=== PATIENT | male | born 1950 | race Caucasian/White ===

== ENCOUNTER 2024-07-12 16:05 | Inpatient (IN) | payer MEDICARE ==
--- NOTE | 2024-07-12 17:03 | ED ---
General Adult HPI - General Chief complaint: Shortness of Breath Stated complaint: body swelling Time Seen by Provider: 07/12/24 16:15 Source: patient, family, RN notes reviewed, old records reviewed Mode of arrival: wheelchair Limitations: no limitations - History of Present Illness Initial comments: This is a 73-year-old male who presents to the emergency room after he visited with his doctor. Dr. Levi called ahead and told me the patient was coming patient has not been seen by Dr. Levi for 7 years. Patient has a history of congestive heart failure. Patient's legs are very swollen and he has multiple ulcerations on his foot and some skin tears as well. Patient states he has difficulty breathing but it is at its baseline. Patient Nuys chest pain or palpitations. Patient has fever chills. Patient Nuys any back pain. - Related Data Home Medications Medication Instructions Recorded Confirmed ALPRAZolam [Xanax] 0.25 mg PO BID PRN 05/23/16 07/11/16 Aspirin [Adult Low Dose Aspirin EC] 81 mg PO HS 05/23/16 07/11/16 Cholecalciferol [Vitamin D3 (25 4,000 unit PO DAILY 05/23/16 07/11/16 Mcg = 1000 Iu)] Glimepiride 4 mg PO AC-BID 05/23/16 07/11/16 Linagliptin [Tradjenta] 5 mg PO DAILY 05/23/16 07/11/16 Nitroglycerin Sl Tabs [Nitrostat] 0.4 mg SUBLINGUAL Q5M PRN 05/23/16 07/11/16 Rivaroxaban [Xarelto] 20 mg PO HS 05/23/16 07/11/16 Rosuvastatin [Crestor] 20 mg PO DAILY 05/23/16 07/11/16 Albuterol Inhaler [Ventolin Hfa 1 - 2 puff INHALATION RT-Q6H PRN 05/28/16 07/11/16 Inhaler] Mometasone/Formoterol [Dulera 100 2 puff INHALATION RT-BID 05/28/16 07/11/16 Mcg-5 Mcg Inhaler] Previous Rx's Medication Instructions Recorded Metoprolol Succinate (ER) [Toprol 12.5 mg PO BID #90 tab.er.24h 06/20/16 XL] Furosemide [Lasix] 40 mg PO TID #0 07/17/16 Spironolactone [Aldactone] 25 mg PO DAILY #30 tab 07/17/16 Allergies Allergy/AdvReac Type Severity Reaction Status Date / Time amiodarone Allergy Unknown Verified 07/12/24 16:13 lorazepam [From Ativan] Allergy Unknown Verified 07/12/24 16:13 mirtazapine [From Remeron] Allergy Unknown Verified 07/12/24 16:13 Review of Systems ROS Statement: Those systems with pertinent positive or pertinent negative responses have been documented in the HPI. ROS Other: All systems not noted in ROS Statement are negative. Past Medical History Past Medical History: Atrial Fibrillation, Coronary Artery Disease (CAD), Heart Failure, COPD, Diabetes Mellitus, GERD/Reflux, Hyperlipidemia, Hypertension, Myocardial Infarction (TX), Osteoarthritis (OA), Prostate Disorder Additional Past Medical History / Comment(s): THYROID NODULES-DR VILLANUEVA, STATED THEY HAVE'NT GOTTEN ANY BIGGER. STATED"IF BP IS UNDER 100 SYSTOLIC THEY DON'T GIVE lopressor or lasix; ABD HERNIA Last Myocardial Infarction Date:: March 16, 2005 History of Any Multi-Drug Resistant Organisms: None Reported Past Surgical History: Coronary Bypass/CABG, Pacemaker Additional Past Surgical History / Comment(s): Triple Bypass. Past Anesthesia/Blood Transfusion Reactions: No Reported Reaction Type of Cardiac Device: AICD Device Placement Date:: 08/07/2012 Past Psychological History: No Psychological Hx Reported Smoking Status: Former smoker Past Alcohol Use History: None Reported Past Drug Use History: None Reported - Past Family History Father Family Medical History: Congestive Heart Failure (CHF) Mother Family Medical History: COPD Son(s) Family Medical History: Seizure Disorder Daughter(s) Family Medical History: No Reported History General Exam - General Exam Comments Initial Comments: GENERAL: Patient is well-developed and well-nourished. Patient is nontoxic and well- hydrated and is in mild distress. ENT: Neck is soft and supple. No significant lymphadenopathy is noted. Oropharynx is clear. Moist mucous membranes. Neck has full range of motion without eliciting any pain. EYES: The sclera were anicteric and conjunctiva were pink and moist. Extraocular movements were intact and pupils were equal round and reactive to light. E yelids were unremarkable. PULMONARY: Patient has diminished breath sounds on the right and some crackles on the left CARDIOVASCULAR: Patient's heart rate is at about 75 bpm and it is irregular. ABDOMEN: Soft and nontender with normal bowel sounds. SKIN: Skin is clear with no lesions or rashes and otherwise unremarkable. NEUROLOGIC: Patient is alert and oriented x3. Cranial nerves II through XII are grossly intact. Motor and sensory are also intact. Normal speech, volume and content. Symmetrical smile. MUSCULOSKELETAL: Normal extremities with adequate strength and full range of motion. Patient has 2+ edema bilaterally patient has a small wound to the lateral aspect of the right leg patient has a area of blistering on top of the foot patient also has some skin tears on the upper leg. And there is a small area of breakdown on the heel. LYMPHATICS: No significant lymphadenopathy is noted PSYCHIATRIC: Normal psychiatric evaluation. Limitations: no limitations Course Vital Signs 07/12/24 07/12/24 07/12/24 16:14 16:28 17:52 Temperature 97.8 F Pulse Rate 82 70 75 Respiratory 20 24 24 Rate Blood Pressure 85/53 93/52 91/56 O2 Sat by Pulse 97 97 96 Oximetry Medical Decision Making - Medical Decision Making EKG is interpreted by myself. EKG shows atrial fibrillation with an occasional PVC at 75 bpm QRS 112 QT interval is 416 QTc is 445. Patient EKG shows no ST segment elevation. Was pt. sent in by a medical professional or institution (, PA, NUTRITION SERVICES WORKER, urgent care, hospital, or penitentiary...) When possible be specific @ -Patient was sent in by Dr. Levi Did you speak to anyone other than the patient for history (EMS, parent, family, police, friend...)? What history was obtained from this source @ -I spoke with Dr. Levi about the patient condition and his past medical history prior to the patient's arrival Did you review nursing and triage notes (agree or disagree)? Why? @ -I reviewed and agree with nursing and triage notes Were old charts reviewed (outside hosp., previous admission, EMS record, old EKG , old radiological studies, urgent care reports/EKG's, penitentiary records)? Report findings @ -No old charts were reviewed Differential Diagnosis? @ -Differential dyspnea EKG interpreted by me (3pts min.). @ -As above X-rays interpreted by me (1pt min.). @ -Chest x-ray is consistent with pulmonary edema CT interpreted by me (1pt min.). @ -None done U/S interpreted by me (1pt. min.). @ -None done What testing was considered but not performed or refused? (CT, X-rays, U/S, labs)? Why? @ -None What meds were considered but not given or refused? Why? @ -None Did you discuss the management of the patient with other professionals (professionals i.e. Dr., PA, NUTRITION SERVICES WORKER, lab, RT, psych nurse, protective services social worker, volcanologist, teacher, food safety officer, outpatient case manager)? Give summary @ -I spoke with Dr. Levi and he agreed to admit the patient. Was smoking cessation discussed for >3mins.? @ -No Was critical care preformed (if so, how long)? @ -5 minutes Were there social determinants of health that impacted care today? How? (Homelessness, low income, unemployed, alcoholism, drug addiction, transportation, low edu. Level, literacy, decrease access to med. care, assisted, rehab)? @ -No Was there de-escalation of care discussed even if they declined (Discuss DNR or withdrawal of care, Hospice)? DNR status @ -No What co-morbidities impacted this encounter? (DM, HTN, Smoking, COPD, CAD, Cancer, CVA, ARF, Chemo, Hep., AIDS, mental health diagnosis, sleep apnea, morbid obesity)? @ -None Was patient admitted / discharged? Hospital course, mention meds given and route, prescriptions, significant lab abnormalities, going to OR and other pertinent info. @ -Patient received Lasix in the emergency department. Patient's potassium was 6.5 patient received insulin D50 bicarb calcium chloride and Lokelma. Patient will be admitted to Dr. Levi with a consult to the wound center Undiagnosed new problem with uncertain prognosis? @ -No Drug Therapy requiring intensive monitoring for toxicity (Heparin, Nitro, Insulin, Cardizem)? @ -No Were any procedures done? @ -No Diagnosis/symptom? @ -Acute pulmonary edema Acute, or Chronic, or Acute on Chronic? @ -Acute Uncomplicated (without systemic symptoms) or Complicated (systemic symptoms)? @ -Complicated Side effects of treatment? @ -No Exacerbation, Progression, or Severe Exacerbation? @ -No Poses a threat to life or bodily function? How? (Chest pain, [place], [place], pneumonia, PE, COPD, DKA, ARF, appy, cholecystitis, CVA, Diverticulitis, Homicidal, Suicidal, threat to staff... and all critical care pts) @ -Yes this can lead to further dyspnea and hypoxia and endorgan dysfunction Diagnosis/symptom? @ -Hyperkalemia Acute, or Chronic, or Acute on Chronic? @ -Acute Uncomplicated (without systemic symptoms) or Complicated (systemic symptoms)? @ -Complicate Side effects of treatment? @ -None Exacerbation, Progression, or Severe Exacerbation] @ -No Poses a threat to life or bodily function? @ -Yes this can lead to an arrhythmia and possible Diagnosis/symptom? @ -Hyponatremia Acute, or Chronic, or Acute on Chronic? @ -Acute Uncomplicated (without systemic symptoms) or Complicated (systemic symptoms)? @ -Complicated Side effects of treatment? @ -None Exacerbation, Progression, or Severe Exacerbation] @ -No Poses a threat to life or bodily function? @ -No Diagnosis/symptom? @ -Cellulitis foot Acute, or Chronic, or Acute on Chronic? @ -Acute Uncomplicated (without systemic symptoms) or Complicated (systemic symptoms)? @ -Complicated Side effects of treatment? @ -None Exacerbation, Progression, or Severe Exacerbation] @ -No Poses a threat to life or bodily function? @ -No - Lab Data Result diagrams: 07/12/24 17:39 07/12/24 18:30 Lab Results 07/12/24 07/12/24 07/12/24 Range/Units 17:39 17:39 17:39 WBC 10.4 (3.8-10.6) k/uL RBC 4.52 (4.30-5.90) m/uL Hgb 10.8 L (13.0-17.5) gm/dL Hct 35.1 L (39.0-53.0) % MCV 77.7 L (80.0-100.0) fL MCH 23.9 L (25.0-35.0) pg MCHC 30.8 L (31.0-37.0) g/dL RDW 16.3 H (11.5-15.5) % Plt Count 302 (150-450) k/uL MPV 8.3 Neutrophils % 81 % Lymphocytes % 8 % Monocytes % 9 % Eosinophils % 1 % Basophils % 0 % Neutrophils # 8.4 H (1.3-7.7) k/uL Lymphocytes # 0.8 L (1.0-4.8) k/uL Monocytes # 0.9 (0-1.0) k/uL Eosinophils # 0.1 (0-0.7) k/uL Basophils # 0.0 (0-0.2) k/uL Hypochromasia Slight Anisocytosis Slight Microcytosis Slight PT 13.3 H (10.0-12.5) sec INR 1.3 H (<1.2) APTT 29.6 (22.0-30.0) sec Sodium 123 L (137-145) mmol/L Potassium 6.5 H* (3.5-5.1) mmol/L Chloride 95 L (98-107) mmol/L Carbon Dioxide 20 L (22-30) mmol/L Anion Gap 8 mmol/L BUN 58 H (9-20) mg/dL Creatinine 1.32 H (0.66-1.25) mg/dL Est GFR (CKD-EPI)AfAm 62 (>60 ml/min/1.73 sqM) Est GFR (CKD-EPI)NonAf 54 (>60 ml/min/1.73 sqM) Glucose 107 H (74-99) mg/dL POC Glucose (mg/dL) (70-110) mg/dL POC Glu Assistant Professor [employer] Plasma Lactic Acid Ford (0.7-2.0) mmol/L Calcium 8.7 (8.4-10.2) mg/dL Magnesium 2.4 H (1.6-2.3) mg/dL Total Bilirubin 1.1 (0.2-1.3) mg/dL AST 41 (17-59) U/L ALT 41 (4-49) U/L Alkaline Phosphatase 260 H (38-126) U/L Troponin I (0.000-0.034) ng/mL NT-Pro-B Natriuret Pep 5940 pg/mL Total Protein 6.1 L (6.3-8.2) g/dL Albumin 3.0 L (3.5-5.0) g/dL 07/12/24 07/12/24 07/12/24 Range/Units 17:39 17:39 18:30 WBC (3.8-10.6) k/uL RBC (4.30-5.90) m/uL Hgb (13.0-17.5) gm/dL Hct (39.0-53.0) % MCV (80.0-100.0) fL MCH (25.0-35.0) pg MCHC (31.0-37.0) g/dL RDW (11.5-15.5) % Plt Count (150-450) k/uL MPV Neutrophils % % Lymphocytes % % Monocytes % % Eosinophils % % Basophils % % Neutrophils # (1.3-7.7) k/uL Lymphocytes # (1.0-4.8) k/uL Monocytes # (0-1.0) k/uL Eosinophils # (0-0.7) k/uL Basophils # (0-0.2) k/uL Hypochromasia Anisocytosis Microcytosis PT (10.0-12.5) sec INR (<1.2) APTT (22.0-30.0) sec Sodium (137-145) mmol/L Potassium 6.2 H* (3.5-5.1) mmol/L Chloride (98-107) mmol/L Carbon Dioxide (22-30) mmol/L Anion Gap mmol/L BUN (9-20) mg/dL Creatinine (0.66-1.25) mg/dL Est GFR (CKD-EPI)AfAm (>60 ml/min/1.73 sqM) Est GFR (CKD-EPI)NonAf (>60 ml/min/1.73 sqM) Glucose (74-99) mg/dL POC Glucose (mg/dL) (70-110) mg/dL POC Glu Assistant Professor [employer] Plasma Lactic Acid Ford 1.2 (0.7-2.0) mmol/L Calcium (8.4-10.2) mg/dL Magnesium (1.6-2.3) mg/dL Total Bilirubin (0.2-1.3) mg/dL AST (17-59) U/L ALT (4-49) U/L Alkaline Phosphatase (38-126) U/L Troponin I <0.012 (0.000-0.034) ng/mL NT-Pro-B Natriuret Pep pg/mL Total Protein (6.3-8.2) g/dL Albumin (3.5-5.0) g/dL 10/31/24 Range/Units 19:30 WBC (3.8-10.6) k/uL RBC (4.30-5.90) m/uL Hgb (13.0-17.5) gm/dL Hct (39.0-53.0) % MCV (80.0-100.0) fL MCH (25.0-35.0) pg MCHC (31.0-37.0) g/dL RDW (11.5-15.5) % Plt Count (150-450) k/uL MPV Neutrophils % % Lymphocytes % % Monocytes % % Eosinophils % % Basophils % % Neutrophils # (1.3-7.7) k/uL Lymphocytes # (1.0-4.8) k/uL Monocytes # (0-1.0) k/uL Eosinophils # (0-0.7) k/uL Basophils # (0-0.2) k/uL Hypochromasia Anisocytosis Microcytosis PT (10.0-12.5) sec INR (<1.2) APTT (22.0-30.0) sec Sodium (137-145) mmol/L Potassium (3.5-5.1) mmol/L Chloride (98-107) mmol/L Carbon Dioxide (22-30) mmol/L Anion Gap mmol/L BUN (9-20) mg/dL Creatinine (0.66-1.25) mg/dL Est GFR (CKD-EPI)AfAm (>60 ml/min/1.73 sqM) Est GFR (CKD-EPI)NonAf (>60 ml/min/1.73 sqM) Glucose (74-99) mg/dL POC Glucose (mg/dL) 112 H (70-110) mg/dL POC Glu Assistant Professor [employer] aShil Carballo Plasma Lactic Acid Ford (0.7-2.0) mmol/L Calcium (8.4-10.2) mg/dL Magnesium (1.6-2.3) mg/dL Total Bilirubin (0.2-1.3) mg/dL AST (17-59) U/L ALT (4-49) U/L Alkaline Phosphatase (38-126) U/L Troponin I (0.000-0.034) ng/mL NT-Pro-B Natriuret Pep pg/mL Total Protein (6.3-8.2) g/dL Albumin (3.5-5.0) g/dL Disposition Clinical Impression: Hyponatremia, Hyperkalemia, Acute pulmonary edema, Cellulitis of foot Disposition: ADMITTED IP TO THIS HOSP Referrals: Loretta Levi MD [Primary Care Provider] - 1-2 days Time of Disposition: 19:53
[2024-07-12] MEDS: cefTRIAXone IN SWFI 1,000 MG/10 ML SYRINGE IVP STA (17:45)
[2024-07-12 17:58] LABS: Anisocytosis Slight; Basophils % (A) 0 %; Eosinophils # (A) 0.1 k/uL (0-0.7); Eosinophils % (A) 1 %; HCT 35.1 % (39.0-53.0); HGB 10.8 gm/dL (13.0-17.5); Hypochromasia Slight; Lymphocytes # (A) 0.8 k/uL (1.0-4.8); Lymphocytes % (A) 8 %; MCH 23.9 pg (25.0-35.0); MCHC 30.8 g/dL (31.0-37.0); MCV 77.7 fL (80.0-100.0); Mean Platelet Volume 8.3; Microcytosis Slight; Monocytes # (A) 0.9 k/uL (0-1.0); Monocytes % (A) 9 %; Neutrophils # (A) 8.4 k/uL (1.3-7.7); Neutrophils % (A) 81 %; Platelet Count 302 k/uL (150-450); RBC 4.52 m/uL (4.30-5.90); RDW 16.3 % (11.5-15.5); WBC 10.4 k/uL (3.8-10.6)
[2024-07-12] MEDS: FUROSEMIDE 10 MG/ML 4 ML VIAL IV STA (18:02)
[2024-07-12 18:07] LABS: INR 1.3 (<1.2); Partial Thromboplastin Time 29.6 sec (22.0-30.0); Prothrombin Time 13.3 sec (10.0-12.5)
[2024-07-12 18:11] LABS: ALT 41 U/L (4-49); AST 41 U/L (17-59); African American GFR (CKD) 62 (>60 ml/min/1.73 sqM); Alkaline Phosphatase 260 U/L (38-126); Anion Gap 8 mmol/L; Blood Urea Nitrogen 58 mg/dL (9-20); Calcium 8.7 mg/dL (8.4-10.2); Carbon Dioxide 20 mmol/L (22-30); Chloride 95 mmol/L (98-107); Glucose 107 mg/dL (74-99); Magnesium 2.4 mg/dL (1.6-2.3); Non-African American GFR(CKD) 54 (>60 ml/min/1.73 sqM); Sodium 123 mmol/L (137-145); Total Bilirubin 1.1 mg/dL (0.2-1.3); Total Protein 6.1 g/dL (6.3-8.2)
[2024-07-12 18:17] LABS: Potassium 6.5 mmol/L (3.5-5.1)
[2024-07-12 18:20] LABS: NT-Pro-B-Type Natriuretic Pept 5940 pg/mL
--- NOTE | 2024-07-12 18:46 | XR ---
EXAMINATION TYPE: XR foot limited RT DATE OF EXAM: 07/12/2024 COMPARISON: None HISTORY: Pain after twisting foot TECHNIQUE: 2 view right foot FINDINGS: Some mild degenerative joint change may be within the first digit. Soft tissue swelling ove r the dorsum of the foot. Small plantar calcaneal heel spur is present. Vascular calcification is pre sent. No acute fractures or dislocations evident. Follow-up study can be performed 7-10 days from acute tra paolo for continued pain. IMPRESSION: 1. Soft tissue swelling over the dorsum of foot. 2. No acute osseous abnormality. [facility], Workstation: [facility], 07/12/2024 6:44 PM
--- NOTE | 2024-07-12 18:49 | XR ---
EXAMINATION TYPE: XR chest 2V DATE OF EXAM: 07/12/2024 COMPARISON: 07/15/2016 INDICATION: Difficulty breathing, fluid overload TECHNIQUE: Frontal and lateral views of the chest are obtained. FINDINGS: The heart size is enlarged. The pulmonary vasculature is prominent. Mild diffuse increased lung markings are present greater at the lung bases. Pacemaker overlies left c hest. Sternotomy wires are in the midline.. IMPRESSION: 1. Diffuse increased lung markings with enlarged heart and prominent pulmonary vascular markings can be compatible with congestive heart failure. Clinical correlation recommended. Follow-up can be perfo rmed. [facility], Workstation: [facility], 07/12/2024 6:47 PM
[2024-07-12 19:31] LABS: Glucose,Whole Blood 112 mg/dL (70-110)
[2024-07-12] MEDS: SODIUM BICARB 8.4% 50 ML SYR (1 MEQ/ML) IV STA (19:31)
[2024-07-12] MEDS: DEXTROSE 50% SYRINGE 50 ML IVP STA (19:33)
[2024-07-12] MEDS: INSULIN REGULAR 100 UNIT/ML VIAL (IV) IV ONE (19:35)
[2024-07-12] MEDS: SODIUM ZIRCONIUM CYCLOSILICATE 10 GM PACKET PO ONE (19:41)
[2024-07-12] MEDS: CALCIUM CHLORIDE 100 MG/ML 10 ML SYRINGE IVP STA (19:43)
[2024-07-12] MEDS: AMPICILLIN-SULBACTAM 3 GM in SODIUM CHLORIDE 0.9% 100 ML IVPB STA (20:27)
[2024-07-13] MEDS: NITROGLYCERIN OINT 1 INCH/GM PACKET TOPICAL SCH (02:52)
[2024-07-13] MEDS: AMPICILLIN-SULBACTAM 3 GM in SODIUM CHLORIDE 0.9% 100 ML IVPB SCH ×2 (02:52→02:53)
[2024-07-13 08:19] LABS: HCT 37.7 % (39.0-53.0); HGB 11.6 gm/dL (13.0-17.5); Hypochromasia Moderate; MCH 24.5 pg (25.0-35.0); MCHC 30.8 g/dL (31.0-37.0); MCV 79.6 fL (80.0-100.0); Mean Platelet Volume 7.8; Platelet Count 262 k/uL (150-450); RBC 4.73 m/uL (4.30-5.90)
[2024-07-13 08:20] LABS: African American GFR (CKD) 65 (>60 ml/min/1.73 sqM); Anion Gap 11 mmol/L; Blood Urea Nitrogen 53 mg/dL (9-20); Carbon Dioxide 21 mmol/L (22-30); Chloride 95 mmol/L (98-107); Glucose 72 mg/dL (74-99); Non-African American GFR(CKD) 57 (>60 ml/min/1.73 sqM); Potassium 5.8 mmol/L (3.5-5.1); Sodium 127 mmol/L (137-145)
--- NOTE | 2024-07-13 10:53 | P.CONS ---
History of Present Illness - Reason for Consult Consult date: 07/13/24 wound care - History of Present Illness This is a 73-year-old patient being seen in the emergency room for nonhealing ulcerations to the right ankle right knee and right anterior lower extremity, left knee and left hand. Family states that the patient had fallen resulting in multiple skin tears. Patient was usually triple antibiotic ointment and adhesive for treatment. The adhesive caused additional ulcerations. Patient does have edema noted to bilateral lower extremities with blistering noted to the right dorsal foot. Ulcerations have fat layer exposed with slough and nonviable tissue minimal granulation seen within the wound beds. Patient's past medical history significant for atrial fibrillation, coronary artery disease, heart failure, COPD, diabetes, GERD, hyperlipidemia mouth, hypertension, NC, osteoarthritis. Review Of Systems: Constitutional: No fever, no chills, no night sweats. No weight change. No weakness, fatigue or lethargy. No daytime sleepiness. Integumentary:reports wounds, no lesions. No rash or pruritus. No unusual bruising. No change in hair or nails. Physical exam: General Appearance: Alert, cooperative, no distress, appears stated age. Skin: See HPI all other Skin color, texture, tugor normal, no rashes or lesions. Neurologic: Alert oriented x3 Assessment: 1. Nonhealing ulceration right foot with fat layer exposure 2. Nonhealing ulceration right lower extremity with fat layer exposure 3. Nonhealing ulceration left lower extremity fat layer exposure 4. Nonhealing ulceration with fat layer exposure other site 5. Diabetes with skin ulceration Plan: 1. Apply zinc barrier cream to left hand ulceration daily and as needed. Right lower extremity right knee right foot apply honey gel dry gauze rolled gauze and secure with paper tape. Wrap with Klever wrap for compression. Left knee apply honey gel and bordered foam. Change lower extremity dressings Tuesday. Thank you for the consultation any questions please contact the wound care center DNP note has been reviewed and discussed with Dr. Lamar and the impression and plan of care has been directed as dictated. Past Medical History Past Medical History: Atrial Fibrillation, Coronary Artery Disease (CAD), Heart Failure, COPD, Diabetes Mellitus, GERD/Reflux, Hyperlipidemia, Hypertension, Myocardial Infarction (NC), Osteoarthritis (OA), Prostate Disorder Additional Past Medical History / Comment(s): THYROID NODULES-DR VILLANUEVA, STATED THEY HAVE'NT GOTTEN ANY BIGGER. STATED"IF BP IS UNDER 100 SYSTOLIC THEY DON'T GIVE lopressor or lasix; ABD HERNIA Last Myocardial Infarction Date:: March 16, 2005 History of Any Multi-Drug Resistant Organisms: None Reported Past Surgical History: Coronary Bypass/CABG, Pacemaker Additional Past Surgical History / Comment(s): Triple Bypass. Past Anesthesia/Blood Transfusion Reactions: No Reported Reaction Type of Cardiac Device: AICD Device Placement Date:: 08/07/2012 Past Psychological History: No Psychological Hx Reported Smoking Status: Former smoker Past Alcohol Use History: None Reported Past Drug Use History: None Reported - Past Family History Father Family Medical History: Congestive Heart Failure (CHF) Mother Family Medical History: COPD Son(s) Family Medical History: Seizure Disorder Daughter(s) Family Medical History: No Reported History Medications and Allergies Home Medications Medication Instructions Recorded Confirmed Type ALPRAZolam [Xanax] 0.25 mg PO BID 05/23/16 07/13/24 History Aspirin [Adult Low Dose Aspirin EC] 81 mg PO DAILY 05/23/16 07/13/24 History Nitroglycerin Sl Tabs [Nitrostat] 0.4 mg SUBLINGUAL Q5M PRN 05/23/16 07/13/24 History Spironolactone [Aldactone] 25 mg PO DAILY #30 tab 07/17/16 07/13/24 Rx Cholecalciferol [Vitamin D3 (125 125 mcg PO DAILY 07/13/24 07/13/24 History Mcg = 5000 Iu)] Furosemide [Lasix] 80 mg PO BID 07/13/24 07/13/24 History Loratadine [Claritin] 10 mg PO DAILY 07/13/24 07/13/24 History Magnesium Oxide [Magnesium] 500 mg PO BID 07/13/24 07/13/24 History Metoprolol Succinate (ER) [Toprol 25 mg PO BID 07/13/24 07/13/24 History Xl] Rosuvastatin Calcium [Crestor] 40 mg PO DAILY 07/13/24 07/13/24 History guaiFENesin [Mucinex] 600 mg PO TID 07/13/24 07/13/24 History lisinopriL [Zestril] 2.5 mg PO DAILY 07/13/24 07/13/24 History Allergies Allergy/AdvReac Type Severity Reaction Status Date / Time amiodarone Allergy Unknown Verified 07/13/24 09:26 lorazepam [From Ativan] Allergy Unknown Verified 07/13/24 09:26 mirtazapine [From Remeron] Allergy Unknown Verified 07/13/24 09:26 Physical Exam Vitals: Vital Signs Temp Pulse Resp BP Pulse Ox 07/13/24 08:47 79 20 79/51 97 07/13/24 07:37 76 18 90/60 100 07/13/24 05:00 72 18 82/67 100 07/13/24 03:00 65 18 84/58 100 07/13/24 00:06 72 18 92/49 94 L 07/12/24 23:00 81 18 82/42 95 07/12/24 21:53 20 07/12/24 20:00 89 21 98/61 100 07/12/24 19:44 83 16 98/61 98 07/12/24 17:52 75 24 91/56 96 07/12/24 16:28 70 24 93/52 97 07/12/24 16:14 97.8 F 82 20 85/53 97 Intake and Output 07/12/24 07/13/24 07/13/24 22:59 06:59 14:59 Output Total 1600 Balance -1600 Output: Urine 1600 Other: Weight 90.718 kg Results CBC & Chem 7: 07/13/24 07:43 07/13/24 07:43 Labs: Abnormal Lab Results - Last 24 Hours (Table) 07/12/24 07/12/24 07/12/24 Range/Units 17:39 17:39 17:39 WBC (3.8-10.6) k/uL Hgb 10.8 L (13.0-17.5) gm/dL Hct 35.1 L (39.0-53.0) % MCV 77.7 L (80.0-100.0) fL MCH 23.9 L (25.0-35.0) pg MCHC 30.8 L (31.0-37.0) g/dL RDW 16.3 H (11.5-15.5) % Neutrophils # 8.4 H (1.3-7.7) k/uL Lymphocytes # 0.8 L (1.0-4.8) k/uL PT 13.3 H (10.0-12.5) sec INR 1.3 H (<1.2) Sodium 123 L (137-145) mmol/L Potassium 6.5 H* (3.5-5.1) mmol/L Chloride 95 L (98-107) mmol/L Carbon Dioxide 20 L (22-30) mmol/L BUN 58 H (9-20) mg/dL Creatinine 1.32 H (0.66-1.25) mg/dL Glucose 107 H (74-99) mg/dL POC Glucose (mg/dL) (70-110) mg/dL Magnesium 2.4 H (1.6-2.3) mg/dL Alkaline Phosphatase 260 H (38-126) U/L Total Protein 6.1 L (6.3-8.2) g/dL Albumin 3.0 L (3.5-5.0) g/dL 07/12/24 07/12/24 07/12/24 Range/Units 18:30 19:30 20:38 WBC (3.8-10.6) k/uL Hgb (13.0-17.5) gm/dL Hct (39.0-53.0) % MCV (80.0-100.0) fL MCH (25.0-35.0) pg MCHC (31.0-37.0) g/dL RDW (11.5-15.5) % Neutrophils # (1.3-7.7) k/uL Lymphocytes # (1.0-4.8) k/uL PT (10.0-12.5) sec INR (<1.2) Sodium (137-145) mmol/L Potassium 6.2 H* 6.0 H (3.5-5.1) mmol/L Chloride (98-107) mmol/L Carbon Dioxide (22-30) mmol/L BUN (9-20) mg/dL Creatinine (0.66-1.25) mg/dL Glucose (74-99) mg/dL POC Glucose (mg/dL) 112 H (70-110) mg/dL Magnesium (1.6-2.3) mg/dL Alkaline Phosphatase (38-126) U/L Total Protein (6.3-8.2) g/dL Albumin (3.5-5.0) g/dL 07/13/24 07/13/24 Range/Units 07:43 07:43 WBC 18.0 H (3.8-10.6) k/uL Hgb 11.6 L (13.0-17.5) gm/dL Hct 37.7 L (39.0-53.0) % MCV 79.6 L (80.0-100.0) fL MCH 24.5 L (25.0-35.0) pg MCHC 30.8 L (31.0-37.0) g/dL RDW 16.0 H (11.5-15.5) % Neutrophils # (1.3-7.7) k/uL Lymphocytes # (1.0-4.8) k/uL PT (10.0-12.5) sec INR (<1.2) Sodium 127 L (137-145) mmol/L Potassium 5.8 H (3.5-5.1) mmol/L Chloride 95 L (98-107) mmol/L Carbon Dioxide 21 L (22-30) mmol/L BUN 53 H (9-20) mg/dL Creatinine 1.26 H (0.66-1.25) mg/dL Glucose 72 L (74-99) mg/dL POC Glucose (mg/dL) (70-110) mg/dL Magnesium (1.6-2.3) mg/dL Alkaline Phosphatase (38-126) U/L Total Protein (6.3-8.2) g/dL Albumin (3.5-5.0) g/dL Assessment and Plan (1) Non-pressure chronic ulcer of right ankle with fat layer exposed Current Visit: Yes Status: Acute Code(s): L97.312 - NON-PRS CHRONIC ULCER OF RIGHT ANKLE W FAT LAYER EXPOSED SNOMED Code(s): 99029557250846458 (2) Non-pressure chronic ulcer of right lower leg with fat layer exposed Current Visit: Yes Status: Acute Code(s): L97.912 - NON-PRS CHR ULC UNSP PRT OF R LOW LEG W FAT LAYER EXPOSED SNOMED Code(s): 08647805437482671 (3) Non-pressure chronic ulcer of other part of right lower leg with fat layer exposed Current Visit: Yes Status: Acute Code(s): L97.812 - NON-PRS CHRONIC ULCER OTH PRT R LOW LEG W FAT LAYER EXPOSED SNOMED Code(s): 09352296240092861 (4) Non-pressure chronic ulcer of other part of left lower leg with fat layer exposed Current Visit: Yes Status: Acute Code(s): L97.822 - NON-PRS CHRONIC ULCER OTH PRT L LOW LEG W FAT LAYER EXPOSED SNOMED Code(s): 50654569703805833 (5) Non-pressure chronic ulcer of skin of other sites with fat layer exposed Current Visit: Yes Status: Acute Code(s): L98.492 - NON-PRS CHRONIC ULCER OF SKIN OF SITES W FAT LAYER EXPOSED SNOMED Code(s): 71868528 (6) Type 2 diabetes mellitus with other skin ulcer Current Visit: Yes Status: Acute Code(s): E11.622 - TYPE 2 DIABETES MELLITUS WITH OTHER SKIN ULCER; L98.499 - NON-PRESSURE CHRONIC ULCER OF SKIN OF SITES W UNSP SEVERITY SNOMED Code(s): 126731560225835
[2024-07-13] MEDS: ASPIRIN 81 MG PO SCH (10:56)
[2024-07-13] MEDS: ALPRAZolam 0.25 MG TAB PO SCH (10:56)
[2024-07-13] MEDS: FUROSEMIDE 80 MG TAB PO SCH (11:11)
[2024-07-13] MEDS: SPIRONOLACTONE 25 MG TAB PO SCH (11:12)
[2024-07-13] MEDS: METOPROLOL SUCCINATE (ER) 25 MG TAB.ER.24H PO SCH ×2 (11:12→20:53)
--- NOTE | 2024-07-13 15:12 | P.CNPUL ---
History of Present Illness Consult date: 07/13/24 Requesting physician: Loretta Levi Reason for consult: dyspnea, hypoxemia, abnormal CXR/CT Chief complaint: Congestive heart failure, atrial fibrillation. History of present illness: Pulmonary consult dated July 13, 2024. 73-year-old male with history of multiple medical problems including congestive heart failure, and atrial fibrillation. The patient was sent into the hospital, by his primary care physician. The patient came in with complaints of lower extremity edema, shortness of breath, ulcerations on his foot, and weakness. The patient was seen in the emergency room, ER #3. We were consulted because the patient has been hypotensive, since being in the emergency department. N orepinephrine has not yet been started. Cardiac medications have been held. In addition to atrial fibrillation, the patient has a history of myocardial infarction, coronary disease, congestive heart failure, diabetes, GERD, hyperlipidemia, hypertension, osteoarthritis, and previous bypass surgery. The patient apparently was at [facility] many years ago, on a ventilator, and was apparently on hospice, but has done well over the last 7 or 8 years. The patient does have a history of AICD placement, and previous tobacco use. Currently, he is on CPAP, at between 8 to 12 cm of water. He is not receiving any IV fluids. We did talk to the patient about CODE STATUS and he stated that he would not want to be on life support. His agreed with that. White count is 18, hemoglobin 11.6, hematocrit 37.7, platelet count of 262,000. Sodium 127, potassium 5.8, chloride 95, CO2 21, anion gap is 11, BUN 53, creatinine is 1.26. His N-terminal proBNP was 5940. His troponin was less than 0.012. Chest x-ray was consistent with CHF. Review of Systems REVIEW OF SYSTEMS: CONSTITUTIONAL: Weakness. NEUROLOGIC: [ Negative.] HEENT: [ Negative.] CARDIAC: Lower extremity edema. PULMONARY: Shortness of breath. GI: [Negative.] : [Negative.] RHEUMATOLOGIC: [ Negative.] IMMUNOLOGIC: [ Negative.] ENDOCRINE: [Negative. ] DERMATOLOGIC: [Negative.] Past Medical History Past Medical History: Atrial Fibrillation, Coronary Artery Disease (CAD), Heart Failure, COPD, Diabetes Mellitus, GERD/Reflux, Hyperlipidemia, Hypertension, Myocardial Infarction (ND), Osteoarthritis (OA), Prostate Disorder Additional Past Medical History / Comment(s): THYROID NODULES-DR VILLANUEVA, STATED THEY HAVE'NT GOTTEN ANY BIGGER. STATED"IF BP IS UNDER 100 SYSTOLIC THEY DON'T GIVE lopressor or lasix; ABD HERNIA Last Myocardial Infarction Date:: March 16, 2005 History of Any Multi-Drug Resistant Organisms: None Reported Past Surgical History: Coronary Bypass/CABG, Pacemaker Additional Past Surgical History / Comment(s): Triple Bypass. Past Anesthesia/Blood Transfusion Reactions: No Reported Reaction Type of Cardiac Device: AICD Device Placement Date:: 08/07/2012 Past Psychological History: No Psychological Hx Reported Smoking Status: Former smoker Past Alcohol Use History: None Reported Past Drug Use History: None Reported - Past Family History Father Family Medical History: Congestive Heart Failure (CHF) Mother Family Medical History: COPD Son(s) Family Medical History: Seizure Disorder Daughter(s) Family Medical History: No Reported History Medications and Allergies Home Medications Medication Instructions Recorded Confirmed Type ALPRAZolam [Xanax] 0.25 mg PO BID 05/23/16 07/13/24 History Aspirin [Adult Low Dose Aspirin EC] 81 mg PO DAILY 05/23/16 07/13/24 History Nitroglycerin Sl Tabs [Nitrostat] 0.4 mg SUBLINGUAL Q5M PRN 05/23/16 07/13/24 History Spironolactone [Aldactone] 25 mg PO DAILY #30 tab 07/17/16 07/13/24 Rx Cholecalciferol [Vitamin D3 (125 125 mcg PO DAILY 07/13/24 07/13/24 History Mcg = 5000 Iu)] Furosemide [Lasix] 80 mg PO BID 07/13/24 07/13/24 History Loratadine [Claritin] 10 mg PO DAILY 07/13/24 07/13/24 History Magnesium Oxide [Magnesium] 500 mg PO BID 07/13/24 07/13/24 History Metoprolol Succinate (ER) [Toprol 25 mg PO BID 07/13/24 07/13/24 History Xl] Rosuvastatin Calcium [Crestor] 40 mg PO DAILY 07/13/24 07/13/24 History guaiFENesin [Mucinex] 600 mg PO TID 07/13/24 07/13/24 History lisinopriL [Zestril] 2.5 mg PO DAILY 07/13/24 07/13/24 History Allergies Allergy/AdvReac Type Severity Reaction Status Date / Time amiodarone Allergy Unknown Verified 07/13/24 09:26 lorazepam [From Ativan] Allergy Unknown Verified 07/13/24 09:26 mirtazapine [From Remeron] Allergy Unknown Verified 07/13/24 09:26 Physical Exam Osteopathic Statement: *. No significant issues noted on an osteopathic structural exam other than those noted in the History and Physical/Consult. Vitals: Vital Signs Temp Pulse Resp BP Pulse Ox 07/13/24 14:17 76 18 91/55 98 07/13/24 13:51 79 18 79/39 96 07/13/24 12:52 69 18 81/36 97 07/13/24 11:17 80 20 86/46 100 07/13/24 08:47 79 20 79/51 97 07/13/24 07:37 76 18 90/60 100 07/13/24 05:00 72 18 82/67 100 07/13/24 03:00 65 18 84/58 100 07/13/24 00:06 72 18 92/49 94 L 07/12/24 23:00 81 18 82/42 95 07/12/24 21:53 20 07/12/24 20:00 89 21 98/61 100 07/12/24 19:44 83 16 98/61 98 07/12/24 17:52 75 24 91/56 96 07/12/24 16:28 70 24 93/52 97 07/12/24 16:14 97.8 F 82 20 85/53 97 Intake and Output 07/13/24 07/13/24 07/13/24 06:59 14:59 22:59 Output Total 1600 Balance -1600 Output: Urine 1600 No acute distress, bit lethargic, but does arouse, currently on home CPAP. HEENT examination is grossly unremarkable. Neck supple. Full range of motion. No adenopathy thyromegaly or neck vein distention. Cardiovascular examination reveals an irregular rhythm and rate. S1-S2 normal. No S3 or S4. A systolic murmur is noted, grade 2/6. Heart rate 83 bpm. Lungs reveal scattered rhonchi and crackles. Breath sounds equal. No wheezes. Abdomen soft bowel sounds are heard. No masses or tenderness. Extremities are intact. No cyanosis or clubbing. 1+ edema is noted. Skin is without rash or lesion. Neurologic examination is brief but nonfocal. Results - Laboratory Findings CBC and BMP: 07/13/24 07:43 07/13/24 07:43 PT/INR, D-dimer PT 13.3 sec (10.0-12.5) H 07/12/24 17:39 INR 1.3 (<1.2) H 07/12/24 17:39 Abnormal lab findings: Abnormal Labs 07/12/24 07/12/24 07/12/24 17:39 17:39 17:39 WBC Hgb 10.8 L Hct 35.1 L MCV 77.7 L MCH 23.9 L MCHC 30.8 L RDW 16.3 H Neutrophils # 8.4 H Lymphocytes # 0.8 L PT 13.3 H INR 1.3 H Sodium 123 L Potassium 6.5 H* Chloride 95 L Carbon Dioxide 20 L BUN 58 H Creatinine 1.32 H Glucose 107 H POC Glucose (mg/dL) Magnesium 2.4 H Alkaline Phosphatase 260 H Total Protein 6.1 L Albumin 3.0 L 07/12/24 07/12/24 07/12/24 18:30 19:30 20:38 WBC Hgb Hct MCV MCH MCHC RDW Neutrophils # Lymphocytes # PT INR Sodium Potassium 6.2 H* 6.0 H Chloride Carbon Dioxide BUN Creatinine Glucose POC Glucose (mg/dL) 112 H Magnesium Alkaline Phosphatase Total Protein Albumin 07/13/24 07/13/24 07:43 07:43 WBC 18.0 H Hgb 11.6 L Hct 37.7 L MCV 79.6 L MCH 24.5 L MCHC 30.8 L RDW 16.0 H Neutrophils # Lymphocytes # PT INR Sodium 127 L Potassium 5.8 H Chloride 95 L Carbon Dioxide 21 L BUN 53 H Creatinine 1.26 H Glucose 72 L POC Glucose (mg/dL) Magnesium Alkaline Phosphatase Total Protein Albumin - Diagnostic Findings Chest x-ray: image reviewed Assessment and Plan Assessment: Acute hypoxemic respiratory failure, secondary to CHF. Hypotension, likely secondary to congestive heart failure and poor cardiac function. History of chronic atrial fibrillation. History of CAD, with previous myocardial infarction, and previous CABG. Status post AICD/pacemaker implantation. History of COPD from previous tobacco use. History of diabetes mellitus. History of gastroesophageal reflux disease. History of hypertension. History of hyperlipidemia. General medical debility. Plan: Plan dated July 13, 2024. The patient is seen in the emergency department. He is currently on his home CPAP. The patient sees Dr. Levi as a primary. I asked him what applications administrator he sees, and he states he does not see one. The patient apparently had respiratory failure and was at [facility] on a ventilator for period of time many years back. The patient was a hospice patient for a long period of time. Labs, x-rays, and medications are reviewed. The patient has an elevated BNP, and his chest x-ray is consistent with congestive heart failure. Because of his hypotension, the nurse in the emergency room has held many of his cardiac medications including Lasix. The patient will be admitted to the intensive care unit, for further monitoring and management. Of note, we did have a discussion with the patient about CODE STATUS. He would like to receive all current treatments, including medications, but, would not want intubation, mechanical ventilation, or CPR. Time with Patient: Greater than 30
[2024-07-13] MEDS ORDERED: IPRATROPIUM-ALBUTEROL 3 ML NEB INHALATION PRN (15:13)
[2024-07-13 16:32] LABS: Glucose,Whole Blood 120 mg/dL (70-110)
[2024-07-13] MEDS: IPRATROPIUM-ALBUTEROL 3 ML NEB INHALATION SCH (16:50)
[2024-07-13] MEDS: FUROSEMIDE 10 MG/ML 4 ML VIAL IV STA (17:08)
[2024-07-13] MEDS: ZINC OXIDE PASTE (Z-GUARD) 1 APPLIC TOPICAL SCH (17:12)
[2024-07-13] MEDS ORDERED: HEPARIN SODIUM 1,000 UN/ML (10ML VL) IV PRN (18:44)
[2024-07-13] MEDS ORDERED: Potassium Replacement Protocol 1 EACH MISC MISCELLANE PRN (18:48)
[2024-07-13] MEDS ORDERED: NALOXONE 0.4 MG/ML 1 ML VIAL IV PRN (18:48)
[2024-07-13] MEDS ORDERED: Magnesium Replacement Protocol 1 EACH MISC MISCELLANE PRN (18:48)
[2024-07-13] MEDS: HEPARIN SOD,PORK IN 0.45% NACL 25,000 UNIT in 0.45% NACL 1 250ML.BAG IV SCH (18:59)
--- NOTE | 2024-07-13 19:31 | US ---
EXAMINATION TYPE: US venous doppler duplex LE RT DATE OF EXAM: 07/13/2024 6:48 PM COMPARISON: NONE CLINICAL INDICATION: Male, 73 years old with history of rule out dvt; Redness and edema right leg, Pa in, Swelling TECHNIQUE: The lower extremity deep venous system is examined utilizing real time linear array sonog jonny with graded compression, color doppler sonography, and spectral doppler. SIDE PERFORMED: Right FINDINGS: VESSELS IMAGED: Common Femoral Vein Deep Femoral Vein Greater Saphenous Vein * Femoral Vein Popliteal Vein Small Saphenous Vein * Proximal Calf Veins (* superficial vessels) Right Leg: Negative for DVT IMPRESSION: No ultrasound evidence for deep venous thrombosis. [facility], , 07/13/2024 7:29 PM
[2024-07-13 19:33] LABS: Anisocytosis Slight; Basophils % (A) 0 %; Eosinophils % (A) 0 %; HCT 35.9 % (39.0-53.0); HGB 11.2 gm/dL (13.0-17.5); Hypochromasia Moderate; Lymphocytes # (A) 0.5 k/uL (1.0-4.8); Lymphocytes % (A) 3 %; MCH 24.6 pg (25.0-35.0); MCHC 31.2 g/dL (31.0-37.0); MCV 78.7 fL (80.0-100.0); Mean Platelet Volume 7.7; Monocytes # (A) 1.2 k/uL (0-1.0); Monocytes % (A) 7 %; Neutrophils # (A) 15.8 k/uL (1.3-7.7); Neutrophils % (A) 89 %; Platelet Count 246 k/uL (150-450); RBC 4.56 m/uL (4.30-5.90); RDW 16.1 % (11.5-15.5); WBC 17.7 k/uL (3.8-10.6)
[2024-07-13 19:52] LABS: INR 1.4 (<1.2); Partial Thromboplastin Time 29.4 sec (22.0-30.0); Prothrombin Time 14.6 sec (10.0-12.5)
[2024-07-13 20:53] LABS: African American GFR (CKD) 78 (>60 ml/min/1.73 sqM); Anion Gap 6 mmol/L; Blood Urea Nitrogen 49 mg/dL (9-20); Calcium 8.5 mg/dL (8.4-10.2); Carbon Dioxide 21 mmol/L (22-30); Chloride 97 mmol/L (98-107); Glucose 106 mg/dL (74-99); Non-African American GFR(CKD) 68 (>60 ml/min/1.73 sqM); Potassium 5.6 mmol/L (3.5-5.1); Sodium 124 mmol/L (137-145)
[2024-07-13] MEDS: ATORVASTATIN 20 MG TAB PO SCH (20:53)
[2024-07-13] MEDS: RIVAROXABAN 20 MG TAB PO SCH (20:54)
[2024-07-13] MEDS: SYMBICORT 160-4.5 MCG INHALER INHALATION SCH (21:02)
[2024-07-13] MEDS: KETOROLAC 0.5% OPHTH DROPS 5 ML BTL RIGHT EYE SCH (22:46)
[2024-07-14] MEDS: NITROGLYCERIN OINT 1 INCH/GM PACKET TOPICAL SCH (00:42)
[2024-07-14] MEDS: FUROSEMIDE 10 MG/ML 4 ML VIAL IV SCH (00:48)
[2024-07-14] MEDS: NOREPINEPHRINE 4 MG in SODIUM CHLORIDE 0.9% 250 ML IV SCH (02:36)
[2024-07-14 05:34] LABS: Anisocytosis Slight; Basophils % (A) 0 %; Eosinophils % (A) 0 %; HCT 34.8 % (39.0-53.0); HGB 10.6 gm/dL (13.0-17.5); Hypochromasia Marked; Lymphocytes # (A) 0.6 k/uL (1.0-4.8); Lymphocytes % (A) 3 %; MCH 24.5 pg (25.0-35.0); MCHC 30.4 g/dL (31.0-37.0); MCV 80.5 fL (80.0-100.0); Mean Platelet Volume 7.9; Monocytes # (A) 1.2 k/uL (0-1.0); Monocytes % (A) 7 %; Neutrophils # (A) 14.6 k/uL (1.3-7.7); Neutrophils % (A) 88 %; Platelet Count 263 k/uL (150-450); RBC 4.32 m/uL (4.30-5.90); RDW 16.3 % (11.5-15.5); WBC 16.7 k/uL (3.8-10.6)
[2024-07-14 06:05] LABS: ALT 33 U/L (4-49); AST 42 U/L (17-59); African American GFR (CKD) 81 (>60 ml/min/1.73 sqM); Albumin 2.5 g/dL (3.5-5.0); Alkaline Phosphatase 204 U/L (38-126); Anion Gap 9 mmol/L; Blood Urea Nitrogen 48 mg/dL (9-20); Calcium 8.2 mg/dL (8.4-10.2); Carbon Dioxide 20 mmol/L (22-30); Chloride 95 mmol/L (98-107); Glucose 125 mg/dL (74-99); Magnesium 1.9 mg/dL (1.6-2.3); Non-African American GFR(CKD) 70 (>60 ml/min/1.73 sqM); Potassium 5.5 mmol/L (3.5-5.1); Sodium 124 mmol/L (137-145); Total Bilirubin 1.1 mg/dL (0.2-1.3); Total Protein 5.4 g/dL (6.3-8.2)
[2024-07-14] MEDS ORDERED: Magnesium Replacement Protocol 1 EACH MISC MISCELLANE PRN (06:26)
[2024-07-14] MEDS: MAGNESIUM SULFATE-D5W PMX 1 GM in DEXTROSE/WATER 1 100ML.BAG IVPB ONE (06:40)
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
[2024-07-14 06:57] LABS: Glucose,Whole Blood 129 mg/dL (70-110)
--- NOTE | 2024-07-14 07:14 | XR ---
EXAMINATION TYPE: XR chest 1V DATE OF EXAM: 07/14/2024 5:31 AM COMPARISON: Chest radiographs from 07/12/2024 CLINICAL INDICATION: Male, 73 years old with history of CHF; TECHNIQUE: XR chest 1V Frontal view of the chest. FINDINGS: Lungs/Pleura: Multifocal airspace opacities. No evidence of pneumothorax or pleural effusion. Pulmonary vascularity: Unremarkable. Heart/mediastinum: Cardiomediastinal silhouette is enlarged. Atherosclerotic calcifications are seen in the aorta. Three lead cardiac conduction device overlying the left hemithorax with lead tips proj ecting over the right ventricle, right atrium and coronary sinus. Musculoskeletal: No acute osseous pathology. Midline sternotomy wires and surgical clips project over the mediastinum. Severe degeneration changes of the shoulders. Other findings: None IMPRESSION: Cardiomegaly and mild pulmonary vascular congestion. Correlate with BNP for congestive heart failure. [facility], , 07/14/2024 7:12 AM
[2024-07-14] MEDS: PANTOPRAZOLE 40 MG/10 ML VIAL IV SCH (09:40)
[2024-07-14] MEDS: SPIRONOLACTONE 25 MG TAB PO SCH (09:46)
--- NOTE | 2024-07-14 09:57 | P.GSCN ---
History of Present Illness Consult date: 07/14/24 History of present illness: Patient is a 73-year-old male with a past medical history of coronary artery disease status post CABG, AICD, hypertension, diabetes, sleep apnea, COPD, reported peripheral arterial disease who was having issues with shortness of breath and weeping of his upper extremities and lower extremities. He has known venous ulcerations and issues with falling. He was directed at that point to go to the ER for evaluation. On further evaluation in the ER he was found to have elevated BNP along with hypotension and hypoxemia therefore he was admitted to the ICU with cardiac consultation. On evaluation by nursing staff in the ICU, there was difficulty in obtaining pulses of the right lower extremity therefore vascular consult was performed. According to the patient he denies any significant pain in his lower extremities. He denies any wounds other than those on his anterior cabrales. He states he has hit them with his falling. He denies any vascular interventions previously other than his cardiac nature. He denies any fevers, chills, nausea or vomiting. He utilizes oxygen while at home. He no longer smokes. Past Medical History Past Medical History: Atrial Fibrillation, Coronary Artery Disease (CAD), Heart Failure, COPD, Diabetes Mellitus, GERD/Reflux, Hyperlipidemia, Hypertension, Myocardial Infarction (LA), Osteoarthritis (OA), Prostate Disorder Additional Past Medical History / Comment(s): THYROID NODULES-DR [place], STATED THEY HAVE'NT GOTTEN ANY BIGGER. STATED"IF BP IS UNDER 100 SYSTOLIC THEY DON'T GIVE lopressor or lasix; ABD HERNIA Last Myocardial Infarction Date:: March 16, 2005 History of Any Multi-Drug Resistant Organisms: None Reported Past Surgical History: Coronary Bypass/CABG, Pacemaker Additional Past Surgical History / Comment(s): Triple Bypass. Past Anesthesia/Blood Transfusion Reactions: No Reported Reaction Type of Cardiac Device: AICD Device Placement Date:: 08/07/2012 Smoking Status: Former smoker - Past Family History Father History Unknown: Yes Family Medical History: Congestive Heart Failure (CHF) Mother Family Medical History: COPD Son(s) Family Medical History: Seizure Disorder Daughter(s) Family Medical History: No Reported History Medications and Allergies Home Medications Medication Instructions Recorded Confirmed Type ALPRAZolam [Xanax] 0.25 mg PO BID 05/23/16 07/13/24 History Aspirin [Adult Low Dose Aspirin EC] 81 mg PO DAILY 05/23/16 07/13/24 History Nitroglycerin Sl Tabs [Nitrostat] 0.4 mg SUBLINGUAL Q5M PRN 05/23/16 07/13/24 History Spironolactone [Aldactone] 25 mg PO DAILY #30 tab 07/17/16 07/13/24 Rx Cholecalciferol [Vitamin D3 (125 125 mcg PO DAILY 07/13/24 07/13/24 History Mcg = 5000 Iu)] Furosemide [Lasix] 80 mg PO BID 07/13/24 07/13/24 History Loratadine [Claritin] 10 mg PO DAILY 07/13/24 07/13/24 History Magnesium Oxide [Magnesium] 500 mg PO BID 07/13/24 07/13/24 History Metoprolol Succinate (ER) [Toprol 25 mg PO BID 07/13/24 07/13/24 History Xl] Rosuvastatin Calcium [Crestor] 40 mg PO DAILY 07/13/24 07/13/24 History guaiFENesin [Mucinex] 600 mg PO TID 07/13/24 07/13/24 History lisinopriL [Zestril] 2.5 mg PO DAILY 07/13/24 07/13/24 History Allergies Allergy/AdvReac Type Severity Reaction Status Date / Time amiodarone Allergy Unknown Verified 07/13/24 09:26 lorazepam [From Ativan] Allergy Unknown Verified 07/13/24 09:26 mirtazapine [From Remeron] Allergy Unknown Verified 07/13/24 09:26 Surgical - Exam Vital Signs Temp Pulse Resp BP Pulse Ox 97.8 F 82 20 85/53 97 07/12/24 16:14 07/12/24 16:14 07/12/24 16:14 07/12/24 16:14 07/12/24 16:14 General Is a pleasant cooperative male in mild respiratory distress. HEENT is normocephalic, atraumatic he is wearing a protective patch over the right eye. Extraocular motion is otherwise intact. Mild expiratory wheezing, mild respiratory distress. Abdomen is soft. In the bilateral upper extremities there is edema worse on the left than on the right. On the right lower extremity the wounds are dressed and recently had been changed. There is a bullae at the top of the right foot. The right foot itself does appear to have more vascular and venous congestion. Bilateral feet are equal in warmth. Adequate capillary refill. Nonpalpable pedal pulses in either foot. Strong biphasic DP on the left. Strong monophasic DP on the right, mono to biphasic posterior tibial on the right. Results Venous duplex is reviewed. No evidence of DVT of the right lower extremity - Labs 07/14/24 04:45 07/14/24 04:40 Abnormal Lab Results - Last 24 Hours (Table) 07/13/24 07/13/24 07/13/24 Range/Units 16:31 19:02 19:02 WBC 17.7 H (3.8-10.6) k/uL Hgb 11.2 L (13.0-17.5) gm/dL Hct 35.9 L (39.0-53.0) % MCV 78.7 L (80.0-100.0) fL MCH 24.6 L (25.0-35.0) pg MCHC (31.0-37.0) g/dL RDW 16.1 H (11.5-15.5) % Neutrophils # 15.8 H (1.3-7.7) k/uL Lymphocytes # 0.5 L (1.0-4.8) k/uL Monocytes # 1.2 H (0-1.0) k/uL PT 14.6 H (10.0-12.5) sec INR 1.4 H (<1.2) Sodium (137-145) mmol/L Potassium (3.5-5.1) mmol/L Chloride (98-107) mmol/L Carbon Dioxide (22-30) mmol/L BUN (9-20) mg/dL Glucose (74-99) mg/dL POC Glucose (mg/dL) 120 H (70-110) mg/dL Calcium (8.4-10.2) mg/dL Alkaline Phosphatase (38-126) U/L Total Protein (6.3-8.2) g/dL Albumin (3.5-5.0) g/dL 07/13/24 07/14/24 07/14/24 Range/Units 20:20 04:40 04:45 WBC 16.7 H (3.8-10.6) k/uL Hgb 10.6 L (13.0-17.5) gm/dL Hct 34.8 L (39.0-53.0) % MCV (80.0-100.0) fL MCH 24.5 L (25.0-35.0) pg MCHC 30.4 L (31.0-37.0) g/dL RDW 16.3 H (11.5-15.5) % Neutrophils # 14.6 H (1.3-7.7) k/uL Lymphocytes # 0.6 L (1.0-4.8) k/uL Monocytes # 1.2 H (0-1.0) k/uL PT (10.0-12.5) sec INR (<1.2) Sodium 124 L 124 L (137-145) mmol/L Potassium 5.6 H 5.5 H (3.5-5.1) mmol/L Chloride 97 L 95 L (98-107) mmol/L Carbon Dioxide 21 L 20 L (22-30) mmol/L BUN 49 H 48 H (9-20) mg/dL Glucose 106 H 125 H (74-99) mg/dL POC Glucose (mg/dL) (70-110) mg/dL Calcium 8.2 L (8.4-10.2) mg/dL Alkaline Phosphatase 204 H (38-126) U/L Total Protein 5.4 L (6.3-8.2) g/dL Albumin 2.5 L (3.5-5.0) g/dL 07/14/24 Range/Units 06:56 WBC (3.8-10.6) k/uL Hgb (13.0-17.5) gm/dL Hct (39.0-53.0) % MCV (80.0-100.0) fL MCH (25.0-35.0) pg MCHC (31.0-37.0) g/dL RDW (11.5-15.5) % Neutrophils # (1.3-7.7) k/uL Lymphocytes # (1.0-4.8) k/uL Monocytes # (0-1.0) k/uL PT (10.0-12.5) sec INR (<1.2) Sodium (137-145) mmol/L Potassium (3.5-5.1) mmol/L Chloride (98-107) mmol/L Carbon Dioxide (22-30) mmol/L BUN (9-20) mg/dL Glucose (74-99) mg/dL POC Glucose (mg/dL) 129 H (70-110) mg/dL Calcium (8.4-10.2) mg/dL Alkaline Phosphatase (38-126) U/L Total Protein (6.3-8.2) g/dL Albumin (3.5-5.0) g/dL Microbiology - Last 24 Hours (Table) 07/12/24 17:42 Blood Culture - Preliminary Blood Diabetes panel 07/13/24 07/14/24 Range/Units 20:20 04:40 Sodium 124 L 124 L (137-145) mmol/L Potassium 5.6 H 5.5 H (3.5-5.1) mmol/L Chloride 97 L 95 L (98-107) mmol/L Carbon Dioxide 21 L 20 L (22-30) mmol/L BUN 49 H 48 H (9-20) mg/dL Creatinine 1.09 1.06 (0.66-1.25) mg/dL Glucose 106 H 125 H (74-99) mg/dL Calcium 8.5 8.2 L (8.4-10.2) mg/dL AST 42 (17-59) U/L ALT 33 (4-49) U/L Alkaline Phosphatase 204 H (38-126) U/L Total Protein 5.4 L (6.3-8.2) g/dL Albumin 2.5 L (3.5-5.0) g/dL Calcium panel 07/13/24 07/14/24 Range/Units 20:20 04:40 Calcium 8.5 8.2 L (8.4-10.2) mg/dL Albumin 2.5 L (3.5-5.0) g/dL Pituitary panel 07/13/24 07/14/24 Range/Units 20:20 04:40 Sodium 124 L 124 L (137-145) mmol/L Potassium 5.6 H 5.5 H (3.5-5.1) mmol/L Chloride 97 L 95 L (98-107) mmol/L Carbon Dioxide 21 L 20 L (22-30) mmol/L BUN 49 H 48 H (9-20) mg/dL Creatinine 1.09 1.06 (0.66-1.25) mg/dL Glucose 106 H 125 H (74-99) mg/dL Calcium 8.5 8.2 L (8.4-10.2) mg/dL Adrenal panel 07/13/24 07/14/24 Range/Units 20:20 04:40 Sodium 124 L 124 L (137-145) mmol/L Potassium 5.6 H 5.5 H (3.5-5.1) mmol/L Chloride 97 L 95 L (98-107) mmol/L Carbon Dioxide 21 L 20 L (22-30) mmol/L BUN 49 H 48 H (9-20) mg/dL Creatinine 1.09 1.06 (0.66-1.25) mg/dL Glucose 106 H 125 H (74-99) mg/dL Calcium 8.5 8.2 L (8.4-10.2) mg/dL Total Bilirubin 1.1 (0.2-1.3) mg/dL AST 42 (17-59) U/L ALT 33 (4-49) U/L Alkaline Phosphatase 204 H (38-126) U/L Total Protein 5.4 L (6.3-8.2) g/dL Albumin 2.5 L (3.5-5.0) g/dL Assessment and Plan Assessment: Right lower extremity wounds Diminished pulses Hypotension requiring pressor support Acute hypoxemic respiratory failure Diabetes History of tobacco abuse Plan: After evaluation of the patient, he likely has some degree of chronic peripheral arterial disease worsened by his need for vasopressors. Would limit use when able. No evidence of DVT, patient is started back on his home Xarelto as he is refusing a heparin drip for his cardiac persistent atrial fibrillation.The wou nds are likely more related to venous in nature however may have difficulty in healing due to arterial component. Will plan to obtain an arterial Doppler for further evaluation. Patient not currently in any clinical state for aggressive vascular surgeon mention. Will continue to monitor. Motor sensor intact. No pain in the extremity therefore doubt any severe acute arterial occlusion at this time
--- NOTE | 2024-07-14 11:19 | P.PN ---
Subjective Progress Note Date: 07/14/24 Principal diagnosis: Hyponatremia. Pulmonary consult dated July 13, 2024. 73-year-old male with history of multiple medical problems including congestive heart failure, and atrial fibrillation. The patient was sent into the hospital, by his primary care physician. The patient came in with complaints of lower extremity edema, shortness of breath, ulcerations on his foot, and weakness. The patient was seen in the emergency room, ER #3. We were consulted because the patient has been hypotensive, since being in the emergency department. Norepinephrine has not yet been started. Cardiac medications have been held. In addition to atrial fibrillation, the patient has a history of myocardial infarction, coronary disease, congestive heart failure, diabetes, GERD, hype rlipidemia, hypertension, osteoarthritis, and previous bypass surgery. The patient apparently was at [facility] many years ago, on a ventilator, and was apparently on hospice, but has done well over the last 7 or 8 years. The patient does have a history of AICD placement, and previous tobacco use. Currently, he is on CPAP, at between 8 to 12 cm of water. He is not receiving any IV fluids. We did talk to the patient about CODE STATUS and he stated that he would not want to be on life support. His agreed with that. White count is 18, hemoglobin 11.6, hematocrit 37.7, platelet count of 262,000. Sodium 127, potassium 5.8, chloride 95, CO2 21, anion gap is 11, BUN 53, creati nine is 1.26. His N-terminal proBNP was 5940. His troponin was less than 0.012. Chest x-ray was consistent with CHF. Progress note dated July 14, 2024. 73-year-old male seen in the emergency department yesterday. He was admitted with a diagnosis of congestive heart failure. The patient was transferred to the intensive care unit, for norepinephrine. Currently he is on 5 L nasal cannula. He is getting saline at 10 cc an hour. He is on norepinephrine at 3.8 mcg/min. His procalcitonin level was normal at 0.25. Unasyn will be discontinued. White count 16.7, hemoglobin 10.6, hematocrit 34.8, platelet count normal. Sodium 124, potassium 5.5, chlorides 95, CO2 20, BUN 48, creatinine 1.06. Glucose 129. Calcium 8.2. Albumin 2.5. Chest x-ray again shows evidence of cardiomegaly, and pulmonary vascular congestion. Doppler of the right lower extremity was negative for DVT. Objective - Vital Signs Vital signs: Vital Signs Temp 98.1 F 07/14/24 08:00 Pulse 85 07/14/24 10:00 Resp 19 07/14/24 10:00 BP 84/50 07/14/24 10:00 Pulse Ox 93 L 07/14/24 10:00 FiO2 Intake & Output 07/13/24 07/14/24 07/14/24 18:59 06:59 18:59 Intake Total 390 154.264 Output Total 651 1350 0 Balance -651 -960 154.264 Weight 90.718 kg 95.7 kg Intake: IV 390 40 0.9% NS KVO 90 40 Ampicillin-Sulbactam 3 gm 200 In Sodium Chloride 0.9% 100 ml @ 200 mls/hr IVPB Q6H [facility] Rx#:[id number] Magnesium Sulfate-D5w Pmx 100 1 gm In Dextrose/Water 1 100ml.bag @ 100 mls/hr IVPB ONCE ONE Rx#: [id number] Intake, IV Titration 54.264 Amount Norepinephrine 4 mg In 54.264 Sodium Chloride 0.9% 250 ml @ 0.03 MCG/KG/MIN 10. 369 mls/hr IV .Q24H [facility] Rx#:[id number] Oral 60 Output: Urine 651 1350 0 Other: Voiding Method External Catheter External Catheter - Exam No acute distress, bit lethargic, currently on 5 L nasal cannula. HEENT examination is grossly unremarkable. Neck supple. Full range of motion. No adenopathy thyromegaly or neck vein distention. Cardiovascular examination reveals an irregular rhythm and rate. S1-S2 normal. No S3 or S4. A systolic murmur is noted, grade 2/6. Lungs reveal scattered rhonchi and crackles. Breath sounds equal. No wheezes. Abdomen soft bowel sounds are heard. No masses or tenderness. Extremities are intact. No cyanosis or clubbing. 1+ edema is noted. Skin is without rash or lesion. Neurologic examination is brief but nonfocal. - Labs CBC & Chem 7: 07/14/24 04:45 07/14/24 04:40 Labs: Abnormal Lab Results - Last 24 Hours (Table) 07/13/24 07/13/24 07/13/24 Range/Units 16:31 19:02 19:02 WBC 17.7 H (3.8-10.6) k/uL Hgb 11.2 L (13.0-17.5) gm/dL Hct 35.9 L (39.0-53.0) % MCV 78.7 L (80.0-100.0) fL MCH 24.6 L (25.0-35.0) pg MCHC (31.0-37.0) g/dL RDW 16.1 H (11.5-15.5) % Neutrophils # 15.8 H (1.3-7.7) k/uL Lymphocytes # 0.5 L (1.0-4.8) k/uL Monocytes # 1.2 H (0-1.0) k/uL PT 14.6 H (10.0-12.5) sec INR 1.4 H (<1.2) Sodium (137-145) mmol/L Potassium (3.5-5.1) mmol/L Chloride (98-107) mmol/L Carbon Dioxide (22-30) mmol/L BUN (9-20) mg/dL Glucose (74-99) mg/dL POC Glucose (mg/dL) 120 H (70-110) mg/dL Calcium (8.4-10.2) mg/dL Alkaline Phosphatase (38-126) U/L Total Protein (6.3-8.2) g/dL Albumin (3.5-5.0) g/dL 07/13/24 07/14/24 07/14/24 Range/Units 20:20 04:40 04:45 WBC 16.7 H (3.8-10.6) k/uL Hgb 10.6 L (13.0-17.5) gm/dL Hct 34.8 L (39.0-53.0) % MCV (80.0-100.0) fL MCH 24.5 L (25.0-35.0) pg MCHC 30.4 L (31.0-37.0) g/dL RDW 16.3 H (11.5-15.5) % Neutrophils # 14.6 H (1.3-7.7) k/uL Lymphocytes # 0.6 L (1.0-4.8) k/uL Monocytes # 1.2 H (0-1.0) k/uL PT (10.0-12.5) sec INR (<1.2) Sodium 124 L 124 L (137-145) mmol/L Potassium 5.6 H 5.5 H (3.5-5.1) mmol/L Chloride 97 L 95 L (98-107) mmol/L Carbon Dioxide 21 L 20 L (22-30) mmol/L BUN 49 H 48 H (9-20) mg/dL Glucose 106 H 125 H (74-99) mg/dL POC Glucose (mg/dL) (70-110) mg/dL Calcium 8.2 L (8.4-10.2) mg/dL Alkaline Phosphatase 204 H (38-126) U/L Total Protein 5.4 L (6.3-8.2) g/dL Albumin 2.5 L (3.5-5.0) g/dL 07/14/24 Range/Units 06:56 WBC (3.8-10.6) k/uL Hgb (13.0-17.5) gm/dL Hct (39.0-53.0) % MCV (80.0-100.0) fL MCH (25.0-35.0) pg MCHC (31.0-37.0) g/dL RDW (11.5-15.5) % Neutrophils # (1.3-7.7) k/uL Lymphocytes # (1.0-4.8) k/uL Monocytes # (0-1.0) k/uL PT (10.0-12.5) sec INR (<1.2) Sodium (137-145) mmol/L Potassium (3.5-5.1) mmol/L Chloride (98-107) mmol/L Carbon Dioxide (22-30) mmol/L BUN (9-20) mg/dL Glucose (74-99) mg/dL POC Glucose (mg/dL) 129 H (70-110) mg/dL Calcium (8.4-10.2) mg/dL Alkaline Phosphatase (38-126) U/L Total Protein (6.3-8.2) g/dL Albumin (3.5-5.0) g/dL Microbiology - Last 24 Hours (Table) 07/12/24 17:42 Blood Culture - Preliminary Blood Assessment and Plan Assessment: Acute hypoxemic respiratory failure, secondary to CHF. Hypotension, likely secondary to congestive heart failure and poor cardiac fun ction. Hypervolemic hyponatremia. History of chronic atrial fibrillation. History of CAD, with previous myocardial infarction, and previous CABG. Status post AICD/pacemaker implantation. History of COPD from previous tobacco use. History of diabetes mellitus. History of gastroesophageal reflux disease. History of hypertension. History of hyperlipidemia. General medical debility. Plan: Plan dated July 13, 2024. The patient is seen in the emergency department. He is currently on his home CPAP. The patient sees Dr. Levi as a primary. I asked him what routing equipment tender wero cota sees, and he states he does not see one. The patient apparently had respiratory failure and was at [facility] on a ventilator for period of time many years back. The patient was a hospice patient for a long period of time. Labs, x-rays, and medications are reviewed. The patient has an elevated BNP, and his chest x-ray is consistent with congestive heart failure. Because of his hypotension, the nurse in the emergency room has held many of his cardiac medications including Lasix. The patient will be admitted to the intensive care unit, for further monitoring and management. Of note, we did have a discussion with the patient about CODE STATUS. He would like to receive all current treatments, including medications, but, would not want intubation, mechanical ventilation, or CPR. Plan dated July 14, 2024. 73-year-old male seen today in room 258. The patient's Unasyn will be discontinued. Procalcitonin level was normal at 0.25. The patient remains on norepinephrine at 3.8 mcg/min. He is on nasal O2 at 5 L. According to the nurse he had an uneventful night. They did call me last night, so that they could start the norepinephrine. That was the reason he was brought to the intensive care unit. Labs, x-rays, and medications are reviewed. We will continue to follow make recommendations. Prognosis is guarded. The patient is a DO NOT INTUBATE patient. Time with Patient: Greater than 30
[2024-07-14 11:50] LABS: Glucose,Whole Blood 138 mg/dL (70-110)
[2024-07-14] MEDS ORDERED: DEXTROSE 50% SYRINGE 50 ML IVP PRN ×2 (15:15)
--- NOTE | 2024-07-14 15:37 | P.PN ---
Subjective Progress Note Date: 07/14/24 HISTORY OF PRESENT ILLNESS: This is a 73-year-old male used to be my patient for many years, [place] had [place] he just got back about 3 months ago, and he was in my office yesterday for the first time as a new patient he is well-known to have a significant history of coronary artery disease status post coronary artery bypass graft x 3 in 2004 with ischemic cardiomyopathy status post AICD/biventricular pacemaker that was turned off by his mold carpenter prior to him going to [place], hypertension hypertensive cardiovascular disease, diabetes mellitus type 2 diabetic polyneuropathy, history of obstructive sleep apnea, history of COPD, history of PAD, patient came to my office as a new patient yesterday and he was tremendous amount of shortness of breath, he was on oxygen at that time, he was having fluid weeping out his upper extremity and the left upper extremity as well as both lower extremity has wounds on his right lower extremity due to venous ulceration due to abrasion due to fall, patient was directed to go to the emergency department for evaluation of acute systolic heart failure his family to come to the ER, patient was found to have an elevated BNP, he was started on IV Lasix 80 mg IV push every 12 hours, patient became hypotensive in the emergency department, hypoxemic as well, intensive care consultation was obtained from Dr. Randall who accepted the patient to the ICU, patient will be seen in consultation by cardiology as well for further evaluation recommendation, most of his medication were held because of his hypotension, we will adjust his IV diuretics at this time untilhe is moved into the ICU and he is seen by cardiology. 07/14: Patient is sitting up in bed currently on 4 L nasal cannula, he appears to be in mild respiratory distress, he is dozing on and off, his was at the bedside, his blood pressure currently 82/42 on Levophed drip, patient was seen earlier by vascular surgery patient does have a Doppler signal on the right stronger in the left in the dorsalis pedis, and patient had a venous Doppler that was negative for DVT, patient is not a good candidate for any vascular intervention at this point in time, we will continue the patient on Xarelto as the patient refused to go on heparin drip at this time, continue current treatment plan, discussed with the the prognosis is poor but will take it 1 day at a time at this point. REVIEW OF SYSTEMS: Constitutional: No documented fever, no chills, no night sweats. No weight change. positive for weakness, fatigue or lethargy. No daytime sleepiness. EENT: No headache. positive for blurred vision or double vision, no loss of vision. No loss of Hearing, no ringing in the ears, no dizziness. No nasal drainage or congestion. No epistaxis. No sore throat. Lungs: positive fir shortness of breath, no cough, no sputum production. occasional wheezing. Reports dyspnea with activity. Cardiovascular: No chest pain, positive for lower extremity edema. No palpitations. positive for paroxysmal nocturnal dyspnea. positive for orth opnea. No lightheadedness or dizziness. No syncopal episodes. Abdominal: Reports no abdominal pain. No nausea, vomiting. No diarrhea. No constipation. No bloody or tarry stools reports loss of appetite. Genitourinary: No dysuria, increased frequency, urgency. No urinary retention. Musculoskeletal: No myalgias. positive for muscle weakness, positive for gait dysfunction, no frequent falls. No back pain. No neck pain. Integumentary: No wounds, no lesions. No rash or pruritus. No unusual bruising. No change in hair or nails. Neurologic: No aphasia. No facial droop. No change in mentation. No head injury. No headache. No paralysis. No paresthesia. Psychiatric: No depression. positive for anxiety. No mood swings. Endocrine: No abnormal blood sugars. positive for weight change. PHYSICAL EXAMINATION: General: 73-year-old male sitting up in bed appears to be in r espiratory distress HEENT: Head is atraumatic, normocephalic, pupils were equal round reactive to li ght and recommendation, extraocular muscle movement were intact, sclera nonicteric, conjunctivae were pale, mucous membranes of the mouth are somewhat dry. Neck: Supple, increased JVP, normal carotid upstroke bilaterally, no lymphadenopathy. Chest: Decreased breath sounds at the bases, few rhonchi, minimal expiratory wheezes, no chest wall tenderness, no intercostal retractions. Heart: First heart sound is depressed, second heart sound is normal, there are systolic pressure murmur 2 over systolic in the left sternal border there is an AICD/PPM in the left upper precordium Abdomen: Soft, nontender, nondistended, positive bowel sounds, no hepatosplenomegaly Extremities: There is +2 edema in the left upper extremity, bilateral lower extremity edema, with dorsalis pedis not palpable in the right lower extremity and better in the left lower extremity, there is multiple abrasion to the right knee multiple wounds to the right lower extremity and a blister to the right foot Neurologic examination: Patient is awake alert and oriented x3, cranial nerves II-12 appear grossly intact, muscle power were 4 out of 5 in upper extremities and 3 out of 5 in bilateral lower extremities, deep tendon reflexes normal bilaterally. ASSESSMENT AND PLAN: 1. 1. Acute hypoxemic respiratory failure due to acute systolic heart failure in a patient with a prior history of ischemic cardiomyopathy post AICD/PPM, patient will be admitted to the intensive care unit due to severe hypotension at this time, patient has been on Lasix 80 mg IV push every 12 hours we will decrease that to 40 mg IV push every 8 hours, decrease metoprolol to 12.5 mg orally twice every day, hold for systolic blood pressure less than 100, continue lisinopril 2.5 mg orally once every day hold for systolic blood pressure less th an 100, cardiology consultation, patient was started on Levophed drip to keep his mean arterial pressure at around 60 if possible 2. Severe hypotension likely due to severe cardiomyopathy. Patient was started on Levophed drip, monitor the patient symptoms very closely.. 3. Multiple venous ulcerations and blistering of the right foot due to hypoperfusion state seen by vascular surgery, venous Doppler was obtained to rule out any DVT, patient was started back on his Xarelto 20 mg orally once every day. The patient refused to go on heparin drip. Patient is not a candidate for surgical intervention at this time, vascular surgery is on board. 4. Persistent atrial fibrillation. Continue patient on Xarelto 20 mg once every day, continue metoprolol 12.5 mg orally twice every day, cardiology consultation. Echocardiogram to evaluate LV function as well as to rule out any LV thrombus. 5. Right lower extremity multiple wound rule out cellulitis likely related to venous ulceration with delayed healing. Continue patient on Unasyn. 6. Severe hyponatremia due to hypervolemia. Continue with IV Lasix 40 mg IV push every 8 hours, monitor the patient input and output and daily weight, monitor the patient CMP very closely this is an ominous sign. We will check cortisol level. 7. Mild hyperkalemia. Will continue to monitor the patient CMP 8. Diabetes mellitus type 2. His blood glucose level appears to be good at this time, patient is not take any medication as an outpatient. Continue sliding scale insulin. 9. Obesity with obstructive sleep apnea. Patient currently has a CPAP. 10. Allergic rhinitis. Currently patient on loratadine 10 mg orally once every day. 11. Recent cataract surgery continue with current eyedrops. 12. DVT prophylaxis. Currently on Xarelto 20 mg orally once every day. 13. GI prophylaxis. Continue patient on Protonix 40 mg IV push every 24 hours. 14. No code 15. Prognosis is dismal. Objective - Vital Signs Vital signs: Vital Signs Temp 96.8 F L 07/14/24 00:00 Pulse 85 07/14/24 03:00 Resp 16 07/14/24 03:00 BP 85/61 07/14/24 03:00 Pulse Ox 93 L 07/14/24 03:00 FiO2 Intake & Output 07/13/24 07/13/24 07/14/24 06:59 18:59 06:59 Intake Total 260 Output Total 1600 651 850 Balance -1600 -651 -590 Weight 90.718 kg 95.7 kg Intake: IV 260 0.9% NS KVO 60 Ampicillin-Sulbactam 3 gm 200 In Sodium Chloride 0.9% 100 ml @ 200 mls/hr IVPB Q6H [facility] Rx#:[id number] Output: Urine 1600 651 850 Other: Voiding Method External Catheter External Catheter - Labs CBC & Chem 7: 07/14/24 04:45 07/14/24 04:40 Labs: Abnormal Lab Results - Last 24 Hours (Table) 07/13/24 07/13/24 07/13/24 Range/Units 07:43 07:43 16:31 WBC 18.0 H (3.8-10.6) k/uL Hgb 11.6 L (13.0-17.5) gm/dL Hct 37.7 L (39.0-53.0) % MCV 79.6 L (80.0-100.0) fL MCH 24.5 L (25.0-35.0) pg MCHC 30.8 L (31.0-37.0) g/dL RDW 16.0 H (11.5-15.5) % Neutrophils # (1.3-7.7) k/uL Lymphocytes # (1.0-4.8) k/uL Monocytes # (0-1.0) k/uL PT (10.0-12.5) sec INR (<1.2) Sodium 127 L (137-145) mmol/L Potassium 5.8 H (3.5-5.1) mmol/L Chloride 95 L (98-107) mmol/L Carbon Dioxide 21 L (22-30) mmol/L BUN 53 H (9-20) mg/dL Creatinine 1.26 H (0.66-1.25) mg/dL Glucose 72 L (74-99) mg/dL POC Glucose (mg/dL) 120 H (70-110) mg/dL Calcium (8.4-10.2) mg/dL Alkaline Phosphatase (38-126) U/L Total Protein (6.3-8.2) g/dL Albumin (3.5-5.0) g/dL 07/13/24 07/13/24 07/13/24 Range/Units 19:02 19:02 20:20 WBC 17.7 H (3.8-10.6) k/uL Hgb 11.2 L (13.0-17.5) gm/dL Hct 35.9 L (39.0-53.0) % MCV 78.7 L (80.0-100.0) fL MCH 24.6 L (25.0-35.0) pg MCHC (31.0-37.0) g/dL RDW 16.1 H (11.5-15.5) % Neutrophils # 15.8 H (1.3-7.7) k/uL Lymphocytes # 0.5 L (1.0-4.8) k/uL Monocytes # 1.2 H (0-1.0) k/uL PT 14.6 H (10.0-12.5) sec INR 1.4 H (<1.2) Sodium 124 L (137-145) mmol/L Potassium 5.6 H (3.5-5.1) mmol/L Chloride 97 L (98-107) mmol/L Carbon Dioxide 21 L (22-30) mmol/L BUN 49 H (9-20) mg/dL Creatinine (0.66-1.25) mg/dL Glucose 106 H (74-99) mg/dL POC Glucose (mg/dL) (70-110) mg/dL Calcium (8.4-10.2) mg/dL Alkaline Phosphatase (38-126) U/L Total Protein (6.3-8.2) g/dL Albumin (3.5-5.0) g/dL 07/14/24 07/14/24 Range/Units 04:40 04:45 WBC 16.7 H (3.8-10.6) k/uL Hgb 10.6 L (13.0-17.5) gm/dL Hct 34.8 L (39.0-53.0) % MCV (80.0-100.0) fL MCH 24.5 L (25.0-35.0) pg MCHC 30.4 L (31.0-37.0) g/dL RDW 16.3 H (11.5-15.5) % Neutrophils # 14.6 H (1.3-7.7) k/uL Lymphocytes # 0.6 L (1.0-4.8) k/uL Monocytes # 1.2 H (0-1.0) k/uL PT (10.0-12.5) sec INR (<1.2) Sodium 124 L (137-145) mmol/L Potassium 5.5 H (3.5-5.1) mmol/L Chloride 95 L (98-107) mmol/L Carbon Dioxide 20 L (22-30) mmol/L BUN 48 H (9-20) mg/dL Creatinine (0.66-1.25) mg/dL Glucose 125 H (74-99) mg/dL POC Glucose (mg/dL) (70-110) mg/dL Calcium 8.2 L (8.4-10.2) mg/dL Alkaline Phosphatase 204 H (38-126) U/L Total Protein 5.4 L (6.3-8.2) g/dL Albumin 2.5 L (3.5-5.0) g/dL Microbiology - Last 24 Hours (Table) 07/12/24 17:42 Blood Culture - Preliminary Blood
[2024-07-14 18:28] LABS: Glucose,Whole Blood 156 mg/dL (70-110)
[2024-07-14] MEDS: INSULIN ASPART (NovoLOG) 100 UNIT/ML VIAL SQ SCH (18:28)
[2024-07-14 21:22] LABS: Glucose,Whole Blood 172 mg/dL (70-110)
[2024-07-15 04:34] LABS: African American GFR (CKD) 88 (>60 ml/min/1.73 sqM); Anion Gap 1 mmol/L; Blood Urea Nitrogen 60 mg/dL (9-20); Carbon Dioxide 23 mmol/L (22-30); Chloride 102 mmol/L (98-107); Glucose 138 mg/dL (74-99); Non-African American GFR(CKD) 76 (>60 ml/min/1.73 sqM); Sodium 126 mmol/L (137-145)
[2024-07-15 04:42] LABS: Magnesium 1.9 mg/dL (1.6-2.3); Potassium 5.8 mmol/L (3.5-5.1)
[2024-07-15] MEDS ORDERED: Magnesium Replacement Protocol 1 EACH MISC MISCELLANE PRN (05:06)
[2024-07-15 05:11] LABS: Anisocytosis Slight; Basophils % (A) 0 %; Eosinophils # (A) 0.1 k/uL (0-0.7); Eosinophils % (A) 1 %; HCT 29.4 % (39.0-53.0); HGB 9.2 gm/dL (13.0-17.5); Hypochromasia Moderate; Lymphocytes # (A) 1.2 k/uL (1.0-4.8); Lymphocytes % (A) 9 %; MCH 24.7 pg (25.0-35.0); MCHC 31.3 g/dL (31.0-37.0); MCV 78.9 fL (80.0-100.0); Mean Platelet Volume 7.8; Monocytes # (A) 1.5 k/uL (0-1.0); Monocytes % (A) 11 %; Neutrophils % (A) 77 %; Platelet Count 283 k/uL (150-450); RBC 3.72 m/uL (4.30-5.90); RDW 16.6 % (11.5-15.5); WBC 14.2 k/uL (3.8-10.6)
[2024-07-15] MEDS: MAGNESIUM SULFATE-D5W PMX 1 GM in DEXTROSE/WATER 1 100ML.BAG IVPB ONE (05:52)
[2024-07-15 06:33] LABS: Glucose,Whole Blood 133 mg/dL (70-110)
--- NOTE | 2024-07-15 10:25 | P.PN ---
Subjective Progress Note Date: 07/15/24 HISTORY OF PRESENT ILLNESS: This is a 73-year-old male used to be my patient for many years, he had left [place] and went to [place] for about 7 years he just got back about 3 months ago, and he was in my office yesterday for the first time as a new patient he is well-known to have a significant history of coronary artery disease status post coronary artery bypass graft x 3 in 2004 with ischemic cardiomyopathy status post AICD/biventricular pacemaker that was turned off by his photo tech prior to him going to [place], hypertension hypertensive cardiovascular disease, diabetes mellitus type 2 diabetic polyneuropathy, history of obstructive sleep apnea, history of COPD, history of PAD, patient came to my office as a new patient yesterday and he was tremendous amount of shortness of breath, he was on oxygen at that time, he was having fluid weeping out his upper extremity and the left upper extremity as well as both lower extremity has wounds on his right lower extremity due to venous ulceration due to abrasion due to fall, patient was directed to go to the emergency department for evaluation of acute systolic heart failure his family to come to the ER, patient was found to have an elevated BNP, he was started on IV Lasix 80 mg IV push every 12 hours, patient became hypotensive in the emergency department, hypoxemic as well, intensive care consultation was obtained from Dr. Randall who accepted the patient to the ICU, patient will be seen in consultation by cardiology as well for further evaluation recommendation, most of his medication were held because of his hypotension, we will adjust his IV diuretics at this time untilhe is moved into the ICU and he is seen by cardiology. 07/14: Patient is sitting up in bed currently on 4 L nasal cannula, he appears to be in mild respiratory distress, he is dozing on and off, his was at the bedside, his blood pressure currently 82/42 on Levophed drip, patient was seen earlier by vascular surgery patient does have a Doppler signal on the right stronger in the left in the dorsalis pedis, and patient had a venous Doppler that was negative for DVT, patient is not a good candidate for any vascular intervention at this point in time, we will continue the patient on Xarelto as the patient refused to go on heparin drip at this time, continue current treatment plan, discussed with the the prognosis is poor but will take it 1 day at a time at this point. 07/15: Patient is laying down in bed he appears to be generally weak, his Levophed drip is higher, he did have an episode of a large episode of maroon- colored blood coming out of the rectum, he is still making decent amount of urine, he continues to be holding his own, discontinue aspirin, discontinue Xarelto completely, we will obtain general surgery consultation for standby, regarding GI bleed, we will follow-up with the patient very closely, patient re domingo in the ICU, continues to have very poor prognosis at this point in time due to his cardiomyopathy as well as other morbid conditions. REVIEW OF SYSTEMS: Constitutional: No documented fever, no chills, no night sweats. No weight change. positive for weakness, fatigue or lethargy. No daytime sleepiness. EENT: No headache. positive for blurred vision or double vision, no loss of vision. No loss of Hearing, no ringing in the ears, no dizziness. No nasal drainage or congestion. No epistaxis. No sore throat. Lungs: positive fir shortness of breath, no cough, no sputum production. o ccasional wheezing. Reports dyspnea with activity. Cardiovascular: No chest pain, positive for lower extremity edema. No palpitations. positive for paroxysmal nocturnal dyspnea. positive for ortho pnea. No lightheadedness or dizziness. No syncopal episodes. Abdominal: Reports no abdominal pain. No nausea, vomiting. No diarrhea. No constipation. positive for maroon colored stool , reports loss of appetite. Genitourinary: No dysuria, increased frequency, urgency. No urinary retention. Musculoskeletal: No myalgias. positive for muscle weakness, positive for gait dysfunction, no frequent falls. No back pain. No neck pain. Integumentary: No wounds, no lesions. No rash or pruritus. No unusual bruising. No change in hair or nails. Neurologic: No aphasia. No facial droop. No change in mentation. No head injury. No headache. No paralysis. No paresthesia. Psychiatric: No depression. positive for anxiety. No mood swings. Endocrine: No abnormal blood sugars. positive for weight change. PHYSICAL EXAMINATION: General: 73-year-old male sitting up in bed appears to be in respiratory distress HEENT: Head is atraumatic, normocephalic, pupils were equal round reactive to light and recommendation, extraocular muscle movement were intact, sclera nonicteric, conjunctivae were pale, mucous membranes of the mouth are somewhat dry. Neck: Supple, increased JVP, normal carotid upstroke bilaterally, no lymphadenopathy. Chest: Decreased breath sounds at the bases, few rhonchi, minimal expiratory wheezes, no chest wall tenderness, no intercostal retractions. Heart: First heart sound is depressed, second heart sound is normal, there are systolic pressure murmur 2 over systolic in the left sternal border there is an AICD/PPM in the left upper precordium Abdomen: Soft, nontender, nondistended, positive bowel sounds, no hepatosplenomegaly Extremities: There is +2 edema in the left upper extremity, bilateral lower extremity edema, with dorsalis pedis not palpable in the right lower extremity and better in the left lower extremity, there is multiple abrasion to the right knee multiple wounds to the right lower extremity and a blister to the right foot Neurologic examination: Patient is awake alert and oriented x3, cranial nerves II-12 appear grossly intact, muscle power were 4 out of 5 in upper extremities and 3 out of 5 in bilateral lower extremities, deep tendon reflexes normal bilaterally. ASSESSMENT AND PLAN: 1. 1. Acute hypoxemic respiratory failure due to acute systolic heart failure in a patient with a prior history of ischemic cardiomyopathy post AICD/PPM, patient will be admitted to the intensive care unit due to severe hypotension at this time, patient has been on Lasix 80 mg IV push every 12 hours we will decrease that to 40 mg IV push every 8 hours, decrease metoprolol to 12.5 mg orally twice every day, hold for systolic blood pressure less than 100, continue lisinopril 2.5 mg orally once every day hold for systolic blood pressure less than 100, cardiology consultation, patient was started on Levophed drip to keep his mean arterial pressure at around 60 if possible 2. Severe hypotension likely due to severe cardiomyopathy. Patient was started on Levophed drip, monitor the patient symptoms very closely.. 3. Multiple venous ulcerations and blistering of the right foot due to hypoperfusion state seen by vascular surgery, venous Doppler was obtained to rule out any DVT, patient was started back on his Xarelto 20 mg orally once every day. The patient refused to go on heparin drip. Patient is not a candidate for surgical intervention at this time, vascular surgery is on board. 4. Upper gastrointestinal bleed. Consult general surgery, monitor the patient hemoglobin, transfuse for hemoglobin less than 7, discontinue Xarelto and aspirin continue Levophed drip continue to monitor the patient very closely. 5. Persistent atrial fibrillation. Continue patient on Xarelto 20 mg once every day, continue metoprolol 12.5 mg orally twice every day, cardiology consultation. Echocardiogram to evaluate LV function as well as to rule out any LV thrombus. 6. Right lower extremity multiple wound rule out cellulitis likely related to venous ulceration with delayed healing. Continue patient on Unasyn. 7. Severe hyponatremia due to hypervolemia. Continue with IV Lasix 40 mg IV push every 8 hours, monitor the patient input and output and daily weight, monitor the patient CMP very closely this is an ominous sign. We will check cortisol level. 8. Mild hyperkalemia. Will continue to monitor the patient CMP 9. Diabetes mellitus type 2. His blood glucose level appears to be good at this time, patient is not take any medication as an outpatient. Continue sliding scale insulin. 10. Obesity with obstructive sleep apnea. Patient currently has a CPAP. 11. Allergic rhinitis. Currently patient on loratadine 10 mg orally once every day. 12. Recent cataract surgery continue with current eyedrops. 13. DVT prophylaxis. discontinue Xareltod due to GI bleed 14. GI prophylaxis. Continue patient on Protonix 40 mg IV push every 24 hours. 15. No code 15. Prognosis is dismal. Objective - Vital Signs Vital signs: Vital Signs Temp 97.7 F 07/15/24 08:00 Pulse 96 07/15/24 09:00 Resp 18 07/15/24 09:00 BP 100/65 07/15/24 09:00 Pulse Ox 98 07/15/24 09:00 FiO2 Intake & Output 07/14/24 07/15/24 07/15/24 19:59 06:59 18:59 Intake Total 284.000 Output Total 300 Balance -16.000 Weight Intake: IV 30 0.9% NS KVO 30 Magnesium Sulfate-D5w Pmx 1 gm In Dextrose/Water 1 100ml.bag @ 100 mls/hr IVPB ONCE ONE Rx#: [id number] Intake, IV Titration 254.000 Amount Norepinephrine 4 mg In 254.000 Sodium Chloride 0.9% 250 ml @ 0.03 MCG/KG/MIN 10. 369 mls/hr IV .Q24H [facility] Rx#:[id number] Oral Output: Urine 300 Other: Voiding Method External Catheter # Bowel Movements - Labs CBC & Chem 7: 07/15/24 04:28 07/15/24 04:09 Labs: Abnormal Lab Results - Last 24 Hours (Table) 07/14/24 07/14/24 07/14/24 Range/Units 11:48 18:26 21:20 WBC (3.8-10.6) k/uL RBC (4.30-5.90) m/uL Hgb (13.0-17.5) gm/dL Hct (39.0-53.0) % MCV (80.0-100.0) fL MCH (25.0-35.0) pg RDW (11.5-15.5) % Neutrophils # (1.3-7.7) k/uL Monocytes # (0-1.0) k/uL Sodium (137-145) mmol/L Potassium (3.5-5.1) mmol/L BUN (9-20) mg/dL Glucose (74-99) mg/dL POC Glucose (mg/dL) 138 H 156 H 172 H (70-110) mg/dL Hemoglobin A1c (<=6.0) % Calcium (8.4-10.2) mg/dL 07/15/24 07/15/24 07/15/24 Range/Units 04:09 04:28 04:28 WBC 14.2 H (3.8-10.6) k/uL RBC 3.72 L (4.30-5.90) m/uL Hgb 9.2 L (13.0-17.5) gm/dL Hct 29.4 L (39.0-53.0) % MCV 78.9 L (80.0-100.0) fL MCH 24.7 L (25.0-35.0) pg RDW 16.6 H (11.5-15.5) % Neutrophils # 11.0 H (1.3-7.7) k/uL Monocytes # 1.5 H (0-1.0) k/uL Sodium 126 L (137-145) mmol/L Potassium 5.8 H (3.5-5.1) mmol/L BUN 60 H (9-20) mg/dL Glucose 138 H (74-99) mg/dL POC Glucose (mg/dL) (70-110) mg/dL Hemoglobin A1c 6.8 H (<=6.0) % Calcium 8.0 L (8.4-10.2) mg/dL 07/15/24 Range/Units 06:31 WBC (3.8-10.6) k/uL RBC (4.30-5.90) m/uL Hgb (13.0-17.5) gm/dL Hct (39.0-53.0) % MCV (80.0-100.0) fL MCH (25.0-35.0) pg RDW (11.5-15.5) % Neutrophils # (1.3-7.7) k/uL Monocytes # (0-1.0) k/uL Sodium (137-145) mmol/L Potassium (3.5-5.1) mmol/L BUN (9-20) mg/dL Glucose (74-99) mg/dL POC Glucose (mg/dL) 133 H (70-110) mg/dL Hemoglobin A1c (<=6.0) % Calcium (8.4-10.2) mg/dL Microbiology - Last 24 Hours (Table) 07/12/24 17:42 Blood Culture - Preliminary Blood
--- NOTE | 2024-07-15 11:16 | P.PN ---
Subjective Progress Note Date: 07/15/24 Principal diagnosis: Hyponatremia. Pulmonary consult dated July 13, 2024. 73-year-old male with history of multiple medical problems including congestive heart failure, and atrial fibrillation. The patient was sent into the hospital, by his primary care physician. The patient came in with complaints of lower extremity edema, shortness of breath, ulcerations on his foot, and weakness. The patient was seen in the emergency room, ER #3. We were consulted because the patient has been hypotensive, since being in the emergency department. Norepinephrine has not yet been started. Cardiac medications have been held. In addition to atrial fibrillation, the patient has a history of myocardial infarction, coronary disease, congestive heart failure, diabetes, GERD, hype rlipidemia, hypertension, osteoarthritis, and previous bypass surgery. The patient apparently was at [facility] many years ago, on a ventilator, and was apparently on hospice, but has done well over the last 7 or 8 years. The patient does have a history of AICD placement, and previous tobacco use. Currently, he is on CPAP, at between 8 to 12 cm of water. He is not receiving any IV fluids. We did talk to the patient about CODE STATUS and he stated that he would not want to be on life support. His agreed with that. White count is 18, hemoglobin 11.6, hematocrit 37.7, platelet count of 262,000. Sodium 127, potassium 5.8, chloride 95, CO2 21, anion gap is 11, BUN 53, creati nine is 1.26. His N-terminal proBNP was 5940. His troponin was less than 0.012. Chest x-ray was consistent with CHF. Progress note dated July 14, 2024. 73-year-old male seen in the emergency department yesterday. He was admitted with a diagnosis of congestive heart failure. The patient was transferred to the intensive care unit, for norepinephrine. Currently he is on 5 L nasal cannula. He is getting saline at 10 cc an hour. He is on norepinephrine at 3.8 mcg/min. His procalcitonin level was normal at 0.25. Unasyn will be discontinued. White count 16.7, hemoglobin 10.6, hematocrit 34.8, platelet count normal. Sodium 124, potassium 5.5, chlorides 95, CO2 20, BUN 48, creatinine 1.06. Glucose 129. Calcium 8.2. Albumin 2.5. Chest x-ray again shows evidence of cardiomegaly, and pulmonary vascular congestion. Doppler of the right lower extremity was negative for DVT. Progress note dated August 11, 2024. The patient is seen today in room 258. I was called by the nurses last night, because of the new onset GI bleed. The patient is currently on norepinephrine at 14.8 mcg/min, nasal O2 at 4 L, saline at 10 cc an hour. The patient did use his CPAP last night. A repeat hemoglobin will be done at noon today. This morning's hemoglobin was 9.2. The patient is a DO NOT INTUBATE patient. White count 14.2, hemoglobin 9.2, hematocrit 29.4, platelet count finger 83,000. Sodium 126, potassium 5.8, chlorides 102, CO2 23, BUN 60, creatinine 0.99. Glucose 133. Hemoglobin A1c was 6.8. Calcium is 8. Objective - Vital Signs Vital signs: Vital Signs Temp 97.7 F 07/15/24 08:00 Pulse 96 07/15/24 09:00 Resp 18 07/15/24 09:00 BP 100/65 07/15/24 09:00 Pulse Ox 98 07/15/24 09:00 FiO2 Intake & Output 07/14/24 07/15/24 07/15/24 19:59 06:59 18:59 Intake Total 304.000 Output Total 1150 Balance -846.000 Weight Intake: IV 50 0.9% NS KVO 50 Magnesium Sulfate-D5w Pmx 1 gm In Dextrose/Water 1 100ml.bag @ 100 mls/hr IVPB ONCE ONE Rx#: [id number] Intake, IV Titration 254.000 Amount Norepinephrine 4 mg In 254.000 Sodium Chloride 0.9% 250 ml @ 0.03 MCG/KG/MIN 10. 369 mls/hr IV .Q24H [facility] Rx#:[id number] Oral Output: Urine 1150 Other: Voiding Method External Catheter # Bowel Movements - Exam No acute distress, bit lethargic, currently on 4 L nasal cannula. HEENT examination is grossly unremarkable. Neck supple. Full range of motion. No adenopathy thyromegaly or neck vein distention. Cardiovascular examination reveals an irregular rhythm and rate. S1-S2 normal. No S3 or S4. A systolic murmur is noted, grade 2/6. Lungs reveal scattered rhonchi and crackles. Breath sounds equal. No wheezes. Abdomen soft bowel sounds are heard. No masses or tenderness. Extremities are intact. No cyanosis or clubbing. 1+ edema is noted. Skin is without rash or lesion. Neurologic examination is brief but nonfocal. - Labs CBC & Chem 7: 07/15/24 04:28 07/15/24 04:09 Labs: Abnormal Lab Results - Last 24 Hours (Table) 07/14/24 07/14/24 07/15/24 Range/Units 18:26 21:20 04:09 WBC (3.8-10.6) k/uL RBC (4.30-5.90) m/uL Hgb (13.0-17.5) gm/dL Hct (39.0-53.0) % MCV (80.0-100.0) fL MCH (25.0-35.0) pg RDW (11.5-15.5) % Neutrophils # (1.3-7.7) k/uL Monocytes # (0-1.0) k/uL Sodium 126 L (137-145) mmol/L Potassium 5.8 H (3.5-5.1) mmol/L BUN 60 H (9-20) mg/dL Glucose 138 H (74-99) mg/dL POC Glucose (mg/dL) 156 H 172 H (70-110) mg/dL Hemoglobin A1c (<=6.0) % Calcium 8.0 L (8.4-10.2) mg/dL 07/15/24 07/15/24 07/15/24 Range/Units 04:28 04:28 06:31 WBC 14.2 H (3.8-10.6) k/uL RBC 3.72 L (4.30-5.90) m/uL Hgb 9.2 L (13.0-17.5) gm/dL Hct 29.4 L (39.0-53.0) % MCV 78.9 L (80.0-100.0) fL MCH 24.7 L (25.0-35.0) pg RDW 16.6 H (11.5-15.5) % Neutrophils # 11.0 H (1.3-7.7) k/uL Monocytes # 1.5 H (0-1.0) k/uL Sodium (137-145) mmol/L Potassium (3.5-5.1) mmol/L BUN (9-20) mg/dL Glucose (74-99) mg/dL POC Glucose (mg/dL) 133 H (70-110) mg/dL Hemoglobin A1c 6.8 H (<=6.0) % Calcium (8.4-10.2) mg/dL Microbiology - Last 24 Hours (Table) 07/12/24 17:42 Blood Culture - Preliminary Blood Assessment and Plan Assessment: Acute hypoxemic respiratory failure, secondary to CHF. Hypotension, likely secondary to congestive heart failure and poor cardiac f unction. Hypervolemic hyponatremia. New onset gastrointestinal bleeding. History of chronic atrial fibrillation. History of CAD, with previous myocardial infarction, and previous CABG. Status post AICD/pacemaker implantation. History of COPD from previous tobacco use. History of diabetes mellitus. History of gastroesophageal reflux disease. History of hypertension. History of hyperlipidemia. General medical debility. Plan: Plan dated July 13, 2024. The patient is seen in the emergency department. He is currently on his home CPAP. The patient sees Dr. Levi as a primary. I asked him what white hat hacker he sees, and he states he does not see one. The patient apparently had respiratory failure and was at [facility] on a ventilator for period of time many years back. The patient was a hospice patient for a long period of time. Labs, x-rays, and medications are reviewed. The patient has an elevated BNP, and his chest x-ray is consistent with congestive heart failure. Because of his hypotension, the nurse in the emergency room has held many of his cardiac medications including Lasix. The patient will be admitted to the intensive care unit, for further monitoring and management. Of note, we did have a discussion with the patient about CODE STATUS. He would like to receive all current treatments, including medications, but, would not want intubation, mechanical ventilation, or CPR. Plan dated July 14, 2024. 73-year-old male seen today in room 258. The patient's Unasyn will be discontinued. Procalcitonin level was normal at 0.25. The patient remains on norepinephrine at 3.8 mcg/min. He is on nasal O2 at 5 L. According to the nurse he had an uneventful night. They did call me last night, so that they could start the norepinephrine. That was the reason he was brought to the intensive care unit. Labs, x-rays, and medications are reviewed. We will continue to follow make recommendations. Prognosis is guarded. The patient is a DO NOT INTUBATE patient. Plan dated July 15, 2024. The patient was seen today in room 258. The patient remains on O2 by nasal cannula at 4 L. At nighttime, he did use his CPAP device. He is getting saline at 10 cc an hour, and norepinephrine at 14.8 mcg/min. A repeat hemoglobin will be done at noon time. Previous hemoglobin was 9.2. Last night, his norepinephrine requirements went up, and he developed a GI bleed. I was called by the nurse about this. Currently, he is not having any active bleeding. Hemoglobin will be repeated at noon. The patient's norepinephrine dose has come down to 14.8 mcg/min. Labs, x-rays, and all medications are reviewed. The patient is a DO NOT INTUBATE patient. Time with Patient: Greater than 30
--- NOTE | 2024-07-15 12:00 | P.PN ---
Subjective Progress Note Date: 07/15/24 Patient seen and examined. No specific complaints did have bloody bowel movement last evening now with increasing need for pressor support Objective - Vital Signs Vital signs: Vital Signs Temp 97.7 F 07/15/24 08:00 Pulse 101 H 07/15/24 11:00 Resp 28 H 07/15/24 11:00 BP 91/65 07/15/24 11:00 Pulse Ox 96 07/15/24 11:00 FiO2 Intake & Output 07/14/24 07/15/24 07/15/24 19:59 06:59 18:59 Intake Total 304.000 Output Total 1150 Balance -846.000 Weight Intake: IV 50 0.9% NS KVO 50 Magnesium Sulfate-D5w Pmx 1 gm In Dextrose/Water 1 100ml.bag @ 100 mls/hr IVPB ONCE ONE Rx#: [id number] Intake, IV Titration 254.000 Amount Norepinephrine 4 mg In 254.000 Sodium Chloride 0.9% 250 ml @ 0.03 MCG/KG/MIN 10. 369 mls/hr IV .Q24H [facility] Rx#:[id number] Oral Output: Urine 1150 Other: Voiding Method External Catheter # Bowel Movements 1 - Exam General Is pleasant cooperative, mild respiratory distress. Pale in appearance. Irregularly irregular heart. Abdomen is soft. Extremities with mild coloration changes. Similar to previous. Pulse exam similar to yesterday with signals at the ankles. Motor or sensory intact. No pain in the feet or legs - Labs CBC & Chem 7: 07/15/24 04:28 07/15/24 04:09 Labs: Abnormal Lab Results - Last 24 Hours (Table) 07/14/24 07/14/24 07/15/24 Range/Units 18:26 21:20 04:09 WBC (3.8-10.6) k/uL RBC (4.30-5.90) m/uL Hgb (13.0-17.5) gm/dL Hct (39.0-53.0) % MCV (80.0-100.0) fL MCH (25.0-35.0) pg RDW (11.5-15.5) % Neutrophils # (1.3-7.7) k/uL Monocytes # (0-1.0) k/uL Sodium 126 L (137-145) mmol/L Potassium 5.8 H (3.5-5.1) mmol/L BUN 60 H (9-20) mg/dL Glucose 138 H (74-99) mg/dL POC Glucose (mg/dL) 156 H 172 H (70-110) mg/dL Hemoglobin A1c (<=6.0) % Calcium 8.0 L (8.4-10.2) mg/dL 07/15/24 07/15/24 07/15/24 Range/Units 04:28 04:28 06:31 WBC 14.2 H (3.8-10.6) k/uL RBC 3.72 L (4.30-5.90) m/uL Hgb 9.2 L (13.0-17.5) gm/dL Hct 29.4 L (39.0-53.0) % MCV 78.9 L (80.0-100.0) fL MCH 24.7 L (25.0-35.0) pg RDW 16.6 H (11.5-15.5) % Neutrophils # 11.0 H (1.3-7.7) k/uL Monocytes # 1.5 H (0-1.0) k/uL Sodium (137-145) mmol/L Potassium (3.5-5.1) mmol/L BUN (9-20) mg/dL Glucose (74-99) mg/dL POC Glucose (mg/dL) 133 H (70-110) mg/dL Hemoglobin A1c 6.8 H (<=6.0) % Calcium (8.4-10.2) mg/dL Microbiology - Last 24 Hours (Table) 07/12/24 17:42 Blood Culture - Preliminary Blood Assessment and Plan Assessment: Right lower extremity wounds Diminished pulses Hypotension requiring pressor support Acute hypoxemic respiratory failure Diabetes History of tobacco abuse Plan: awaiting dopppler. likely more chronic findings exacerbated by need for pressor support. Try to decrease pressor support when able. Patient not currently in any clinical state for aggressive vascular surgeon mention. Will continue to monitor. Motor sensor intact. No pain in the extremity therefore doubt any severe acute arterial occlusion at this time
[2024-07-15 12:11] LABS: Anisocytosis Slight; HCT 26.6 % (39.0-53.0); HGB 8.4 gm/dL (13.0-17.5); Hypochromasia Marked; MCH 25.2 pg (25.0-35.0); MCHC 31.5 g/dL (31.0-37.0); MCV 79.7 fL (80.0-100.0); Mean Platelet Volume 7.6; Platelet Count 285 k/uL (150-450); RBC 3.34 m/uL (4.30-5.90); RDW 16.6 % (11.5-15.5); WBC 14.1 k/uL (3.8-10.6)
[2024-07-15 12:31] LABS: Glucose,Whole Blood 155 mg/dL (70-110)
--- NOTE | 2024-07-15 13:48 | US ---
EXAMINATION TYPE: US arterial LE SINGLE level DATE OF EXAM: 07/15/2024 1:17 PM COMPARISONS: None. CLINICAL INDICATION: Male, 73 years old with history of leg discoloration; ICU pt with right leg woun ds to lower leg with large blister anterior right foot and additional wounds, pt also has A-fib TECHNIQUE: Systolic pressures were taken of the upper and lower extremity arteries with ankle-brachia l indices and toe brachial indices calculated bilaterally. FINDINGS: Doppler Waveforms: Right: CNO Left: Monophasic Brachial Artery systolic pressure: Right systolic pressure: Deferred due to IV site Left systolic pressure: 101 Posterior Tibial artery systolic pressure: Right: No audible arterial flow identified Left: CNO Dorsalis Pedis artery systolic pressure: Right: No audible arterial flow identified Left: CNO Toe artery systolic pressure: Right: No arterial waveforms identified Left: No arterial waveforms identified Ankle-Brachial Indices: Right: Unable to obtain due to no audible arterial flow within right popliteal artery, PT and DP Left: CNO >250 (Vessel hardening > 1.4; Normal 0.9 - 1.4, Moderate 0.7 - 0.9, Severe 0.5-0.7) Toe Brachial Indices: Right: No waveforms detected to obtain TBI Left: No waveforms detected to obtain TBI (Normal > 0.6; Mild 0.35 - 0.59, Moderate 0.12 - 0.34, Severe <0.12) IMPRESSION: Unable to obtain ankle-brachial indices due to patient body habitus and unable to detect arterial renetta w. [facility], Workstation: [id number], 07/15/2024 1:46 PM
--- NOTE | 2024-07-15 14:42 | P.CRDCN ---
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 The patient was sent from his primary care physician to the hospital for further evaluation of heart failure. He apparently was retaining significant amount of fluid and he according to his gained about 15 pounds within the last few weeks. He was experiencing progressive exertional dyspnea and bilateral lower extremities edema and bilateral nonhealing wounds involving the lower extremities. In the hospital he was found to be hypotensive he was started on norepinephrine. He underwent further evaluation including EKG showing atrial fibrillation which is permanent. As a mention earlier the patient is not on anticoagulation as an outpatient because of history of GI bleeding. He was started on norepinephrine. Also he was started on IV diuretics. No echocardiogram. The last echo from 2016 showing severe cardiomyopathy with EF around 20% with global hypokinesia. The patient also has history of AICD. The physical examination is remarkable for severe upper and lower extremities pitting edema and also lower extremities nonhealing ulcers with diminished breathing sounds bilaterally and irregular rhythm. Assessment HFrEF exacerbation with evidence of right and left failure Severe cardiomyopathy Severe CAD status post CABG Electrolytes abnormalities Hypotension Permanent atrial fibrillation with overall controlled heart rate Electrolytes abnormalities Chronic kidney disease Multiple comorbid conditions History of amiodarone toxicity Plan Avoid any amiodarone agents or component Continue the current dose of beta-beka DC lisinopril and DC Aldactone in the light of hypotension and electrolyte abnormalities including hyperkalemia Start the patient on dobutamine and try to wean the patient from norepinephrine Continue the current dose of IV diuretics Follow-up with the patient Past Medical History Past Medical History: Atrial Fibrillation, Coronary Artery Disease (CAD), Heart Failure, COPD, Diabetes Mellitus, GERD/Reflux, Hyperlipidemia, Hypertension, Myocardial Infarction (MD), Osteoarthritis (OA), Prostate Disorder Additional Past Medical History / Comment(s): THYROID NODULES-DR [place], STATED THEY HAVE'NT GOTTEN ANY BIGGER. STATED"IF BP IS UNDER 100 SYSTOLIC THEY DON'T GIVE lopressor or lasix; ABD HERNIA Last Myocardial Infarction Date:: March 16, 2005 History of Any Multi-Drug Resistant Organisms: None Reported Past Surgical History: Coronary Bypass/CABG, Pacemaker Additional Past Surgical History / Comment(s): Triple Bypass. Past Anesthesia/Blood Transfusion Reactions: No Reported Reaction Type of Cardiac Device: AICD Device Placement Date:: 08/07/2012 Smoking Status: Former smoker - Past Family History Father History Unknown: Yes Family Medical History: Congestive Heart Failure (CHF) Mother Family Medical History: COPD Son(s) Family Medical History: Seizure Disorder Daughter(s) Family Medical History: No Reported History Medications and Allergies Home Medications Medication Instructions Recorded Confirmed Type ALPRAZolam [Xanax] 0.25 mg PO BID 05/23/16 07/13/24 History Aspirin [Adult Low Dose Aspirin EC] 81 mg PO DAILY 05/23/16 07/13/24 History Nitroglycerin Sl Tabs [Nitrostat] 0.4 mg SUBLINGUAL Q5M PRN 05/23/16 07/13/24 History Spironolactone [Aldactone] 25 mg PO DAILY #30 tab 07/17/16 07/13/24 Rx Cholecalciferol [Vitamin D3 (125 125 mcg PO DAILY 07/13/24 07/13/24 History Mcg = 5000 Iu)] Furosemide [Lasix] 80 mg PO BID 07/13/24 07/13/24 History Loratadine [Claritin] 10 mg PO DAILY 07/13/24 07/13/24 History Magnesium Oxide [Magnesium] 500 mg PO BID 07/13/24 07/13/24 History Metoprolol Succinate (ER) [Toprol 25 mg PO BID 07/13/24 07/13/24 History Xl] Rosuvastatin Calcium [Crestor] 40 mg PO DAILY 07/13/24 07/13/24 History guaiFENesin [Mucinex] 600 mg PO TID 07/13/24 07/13/24 History lisinopriL [Zestril] 2.5 mg PO DAILY 07/13/24 07/13/24 History Allergies Allergy/AdvReac Type Severity Reaction Status Date / Time amiodarone Allergy Unknown Verified 07/13/24 09:26 lorazepam [From Ativan] Allergy Unknown Verified 07/13/24 09:26 mirtazapine [From Remeron] Allergy Unknown Verified 07/13/24 09:26 Physical Exam Vitals: Vital Signs Temp Pulse Resp BP Pulse Ox 07/15/24 14:00 103 H 30 H 84/44 98 07/15/24 13:45 97 30 H 97 07/15/24 13:30 110 H 33 H 89/51 96 07/15/24 13:15 93 19 89/48 98 07/15/24 13:00 112 H 22 99/55 99 07/15/24 12:45 104 H 26 H 97/58 97 07/15/24 12:30 109 H 28 H 100/54 96 07/15/24 12:15 103 H 27 H 101/52 97 07/15/24 12:00 97.6 F 106 H 22 94/50 99 07/15/24 11:45 111 H 22 104/50 94 L 07/15/24 11:30 110 H 20 93/53 95 07/15/24 11:15 106 H 20 92/55 96 07/15/24 11:00 101 H 28 H 91/65 96 07/15/24 10:45 103 H 18 100/55 97 07/15/24 10:30 100 16 104/64 100 07/15/24 10:15 92 15 102/60 100 07/15/24 10:00 101 H 16 109/56 100 07/15/24 09:45 101 H 16 102/67 99 07/15/24 09:30 101 H 17 85/42 88 L 07/15/24 09:15 101 H 16 99/61 86 L 07/15/24 09:00 96 18 100/65 98 07/15/24 08:45 96 17 102/48 99 07/15/24 08:30 95 18 101/61 99 07/15/24 08:22 94 07/15/24 08:15 104 H 15 100/56 100 07/15/24 08:07 98 07/15/24 08:00 97.7 F 93 15 108/52 99 07/15/24 07:45 102 H 18 102/59 98 07/15/24 07:30 98 15 108/58 97 07/15/24 07:15 93 15 106/68 100 07/15/24 07:00 107 H 17 103/51 100 07/15/24 06:45 104 H 26 H 112/54 98 07/15/24 06:30 92 18 106/57 100 07/15/24 06:15 102 H 18 101/63 99 07/15/24 06:00 101 H 21 109/76 99 07/15/24 05:45 101 H 16 91/63 98 07/15/24 05:30 96 28 H 96/61 93 L 07/15/24 05:15 100 27 H 98/57 99 07/15/24 05:00 95 27 H 93/39 98 07/15/24 04:45 85 13 95/50 99 07/15/24 04:30 89 10 L 89/55 100 07/15/24 04:15 94 28 H 72/43 99 07/15/24 04:00 97.6 F 90 11 L 81/47 97 07/15/24 03:45 96 29 H 85/66 96 07/15/24 03:30 94 26 H 85/52 94 L 07/15/24 03:15 86 27 H 77/50 100 07/15/24 03:00 80 14 92/40 99 07/15/24 02:45 83 23 93/59 99 07/15/24 02:30 79 16 86/49 100 07/15/24 02:15 79 16 73/52 100 07/15/24 02:00 76 17 83/51 100 07/15/24 01:45 EST 80 18 86/53 100 07/15/24 01:30 EST 81 16 90/49 100 07/15/24 01:23 EDT 86 16 92/52 100 07/15/24 00:45 84 18 81/53 99 07/15/24 00:30 86 14 78/39 100 07/15/24 00:15 88 17 89/39 100 07/15/24 00:00 98.7 F 80 18 91/56 100 07/14/24 23:45 93 15 93/60 100 07/14/24 23:30 86 18 91/50 100 07/14/24 23:15 91 16 87/55 100 07/14/24 23:00 86 15 88/43 100 07/14/24 22:45 82 19 83/42 100 07/14/24 22:30 90 14 90/55 100 07/14/24 22:15 81 15 83/53 100 07/14/24 22:00 92 18 82/50 100 07/14/24 21:45 93 25 H 85/60 99 07/14/24 21:30 87 19 72/55 99 07/14/24 21:15 84 24 73/54 99 07/14/24 21:00 93 17 97/50 100 07/14/24 20:45 98 24 92/64 100 07/14/24 20:30 96 17 96/60 100 07/14/24 20:15 87 23 136/104 100 07/14/24 20:00 98.0 F 102 H 28 H 108/89 99 07/14/24 19:45 92 20 77/51 98 07/14/24 19:30 89 25 H 83/43 97 07/14/24 19:15 90 24 72/38 100 07/14/24 19:00 86 28 H 87/59 99 07/14/24 18:45 87 26 H 85/55 99 07/14/24 18:32 92 07/14/24 18:30 86 22 89/53 98 07/14/24 18:15 85 20 96/55 99 07/14/24 18:00 81 16 88/66 100 07/14/24 17:45 81 17 85/51 99 07/14/24 17:30 89 15 81/61 99 07/14/24 17:15 79 15 76/50 99 07/14/24 17:00 82 14 81/43 99 07/14/24 16:45 90 14 96/62 100 07/14/24 16:30 90 15 75/55 100 07/14/24 16:15 86 16 86/54 100 07/14/24 16:00 97.8 F 81 15 84/60 100 07/14/24 15:45 84 15 79/54 100 Intake and Output 07/14/24 07/15/24 07/15/24 23:59 06:59 14:59 Intake Total 723.669 Output Total 1950 Balance -1227.331 Intake: IV 80 0.9% NS KVO 80 Magnesium Sulfate-D5w Pmx 1 gm In Dextrose/Water 1 100ml.bag @ 100 mls/hr IVPB ONCE ONE Rx#: [id number] Intake, IV Titration 523.669 Amount Norepinephrine 4 mg In 523.669 Sodium Chloride 0.9% 250 ml @ 0.03 MCG/KG/MIN 10. 369 mls/hr IV .Q24H [facility] Rx#:[id number] Oral 120 Output: Urine 1950 Stool 1 Other: Voiding Method External Catheter # Bowel Movements 1 Weight Results 07/15/24 11:59 07/15/24 04:09 CBC 07/15/24 07/15/24 Range/Units 04:28 11:59 WBC 14.2 H 14.1 H (3.8-10.6) k/uL RBC 3.72 L 3.34 L (4.30-5.90) m/uL Hgb 9.2 L 8.4 L (13.0-17.5) gm/dL Hct 29.4 L 26.6 L (39.0-53.0) % Plt Count 283 285 (150-450) k/uL Comprehensive Metabolic Panel 07/15/24 Range/Units 04:09 Sodium 126 L (137-145) mmol/L Potassium 5.8 H (3.5-5.1) mmol/L Chloride 102 (98-107) mmol/L Carbon Dioxide 23 (22-30) mmol/L BUN 60 H (9-20) mg/dL Creatinine 0.99 (0.66-1.25) mg/dL Glucose 138 H (74-99) mg/dL Calcium 8.0 L (8.4-10.2) mg/dL Current Medications Generic Name Dose Route Start Last Admin Trade Name Freq PRN Reason Stop Dose Admin Albuterol/Ipratropium 3 ml 07/13/24 15:13 Ipratropium-Albuterol 3 Ml Neb INHALATION RT-Q2H PRN Shortness Of Breath Or Wheezing Albuterol/Ipratropium 3 ml 07/13/24 16:00 07/15/24 11:53 Ipratropium-Albuterol 3 Ml Neb INHALATION Not Given RT-QID SELVIN Alprazolam 0.25 mg 07/13/24 09:00 07/15/24 08:09 Alprazolam 0.25 Mg Tab PO Not Given BID SELVIN Atorvastatin Calcium 20 mg 07/13/24 21:00 07/14/24 21:24 Atorvastatin 20 Mg Tab PO 20 mg HS SELVIN Administration Budesonide/Formoterol Fumarate 2 puff 07/13/24 20:00 07/15/24 08:07 Symbicort 160-4.5 Mcg Inhaler INHALATION 2 puff RT-BID SELVIN Administration Dextrose/Water 25 ml 07/14/24 15:15 Dextrose 50% Syringe 50 Ml IVP PER PROTOCOL PRN Hypoglycemia Protocol Dextrose/Water 50 ml 07/14/24 15:15 Dextrose 50% Syringe 50 Ml IVP PER PROTOCOL PRN Hypoglycemia Protocol Furosemide 40 mg 07/14/24 00:00 07/15/24 08:47 Furosemide 10 Mg/Ml 4 Ml Vial IV 40 mg Q8HR SELVIN Administration Norepinephrine Bitartrate 4 mg 254 mls @ 10.369 mls/hr 07/14/24 02:00 07/15/24 14:18 / Sodium Chloride IV 0.18 mcg/kg/min .Q24H SELVIN 62.214 mls/hr Titration Protocol 0.03 MCG/KG/MIN Insulin Aspart 0 unit 07/14/24 17:30 07/15/24 12:43 Insulin Aspart (Novolog) 100 Unit/Ml Vial SQ Not Given ACHS [facility] Protocol Ketorolac Tromethamine 1 drops 07/13/24 22:00 07/15/24 14:02 Ketorolac 0.5% Ophth Drops 5 Ml Btl RIGHT EYE 1 drops QID SELVIN Administration Metoprolol Succinate 12.5 mg 07/13/24 21:00 07/15/24 09:16 Metoprolol Succinate (Er) 25 Mg Tab.Er.24h PO Not Given BID [facility] Miscellaneous Information 1 each 07/13/24 18:48 Potassium Replacement Protocol 1 Each Misc MISCELLANE DAILY PRN Per Protocol Miscellaneous Information 1 each 07/13/24 18:48 Magnesium Replacement Protocol 1 Each Misc MISCELLANE DAILY PRN Per Protocol Protocol Miscellaneous Information 1 each 07/14/24 06:26 Magnesium Replacement Protocol 1 Each Misc MISCELLANE DAILY PRN Per Protocol Protocol Miscellaneous Information 1 each 07/15/24 05:06 Magnesium Replacement Protocol 1 Each Misc MISCELLANE DAILY PRN Per Protocol Protocol Naloxone HCl 0.2 mg 07/13/24 18:48 Naloxone 0.4 Mg/Ml 1 Ml Vial IV Q2M PRN Opioid Reversal Pantoprazole Sodium 40 mg 07/15/24 21:00 Pantoprazole 40 Mg/10 Ml Vial IV BID SELVIN Petrolatum 1 applic 07/13/24 10:45 07/15/24 09:17 Zinc Oxide Paste (Z-Guard) 1 Applic TOPICAL 1 applic DAILY SELVIN Administration Protocol Intake and Output 07/14/24 07/15/24 07/15/24 23:59 06:59 14:59 Intake Total 723.669 Output Total 1951 Balance -1227.331 Intake: IV 80 0.9% NS KVO 80 Magnesium Sulfate-D5w Pmx 1 gm In Dextrose/Water 1 100ml.bag @ 100 mls/hr IVPB ONCE ONE Rx#: [id number] Intake, IV Titration 523.669 Amount Norepinephrine 4 mg In 523.669 Sodium Chloride 0.9% 250 ml @ 0.03 MCG/KG/MIN 10. 369 mls/hr IV .Q24H SELVIN Rx#:[id number] Oral 120 Output: Urine 1950 Stool 1 Other: Voiding Method External Catheter # Bowel Movements 1 Weight 07/15/24 11:59 07/15/24 04:09
[2024-07-15] MEDS: DOBUTamine DRIP 500 MG in DEXTROSE/WATER 1 250ML.BAG IV SCH (15:07)
--- NOTE | 2024-07-15 15:23 | CA ---
Transthoracic Echo Report Name: Gerry Lucero Age: 73 Gender: M : 1950 Exam Date: 07/14/2024 15:29 Exam Location: [facility] [facility] Ht (in): 70 Wt (lb): 200 Ordering Physician: Loretta Levi MD Attending/Referring Phys: Manager Operations Tonya Arango RDCS Procedure CPT: Indications: chf Cardiac Hx: CHF, AICD, Ischemic Cardiomyopathy, MO, DM, COPD Technical Quality: Fair Contrast 1: Definity Total Dose (mL): 2 Contrast 2: Total Dose (mL): MEASUREMENTS (Male / Female) Normal Values 2D ECHO LV Diastolic Diameter PLAX 6.6 cm 4.2 - 5.9 / 3.9 - 5.3 cm LV Systolic Diameter PLAX 6.5 cm IVS Diastolic Thickness 1.2 cm 0.6 - 1.0 / 0.6 - 0.9 cm LVPW Diastolic Thickness 1.2 cm 0.6 - 1.0 / 0.6 - 0.9 cm LV Relative Wall Thickness 0.4 RV Internal Dim ED PLAX 4.0 cm LVOT Diameter 1.9 cm LA Systolic Diameter LX 5.3 cm 3.0 - 4.0 / 2.7 - 3.8 cm LA Volume 164.7 cm??? 18 - 58 / 22 - 52 cm??? LA Volume Index 77.1 cm???/m??? 16 - 28 cm???/m??? M-MODE Aortic Root Diameter MM 3.3 cm LA Systolic Diameter MM 5.2 cm LA Ao Ratio MM 1.5 AV Cusp Separation MM 1.1 cm DOPPLER AV Peak Velocity 240.5 cm/s AV Peak Gradient 23.1 mmHg AV Mean Velocity 163.1 cm/s AV Mean Gradient 12.2 mmHg AV Velocity Time Integral 45.3 cm AI Peak Velocity 286.9 cm/s AI Peak Gradient 32.9 mmHg AI Pressure Half Time 1084.1 ms LVOT Peak Velocity 73.4 cm/s LVOT Peak Gradient 2.2 mmHg LVOT Velocity Time Integral 12.2 cm LVOT Stroke Volume 33.6 cm??? LVOT Stroke Volume Index 16.1 ml/m??? LVOT Cardiac Index 1052.3 cm???/min???m??? AV Area Cont Eq vti 0.7 cm??? AV Area Cont Eq pk 0.8 cm??? MV Area PHT 4.6 cm??? Mitral E Point Velocity 132.3 cm/s Mitral A Point Velocity 0.6 cm/s Mitral E to A Ratio 216.0 MV Deceleration Time 164.4 ms TR Peak Velocity 352.6 cm/s TR Peak Gradient 49.7 mmHg FINDINGS Left Ventricle Left ventricular ejection fraction is estimated at 15-20%. Mildly increased septal wall thickness. Moderately increased left ventricular diastolic diameter. Severely reduced global left ventricular systolic function. Right Ventricle Mild right ventricular dilatation. Reduced right ventricular global systolic function. Moderate pulmonary hypertension. Right Atrium Severe right atrial dilatation. Catheter/pacemaker wire in the right atrial cavity. Left Atrium Severely increased left atrial diameter. Severely increased left atrial volume. Moderately increased left atrial area. Mitral Valve Moderate thickening/calcification of the anterior mitral valve leaflet. Moderate thickening/calcification of the posterior mitral valve leaflet. Mitral annular calcification. Severe mitral regurgitation. Mild mitral annular dilatation. Aortic Valve Mild aortic stenosis with a peak gradient of 23mmHg and a mean gradient of 12 mmHg. Mild aortic regurgitation. Tricuspid Valve Annular dilatation of the tricuspid valve. Severe tricuspid regurgitation. Tricuspid regurgitation jet eccentric. Pulmonic Valve Structurally normal pulmonic valve. Mild pulmonic regurgitation. No pulmonic stenosis. Pericardium No pericardial or pleural effusion. Aorta Normal size aortic root and proximal ascending aorta. CONCLUSIONS Severe cardiomyopathy. The ejection fraction is 15 to 20% Moderate to severe pulmonary hypertension Severe mitral regurgitation Torrential tricuspid regurgitation Previewed by: Dr. Bobo Xiao MD (Electronically Signed) Final Date: 15 July 2024 15:22
[2024-07-15 17:46] LABS: Glucose,Whole Blood 172 mg/dL (70-110)
[2024-07-15] MEDS: ALBUTEROL NEBULIZED 2.5 MG/3 ML INHALATION SCH (20:07)
[2024-07-15 21:10] LABS: Anisocytosis Slight; HGB 9.3 gm/dL (13.0-17.5); Hypochromasia Moderate; MCHC 33.2 g/dL (31.0-37.0); MCV 81.2 fL (80.0-100.0); Mean Platelet Volume 7.4; Platelet Count 189 k/uL (150-450); Poikilocytosis Slight; RBC 3.45 m/uL (4.30-5.90); RDW 16.9 % (11.5-15.5); WBC 11.1 k/uL (3.8-10.6)
[2024-07-15] MEDS: PANTOPRAZOLE 40 MG/10 ML VIAL IV SCH (21:15)
[2024-07-15 21:21] LABS: Glucose,Whole Blood 164 mg/dL (70-110)
[2024-07-16] MEDS: VASOPRESSIN 20 UNIT in SODIUM CHLORIDE 0.9% 50 ML IV SCH (00:40)
[2024-07-16 02:46] LABS: Anisocytosis Slight; Basophils # (A) 0.1 k/uL (0-0.2); Basophils % (A) 0 %; Eosinophils # (A) 0.2 k/uL (0-0.7); Eosinophils % (A) 1 %; HCT 34.9 % (39.0-53.0); HGB 11.3 gm/dL (13.0-17.5); Hypochromasia Slight; Lymphocytes # (A) 1.2 k/uL (1.0-4.8); Lymphocytes % (A) 8 %; MCH 26.1 pg (25.0-35.0); MCHC 32.3 g/dL (31.0-37.0); MCV 80.8 fL (80.0-100.0); Mean Platelet Volume 8.1; Monocytes # (A) 1.8 k/uL (0-1.0); Monocytes % (A) 12 %; Neutrophils # (A) 11.7 k/uL (1.3-7.7); Neutrophils % (A) 77 %; Platelet Count 226 k/uL (150-450); Poikilocytosis Slight; RBC 4.32 m/uL (4.30-5.90); RDW 16.2 % (11.5-15.5); WBC 15.3 k/uL (3.8-10.6)
--- NOTE | 2024-07-16 03:48 | P.PN ---
Subjective Progress Note Date: 07/16/24 HISTORY OF PRESENT ILLNESS: This is a 73-year-old male used to be my patient for many years, he had left [place] and went to [place] for about 7 years he just got back about 3 months ago, and he was in my office yesterday for the first time as a new patient he is well-known to have a significant history of coronary artery disease status post coronary artery bypass graft x 3 in 2004 with ischemic cardiomyopathy status post AICD/biventricular pacemaker that was turned off by his nursing educator prior to him going to [place], hypertension hypertensive cardiovascular disease, diabetes mellitus type 2 diabetic polyneuropathy, history of obstructive sleep apnea, history of COPD, history of PAD, patient came to my office as a new patient yesterday and he was tremendous amount of shortness of breath, he was on oxygen at that time, he was having fluid weeping out his upper extremity and the left upper extremity as well as both lower extremity has wounds on his right lower extremity due to venous ulceration due to abrasion due to fall, patient was directed to go to the emergency department for evaluation of acute systolic heart failure his family to come to the ER, patient was found to have an elevated BNP, he was started on IV Lasix 80 mg IV push every 12 hours, patient became hypotensive in the emergency department, hypoxemic as well, intensive care consultation was obtained from Dr. Randall who accepted the patient to the ICU, patient will be seen in consultation by cardiology as well for further evaluation recommendation, most of his medication were held because of his hypotension, we will adjust his IV diuretics at this time untilhe is moved into the ICU and he is seen by cardiology. 07/14: Patient is sitting up in bed currently on 4 L nasal cannula, he appears to be in mild respiratory distress, he is dozing on and off, his was at the bedside, his blood pressure currently 82/42 on Levophed drip, patient was seen earlier by vascular surgery patient does have a Doppler signal on the right stronger in the left in the dorsalis pedis, and patient had a venous Doppler that was negative for DVT, patient is not a good candidate for any vascular intervention at this point in time, we will continue the patient on Xarelto as the patient refused to go on heparin drip at this time, continue current treatment plan, discussed with the the prognosis is poor but will take it 1 day at a time at this point. 07/15: Patient is laying down in bed he appears to be generally weak, his Levophed drip is higher, he did have an episode of a large episode of maroon- colored blood coming out of the rectum, he is still making decent amount of urine, he continues to be holding his own, discontinue aspirin, discontinue Xarelto completely, we will obtain general surgery consultation for standby, regarding GI bleed, we will follow-up with the patient very closely, patient re domingo in the ICU, continues to have very poor prognosis at this point in time due to his cardiomyopathy as well as other morbid conditions. 07/16: Patient is laying down in bed on his CPAP, he is currently on Levophed drip at 0.3 mics per KG per minute, his blood pressures around 102/55, heart rate is around 122 he continues to have a chronic atrial fibrillation, he had episode of V. tach's on and off, when he was started on dobutamine drip, he was taken off that, he continues to be on Levophed drip at this point in time, I spoke with Dr. Cortes regarding his GI bleed and she will be happy to see the patient for Acharya in the morning, general surgery were consulted yesterday, patient did receive 4 units of packed red blood cells, his last hemoglobin was 11 by the time I seen the patient 11.3 repeat still pending at the time of dictation, will repeat his hemoglobin again at 6:00 in the morning, we will keep the patient on nothing per mouth, continue Protonix 40 mg IV push every 12 hours, I spoke with the patient's family his and his daughter at the bedside and I told him that his prognosis is very poor at this point in time, the patient is not a good candidate for any transfer at this point in time, unless we are not able to control his bleeding, patient's family were in underst anding that his prognosis very poor at this point in time, we will continue with the current CODE STATUS, but patient stated that he is okay with intubation if he has to go for a procedure regarding his GI bleed. Patient will not be a candidate for any anticoagulation or any amiodarone due to his toxicity and GI bleed. REVIEW OF SYSTEMS: Constitutional: No documented fever, no chills, no night sweats. No weight change. positive for weakness, fatigue or lethargy. No daytime sleepiness. EENT: No headache. positive for blurred vision or double vision, no loss of vision. No loss of Hearing, no ringing in the ears, no dizziness. No nasal drainage or congestion. No epistaxis. No sore throat. Lungs: positive for shortness of breath, no cough, no sputum production. occasional wheezing. Reports dyspnea with activity. Cardiovascular: No chest pain, positive for lower extremity edema. No palpitations. positive for paroxysmal nocturnal dyspnea. positive for orthopnea. No lightheadedness or dizziness. No syncopal episodes. Abdominal: Reports mild abdominal pain. No nausea, vomiting. No diarrhea. No constipation. positive for maroon colored stool , reports loss of appetite. Genitourinary: No dysuria, increased frequency, urgency. No urinary retention. Musculoskeletal: No myalgias. positive for muscle weakness, positive for gait dysfunction, no frequent falls. No back pain. No neck pain. Integumentary: Multiple abrasions to the right lower extremity with a right foot blister, positive for easy bruises positive for bluish discoloration of the right foot. Neurologic: No aphasia. No facial droop. No change in mentation. No head injury. No headache. No paralysis. No paresthesia. Psychiatric: No depression. positive for anxiety. No mood swings. Endocrine: No abnormal blood sugars. positive for weight change. PHYSICAL EXAMINATION: General: 73-year-old male sitting up in bed appears to be in respiratory distress HEENT: Head is atraumatic, normocephalic, pupils were equal round reactive to light and recommendation, extraocular muscle movement were intact, sclera nonicteric, conjunctivae were pale, mucous membranes of the mouth are somewhat dry. Neck: Supple, increased JVP, normal carotid upstroke bilaterally, no lymphadenopathy. Chest: Decreased breath sounds at the bases, few rhonchi, minimal expiratory wheezes, no chest wall tenderness, no intercostal retractions. Heart: First heart sound is depressed, second heart sound is normal, there are systolic pressure murmur 2 over systolic in the left sternal border there is an AICD/PPM in the left upper precordium Abdomen: Soft, nontender, nondistended, positive bowel sounds, no hepat osplenomegaly Extremities: There is +2 edema in the left upper extremity, bilateral lower extremity edema, with dorsalis pedis not palpable in the right lower extremity and better in the left lower extremity, there is multiple abrasion to the right knee multiple wounds to the right lower extremity and a blister to the right foot Neurologic examination: Patient is awake alert and oriented x3, cranial nerves II-12 appear grossly intact, muscle power were 3 out of 5 in upper extremities and 2 out of 5 in bilateral lower extremities, deep tendon reflexes normal bilaterally. ASSESSMENT AND PLAN: 1. 1. Acute hypoxemic respiratory failure due to acute systolic heart failure in a patient with a prior history of ischemic cardiomyopathy post AICD/PPM, patient was maintained on metoprolol 12.5 mg orally twice every day along with Lasix 40 mg IV push every 8 hours, continue patient on Levophed drip at 0.3 mcg/kg/min, keep his mean arterial pressure around 65, monitor input and output and daily weight, cardiology as well as intensive care consultation appreciated. 2. Severe hypotension likely due to severe cardiomyopathy. Patient was started on Levophed drip, monitor the patient symptoms very closely.. 3. Multiple venous ulcerations and blistering of the right foot due to hypoperfusion state seen by vascular surgery, venous Doppler was obtained to rule out any DVT, patient is not a candidate for anticoagulation and he is not a candidate for any vascular intervention at this point. 4. Possible upper gastrointestinal bleed. Consult general surgery, consult gastroenterology monitor the patient hemoglobin, transfuse for hemoglobin less than 8, continue Levophed drip at 0.3 mics per KG per minute 5. Persistent atrial fibrillation. continue metoprolol 12.5 mg orally twice every day, patient was taken off lisinopril and spironolactone because of hypotension, cardiology seen the patient, patient is not a candidate for anticoagulation he is not a candidate for amiodarone due to his toxicity. 6. Right lower extremity multiple wound rule out cellulitis likely related to venous ulceration with delayed healing. Continue patient on Unasyn. 7. Severe hyponatremia due to hypervolemia. Continue with IV Lasix 40 mg IV push every 8 hours, monitor the patient input and output and daily weight, monitor the patient CMP very closely this is an ominous sign. 8. Mild hyperkalemia. Will continue to monitor the patient CMP 9. Diabetes mellitus type 2. His blood glucose level appears to be good at this time, patient is not take any medication as an outpatient. Continue sliding scale insulin. 10. Obesity with obstructive sleep apnea. Patient currently has a CPAP. 11. Allergic rhinitis. Currently patient on loratadine 10 mg orally once every day. 12. Recent cataract surgery continue with current eyedrops. 13. DVT prophylaxis. discontinue Xareltod due to GI bleed 14. GI prophylaxis. Continue patient on Protonix 40 mg IV push every 12 hours 15. No code 15. Prognosis is dismal. Objective - Vital Signs Vital signs: Vital Signs Temp 97.5 F L 07/16/24 00:30 Pulse 110 H 07/16/24 03:15 Resp 33 H 07/16/24 03:15 BP 94/59 07/16/24 03:15 Pulse Ox 98 07/16/24 03:15 FiO2 Intake & Output 07/15/24 07/15/24 07/16/24 06:59 18:59 06:59 Intake Total 9640.770 6931.869 Output Total 3551 1853 Balance -1903.077 -11.131 Weight Intake: IV 120 90 0.9% NS KVO 120 90 Magnesium Sulfate-D5w Pmx 1 gm In Dextrose/Water 1 100ml.bag @ 100 mls/hr IVPB ONCE ONE Rx#: [id number] Intake, IV Titration 787.923 841.869 Amount DOBUTamine DRIP 500 mg In 105.792 Dextrose/Water 1 250ml. bag @ 5 MCG/KG/MIN 13.92 mls/hr IV .[id number] [facility] Rx #:[id number] Norepinephrine 4 mg In 787.923 736.077 Sodium Chloride 0.9% 250 ml @ 0.03 MCG/KG/MIN 10. 369 mls/hr IV .Q24H [facility] Rx#:[id number] Oral 120 Blood Product 620 910 Rc As-1 Unit 0 [id number] Rc As-1 Unit 310 [id number] Rc As-1 Unit 310 [id number] Rc As-1 Unit 310 [id number] Output: Urine 3550 1850 Stool 1 3 Other: Voiding Method External Catheter External Catheter # Bowel Movements 1 - Labs CBC & Chem 7: 07/16/24 02:25 07/15/24 04:09 Labs: Abnormal Lab Results - Last 24 Hours (Table) 07/15/24 07/15/24 07/15/24 Range/Units 04:09 04:28 04:28 WBC 14.2 H (3.8-10.6) k/uL RBC 3.72 L (4.30-5.90) m/uL Hgb 9.2 L (13.0-17.5) gm/dL Hct 29.4 L (39.0-53.0) % MCV 78.9 L (80.0-100.0) fL MCH 24.7 L (25.0-35.0) pg RDW 16.6 H (11.5-15.5) % Neutrophils # 11.0 H (1.3-7.7) k/uL Monocytes # 1.5 H (0-1.0) k/uL Sodium 126 L (137-145) mmol/L Potassium 5.8 H (3.5-5.1) mmol/L BUN 60 H (9-20) mg/dL Glucose 138 H (74-99) mg/dL POC Glucose (mg/dL) (70-110) mg/dL Hemoglobin A1c 6.8 H (<=6.0) % Calcium 8.0 L (8.4-10.2) mg/dL Crossmatch 07/15/24 07/15/24 07/15/24 Range/Units 06:31 11:59 12:29 WBC 14.1 H (3.8-10.6) k/uL RBC 3.34 L (4.30-5.90) m/uL Hgb 8.4 L (13.0-17.5) gm/dL Hct 26.6 L (39.0-53.0) % MCV 79.7 L (80.0-100.0) fL MCH (25.0-35.0) pg RDW 16.6 H (11.5-15.5) % Neutrophils # (1.3-7.7) k/uL Monocytes # (0-1.0) k/uL Sodium (137-145) mmol/L Potassium (3.5-5.1) mmol/L BUN (9-20) mg/dL Glucose (74-99) mg/dL POC Glucose (mg/dL) 133 H 155 H (70-110) mg/dL Hemoglobin A1c (<=6.0) % Calcium (8.4-10.2) mg/dL Crossmatch 07/15/24 07/15/24 07/15/24 Range/Units 13:44 17:44 20:49 WBC 11.1 H (3.8-10.6) k/uL RBC 3.45 L (4.30-5.90) m/uL Hgb 9.3 L (13.0-17.5) gm/dL Hct 28.0 L (39.0-53.0) % MCV (80.0-100.0) fL MCH (25.0-35.0) pg RDW 16.9 H (11.5-15.5) % Neutrophils # (1.3-7.7) k/uL Monocytes # (0-1.0) k/uL Sodium (137-145) mmol/L Potassium (3.5-5.1) mmol/L BUN (9-20) mg/dL Glucose (74-99) mg/dL POC Glucose (mg/dL) 172 H (70-110) mg/dL Hemoglobin A1c (<=6.0) % Calcium (8.4-10.2) mg/dL Crossmatch See Detail 07/15/24 07/16/24 Range/Units 21:19 02:25 WBC 15.3 H (3.8-10.6) k/uL RBC (4.30-5.90) m/uL Hgb 11.3 L (13.0-17.5) gm/dL Hct 34.9 L (39.0-53.0) % MCV (80.0-100.0) fL MCH (25.0-35.0) pg RDW 16.2 H (11.5-15.5) % Neutrophils # 11.7 H (1.3-7.7) k/uL Monocytes # 1.8 H (0-1.0) k/uL Sodium (137-145) mmol/L Potassium (3.5-5.1) mmol/L BUN (9-20) mg/dL Glucose (74-99) mg/dL POC Glucose (mg/dL) 164 H (70-110) mg/dL Hemoglobin A1c (<=6.0) % Calcium (8.4-10.2) mg/dL Crossmatch Microbiology - Last 24 Hours (Table) 07/12/24 17:42 Blood Culture - Preliminary Blood
[2024-07-16 06:15] LABS: Anisocytosis Slight; Basophils % (A) 0 %; Eosinophils # (A) 0.1 k/uL (0-0.7); Eosinophils % (A) 1 %; HCT 35.5 % (39.0-53.0); HGB 11.3 gm/dL (13.0-17.5); Hypochromasia Moderate; Lymphocytes # (A) 1.1 k/uL (1.0-4.8); Lymphocytes % (A) 8 %; MCH 26.2 pg (25.0-35.0); MCV 81.9 fL (80.0-100.0); Mean Platelet Volume 7.7; Monocytes # (A) 1.2 k/uL (0-1.0); Monocytes % (A) 9 %; Neutrophils % (A) 80 %; Platelet Count 265 k/uL (150-450); Poikilocytosis Slight; RBC 4.33 m/uL (4.30-5.90); RDW 16.3 % (11.5-15.5); WBC 13.8 k/uL (3.8-10.6)
[2024-07-16 06:20] LABS: Glucose,Whole Blood 189 mg/dL (70-110)
[2024-07-16 06:28] LABS: ALT 30 U/L (4-49); AST 33 U/L (17-59); African American GFR (CKD) 90 (>60 ml/min/1.73 sqM); Albumin 2.2 g/dL (3.5-5.0); Alkaline Phosphatase 177 U/L (38-126); Anion Gap 5 mmol/L; Blood Urea Nitrogen 45 mg/dL (9-20); Carbon Dioxide 24 mmol/L (22-30); Chloride 101 mmol/L (98-107); Glucose 144 mg/dL (74-99); Magnesium 1.6 mg/dL (1.6-2.3); Non-African American GFR(CKD) 77 (>60 ml/min/1.73 sqM); Potassium 4.9 mmol/L (3.5-5.1); Sodium 130 mmol/L (137-145)
[2024-07-16] MEDS ORDERED: Kcentra / Balfaxar PER PHARMACY 1 EACH MISC MISCELLANE PRN (06:45)
[2024-07-16] MEDS ORDERED: Magnesium Replacement Protocol 1 EACH MISC MISCELLANE PRN (06:59)
[2024-07-16] MEDS: HUMAN PROTHROMBN CMPL BALFAXAR IV ONE (07:34)
--- NOTE | 2024-07-16 08:42 | P.CONS ---
History of Present Illness - Reason for Consult Consult date: 07/16/24 GI bleed Requesting physician: Loretta Levi - Chief Complaint Shortness of breath - History of Present Illness This a pleasant 73-year-old male with multiple comorbidities including coronary artery disease status post CABG, congestive heart failure previous GI bleed, atrial fibrillation with an EF of 15-20% who was admitted for hyperkalemia, hyponatremia and acute pulmonary edema. Patient was also in atrial fibrillation started on Xarelto. Following Xarelto yesterday he started having GI bleed with multiple episodes of dark and maroon-colored stool. Patient became hypotensive he has been started on Levophed and vasopressin. This morning he was given Kcentra about 30 minutes ago and continues to have dark maroon stools with clots. Levophed is at 0.3 to micrograms and vasopressin 0.03. Blood pressures are running in the 90s over 60s. He is status post 4 units of PRBC transfusion. Hemoglobin stable at 11.3 BUN elevated at 45. He denies any abdominal pain, nausea or vomiting. is at the bedside and states he had a previous upper GI bleed about 8 years ago when he was at [facility] post extubation. Last colonoscopy about 15 years ago. Review of Systems REVIEW OF SYSTEMS: CARDIOPULMONARY: No chest pain. Patient does have shortness of breath. Gastrointestinal: No abdominal pain. No nausea or vomiting. No hematemesis, coffee-ground emesis. Patient with melena, multiple maroon and black-colored stools. GENITOURINARY: No dysuria or hematuria. MUSCULOSKELETAL: Reports normal range of motion., Joint pain. SKIN: No rashes. No jaundice. Upper and lower extremity swelling. Bruising on the upper extremities. Lower extremities mottled especially on the right. ENDOCRINE: No chills, fevers. No excessive weight gain or loss. No polydipsia or polyuria. PSYCHIATRIC: Unremarkable. NEUROLOGY: No change in mental status. Denies dizziness, headache. ENT: Vision unremarkable. CONSTITUTIONAL: No recent weight loss. No fever, chills, night sweats. Past Medical History Past Medical History: Atrial Fibrillation, Coronary Artery Disease (CAD), Heart Failure, COPD, Diabetes Mellitus, GERD/Reflux, Hyperlipidemia, Hypertension, Myocardial Infarction (NM), Osteoarthritis (OA), Prostate Disorder Additional Past Medical History / Comment(s): THYROID NODULES-DR VILLAN[place]VA, STATED THEY HAVE'NT GOTTEN ANY BIGGER. STATED"IF BP IS UNDER 100 SYSTOLIC THEY DON'T GIVE lopressor or lasix; ABD HERNIA Last Myocardial Infarction Date:: March 16, 2005 History of Any Multi-Drug Resistant Organisms: None Reported Past Surgical History: Coronary Bypass/CABG, Pacemaker Additional Past Surgical History / Comment(s): Triple Bypass. Past Anesthesia/Blood Transfusion Reactions: No Reported Reaction Type of Cardiac Device: AICD Device Placement Date:: 08/07/2012 Smoking Status: Former smoker - Past Family History Father History Unknown: Yes Family Medical History: Congestive Heart Failure (CHF) Mother Family Medical History: COPD Son(s) Family Medical History: Seizure Disorder Daughter(s) Family Medical History: No Reported History Medications and Allergies Home Medications Medication Instructions Recorded Confirmed Type ALPRAZolam [Xanax] 0.25 mg PO BID 05/23/16 07/13/24 History Aspirin [Adult Low Dose Aspirin EC] 81 mg PO DAILY 05/23/16 07/13/24 History Nitroglycerin Sl Tabs [Nitrostat] 0.4 mg SUBLINGUAL Q5M PRN 05/23/16 07/13/24 History Spironolactone [Aldactone] 25 mg PO DAILY #30 tab 07/17/16 07/13/24 Rx Cholecalciferol [Vitamin D3 (125 125 mcg PO DAILY 07/13/24 07/13/24 History Mcg = 5000 Iu)] Furosemide [Lasix] 80 mg PO BID 07/13/24 07/13/24 History Loratadine [Claritin] 10 mg PO DAILY 07/13/24 07/13/24 History Magnesium Oxide [Magnesium] 500 mg PO BID 07/13/24 07/13/24 History Metoprolol Succinate (ER) [Toprol 25 mg PO BID 07/13/24 07/13/24 History Xl] Rosuvastatin Calcium [Crestor] 40 mg PO DAILY 07/13/24 07/13/24 History guaiFENesin [Mucinex] 600 mg PO TID 07/13/24 07/13/24 History lisinopriL [Zestril] 2.5 mg PO DAILY 07/13/24 07/13/24 History Allergies Allergy/AdvReac Type Severity Reaction Status Date / Time amiodarone Allergy Unknown Verified 07/13/24 09:26 lorazepam [From Ativan] Allergy Unknown Verified 07/13/24 09:26 mirtazapine [From Remeron] Allergy Unknown Verified 07/13/24 09:26 Physical Exam Vitals: Vital Signs Temp Pulse Resp BP Pulse Ox 07/16/24 07:00 118 H 29 H 85/51 91 L 07/16/24 06:45 112 H 29 H 92/55 95 07/16/24 06:30 112 H 33 H 93/55 92 L 07/16/24 06:15 114 H 25 H 97/58 94 L 07/16/24 06:00 111 H 31 H 93/57 94 L 07/16/24 05:45 133 H 31 H 70/47 93 L 07/16/24 05:30 110 H 33 H 107/81 98 07/16/24 05:15 112 H 33 H 91/60 97 07/16/24 05:00 108 H 18 108/60 96 07/16/24 04:45 117 H 18 100/55 97 07/16/24 04:30 109 H 17 88/65 97 07/16/24 04:15 110 H 17 99/61 95 07/16/24 04:00 112 H 17 103/54 95 07/16/24 03:45 116 H 29 H 106/63 96 07/16/24 03:30 106 H 33 H 93/56 100 07/16/24 03:15 110 H 33 H 94/59 98 07/16/24 03:00 115 H 36 H 70/59 99 07/16/24 02:45 112 H 28 H 97/54 97 07/16/24 02:30 102 H 30 H 102/68 100 07/16/24 02:15 121 H 32 H 101/55 96 07/16/24 02:00 112 H 29 H 97/62 100 07/16/24 01:45 124 H 34 H 98/59 100 07/16/24 01:30 97.4 F L 115 H 26 H 90/66 99 07/16/24 01:15 121 H 32 H 99/76 93 L 07/16/24 01:00 118 H 29 H 91/54 99 07/16/24 00:45 107 H 27 H 95/55 98 07/16/24 00:30 97.5 F L 116 H 26 H 93/69 95 11/04/24 00:15 101 H 31 H 71/46 94 L 07/16/24 00:10 97.4 F L 112 H 28 H 71/46 92 L 07/16/24 00:00 97.4 F L 120 H 33 H 102/57 93 L 07/15/24 23:45 105 H 29 H 92/53 94 L 07/15/24 23:30 97.5 F L 105 H 16 91/57 93 L 07/15/24 23:15 106 H 15 94/50 95 07/15/24 23:00 104 H 16 82/51 95 07/15/24 22:54 97.9 F 103 H 15 82/51 95 07/15/24 22:45 118 H 17 76/48 96 07/15/24 22:34 97.1 F L 120 H 17 79/53 98 07/15/24 22:30 120 H 24 90/59 97 07/15/24 22:15 110 H 27 H 85/74 99 07/15/24 22:00 114 H 25 H 77/48 95 07/15/24 21:45 117 H 31 H 91/47 99 07/15/24 21:30 111 H 25 H 80/53 100 07/15/24 21:15 104 H 31 H 93/62 99 07/15/24 21:00 114 H 33 H 93/50 100 07/15/24 20:45 128 H 20 87/51 96 07/15/24 20:30 110 H 19 89/59 98 07/15/24 20:15 113 H 18 79/50 98 07/15/24 20:00 97.6 F 124 H 29 H 79/46 97 07/15/24 19:45 114 H 16 87/49 100 07/15/24 19:30 116 H 24 61/45 100 07/15/24 19:15 116 H 19 87/54 100 07/15/24 19:00 125 H 28 H 70/51 97 07/15/24 18:45 111 H 24 94/48 97 07/15/24 18:30 114 H 25 H 88/50 98 07/15/24 18:24 97.8 F 110 H 22 88/50 99 07/15/24 18:15 109 H 28 H 91/54 99 07/15/24 18:00 115 H 28 H 93/48 96 07/15/24 17:45 122 H 31 H 85/55 97 07/15/24 17:30 114 H 33 H 84/49 94 L 07/15/24 17:26 97.7 F 99 22 85/55 97 07/15/24 17:15 123 H 29 H 93/55 97 07/15/24 17:06 97.7 F 118 H 19 93/55 97 07/15/24 17:00 117 H 23 91/50 100 07/15/24 16:56 97.6 F 105 H 23 93/53 100 07/15/24 16:45 102 H 21 96/49 94 L 07/15/24 16:30 112 H 19 95/55 96 07/15/24 16:15 122 H 24 95/55 96 07/15/24 16:00 97.7 F 104 H 15 92/50 96 07/15/24 15:53 97.7 F 99 17 92/50 96 07/15/24 15:45 115 H 18 84/50 95 07/15/24 15:33 98.4 F 108 H 29 H 84/50 95 07/15/24 15:30 98.4 F 112 H 22 89/58 96 07/15/24 15:20 97.4 F L 112 H 25 H 89/58 95 07/15/24 15:10 105 H 22 91/57 98 07/15/24 15:00 101 H 34 H 91/59 88 L 07/15/24 14:45 102 H 30 H 86/50 96 07/15/24 14:30 101 H 37 H 80/51 95 07/15/24 14:15 105 H 41 H 78/46 95 07/15/24 14:00 103 H 30 H 84/44 98 07/15/24 13:45 97 30 H 97 07/15/24 13:30 110 H 33 H 89/51 96 07/15/24 13:15 93 19 89/48 98 07/15/24 13:00 112 H 22 99/55 99 07/15/24 12:45 104 H 26 H 97/58 97 07/15/24 12:30 109 H 28 H 100/54 96 07/15/24 12:15 103 H 27 H 101/52 97 07/15/24 12:00 97.6 F 106 H 22 94/50 99 11/03/24 11:45 111 H 22 104/50 94 L 07/15/24 11:30 110 H 20 93/53 95 07/15/24 11:15 106 H 20 92/55 96 07/15/24 11:00 101 H 28 H 91/65 96 07/15/24 10:45 103 H 18 100/55 97 07/15/24 10:30 100 16 104/64 100 07/15/24 10:15 92 15 102/60 100 07/15/24 10:00 101 H 16 109/56 100 07/15/24 09:45 101 H 16 102/67 99 07/15/24 09:30 101 H 17 85/42 88 L 07/15/24 09:15 101 H 16 99/61 86 L 07/15/24 09:00 96 18 100/65 98 07/15/24 08:45 96 17 102/48 99 07/15/24 08:30 95 18 101/61 99 07/15/24 08:22 94 07/15/24 08:15 104 H 15 100/56 100 07/15/24 08:07 98 Intake and Output 07/15/24 07/16/24 07/16/24 22:59 06:59 14:59 Intake Total 4542.833 2564.193 264 Output Total 1602 1851 Balance -239.070 146.193 264 Intake: IV 80 80 10 0.9% NS KVO 80 80 10 Intake, IV Titration 662.930 697.193 254 Amount DOBUTamine DRIP 500 mg In 105.792 Dextrose/Water 1 250ml. bag @ 5 MCG/KG/MIN 13.92 mls/hr IV .[id number] [facility] Rx #:[id number] Norepinephrine 4 mg In 557.138 697.193 254 Sodium Chloride 0.9% 250 ml @ 0.03 MCG/KG/MIN 10. 369 mls/hr IV .Q24H [facility] Rx#:[id number] Blood Product 620 1220 Rc As-1 Unit 310 [id number] Rc As-1 Unit 310 [id number] Rc As-1 Unit 310 [id number] Rc As-1 Unit 0 310 [id number] Output: Urine 1600 1850 Stool 2 1 Other: Voiding Method External Catheter External Catheter # Bowel Movements 1 General appearance: The patient is alert, oriented, pale, appears in no acute distress. HET: Head is normocephalic and atraumatic. Conjunctiva pink. Sclera anicteric. Neck: Supple without lymphadenopathy. Trachea midline. Heart: Irregular. Lungs: Equal expansion, rhonchi. Rapid respirations. Abdomen: Soft, nontender, nondistended. Skin: No rashes. No jaundice. Extremities: Upper and lower extremity edema. Bilateral lower extremities cool to the touch right greater than left. Mottling to the right lower extremity with rapid capillary refill. Neurological: No focal deficits. Alert and oriented x3. Results CBC & Chem 7: 07/16/24 05:38 07/16/24 05:38 Labs: Abnormal Lab Results - Last 24 Hours (Table) 07/15/24 07/15/24 07/15/24 Range/Units 04:28 11:59 12:29 WBC 14.1 H (3.8-10.6) k/uL RBC 3.34 L (4.30-5.90) m/uL Hgb 8.4 L (13.0-17.5) gm/dL Hct 26.6 L (39.0-53.0) % MCV 79.7 L (80.0-100.0) fL RDW 16.6 H (11.5-15.5) % Neutrophils # (1.3-7.7) k/uL Monocytes # (0-1.0) k/uL Sodium (137-145) mmol/L BUN (9-20) mg/dL Glucose (74-99) mg/dL POC Glucose (mg/dL) 155 H (70-110) mg/dL Hemoglobin A1c 6.8 H (<=6.0) % Calcium (8.4-10.2) mg/dL Total Bilirubin (0.2-1.3) mg/dL Alkaline Phosphatase (38-126) U/L Total Protein (6.3-8.2) g/dL Albumin (3.5-5.0) g/dL Crossmatch 07/15/24 07/15/24 07/15/24 Range/Units 13:44 17:44 20:49 WBC 11.1 H (3.8-10.6) k/uL RBC 3.45 L (4.30-5.90) m/uL Hgb 9.3 L (13.0-17.5) gm/dL Hct 28.0 L (39.0-53.0) % MCV (80.0-100.0) fL RDW 16.9 H (11.5-15.5) % Neutrophils # (1.3-7.7) k/uL Monocytes # (0-1.0) k/uL Sodium (137-145) mmol/L BUN (9-20) mg/dL Glucose (74-99) mg/dL POC Glucose (mg/dL) 172 H (70-110) mg/dL Hemoglobin A1c (<=6.0) % Calcium (8.4-10.2) mg/dL Total Bilirubin (0.2-1.3) mg/dL Alkaline Phosphatase (38-126) U/L Total Protein (6.3-8.2) g/dL Albumin (3.5-5.0) g/dL Crossmatch See Detail 07/15/24 07/16/24 07/16/24 Range/Units 21:19 02:25 05:38 WBC 15.3 H 13.8 H (3.8-10.6) k/uL RBC (4.30-5.90) m/uL Hgb 11.3 L 11.3 L (13.0-17.5) gm/dL Hct 34.9 L 35.5 L (39.0-53.0) % MCV (80.0-100.0) fL RDW 16.2 H 16.3 H (11.5-15.5) % Neutrophils # 11.7 H 11.0 H (1.3-7.7) k/uL Monocytes # 1.8 H 1.2 H (0-1.0) k/uL Sodium (137-145) mmol/L BUN (9-20) mg/dL Glucose (74-99) mg/dL POC Glucose (mg/dL) 164 H (70-110) mg/dL Hemoglobin A1c (<=6.0) % Calcium (8.4-10.2) mg/dL Total Bilirubin (0.2-1.3) mg/dL Alkaline Phosphatase (38-126) U/L Total Protein (6.3-8.2) g/dL Albumin (3.5-5.0) g/dL Crossmatch 07/16/24 07/16/24 Range/Units 05:38 06:19 WBC (3.8-10.6) k/uL RBC (4.30-5.90) m/uL Hgb (13.0-17.5) gm/dL Hct (39.0-53.0) % MCV (80.0-100.0) fL RDW (11.5-15.5) % Neutrophils # (1.3-7.7) k/uL Monocytes # (0-1.0) k/uL Sodium 130 L (137-145) mmol/L BUN 45 H (9-20) mg/dL Glucose 144 H (74-99) mg/dL POC Glucose (mg/dL) 189 H (70-110) mg/dL Hemoglobin A1c (<=6.0) % Calcium 8.0 L (8.4-10.2) mg/dL Total Bilirubin 4.0 H (0.2-1.3) mg/dL Alkaline Phosphatase 177 H (38-126) U/L Total Protein 5.0 L (6.3-8.2) g/dL Albumin 2.2 L (3.5-5.0) g/dL Crossmatch Microbiology - Last 24 Hours (Table) 07/12/24 17:42 Blood Culture - Preliminary Blood Assessment and Plan (1) GI bleed Narrative/Plan: 73-year-old male with multiple comorbidities admitted with acute pulmonary edema and has history of chronic atrial fibrillation but noted to be in persistent A- fib and was started on anticoagulation. Following anticoagulation patient started having multiple maroon-colored stools and black stools with an elevated BUN likely upper GI source. Patient is requiring pressors to support his blood pressure which is currently in the 90s over 60s. Recommend proceeding with upper endoscopy. Risks and benefits discussed with patient and his . Consent obtained. Current Visit: Yes Status: Acute Code(s): K92.2 - GASTROINTESTINAL HEMORRHAGE, UNSPECIFIED SNOMED Code(s): 71875319 (2) Acute pulmonary edema Current Visit: Yes Status: Acute Code(s): J81.0 - ACUTE PULMONARY EDEMA SNOMED Code(s): 52926074 (3) COPD (chronic obstructive pulmonary disease) Current Visit: No Status: Acute Code(s): J44.9 - CHRONIC OBSTRUCTIVE PULMONARY DISEASE, UNSPECIFIED SNOMED Code(s): 02187401 (4) Paroxysmal a-fib Narrative/Plan: Was on anticoagulation with Xarelto, Kcentra given Current Visit: No Status: Acute Code(s): I48.0 - PAROXYSMAL ATRIAL FIBRILLATION SNOMED Code(s): 777540979 (5) Congestive heart failure Current Visit: No Status: Acute Code(s): I50.9 - HEART FAILURE, UNSPECIFIED SNOMED Code(s): 20679053 (6) Diabetes Current Visit: No Status: Acute Code(s): E11.9 - TYPE 2 DIABETES MELLITUS WITHOUT COMPLICATIONS SNOMED Code(s): 01469466 Plan: 1. Keep n.p.o. 2. Give Kcentra as ordered 3. Hold anticoagulation 4. Avoid NSAIDs 5. Transfuse as needed for hemoglobin less than 7 6. Protonix 40 mg twice daily 7. Will plan for upper endoscopy at the bedside. Procedure discussed with patient and including risks and benefits. Patient and are agreeable to proceed. Thank you for this consultation, we will continue to follow. Dr. Bossman Cortes I agree with the dictator's note, documented as a scribe by Wilma Awad.
[2024-07-16] MEDS ORDERED: IPRATROPIUM-ALBUTEROL 3 ML NEB INHALATION PRN (09:48)
[2024-07-16 09:53] LABS: ABG Base Excess -1.9 mmol/L; ABG HCO3 23 mmol/L (21-25); ABG PCO2 41 mmHg (35-45); ABG PH 7.37 (7.35-7.45); ABG PO2 376 mmHg (83-108); ABG TCO2 25 mmol/L (19-24)
[2024-07-16] MEDS: EPINEPHrine 10 ML SYRINGE (0.1 MG/ML) MISCELLANE ONE (10:02)
--- NOTE | 2024-07-16 10:41 | XR ---
EXAMINATION TYPE: XR chest 1V portable DATE OF EXAM: 07/16/2024 10:03 AM COMPARISON: 07/14/2024 CLINICAL INDICATION: Male, 73 years old with history of intubated/ET tube placement NEW central myles e, TECHNIQUE: XR chest 1V portable view(s) obtained. FINDINGS: The heart size is mildly prominent. Pacemaker overlies left chest The pulmonary vasculature is normal. Diffuse increased lung markings are present bilaterally. Correlate for pulmonary edema. Pulmonary fib rosis could be considered. Endotracheal tube tip is 3.8 cm above the mark. Nasogastric tube transverses the thorax. A central venous catheter is present with the tip in the proximal right atrium. IMPRESSION: 1. Diffuse increased lung markings. Correlate for pulmonary edema or pulmonary fibrosis. 2. Lines and catheters discussed above [facility], , 07/16/2024 10:39 AM
[2024-07-16] MEDS: MAGNESIUM SULFATE-D5W PMX 1 GM in DEXTROSE/WATER 1 100ML.BAG IVPB SCH (10:51)
[2024-07-16] MEDS: SODIUM CHLORIDE 0.9% 1,000 ML IV ONE ×2 (10:51→10:54)
[2024-07-16] MEDS: IPRATROPIUM-ALBUTEROL 3 ML NEB INHALATION SCH (11:22)
[2024-07-16 11:44] LABS: Glucose,Whole Blood 168 mg/dL (70-110)
[2024-07-16] MEDS: NOREPINEPHRINE 32 MG in SODIUM CHLORIDE 0.9% 218 ML IV SCH (11:45)
--- NOTE | 2024-07-16 11:48 | P.PN ---
Subjective Progress Note Date: 07/16/24 Principal diagnosis: Lower extremity wounds, with nonpalpable pulses Patient is seen and examined today as a follow-up. Vascular surgery was consulted for nonpalpable pulses with discoloration and lower extremities right greater than left. Patient was started on Xarelto for persistent atrial fibrillation and followed with GI bleed. He has had significant amount of dark cloudy bloody stools. Patient has been hypotensive and currently on Levophed 0.32 micrograms and vasopressin 0.03 mcg. Kcentra was given for GI bleed. He is scheduled to undergo upper endoscopy this morning. He denies any pain in his lower extremities. Sensorimotor intact. Right lower extremity without waveforms, there was reported no audible arterial flow identified. Left noncompressible with good waveforms. Objective - Vital Signs Vital signs: Vital Signs Temp 97.4 F L 07/16/24 01:30 Pulse 118 H 07/16/24 07:00 Resp 29 H 07/16/24 07:00 BP 85/51 07/16/24 07:00 Pulse Ox 91 L 07/16/24 07:00 FiO2 Intake & Output 07/15/24 07/16/24 07/16/24 18:59 06:59 18:59 Intake Total 1499.923 9628.869 264 Output Total 3551 1853 Balance -1903.077 582.869 264 Intake: IV 120 120 10 0.9% NS KVO 120 120 10 Intake, IV Titration 011.417 3269.869 254 Amount DOBUTamine DRIP 500 mg In 105.792 Dextrose/Water 1 250ml. bag @ 5 MCG/KG/MIN 13.92 mls/hr IV .[id number] [facility] Rx #:[id number] Norepinephrine 4 mg In 787.923 990.077 254 Sodium Chloride 0.9% 250 ml @ 0.03 MCG/KG/MIN 10. 369 mls/hr IV .Q24H [facility] Rx#:[id number] Oral 120 Blood Product 620 1220 Rc As-1 Unit 310 [id number] Rc As-1 Unit 310 [id number] Rc As-1 Unit 310 [id number] Rc As-1 Unit 310 [id number] Output: Urine 3550 1850 Stool 1 3 Other: Voiding Method External Catheter External Catheter # Bowel Movements 1 - Exam General appearance: The patient is alert, oriented, appears in no acute distress. HET: Head is normocephalic and atraumatic. Pupils are equal and reactive. Neck: Supple. Heart: Regular. Lungs: Equal expansion, normal respiratory effort. Abdomen: Soft, nontender, nondistended. Extremities: Bilateral lower extremity edema. Bilateral lower extremities with dressings clean dry and intact. Bilateral feet with mottling, right greater than left. Cool to the touch with nonpalpable DP and PT pulses. Brisk capillary refill. Bilateral lower extremity PT and DP signals present. Neurological: No focal deficits. Alert and oriented. - Labs CBC & Chem 7: 07/16/24 05:38 07/16/24 05:38 Labs: Abnormal Lab Results - Last 24 Hours (Table) 07/15/24 07/15/24 07/15/24 Range/Units 04:28 11:59 12:29 WBC 14.1 H (3.8-10.6) k/uL RBC 3.34 L (4.30-5.90) m/uL Hgb 8.4 L (13.0-17.5) gm/dL Hct 26.6 L (39.0-53.0) % MCV 79.7 L (80.0-100.0) fL RDW 16.6 H (11.5-15.5) % Neutrophils # (1.3-7.7) k/uL Monocytes # (0-1.0) k/uL Sodium (137-145) mmol/L BUN (9-20) mg/dL Glucose (74-99) mg/dL POC Glucose (mg/dL) 155 H (70-110) mg/dL Hemoglobin A1c 6.8 H (<=6.0) % Calcium (8.4-10.2) mg/dL Total Bilirubin (0.2-1.3) mg/dL Alkaline Phosphatase (38-126) U/L Total Protein (6.3-8.2) g/dL Albumin (3.5-5.0) g/dL Crossmatch 07/15/24 07/15/24 07/15/24 Range/Units 13:44 17:44 20:49 WBC 11.1 H (3.8-10.6) k/uL RBC 3.45 L (4.30-5.90) m/uL Hgb 9.3 L (13.0-17.5) gm/dL Hct 28.0 L (39.0-53.0) % MCV (80.0-100.0) fL RDW 16.9 H (11.5-15.5) % Neutrophils # (1.3-7.7) k/uL Monocytes # (0-1.0) k/uL Sodium (137-145) mmol/L BUN (9-20) mg/dL Glucose (74-99) mg/dL POC Glucose (mg/dL) 172 H (70-110) mg/dL Hemoglobin A1c (<=6.0) % Calcium (8.4-10.2) mg/dL Total Bilirubin (0.2-1.3) mg/dL Alkaline Phosphatase (38-126) U/L Total Protein (6.3-8.2) g/dL Albumin (3.5-5.0) g/dL Crossmatch See Detail 07/15/24 07/16/24 07/16/24 Range/Units 21:19 02:25 05:38 WBC 15.3 H 13.8 H (3.8-10.6) k/uL RBC (4.30-5.90) m/uL Hgb 11.3 L 11.3 L (13.0-17.5) gm/dL Hct 34.9 L 35.5 L (39.0-53.0) % MCV (80.0-100.0) fL RDW 16.2 H 16.3 H (11.5-15.5) % Neutrophils # 11.7 H 11.0 H (1.3-7.7) k/uL Monocytes # 1.8 H 1.2 H (0-1.0) k/uL Sodium (137-145) mmol/L BUN (9-20) mg/dL Glucose (74-99) mg/dL POC Glucose (mg/dL) 164 H (70-110) mg/dL Hemoglobin A1c (<=6.0) % Calcium (8.4-10.2) mg/dL Total Bilirubin (0.2-1.3) mg/dL Alkaline Phosphatase (38-126) U/L Total Protein (6.3-8.2) g/dL Albumin (3.5-5.0) g/dL Crossmatch 07/16/24 07/16/24 Range/Units 05:38 06:19 WBC (3.8-10.6) k/uL RBC (4.30-5.90) m/uL Hgb (13.0-17.5) gm/dL Hct (39.0-53.0) % MCV (80.0-100.0) fL RDW (11.5-15.5) % Neutrophils # (1.3-7.7) k/uL Monocytes # (0-1.0) k/uL Sodium 130 L (137-145) mmol/L BUN 45 H (9-20) mg/dL Glucose 144 H (74-99) mg/dL POC Glucose (mg/dL) 189 H (70-110) mg/dL Hemoglobin A1c (<=6.0) % Calcium 8.0 L (8.4-10.2) mg/dL Total Bilirubin 4.0 H (0.2-1.3) mg/dL Alkaline Phosphatase 177 H (38-126) U/L Total Protein 5.0 L (6.3-8.2) g/dL Albumin 2.2 L (3.5-5.0) g/dL Crossmatch Microbiology - Last 24 Hours (Table) 07/12/24 17:42 Blood Culture - Preliminary Blood Assessment and Plan Assessment: Right lower extremity wounds Diminished pulses Hypotension requiring pressor support Acute hypoxemic respiratory failure Diabetes History of tobacco abuse Atrial fibrillation Plan: Arterial duplex reviewed. No waveforms on the right secondary to reported no audible arterial flow likely secondary to chronic disease and pressors. Patient has monophasic PT and DP Doppler signals with brisk capillary refill. No pain in lower extremities. Patient currently has acute GI bleed and he has been hypotensive requiring more pressor support. Decrease pressor support when able. No plans at this time for any vascular surgical intervention. We will continue to follow. The impression and plan of care has been dictated as directed. I performed a history and examination of this patient, discussed the same with the dictator. I agree with the dictator's note ,documented as a scribe. Any additional findings or plans will be noted.
[2024-07-16 12:01] LABS: Anisocytosis Slight; HCT 30.9 % (39.0-53.0); HGB 9.9 gm/dL (13.0-17.5); Hypochromasia Moderate; MCH 26.2 pg (25.0-35.0); MCHC 32.1 g/dL (31.0-37.0); MCV 81.6 fL (80.0-100.0); Mean Platelet Volume 8.2; Platelet Count 265 k/uL (150-450); Poikilocytosis Moderate; RBC 3.79 m/uL (4.30-5.90); RDW 16.7 % (11.5-15.5); WBC 14.2 k/uL (3.8-10.6)
--- NOTE | 2024-07-16 12:19 | P.GSCN ---
History of Present Illness Consult date: 07/16/24 History of present illness: CHIEF COMPLAINT: Shortness of breath HISTORY OF PRESENT ILLNESS: This is a 73-year-old male who presented with shortness of breath and evidence of acute pulmonary edema. Patient had been in atrial fibrillation and started on Xarelto. Following starting Xarelto yesterday he started to have GI bleed. He had multiple episodes of dark and m aroon-colored stools with clots. Patient is in the ICU. He is hypotensive and requiring 2 pressors Levophed and vasopressin. He was given Kcentra. He did receive 4 units of blood. Hemoglobin on admission 10.8 did get up to 11.6 and trended down to 8.4. This morning hemoglobin was up to 11.3 after blood transfusion. He has been tachycardic. Surgical service consulted in regards to GI bleed. Patient also seen by GI service and they completed an EGD this morning with evidence of a duodenal ulcer. Final report is pending. Patient is being intubated. PAST MEDICAL HISTORY: See below. Congestive heart failure with EF of 20%, A-fib PAST SURGICAL HISTORY: See below. CABG, pacemaker MEDICATIONS: See below ALLERGIES: See below SOCIAL HISTORY: No illicit drug use. REVIEW OF SYSTEMS: CONSTITUTIONAL: Denies fever or chills. HEENT: Denies blurred vision, vision changes, or eye pain. Denies hemoptysis CARDIOVASCULAR: Denies chest pain or pressure. RESPIRATORY: No shortness of breath. GASTROINTESTINAL: See HPI for pertinent findings HEMATOLOGIC: Denies bleeding disorders. GENITOURINARY: Denies any blood in urine or increased urinary frequency. SKIN: Denies pruitis. Denies rash. PHYSICAL EXAM: VITAL SIGNS: Reviewed GENERAL: Patient being intubated ABDOMEN: Soft. Nondistended. Nontender LABORATORY DATA: WBC 4.2 hemoglobin 11.3 down to 9.9 platelets 265 Sodium 130 potassium is 4.9 creatinine 0.98 IMAGING: ASSESSMENT: 1. Acute GI bleed with evidence of bleeding duodenal ulcer on EGD status post treatment per GI service 2. Pulmonary edema 3. A-fib now off of anticoagulation PLAN: -Continue to monitor hemoglobin -Continue to monitor for any signs or symptoms of bleeding -Continue IV Protonix 40 mg twice daily -Continue to hold anticoagulation -Continue ICU management and supportive care -Surgical service on standby Physician Pelletising Extruder Operator note has been reviewed by physician. Signing provider agrees with the documented findings, assessment, and plan of care. Past Medical History Past Medical History: Atrial Fibrillation, Coronary Artery Disease (CAD), Heart Failure, COPD, Diabetes Mellitus, GERD/Reflux, Hyperlipidemia, Hypertension, Myocardial Infarction (PR), Osteoarthritis (OA), Prostate Disorder Additional Past Medical History / Comment(s): THYROID NODULES-DR VILL[place], STATED THEY HAVE'NT GOTTEN ANY BIGGER. STATED"IF BP IS UNDER 100 SYSTOLIC THEY DON'T GIVE lopressor or lasix; ABD HERNIA Last Myocardial Infarction Date:: March 16, 2005 History of Any Multi-Drug Resistant Organisms: None Reported Past Surgical History: Coronary Bypass/CABG, Pacemaker Additional Past Surgical History / Comment(s): Triple Bypass. Past Anesthesia/Blood Transfusion Reactions: No Reported Reaction Type of Cardiac Device: AICD Device Placement Date:: 08/07/2012 Smoking Status: Former smoker - Past Family History Father History Unknown: Yes Family Medical History: Congestive Heart Failure (CHF) Mother Family Medical History: COPD Son(s) Family Medical History: Seizure Disorder Daughter(s) Family Medical History: No Reported History Medications and Allergies Home Medications Medication Instructions Recorded Confirmed Type ALPRAZolam [Xanax] 0.25 mg PO BID 05/23/16 07/13/24 History Aspirin [Adult Low Dose Aspirin EC] 81 mg PO DAILY 05/23/16 07/13/24 History Nitroglycerin Sl Tabs [Nitrostat] 0.4 mg SUBLINGUAL Q5M PRN 05/23/16 07/13/24 History Spironolactone [Aldactone] 25 mg PO DAILY #30 tab 07/17/16 07/13/24 Rx Cholecalciferol [Vitamin D3 (125 125 mcg PO DAILY 07/13/24 07/13/24 History Mcg = 5000 Iu)] Furosemide [Lasix] 80 mg PO BID 07/13/24 07/13/24 History Loratadine [Claritin] 10 mg PO DAILY 07/13/24 07/13/24 History Magnesium Oxide [Magnesium] 500 mg PO BID 07/13/24 07/13/24 History Metoprolol Succinate (ER) [Toprol 25 mg PO BID 07/13/24 07/13/24 History Xl] Rosuvastatin Calcium [Crestor] 40 mg PO DAILY 07/13/24 07/13/24 History guaiFENesin [Mucinex] 600 mg PO TID 07/13/24 07/13/24 History lisinopriL [Zestril] 2.5 mg PO DAILY 07/13/24 07/13/24 History Allergies Allergy/AdvReac Type Severity Reaction Status Date / Time amiodarone Allergy Unknown Verified 07/13/24 09:26 lorazepam [From Ativan] Allergy Unknown Verified 07/13/24 09:26 mirtazapine [From Remeron] Allergy Unknown Verified 07/13/24 09:26 Surgical - Exam Vital Signs Temp Pulse Resp BP Pulse Ox 97.8 F 82 20 85/53 97 07/12/24 16:14 07/12/24 16:14 07/12/24 16:14 07/12/24 16:14 07/12/24 16:14 Results - Labs 07/16/24 11:40 07/16/24 05:38 Abnormal Lab Results - Last 24 Hours (Table) 07/15/24 07/15/24 07/15/24 Range/Units 11:59 12:29 13:44 WBC 14.1 H (3.8-10.6) k/uL RBC 3.34 L (4.30-5.90) m/uL Hgb 8.4 L (13.0-17.5) gm/dL Hct 26.6 L (39.0-53.0) % MCV 79.7 L (80.0-100.0) fL RDW 16.6 H (11.5-15.5) % Neutrophils # (1.3-7.7) k/uL Monocytes # (0-1.0) k/uL ABG pO2 (83-108) mmHg ABG Total CO2 (19-24) mmol/L ABG O2 Saturation (94-97) % Hemoglobin (13.0-17.5) gm/dL Sodium (137-145) mmol/L BUN (9-20) mg/dL Glucose (74-99) mg/dL POC Glucose (mg/dL) 155 H (70-110) mg/dL Calcium (8.4-10.2) mg/dL Total Bilirubin (0.2-1.3) mg/dL Alkaline Phosphatase (38-126) U/L Total Protein (6.3-8.2) g/dL Albumin (3.5-5.0) g/dL Crossmatch See Detail 07/15/24 07/15/24 07/15/24 Range/Units 17:44 20:49 21:19 WBC 11.1 H (3.8-10.6) k/uL RBC 3.45 L (4.30-5.90) m/uL Hgb 9.3 L (13.0-17.5) gm/dL Hct 28.0 L (39.0-53.0) % MCV (80.0-100.0) fL RDW 16.9 H (11.5-15.5) % Neutrophils # (1.3-7.7) k/uL Monocytes # (0-1.0) k/uL ABG pO2 (83-108) mmHg ABG Total CO2 (19-24) mmol/L ABG O2 Saturation (94-97) % Hemoglobin (13.0-17.5) gm/dL Sodium (137-145) mmol/L BUN (9-20) mg/dL Glucose (74-99) mg/dL POC Glucose (mg/dL) 172 H 164 H (70-110) mg/dL Calcium (8.4-10.2) mg/dL Total Bilirubin (0.2-1.3) mg/dL Alkaline Phosphatase (38-126) U/L Total Protein (6.3-8.2) g/dL Albumin (3.5-5.0) g/dL Crossmatch 07/16/24 07/16/24 07/16/24 Range/Units 02:25 05:38 05:38 WBC 15.3 H 13.8 H (3.8-10.6) k/uL RBC (4.30-5.90) m/uL Hgb 11.3 L 11.3 L (13.0-17.5) gm/dL Hct 34.9 L 35.5 L (39.0-53.0) % MCV (80.0-100.0) fL RDW 16.2 H 16.3 H (11.5-15.5) % Neutrophils # 11.7 H 11.0 H (1.3-7.7) k/uL Monocytes # 1.8 H 1.2 H (0-1.0) k/uL ABG pO2 (83-108) mmHg ABG Total CO2 (19-24) mmol/L ABG O2 Saturation (94-97) % Hemoglobin (13.0-17.5) gm/dL Sodium 130 L (137-145) mmol/L BUN 45 H (9-20) mg/dL Glucose 144 H (74-99) mg/dL POC Glucose (mg/dL) (70-110) mg/dL Calcium 8.0 L (8.4-10.2) mg/dL Total Bilirubin 4.0 H (0.2-1.3) mg/dL Alkaline Phosphatase 177 H (38-126) U/L Total Protein 5.0 L (6.3-8.2) g/dL Albumin 2.2 L (3.5-5.0) g/dL Crossmatch 07/16/24 07/16/24 Range/Units 06:19 09:51 WBC (3.8-10.6) k/uL RBC (4.30-5.90) m/uL Hgb (13.0-17.5) gm/dL Hct (39.0-53.0) % MCV (80.0-100.0) fL RDW (11.5-15.5) % Neutrophils # (1.3-7.7) k/uL Monocytes # (0-1.0) k/uL ABG pO2 376 H (83-108) mmHg ABG Total CO2 25 H (19-24) mmol/L ABG O2 Saturation 100.0 H (94-97) % Hemoglobin 10.1 L (13.0-17.5) gm/dL Sodium (137-145) mmol/L BUN (9-20) mg/dL Glucose (74-99) mg/dL POC Glucose (mg/dL) 189 H (70-110) mg/dL Calcium (8.4-10.2) mg/dL Total Bilirubin (0.2-1.3) mg/dL Alkaline Phosphatase (38-126) U/L Total Protein (6.3-8.2) g/dL Albumin (3.5-5.0) g/dL Crossmatch Microbiology - Last 24 Hours (Table) 07/12/24 17:42 Blood Culture - Preliminary Blood Diabetes panel 07/16/24 Range/Units 05:38 Sodium 130 L (137-145) mmol/L Potassium 4.9 (3.5-5.1) mmol/L Chloride 101 (98-107) mmol/L Carbon Dioxide 24 (22-30) mmol/L BUN 45 H (9-20) mg/dL Creatinine 0.98 (0.66-1.25) mg/dL Glucose 144 H (74-99) mg/dL Calcium 8.0 L (8.4-10.2) mg/dL AST 33 (17-59) U/L ALT 30 (4-49) U/L Alkaline Phosphatase 177 H (38-126) U/L Total Protein 5.0 L (6.3-8.2) g/dL Albumin 2.2 L (3.5-5.0) g/dL Calcium panel 07/16/24 Range/Units 05:38 Calcium 8.0 L (8.4-10.2) mg/dL Albumin 2.2 L (3.5-5.0) g/dL Pituitary panel 07/16/24 Range/Units 05:38 Sodium 130 L (137-145) mmol/L Potassium 4.9 (3.5-5.1) mmol/L Chloride 101 (98-107) mmol/L Carbon Dioxide 24 (22-30) mmol/L BUN 45 H (9-20) mg/dL Creatinine 0.98 (0.66-1.25) mg/dL Glucose 144 H (74-99) mg/dL Calcium 8.0 L (8.4-10.2) mg/dL Adrenal panel 07/16/24 Range/Units 05:38 Sodium 130 L (137-145) mmol/L Potassium 4.9 (3.5-5.1) mmol/L Chloride 101 (98-107) mmol/L Carbon Dioxide 24 (22-30) mmol/L BUN 45 H (9-20) mg/dL Creatinine 0.98 (0.66-1.25) mg/dL Glucose 144 H (74-99) mg/dL Calcium 8.0 L (8.4-10.2) mg/dL Total Bilirubin 4.0 H (0.2-1.3) mg/dL AST 33 (17-59) U/L ALT 30 (4-49) U/L Alkaline Phosphatase 177 H (38-126) U/L Total Protein 5.0 L (6.3-8.2) g/dL Albumin 2.2 L (3.5-5.0) g/dL
--- NOTE | 2024-07-16 13:58 | P.PN ---
Subjective Progress Note Date: 07/16/24 73-year-old male with history of multiple medical problems including congestive heart failure, and atrial fibrillation. The patient was sent into the hospital, by his primary care physician. The patient came in with complaints of lower extremity edema, shortness of breath, ulcerations on his foot, and weakness. The patient was seen in the emergency room, ER #3. We were consulted because the patient has been hypotensive, since being in the emergency department. Norepinephrine has not yet been started. Cardiac medications have been held. In addition to atrial fibrillation, the patient has a history of myocardial infarction, coronary disease, congestive heart failure, diabetes, GERD, hyperlip idemia, hypertension, osteoarthritis, and previous bypass surgery. The patient apparently was at [facility] many years ago, on a ventilator, and was apparently on hospice, but has done well over the last 7 or 8 years. The patient does have a history of AICD placement, and previous tobacco use. Currently, he is on CPAP, at between 8 to 12 cm of water. He is not receiving any IV fluids. We did talk to the patient about CODE STATUS and he stated that he would not want to be on life support. His agreed with that. White count is 18, hemoglobin 11.6, hematocrit 37.7, platelet count of 262,000. Sodium 127, potassium 5.8, chloride 95, CO2 21, anion gap is 11, BUN 53, creatinine is 1.26. His N-terminal proBNP was 5940. His troponin was less than 0.012. Chest x-ray was consistent with CHF. Progress note dated July 14, 2024. 73-year-old male seen in the emergency department yesterday. He was admitted with a diagnosis of congestive heart failure. The patient was transferred to the intensive care unit, for norepinephrine. Currently he is on 5 L nasal cannula. He is getting saline at 10 cc an hour. He is on norepinephrine at 3.8 mcg/min. His procalcitonin level was normal at 0.25. Unasyn will be discontinued. White count 16.7, hemoglobin 10.6, hematocrit 34.8, platelet count normal. Sodium 124, potassium 5.5, chlorides 95, CO2 20, BUN 48, creatinine 1.06. Glucose 129. Calcium 8.2. Albumin 2.5. Chest x-ray again shows evidence of cardiomegaly, and pulmonary vascular congestion. Doppler of the right lower extremity was negative for DVT. Progress note dated August 11, 2024. The patient is seen today in room 258. I was called by the nurses last night, because of the new onset GI bleed. The patient is currently on norepinephrine at 14.8 mcg/min, nasal O2 at 4 L, saline at 10 cc an hour. The patient did use his CPAP last night. A repeat hemoglobin will be done at noon today. This morning's hemoglobin was 9.2. The patient is a DO NOT INTUBATE patient. White count 14.2, hemoglobin 9.2, hematocrit 29.4, platelet count finger 83,000. Sodium 126, potassium 5.8, chlorides 102, CO2 23, BUN 60, creatinine 0.99. Glucose 133. Hemoglobin A1c was 6.8. Calcium is 8. On 07/16/2024, the patient was seen in follow-up in the intensive care unit. Time of evaluation, the patient was extremely lethargic, in a shock state which is probably a combination of cardiogenic shock and hypovolemic shock as the patient continues to show signs of GI bleeding and the patient was having several melanotic stools including the last episode this morning. Noted the patient is known to have coronary artery disease, previous bypass surgery, severe ischemic cardiomyopathy with impaired LV function with an ejection fraction of 20%, chronic atrial fibrillation, he has a pacer/AICD in place. Overnight, the patient was also having few episodes of nonsustained ventricular tachycardia. The patient was taken off the anticoagulants. He was given Kce ntra and during this current admission, the patient received a total of 4 units of packed RBC regarding his ongoing GI bleeding. Most recent hemoglobin from this morning is at 11.3. At the time of my evaluation, the patient was having labored breathing. He was on 4 L of oxygen by nasal cannula. Typically his on O2 at home ranging between 3 and 5 L/min nasal cannula. He was on norepinephrine running at 0.32 mcg/kg/min and vasopressin physiologic dose. As mentioned, he was still showing evidence of GI bleeding. The gastroenterology team was on standby for an EGD. I opted to intubate the patient and put him on the mechanical ventilator to protect his airway and proceed with the procedure. Based on that, the patient was started on propofol which is currently running at 40 mcg/kg/min. The patient process was done without any complications. He was placed on assist-control at rate of 18 with a tidal volume of 400, FiO2 100% with a PEEP of 5. The subsequent blood gases showed a pH of 7.37 with a pCO2 of 41 and pO2 of 376. FiO2 was weaned down to 40%. Postintubation chest x-ray showed CHF, pulm vessel congestion, triple-lumen catheter was in good location. Orogastric tube is in place and the patient has an orotracheal tube also in place. He was given a total of 2 L of IV fluid bolus and the subsequent hemoglobin came back at six 9.9 with a white cell count of 14.2 and a platelet count of 265. The sodium is at 130, potassium is at 4.9, chloride is 101 and the bicarb is 24. BUN is 45 with a creatinine of 0.98. Blood sugar is at 168. Objective - Vital Signs Vital signs: Vital Signs Temp 97.4 F L 07/16/24 01:30 Pulse 118 H 07/16/24 07:00 Resp 29 H 07/16/24 07:00 BP 85/51 07/16/24 07:00 Pulse Ox 91 L 07/16/24 07:00 FiO2 Intake & Output 07/15/24 07/16/24 07/16/24 18:59 06:59 18:59 Intake Total 1976.838 6162.869 264 Output Total 3551 1853 Balance -1903.077 582.869 264 Intake: IV 120 120 10 0.9% NS KVO 120 120 10 Intake, IV Titration 598.671 3094.869 254 Amount DOBUTamine DRIP 500 mg In 105.792 Dextrose/Water 1 250ml. bag @ 5 MCG/KG/MIN 13.92 mls/hr IV .[id number] SELVIN Rx #:[id number] Norepinephrine 4 mg In 787.923 990.077 254 Sodium Chloride 0.9% 250 ml @ 0.03 MCG/KG/MIN 10. 369 mls/hr IV .Q24H SELVIN Rx#:[id number] Oral 120 Blood Product 620 1220 Rc As-1 Unit 310 [id number] Rc As-1 Unit 310 [id number] Rc As-1 Unit 310 [id number] Rc As-1 Unit 310 [id number] Output: Urine 3550 1850 Stool 1 3 Other: Voiding Method External Catheter External Catheter # Bowel Movements 1 - Exam - Exam At this point in time, the patient is sedated on propofol,, and comfortable and orogastric and orotracheal tube are both in place. Head exam was generally normal. There was no scleral icterus or corneal arcus. Mucous membranes were moist. Neck was supple and with jugular venous distension, thyromegaly, or carotid bruits. Carotids were easily palpable bilaterally. There was no adenopathy. Cardiovascular examination reveals an irregular rhythm and rate. S1-S2 normal. No S3 or S4. A systolic murmur is noted, grade 2/6. The rhythm was irregular consistent with atrial fibrillation and the patient was quite tachycardic. The patient also had a thoracotomy scar over the anterior chest area and the patient has a pacemaker over the left anterior chest. Lungs reveal scattered rhonchi and crackles. Breath sounds equal. No wheezes. Abdomen soft bowel sounds are heard. No masses or tenderness. Extremities are showing diminished pulses in all 4 extremities. No cyanosis or clubbing. 1+ edema is noted. Skin blisters Skin is without rash or lesion. Skin blisters related to edema, mottling of the skin in the right lower extremity and marked diminished pulses involving the dorsalis pedis and posterior tibialis. Palpable femoral pulses bilaterally. Neurologic examination is brief but nonfocal. The patient is currently sedated on the mechanical ventilator. - Labs CBC & Chem 7: 07/16/24 11:40 07/16/24 05:38 Labs: Abnormal Lab Results - Last 24 Hours (Table) 07/15/24 07/15/24 07/15/24 Range/Units 04:28 11:59 12:29 WBC 14.1 H (3.8-10.6) k/uL RBC 3.34 L (4.30-5.90) m/uL Hgb 8.4 L (13.0-17.5) gm/dL Hct 26.6 L (39.0-53.0) % MCV 79.7 L (80.0-100.0) fL RDW 16.6 H (11.5-15.5) % Neutrophils # (1.3-7.7) k/uL Monocytes # (0-1.0) k/uL Sodium (137-145) mmol/L BUN (9-20) mg/dL Glucose (74-99) mg/dL POC Glucose (mg/dL) 155 H (70-110) mg/dL Hemoglobin A1c 6.8 H (<=6.0) % Calcium (8.4-10.2) mg/dL Total Bilirubin (0.2-1.3) mg/dL Alkaline Phosphatase (38-126) U/L Total Protein (6.3-8.2) g/dL Albumin (3.5-5.0) g/dL Crossmatch 07/15/24 07/15/24 07/15/24 Range/Units 13:44 17:44 20:49 WBC 11.1 H (3.8-10.6) k/uL RBC 3.45 L (4.30-5.90) m/uL Hgb 9.3 L (13.0-17.5) gm/dL Hct 28.0 L (39.0-53.0) % MCV (80.0-100.0) fL RDW 16.9 H (11.5-15.5) % Neutrophils # (1.3-7.7) k/uL Monocytes # (0-1.0) k/uL Sodium (137-145) mmol/L BUN (9-20) mg/dL Glucose (74-99) mg/dL POC Glucose (mg/dL) 172 H (70-110) mg/dL Hemoglobin A1c (<=6.0) % Calcium (8.4-10.2) mg/dL Total Bilirubin (0.2-1.3) mg/dL Alkaline Phosphatase (38-126) U/L Total Protein (6.3-8.2) g/dL Albumin (3.5-5.0) g/dL Crossmatch See Detail 07/15/24 07/16/24 07/16/24 Range/Units 21:19 02:25 05:38 WBC 15.3 H 13.8 H (3.8-10.6) k/uL RBC (4.30-5.90) m/uL Hgb 11.3 L 11.3 L (13.0-17.5) gm/dL Hct 34.9 L 35.5 L (39.0-53.0) % MCV (80.0-100.0) fL RDW 16.2 H 16.3 H (11.5-15.5) % Neutrophils # 11.7 H 11.0 H (1.3-7.7) k/uL Monocytes # 1.8 H 1.2 H (0-1.0) k/uL Sodium (137-145) mmol/L BUN (9-20) mg/dL Glucose (74-99) mg/dL POC Glucose (mg/dL) 164 H (70-110) mg/dL Hemoglobin A1c (<=6.0) % Calcium (8.4-10.2) mg/dL Total Bilirubin (0.2-1.3) mg/dL Alkaline Phosphatase (38-126) U/L Total Protein (6.3-8.2) g/dL Albumin (3.5-5.0) g/dL Crossmatch 07/16/24 07/16/24 Range/Units 05:38 06:19 WBC (3.8-10.6) k/uL RBC (4.30-5.90) m/uL Hgb (13.0-17.5) gm/dL Hct (39.0-53.0) % MCV (80.0-100.0) fL RDW (11.5-15.5) % Neutrophils # (1.3-7.7) k/uL Monocytes # (0-1.0) k/uL Sodium 130 L (137-145) mmol/L BUN 45 H (9-20) mg/dL Glucose 144 H (74-99) mg/dL POC Glucose (mg/dL) 189 H (70-110) mg/dL Hemoglobin A1c (<=6.0) % Calcium 8.0 L (8.4-10.2) mg/dL Total Bilirubin 4.0 H (0.2-1.3) mg/dL Alkaline Phosphatase 177 H (38-126) U/L Total Protein 5.0 L (6.3-8.2) g/dL Albumin 2.2 L (3.5-5.0) g/dL Crossmatch Microbiology - Last 24 Hours (Table) 07/12/24 17:42 Blood Culture - Preliminary Blood Assessment and Plan Plan: Shock, combination of cardiogenic and hypovolemic as the patient had massive GI bleed/upper GI bleeding. The patient currently intubated on the mechanical ventilator awaiting EGD to control the bleeding. The patient remains on high-dose pressors and the patient is on high-dose norepinephrine and vasopressin physiologic dose. Triple-lumen catheter was established. Acute hypoxemic respiratory failure, secondary to CHF, currently intubated on mechanical ventilator Upper GI bleeding, transfused with total of 4 units of packed RBC, awaiting follow-up hemoglobin, awaiting EGD chronic atrial fibrillation, currently off anticoagulants None sustained V. tach History of CAD, with previous myocardial infarction, and previous CABG. CHF with ischemic cardiomyopathy and ejection fraction of less than 20%, status post AICD/pacemaker implantation. History of COPD from previous tobacco use. History of diabetes mellitus. History of gastroesophageal reflux disease. History of hypertension. History of hyperlipidemia. General medical debility. Peripheral vascular disease Lower extremity edema with stage II wounds and areas of skin blisters related to CHF and lower extremity edema/chronic. Plan: Continue ventilator support and necessary ventilator adjustments were made Monitor hemodynamics and is continuing the pressors for now Triple-lumen catheter was established and CVP will be monitored Give the patient a total of 2 L of normal saline bolus Monitor hemoglobin Keep the patient sedated on propofol EGD today for control of an upper GI bleed IV Protonix No anticoagulants for now As he hold off on the Lasix as the patient is oxygenating adequately for now. Will restart the diuretics once the patient's hemodynamics is further improved. The patient was started on Mexitil Condition is critical. Will coordinate care with cardiology and the rest of the consultants. The priority for now is to control the upper GI bleed and proceed accordingly. This evaluation was done more than 30 minutes.
[2024-07-16] MEDS: FUROSEMIDE 10 MG/ML 4 ML VIAL IV SCH (14:03)
--- NOTE | 2024-07-16 14:05 | P.PCN ---
Date of Procedure: 07/16/24 Preoperative Diagnosis: Shock, upper GI bleeding Postoperative Diagnosis: Same Procedure(s) Performed: Intubation, central line, arterial line Anesthesia: WOO Surgeon: Jaz Man Pathology: other Condition: critical Disposition: ICU Operative Findings: Intubation Indication: Respiratory compromise. A time-out was completed verifying correct patient, procedure, site, positioning, and implant(s) or special equipment if applicable. The patient was positioned appropriately and a #7.5 endotracheal tube was placed under direct laryngoscopy. The tube was anchored at 22 cm at the teeth. Correct placement was confirmed by presence of bilateral breath sounds without air sounds in the abdomen on auscultation. An end-tidal CO2 monitor was also used to confirm tracheal placement of the ET tube. A chest x-ray was ordered to assess for pneumothorax and verify endotracheal tube placement. The patient tolerated the procedure well and there were no complications. Arterial line Indication: Hemodynamic monitoring. A time-out was completed verifying correct patient, procedure, site, po sitioning, and implant(s) or special equipment if applicable. The patients left groin was prepped and draped in sterile fashion. 1% Lidocaine was used to anesthetize the area. An 18G Arrow arterial line was introduced into the left femoral artery. The catheter was threaded over the guide wire and the needle was removed with appropriate pulsatile blood return. Blood loss was minimal. The catheter was then sutured in place to the skin and a sterile dressing applied. Perfusion to the extremity distal to the point of catheter insertion was checked and found to be adequate. The patient tolerated the procedure well and there were no complications. Central line insertion Indication: Hemodynamic monitoring/Intravenous access. A time-out was completed verifying correct patient, procedure, site, positioning, and implant(s) or special equipment if applicable. The patient was placed in a dependent position appropriate for central line placement based on the vein to be cannulated. The patients left neck was prepped and draped in sterile fashion. 1% Lidocaine was used to anesthetize the surrounding skin area. A triple lumen 9F Cordis catheter was introduced into the left internal jugular vein using Seldinger technique. The catheter was threaded smoothly over the guide wire and appropriate blood return was obtained. Each lumen of the catheter was evacuated of air and flushed with sterile saline. The catheter was then sutured in place to the skin and a sterile dressing applied. Perfusion to the extremity distal to the point of catheter insertion was checked and found to be adequate.
[2024-07-16] MEDS: CALCIUM GLUCONATE IN NACL 1 GM in SALINE 1 100ML.BAG IVPB ONE (14:27)
--- NOTE | 2024-07-16 15:03 | P.PN ---
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 The patient was sent from his primary care physician to the hospital for further evaluation of heart failure. He apparently was retaining significant amount of fluid and he according to his gained about 15 pounds within the last few weeks. He was experiencing progressive exertional dyspnea and bilateral lower extremities edema and bilateral nonhealing wounds involving the lower extremities. In the hospital he was found to be hypotensive he was started on norepinephrine. He underwent further evaluation including EKG showing atrial fibrillation which is permanent. As a mention earlier the patient is not on anticoagulation as an outpatient because of history of GI ble eding. He was started on norepinephrine. Also he was started on IV diuretics. No echocardiogram. The last echo from 2016 showing severe cardiomyopathy with EF around 20% with global hypokinesia. The patient also has history of AICD. The physical examination is remarkable for severe upper and lower extremities pitting edema and also lower extremities nonhealing ulcers with diminished breathing sounds bilaterally and irregular rhythm. July 16, 2024 Yesterday patient could not tolerate laying flat and got significantly short of breath and respiratory distress for which she got intubated. Currently is on vent support. Currently he is on norepinephrine and vasopressin. Telemetry shows atrial fibrillation with heart rate around 110 bpm with significant ventricular ectopy. On exam Intubated and sedated, on ventilator support, ET tube in place, good air entry in bilateral lung shukla 2+ pitting edema noticed in bilateral lower extremity. Irregularly irregular pulse, S1-S2 audible, systolic murmur audible. Assessment HFrEF exacerbation with evidence of right and left failure Severe cardiomyopathy EF 20% Severe CAD status post CABG Permanent atrial fibrillation, currently heart rate around 110 bpm NSVT and PVCs Severe valvular heart disease with torrential tricuspid regurgitation, severe mitral regurgitation Severe pulmonary hypertension due to group 2 and group 3 Status post AICD Hypomagnesemia Chronic kidney disease Multiple comorbid conditions History of amiodarone toxicity Plan Avoid any amiodarone because of prior history of amiodarone toxicity. Recommend to wean off vasopressin because of significantly low LVEF. Would recommend continuing norepinephrine and if needed add second layer of dopamine. Could not tolerate dobutamine due to low blood pressure. Keep magnesium at 2. Potassium at 4. Supplement magnesium as needed. Give 1 dose of IV calcium. Start mexiletine 150 mg 3 times daily for ventricular ectopy. Resume Lasix 40 mg IV daily. Change dose as patient tolerates. Monitor QTc. Repeat ECG in a.m. Hold beta-blockers and antihypertensives Prognosis extremely guarded Objective - Vital Signs Vital signs: Vital Signs Temp 97.7 F 07/16/24 12:00 Pulse 116 H 07/16/24 14:00 Resp 18 07/16/24 14:00 BP 91/59 07/16/24 10:00 Pulse Ox 100 07/16/24 14:00 FiO2 40 07/16/24 12:00 Intake & Output 07/15/24 07/16/24 07/16/24 18:59 06:59 18:59 Intake Total 9167.931 8783.869 3020.695 Output Total 3551 1853 650 Balance -1903.077 690.003 8578.695 Weight 87 kg Intake: IV 805 377 7395 0.9% NS KVO 120 120 50 Calcium Gluconate in NaCl 100 1 gm In Saline 1 100ml. bag @ 100 mls/hr IVPB ONCE ONE Rx#:[id number] Human Prothrombn Cmpl- 80 Balfaxar 2,020 unit In Empty Bag 1 bag @ 504 mls /hr IV ONCE ONE Rx#: [id number] Magnesium Sulfate-D5w Pmx 200 1 gm In Dextrose/Water 1 100ml.bag @ 100 mls/hr IVPB Q1H [facility] Rx#: [id number] Sodium Chloride 0.9% 1, 2000 000 ml @ 999 mls/hr IV . Q1H1M ONE Rx#:[id number] Intake, IV Titration 218.668 4801.869 590.695 Amount DOBUTamine DRIP 500 mg In 105.792 Dextrose/Water 1 250ml. bag @ 5 MCG/KG/MIN 13.92 mls/hr IV .[id number] [facility] Rx #:[id number] Norepinephrine 4 mg In 787.923 990.077 508 Sodium Chloride 0.9% 250 ml @ 0.03 MCG/KG/MIN 10. 369 mls/hr IV .Q24H [facility] Rx#:[id number] Vasopressin 20 unit In 62.093 Sodium Chloride 0.9% 50 ml @ 0.03 UNITS/MIN 4.59 mls/hr IV .Q11H7M [facility] Rx# :[id number] propofoL 1,000 mg In 20.602 Empty Bag 1 bag @ 15 MCG/ KG/MIN 8.352 mls/hr IV . [id number] [facility] Rx#:[id number] Oral 120 Blood Product 620 1220 Rc As-1 Unit 310 [id number] Rc As-1 Unit 310 [id number] Rc As-1 Unit 310 [id number] Rc As-1 Unit 310 [id number] Output: Urine 3550 1850 650 Stool 1 3 Other: Voiding Method External Catheter External Catheter External Catheter # Bowel Movements 1 ABP, PAP, CO, CI - Last Documented Arterial Blood Pressure 110/50 - Labs CBC & Chem 7: 07/16/24 11:40 07/16/24 05:38 Labs: Abnormal Lab Results - Last 24 Hours (Table) 07/15/24 07/15/24 07/15/24 Range/Units 13:44 17:44 20:49 WBC 11.1 H (3.8-10.6) k/uL RBC 3.45 L (4.30-5.90) m/uL Hgb 9.3 L (13.0-17.5) gm/dL Hct 28.0 L (39.0-53.0) % RDW 16.9 H (11.5-15.5) % Neutrophils # (1.3-7.7) k/uL Monocytes # (0-1.0) k/uL ABG pO2 (83-108) mmHg ABG Total CO2 (19-24) mmol/L ABG O2 Saturation (94-97) % Hemoglobin (13.0-17.5) gm/dL Sodium (137-145) mmol/L BUN (9-20) mg/dL Glucose (74-99) mg/dL POC Glucose (mg/dL) 172 H (70-110) mg/dL Calcium (8.4-10.2) mg/dL Total Bilirubin (0.2-1.3) mg/dL Alkaline Phosphatase (38-126) U/L Total Protein (6.3-8.2) g/dL Albumin (3.5-5.0) g/dL Crossmatch See Detail 07/15/24 07/16/24 07/16/24 Range/Units 21:19 02:25 05:38 WBC 15.3 H 13.8 H (3.8-10.6) k/uL RBC (4.30-5.90) m/uL Hgb 11.3 L 11.3 L (13.0-17.5) gm/dL Hct 34.9 L 35.5 L (39.0-53.0) % RDW 16.2 H 16.3 H (11.5-15.5) % Neutrophils # 11.7 H 11.0 H (1.3-7.7) k/uL Monocytes # 1.8 H 1.2 H (0-1.0) k/uL ABG pO2 (83-108) mmHg ABG Total CO2 (19-24) mmol/L ABG O2 Saturation (94-97) % Hemoglobin (13.0-17.5) gm/dL Sodium (137-145) mmol/L BUN (9-20) mg/dL Glucose (74-99) mg/dL POC Glucose (mg/dL) 164 H (70-110) mg/dL Calcium (8.4-10.2) mg/dL Total Bilirubin (0.2-1.3) mg/dL Alkaline Phosphatase (38-126) U/L Total Protein (6.3-8.2) g/dL Albumin (3.5-5.0) g/dL Crossmatch 07/16/24 07/16/24 07/16/24 Range/Units 05:38 06:19 09:51 WBC (3.8-10.6) k/uL RBC (4.30-5.90) m/uL Hgb (13.0-17.5) gm/dL Hct (39.0-53.0) % RDW (11.5-15.5) % Neutrophils # (1.3-7.7) k/uL Monocytes # (0-1.0) k/uL ABG pO2 376 H (83-108) mmHg ABG Total CO2 25 H (19-24) mmol/L ABG O2 Saturation 100.0 H (94-97) % Hemoglobin 10.1 L (13.0-17.5) gm/dL Sodium 130 L (137-145) mmol/L BUN 45 H (9-20) mg/dL Glucose 144 H (74-99) mg/dL POC Glucose (mg/dL) 189 H (70-110) mg/dL Calcium 8.0 L (8.4-10.2) mg/dL Total Bilirubin 4.0 H (0.2-1.3) mg/dL Alkaline Phosphatase 177 H (38-126) U/L Total Protein 5.0 L (6.3-8.2) g/dL Albumin 2.2 L (3.5-5.0) g/dL Crossmatch 07/16/24 07/16/24 Range/Units 11:40 11:43 WBC 14.2 H (3.8-10.6) k/uL RBC 3.79 L (4.30-5.90) m/uL Hgb 9.9 L (13.0-17.5) gm/dL Hct 30.9 L (39.0-53.0) % RDW 16.7 H (11.5-15.5) % Neutrophils # (1.3-7.7) k/uL Monocytes # (0-1.0) k/uL ABG pO2 (83-108) mmHg ABG Total CO2 (19-24) mmol/L ABG O2 Saturation (94-97) % Hemoglobin (13.0-17.5) gm/dL Sodium (137-145) mmol/L BUN (9-20) mg/dL Glucose (74-99) mg/dL POC Glucose (mg/dL) 168 H (70-110) mg/dL Calcium (8.4-10.2) mg/dL Total Bilirubin (0.2-1.3) mg/dL Alkaline Phosphatase (38-126) U/L Total Protein (6.3-8.2) g/dL Albumin (3.5-5.0) g/dL Crossmatch Microbiology - Last 24 Hours (Table) 07/12/24 17:42 Blood Culture - Preliminary Blood
[2024-07-16] MEDS: VASOPRESSIN 60 UNIT in SODIUM CHLORIDE 0.9% 150 ML IV SCH (15:21)
[2024-07-16] MEDS: MEXILETINE 150 MG CAP PO SCH (15:23)
[2024-07-16 17:01] LABS: Anisocytosis Slight; HCT 33.4 % (39.0-53.0); HGB 10.6 gm/dL (13.0-17.5); Hypochromasia Moderate; MCH 26.3 pg (25.0-35.0); MCHC 31.7 g/dL (31.0-37.0); MCV 82.7 fL (80.0-100.0); Platelet Count 276 k/uL (150-450); Poikilocytosis Slight; RBC 4.04 m/uL (4.30-5.90); RDW 16.6 % (11.5-15.5); WBC 16.5 k/uL (3.8-10.6)
[2024-07-16 18:00] LABS: Glucose,Whole Blood 143 mg/dL (70-110)
[2024-07-16] MEDS: INSULIN ASPART (NovoLOG) 100 UNIT/ML VIAL SQ SCH (18:01)
[2024-07-16] MEDS: CHLORHEXIDINE GLUCONATE 15 ML CUP MUCOUS MEM SCH (19:44)
[2024-07-16 23:29] LABS: Glucose,Whole Blood 162 mg/dL (70-110)
[2024-07-17 00:01] LABS: Anisocytosis Slight; Basophils # (A) 0.1 k/uL (0-0.2); Basophils % (A) 0 %; Eosinophils # (A) 0.2 k/uL (0-0.7); Eosinophils % (A) 1 %; HCT 34.3 % (39.0-53.0); Hypochromasia Marked; Lymphocytes % (A) 6 %; MCH 26.7 pg (25.0-35.0); MCV 83.6 fL (80.0-100.0); Mean Platelet Volume 7.6; Monocytes # (A) 1.8 k/uL (0-1.0); Monocytes % (A) 10 %; Neutrophils # (A) 13.5 k/uL (1.3-7.7); Neutrophils % (A) 80 %; Platelet Count 297 k/uL (150-450); Poikilocytosis Slight; RBC 4.11 m/uL (4.30-5.90); RDW 16.6 % (11.5-15.5)
[2024-07-17] MEDS: ALBUTEROL NEBULIZED 2.5 MG/3 ML INHALATION PRN (00:24)
[2024-07-17 06:00] LABS: Anisocytosis Slight; Basophils # (A) 0.1 k/uL (0-0.2); Basophils % (A) 0 %; Eosinophils # (A) 0.2 k/uL (0-0.7); Eosinophils % (A) 1 %; HCT 34.2 % (39.0-53.0); HGB 10.5 gm/dL (13.0-17.5); Hypochromasia Marked; Lymphocytes # (A) 1.2 k/uL (1.0-4.8); Lymphocytes % (A) 7 %; MCHC 30.8 g/dL (31.0-37.0); MCV 84.2 fL (80.0-100.0); Mean Platelet Volume 9.3; Monocytes # (A) 1.8 k/uL (0-1.0); Monocytes % (A) 12 %; Neutrophils # (A) 12.3 k/uL (1.3-7.7); Neutrophils % (A) 78 %; Platelet Count 313 k/uL (150-450); Poikilocytosis Slight; RBC 4.06 m/uL (4.30-5.90); RDW 16.8 % (11.5-15.5); WBC 15.9 k/uL (3.8-10.6)
[2024-07-17 06:01] LABS: ABG HCO3 23 mmol/L (21-25); ABG Oxygen Saturation 98.9 % (94-97); ABG PCO2 52 mmHg (35-45); ABG PH 7.26 (7.35-7.45); ABG PO2 121 mmHg (83-108); ABG TCO2 25 mmol/L (19-24); Allen Test Performed? Yes
[2024-07-17 06:06] LABS: ALT 31 U/L (4-49); AST 35 U/L (17-59); African American GFR (CKD) >90 (>60 ml/min/1.73 sqM); Albumin 2.1 g/dL (3.5-5.0); Alkaline Phosphatase 190 U/L (38-126); Anion Gap 3 mmol/L; Blood Urea Nitrogen 36 mg/dL (9-20); Calcium 8.1 mg/dL (8.4-10.2); Carbon Dioxide 20 mmol/L (22-30); Chloride 107 mmol/L (98-107); Glucose 155 mg/dL (74-99); Non-African American GFR(CKD) 82 (>60 ml/min/1.73 sqM); Potassium 4.7 mmol/L (3.5-5.1); Sodium 130 mmol/L (137-145)
--- NOTE | 2024-07-17 08:02 | XR ---
EXAMINATION TYPE: XR chest 1V DATE OF EXAM: 07/17/2024 5:28 AM COMPARISON: 07/16/2024 CLINICAL INDICATION: Male, 73 years old with history of ETT placement, TECHNIQUE: XR chest 1V view(s) obtained. FINDINGS: The heart size is mildly prominent. The pulmonary vasculature is normal. Diffuse increased lung markings are present bilaterally. Correlate for pulmonary edema. Developing co ngestive heart failure should be considered. Endotracheal tube tip is above the mark. Nasogastric tube transverses the thorax tip in left upper quadrant of the abdomen. Left central venous catheter tip is within the proximal right atrium. Pacema ker overlies left chest IMPRESSION: 1. Congestive heart failure. 2. Lines and catheters discussed above [facility], , 07/17/2024 8:00 AM
--- NOTE | 2024-07-17 08:22 | P.PN ---
Subjective Progress Note Date: 07/17/24 Principal diagnosis: Lower extremity wounds, with nonpalpable pulses Patient is seen and examined today as a follow-up. He is in the ICU currently sedated and intubated. He is maxed out on pressors. Remains hypotensive was given a liter of fluid bolus. Hemoglobin stable at 10.5. Decreased bloody stool output, about 50 cc through the night per nursing. Objective - Vital Signs Vital signs: Vital Signs Temp 97.9 F 07/17/24 04:00 Pulse 122 H 07/17/24 06:15 Resp 18 07/17/24 06:15 BP 84/50 07/17/24 06:15 Pulse Ox 99 07/17/24 06:15 FiO2 40 07/17/24 04:15 Intake & Output 07/16/24 07/17/24 07/17/24 18:59 06:59 18:59 Intake Total 3284.444 818.593 Output Total 1165 535 Balance 2119.444 283.593 Weight 96.2 kg Intake: IV 2530 286 0.9% NS KVO 150 220 Calcium Gluconate in NaCl 100 1 gm In Saline 1 100ml. bag @ 100 mls/hr IVPB ONCE ONE Rx#:[id number] Human Prothrombn Cmpl- 80 Balfaxar 2,020 unit In Empty Bag 1 bag @ 504 mls /hr IV ONCE ONE Rx#: [id number] Magnesium Sulfate-D5w Pmx 200 1 gm In Dextrose/Water 1 100ml.bag @ 100 mls/hr IVPB Q1H [facility] Rx#: [id number] Pressure Bags 66 Sodium Chloride 0.9% 1, 2000 000 ml @ 999 mls/hr IV . Q1H1M [facility] Rx#:[id number] Intake, IV Titration 754.444 532.593 Amount Norepinephrine 32 mg In 63.749 215.396 Sodium Chloride 0.9% 218 ml @ 0.03 MCG/KG/MIN 1. 305 mls/hr IV .Q24H [facility] Rx#:[id number] Norepinephrine 4 mg In 508 Sodium Chloride 0.9% 250 ml @ 0.03 MCG/KG/MIN 10. 369 mls/hr IV .Q24H [facility] Rx#:[id number] Vasopressin 20 unit In 62.093 Sodium Chloride 0.9% 50 ml @ 0.03 UNITS/MIN 4.59 mls/hr IV .Q11H7M [facility] Rx# :[id number] Vasopressin 60 unit In 66.861 Sodium Chloride 0.9% 150 ml @ 0.03 UNITS/MIN 4.59 mls/hr IV .Q24H [facility] Rx#: [id number] propofoL 1,000 mg In 120.602 250.336 Empty Bag 1 bag @ 15 MCG/ KG/MIN 8.352 mls/hr IV . [id number] [facility] Rx#:[id number] Output: Urine 865 485 Stool 300 50 Other: Voiding Method Indwelling Catheter Indwelling Catheter ABP, PAP, CO, CI - Last Documented Arterial Blood Pressure 101/47 - Exam General appearance: The patient is sedated and intubated. HET: Head is normocephalic and atraumatic. Neck: Supple. Heart: Regular. Lungs: Equal expansion, normal respiratory effort. Abdomen: Soft, nontender, nondistended. Extremities: Bilateral lower extremity edema. Bilateral lower extremities with dressings clean dry and intact. Bilateral feet with mottling, right greater than left. Cool to the touch with nonpalpable DP and PT pulses. Brisk capillary refill. Bilateral lower extremity DP signals present. Neurological: Sedated and intubated. - Labs CBC & Chem 7: 07/18/24 04:35 07/18/24 04:35 Labs: Abnormal Lab Results - Last 24 Hours (Table) 07/16/24 07/16/24 07/16/24 Range/Units 09:51 11:40 11:43 WBC 14.2 H (3.8-10.6) k/uL RBC 3.79 L (4.30-5.90) m/uL Hgb 9.9 L (13.0-17.5) gm/dL Hct 30.9 L (39.0-53.0) % MCHC (31.0-37.0) g/dL RDW 16.7 H (11.5-15.5) % Neutrophils # (1.3-7.7) k/uL Monocytes # (0-1.0) k/uL ABG pH (7.35-7.45) ABG pCO2 (35-45) mmHg ABG pO2 376 H (83-108) mmHg ABG Total CO2 25 H (19-24) mmol/L ABG O2 Saturation 100.0 H (94-97) % Hemoglobin 10.1 L (13.0-17.5) gm/dL Sodium (137-145) mmol/L Carbon Dioxide (22-30) mmol/L BUN (9-20) mg/dL Glucose (74-99) mg/dL POC Glucose (mg/dL) 168 H (70-110) mg/dL Calcium (8.4-10.2) mg/dL Total Bilirubin (0.2-1.3) mg/dL Alkaline Phosphatase (38-126) U/L Total Protein (6.3-8.2) g/dL Albumin (3.5-5.0) g/dL 07/16/24 07/16/24 07/16/24 Range/Units 16:45 17:59 23:27 WBC 16.5 H (3.8-10.6) k/uL RBC 4.04 L (4.30-5.90) m/uL Hgb 10.6 L (13.0-17.5) gm/dL Hct 33.4 L (39.0-53.0) % MCHC (31.0-37.0) g/dL RDW 16.6 H (11.5-15.5) % Neutrophils # (1.3-7.7) k/uL Monocytes # (0-1.0) k/uL ABG pH (7.35-7.45) ABG pCO2 (35-45) mmHg ABG pO2 (83-108) mmHg ABG Total CO2 (19-24) mmol/L ABG O2 Saturation (94-97) % Hemoglobin (13.0-17.5) gm/dL Sodium (137-145) mmol/L Carbon Dioxide (22-30) mmol/L BUN (9-20) mg/dL Glucose (74-99) mg/dL POC Glucose (mg/dL) 143 H 162 H (70-110) mg/dL Calcium (8.4-10.2) mg/dL Total Bilirubin (0.2-1.3) mg/dL Alkaline Phosphatase (38-126) U/L Total Protein (6.3-8.2) g/dL Albumin (3.5-5.0) g/dL 07/16/24 07/17/24 07/17/24 Range/Units 23:35 04:00 04:06 WBC 17.0 H 15.9 H (3.8-10.6) k/uL RBC 4.11 L 4.06 L (4.30-5.90) m/uL Hgb 11.0 L 10.5 L (13.0-17.5) gm/dL Hct 34.3 L 34.2 L (39.0-53.0) % MCHC 30.8 L (31.0-37.0) g/dL RDW 16.6 H 16.8 H (11.5-15.5) % Neutrophils # 13.5 H 12.3 H (1.3-7.7) k/uL Monocytes # 1.8 H 1.8 H (0-1.0) k/uL ABG pH (7.35-7.45) ABG pCO2 (35-45) mmHg ABG pO2 (83-108) mmHg ABG Total CO2 (19-24) mmol/L ABG O2 Saturation (94-97) % Hemoglobin (13.0-17.5) gm/dL Sodium 130 L (137-145) mmol/L Carbon Dioxide 20 L (22-30) mmol/L BUN 36 H (9-20) mg/dL Glucose 155 H (74-99) mg/dL POC Glucose (mg/dL) (70-110) mg/dL Calcium 8.1 L (8.4-10.2) mg/dL Total Bilirubin 2.0 H (0.2-1.3) mg/dL Alkaline Phosphatase 190 H (38-126) U/L Total Protein 5.0 L (6.3-8.2) g/dL Albumin 2.1 L (3.5-5.0) g/dL 07/17/24 Range/Units 05:58 WBC (3.8-10.6) k/uL RBC (4.30-5.90) m/uL Hgb (13.0-17.5) gm/dL Hct (39.0-53.0) % MCHC (31.0-37.0) g/dL RDW (11.5-15.5) % Neutrophils # (1.3-7.7) k/uL Monocytes # (0-1.0) k/uL ABG pH 7.26 L (7.35-7.45) ABG pCO2 52 H (35-45) mmHg ABG pO2 121 H (83-108) mmHg ABG Total CO2 25 H (19-24) mmol/L ABG O2 Saturation 98.9 H (94-97) % Hemoglobin 10.6 L (13.0-17.5) gm/dL Sodium (137-145) mmol/L Carbon Dioxide (22-30) mmol/L BUN (9-20) mg/dL Glucose (74-99) mg/dL POC Glucose (mg/dL) (70-110) mg/dL Calcium (8.4-10.2) mg/dL Total Bilirubin (0.2-1.3) mg/dL Alkaline Phosphatase (38-126) U/L Total Protein (6.3-8.2) g/dL Albumin (3.5-5.0) g/dL Microbiology - Last 24 Hours (Table) 07/16/24 11:51 Gram Stain - Preliminary Sputum 07/12/24 17:42 Blood Culture - Preliminary Blood Assessment and Plan Assessment: Right lower extremity wounds Diminished pulses Hypotension requiring pressor support Acute hypoxemic respiratory failure Diabetes History of tobacco abuse Atrial fibrillation Plan: Arterial duplex reviewed. No waveforms on the right secondary to reported no audible arterial flow likely secondary to chronic disease and pressors. Patient has monophasic lateral DP Doppler signals with brisk capillary refill. Warm to the touch. Decrease pressor support when able. No plans at this time for any vascular surgical intervention. We will continue to follow. The impression and plan of care has been dictated as directed. Dr. Hardy I performed a history and examination of this patient, discussed the same with the dictator. I agree with the dictator's note ,documented as a scribe. Any additional findings or plans will be noted. Patient seen and examined. Foot appearing worse on the right than previous with increase in the mottling. Long discussion had with the at the bedside, patient clinically unstable for any aggressive surgical interventions. Will await further demarcation and evaluation, did discuss that if there is s ignificant continued arterial compromise, amputation might be the next recommendation. She seemingly understands. Will await further clinical course. Continue trial to wean pressors as able
[2024-07-17] MEDS: SODIUM CHLORIDE 0.9% 1,000 ML IV ONE (09:29)
[2024-07-17] MEDS: CEFEPIME 2 GM in SODIUM CHLORIDE 0.9% 100 ML IVPB SCH (10:23)
--- NOTE | 2024-07-17 10:25 | P.PN ---
Subjective Progress Note Date: 07/17/24 Principal diagnosis: GI bleed This a pleasant 73-year-old male with multiple comorbidities including coronary artery disease status post CABG, congestive heart failure previous GI bleed, atrial fibrillation with an EF of 15-20% who was admitted for hyperkalemia, hyponatremia and acute pulmonary edema. Patient was also in atrial fibrillation started on Xarelto. Following Xarelto yesterday he started having GI bleed with multiple episodes of dark and maroon-colored stool. Patient became hypotensive he has been started on Levophed and vasopressin. This morning he was given Kcentra about 30 minutes ago and continues to have dark maroon stools with clots. Levophed is at 0.3 to micrograms and vasopressin 0.03. Blood pressures are running in the 90s over 60s. He is status post 4 units of PRBC transfusion. Hemoglobin stable at 11.3 BUN elevated at 45. He denies any abdominal pain, nausea or vomiting. is at the bedside and states he had a previous upper GI bleed about 8 years ago when he was at [facility] post extubation. Last colonoscopy about 15 years ago. 07/17/2024 Patient seen and examined today as a follow-up. He remains in the ICU and is currently sedated and intubated. Remains on max doses of pressors. Yesterday he underwent upper endoscopy with finding of duodenal ulcer with vessel with clot attached. No active bleeding at the time of endoscopy. Status post epinephrine and clip placement. Dark stool output only about 50 cc overnight. Hemoglobin stable at 10.5 platelet count 313,000 BUN 36 creatinine 0.9 total bilirubin 2.0 AST 35 ALT 31 alkaline phosphatase 190 Objective - Vital Signs Vital signs: Vital Signs Temp 97.9 F 07/17/24 04:00 Pulse 122 H 07/17/24 06:15 Resp 18 07/17/24 06:15 BP 84/50 07/17/24 06:15 Pulse Ox 99 07/17/24 06:15 FiO2 40 07/17/24 04:15 Intake & Output 07/16/24 07/17/24 07/17/24 18:59 06:59 18:59 Intake Total 3284.444 818.593 Output Total 1165 535 Balance 2119.444 283.593 Weight 96.2 kg Intake: IV 2530 286 0.9% NS KVO 150 220 Calcium Gluconate in NaCl 100 1 gm In Saline 1 100ml. bag @ 100 mls/hr IVPB ONCE ONE Rx#:[id number] Human Prothrombn Cmpl- 80 Balfaxar 2,020 unit In Empty Bag 1 bag @ 504 mls /hr IV ONCE ONE Rx#: [id number] Magnesium Sulfate-D5w Pmx 200 1 gm In Dextrose/Water 1 100ml.bag @ 100 mls/hr IVPB Q1H [facility] Rx#: [id number] Pressure Bags 66 Sodium Chloride 0.9% 1, 2000 000 ml @ 999 mls/hr IV . Q1H1M ONE Rx#:[id number] Intake, IV Titration 754.444 532.593 Amount Norepinephrine 32 mg In 63.749 215.396 Sodium Chloride 0.9% 218 ml @ 0.03 MCG/KG/MIN 1. 305 mls/hr IV .Q24H [facility] Rx#:[id number] Norepinephrine 4 mg In 508 Sodium Chloride 0.9% 250 ml @ 0.03 MCG/KG/MIN 10. 369 mls/hr IV .Q24H [facility] Rx#:[id number] Vasopressin 20 unit In 62.093 Sodium Chloride 0.9% 50 ml @ 0.03 UNITS/MIN 4.59 mls/hr IV .Q11H7M [facility] Rx# :[id number] Vasopressin 60 unit In 66.861 Sodium Chloride 0.9% 150 ml @ 0.03 UNITS/MIN 4.59 mls/hr IV .Q24H [facility] Rx#: [id number] propofoL 1,000 mg In 120.602 250.336 Empty Bag 1 bag @ 15 MCG/ KG/MIN 8.352 mls/hr IV . [id number] [facility] Rx#:[id number] Output: Urine 865 485 Stool 300 50 Other: Voiding Method Indwelling Catheter Indwelling Catheter ABP, PAP, CO, CI - Last Documented Arterial Blood Pressure 101/47 - Exam General appearance: The patient is sedated and intubated. HET: Head is normocephalic and atraumatic. Neck: Supple. Heart: Irregularly irregular. Lungs: Equal expansion, mechanical ventilation. Abdomen: Soft, nondistended. Extremities: Bilateral lower extremity edema. Bilateral lower extremities with dressings clean dry and intact. Bilateral feet with mottling, right greater than left. Cool to the touch, brisk capillary refill Neurological: Sedated and intubated. - Labs CBC & Chem 7: 07/17/24 04:06 07/17/24 04:00 Labs: Abnormal Lab Results - Last 24 Hours (Table) 07/16/24 07/16/24 07/16/24 Range/Units 09:51 11:40 11:43 WBC 14.2 H (3.8-10.6) k/uL RBC 3.79 L (4.30-5.90) m/uL Hgb 9.9 L (13.0-17.5) gm/dL Hct 30.9 L (39.0-53.0) % MCHC (31.0-37.0) g/dL RDW 16.7 H (11.5-15.5) % Neutrophils # (1.3-7.7) k/uL Monocytes # (0-1.0) k/uL ABG pH (7.35-7.45) ABG pCO2 (35-45) mmHg ABG pO2 376 H (83-108) mmHg ABG Total CO2 25 H (19-24) mmol/L ABG O2 Saturation 100.0 H (94-97) % Hemoglobin 10.1 L (13.0-17.5) gm/dL Sodium (137-145) mmol/L Carbon Dioxide (22-30) mmol/L BUN (9-20) mg/dL Glucose (74-99) mg/dL POC Glucose (mg/dL) 168 H (70-110) mg/dL Calcium (8.4-10.2) mg/dL Total Bilirubin (0.2-1.3) mg/dL Alkaline Phosphatase (38-126) U/L Total Protein (6.3-8.2) g/dL Albumin (3.5-5.0) g/dL 07/16/24 07/16/24 07/16/24 Range/Units 16:45 17:59 23:27 WBC 16.5 H (3.8-10.6) k/uL RBC 4.04 L (4.30-5.90) m/uL Hgb 10.6 L (13.0-17.5) gm/dL Hct 33.4 L (39.0-53.0) % MCHC (31.0-37.0) g/dL RDW 16.6 H (11.5-15.5) % Neutrophils # (1.3-7.7) k/uL Monocytes # (0-1.0) k/uL ABG pH (7.35-7.45) ABG pCO2 (35-45) mmHg ABG pO2 (83-108) mmHg ABG Total CO2 (19-24) mmol/L ABG O2 Saturation (94-97) % Hemoglobin (13.0-17.5) gm/dL Sodium (137-145) mmol/L Carbon Dioxide (22-30) mmol/L BUN (9-20) mg/dL Glucose (74-99) mg/dL POC Glucose (mg/dL) 143 H 162 H (70-110) mg/dL Calcium (8.4-10.2) mg/dL Total Bilirubin (0.2-1.3) mg/dL Alkaline Phosphatase (38-126) U/L Total Protein (6.3-8.2) g/dL Albumin (3.5-5.0) g/dL 07/16/24 07/17/24 07/17/24 Range/Units 23:35 04:00 04:06 WBC 17.0 H 15.9 H (3.8-10.6) k/uL RBC 4.11 L 4.06 L (4.30-5.90) m/uL Hgb 11.0 L 10.5 L (13.0-17.5) gm/dL Hct 34.3 L 34.2 L (39.0-53.0) % MCHC 30.8 L (31.0-37.0) g/dL RDW 16.6 H 16.8 H (11.5-15.5) % Neutrophils # 13.5 H 12.3 H (1.3-7.7) k/uL Monocytes # 1.8 H 1.8 H (0-1.0) k/uL ABG pH (7.35-7.45) ABG pCO2 (35-45) mmHg ABG pO2 (83-108) mmHg ABG Total CO2 (19-24) mmol/L ABG O2 Saturation (94-97) % Hemoglobin (13.0-17.5) gm/dL Sodium 130 L (137-145) mmol/L Carbon Dioxide 20 L (22-30) mmol/L BUN 36 H (9-20) mg/dL Glucose 155 H (74-99) mg/dL POC Glucose (mg/dL) (70-110) mg/dL Calcium 8.1 L (8.4-10.2) mg/dL Total Bilirubin 2.0 H (0.2-1.3) mg/dL Alkaline Phosphatase 190 H (38-126) U/L Total Protein 5.0 L (6.3-8.2) g/dL Albumin 2.1 L (3.5-5.0) g/dL 07/17/24 Range/Units 05:58 WBC (3.8-10.6) k/uL RBC (4.30-5.90) m/uL Hgb (13.0-17.5) gm/dL Hct (39.0-53.0) % MCHC (31.0-37.0) g/dL RDW (11.5-15.5) % Neutrophils # (1.3-7.7) k/uL Monocytes # (0-1.0) k/uL ABG pH 7.26 L (7.35-7.45) ABG pCO2 52 H (35-45) mmHg ABG pO2 121 H (83-108) mmHg ABG Total CO2 25 H (19-24) mmol/L ABG O2 Saturation 98.9 H (94-97) % Hemoglobin 10.6 L (13.0-17.5) gm/dL Sodium (137-145) mmol/L Carbon Dioxide (22-30) mmol/L BUN (9-20) mg/dL Glucose (74-99) mg/dL POC Glucose (mg/dL) (70-110) mg/dL Calcium (8.4-10.2) mg/dL Total Bilirubin (0.2-1.3) mg/dL Alkaline Phosphatase (38-126) U/L Total Protein (6.3-8.2) g/dL Albumin (3.5-5.0) g/dL Microbiology - Last 24 Hours (Table) 07/16/24 11:51 Gram Stain - Preliminary Sputum 07/12/24 17:42 Blood Culture - Preliminary Blood Assessment and Plan (1) GI bleed Narrative/Plan: 73-year-old male with multiple comorbidities admitted with acute pulmonary edema and has history of chronic atrial fibrillation but noted to be in persistent A- fib and was started on anticoagulation. Following anticoagulation patient started having multiple maroon-colored stools and black stools with an elevated BUN likely upper GI source. Patient is requiring pressors to support his blood pressure which is currently in the 90s over 60s. Recommend proceeding with upper endoscopy. Risks and benefits discussed with patient and his . Consent obtained. Patient status post upper endoscopy with finding of ulcer with bleeding vessel status post epinephrine injection and clip placement. Appears patient's hemoglobin has remained stable and he has had decreased bloody stool output. Continue medical management and ICU management. Continue to hold anti coagulation. And monitor closely. Current Visit: Yes Status: Acute Code(s): K92.2 - GASTROINTESTINAL HEMORRHAGE, UNSPECIFIED SNOMED Code(s): 46122218 (2) Acute pulmonary edema Current Visit: Yes Status: Acute Code(s): J81.0 - ACUTE PULMONARY EDEMA SNOMED Code(s): 15252835 (3) COPD (chronic obstructive pulmonary disease) Current Visit: No Status: Acute Code(s): J44.9 - CHRONIC OBSTRUCTIVE PULMONARY DISEASE, UNSPECIFIED SNOMED Code(s): 40336758 (4) Congestive heart failure Current Visit: No Status: Acute Code(s): I50.9 - HEART FAILURE, UNSPECIFIED SNOMED Code(s): 95220231 (5) Diabetes Current Visit: No Status: Acute Code(s): E11.9 - TYPE 2 DIABETES MELLITUS WITHOUT COMPLICATIONS SNOMED Code(s): 25345030 (6) Paroxysmal a-fib Narrative/Plan: Was on anticoagulation with Xarelto, Kcentra given Current Visit: No Status: Acute Code(s): I48.0 - PAROXYSMAL ATRIAL FIBRILLA TION SNOMED Code(s): 723133870 Plan: 1. Continue symptomatic and supportive care 2. Continue to hold anticoagulation 3. Keep n.p.o. for now except for medications 4. Protonix 40 mg IVP twice daily 5. Avoid NSAIDs 6. Continue to monitor for bleeding 7. Rest of medical management per ICU team/primary team Thank you for this consultation, we will continue to follow. Dr. Bossman Cortes I agree with the dictator's note, documented as a scribe by Wilma Awad.
[2024-07-17] MEDS: FUROSEMIDE 10 MG/ML 4 ML VIAL IV SCH (10:31)
[2024-07-17 11:05] LABS: ABG Base Excess -4.2 mmol/L; ABG HCO3 22 mmol/L (21-25); ABG Oxygen Saturation 99.1 % (94-97); ABG PCO2 45 mmHg (35-45); ABG PO2 117 mmHg (83-108); ABG TCO2 24 mmol/L (19-24)
--- NOTE | 2024-07-17 12:26 | P.PN ---
Subjective Progress Note Date: 07/17/24 73-year-old male with history of multiple medical problems including congestive heart failure, and atrial fibrillation. The patient was sent into the hospital, by his primary care physician. The patient came in with complaints of lower extremity edema, shortness of breath, ulcerations on his foot, and weakness. The patient was seen in the emergency room, ER #3. We were consulted because the patient has been hypotensive, since being in the emergency department. Norepinephrine has not yet been started. Cardiac medications have been held. In addition to atrial fibrillation, the patient has a history of myocardial infarction, coronary disease, congestive heart failure, diabetes, GERD, hyperlip idemia, hypertension, osteoarthritis, and previous bypass surgery. The patient apparently was at [facility] many years ago, on a ventilator, and was apparently on hospice, but has done well over the last 7 or 8 years. The patient does have a history of AICD placement, and previous tobacco use. Currently, he is on CPAP, at between 8 to 12 cm of water. He is not receiving any IV fluids. We did talk to the patient about CODE STATUS and he stated that he would not want to be on life support. His agreed with that. White count is 18, hemoglobin 11.6, hematocrit 37.7, platelet count of 262,000. Sodium 127, potassium 5.8, chloride 95, CO2 21, anion gap is 11, BUN 53, creatinine is 1.26. His N-terminal proBNP was 5940. His troponin was less than 0.012. Chest x-ray was consistent with CHF. Progress note dated July 14, 2024. 73-year-old male seen in the emergency department yesterday. He was admitted with a diagnosis of congestive heart failure. The patient was transferred to the intensive care unit, for norepinephrine. Currently he is on 5 L nasal cannula. He is getting saline at 10 cc an hour. He is on norepinephrine at 3.8 mcg/min. His procalcitonin level was normal at 0.25. Unasyn will be discontinued. White count 16.7, hemoglobin 10.6, hematocrit 34.8, platelet count normal. Sodium 124, potassium 5.5, chlorides 95, CO2 20, BUN 48, creatinine 1.06. Glucose 129. Calcium 8.2. Albumin 2.5. Chest x-ray again shows evidence of cardiomegaly, and pulmonary vascular congestion. Doppler of the right lower extremity was negative for DVT. Progress note dated August 11, 2024. The patient is seen today in room 258. I was called by the nurses last night, because of the new onset GI bleed. The patient is currently on norepinephrine at 14.8 mcg/min, nasal O2 at 4 L, saline at 10 cc an hour. The patient did use his CPAP last night. A repeat hemoglobin will be done at noon today. This morning's hemoglobin was 9.2. The patient is a DO NOT INTUBATE patient. White count 14.2, hemoglobin 9.2, hematocrit 29.4, platelet count finger 83,000. Sodium 126, potassium 5.8, chlorides 102, CO2 23, BUN 60, creatinine 0.99. Glucose 133. Hemoglobin A1c was 6.8. Calcium is 8. On 07/16/2024, the patient was seen in follow-up in the intensive care unit. Time of evaluation, the patient was extremely lethargic, in a shock state which is probably a combination of cardiogenic shock and hypovolemic shock as the patient continues to show signs of GI bleeding and the patient was having several melanotic stools including the last episode this morning. Noted the patient is known to have coronary artery disease, previous bypass surgery, severe ischemic cardiomyopathy with impaired LV function with an ejection fraction of 20%, chronic atrial fibrillation, he has a pacer/AICD in place. Overnight, the patient was also having few episodes of nonsustained ventricular tachycardia. The patient was taken off the anticoagulants. He was given Kce ntra and during this current admission, the patient received a total of 4 units of packed RBC regarding his ongoing GI bleeding. Most recent hemoglobin from this morning is at 11.3. At the time of my evaluation, the patient was having labored breathing. He was on 4 L of oxygen by nasal cannula. Typically his on O2 at home ranging between 3 and 5 L/min nasal cannula. He was on norepinephrine running at 0.32 mcg/kg/min and vasopressin physiologic dose. As mentioned, he was still showing evidence of GI bleeding. The gastroenterology team was on standby for an EGD. I opted to intubate the patient and put him on the mechanical ventilator to protect his airway and proceed with the procedure. Based on that, the patient was started on propofol which is currently running at 40 mcg/kg/min. The patient process was done without any complications. He was placed on assist-control at rate of 18 with a tidal volume of 400, FiO2 100% with a PEEP of 5. The subsequent blood gases showed a pH of 7.37 with a pCO2 of 41 and pO2 of 376. FiO2 was weaned down to 40%. Postintubation chest x-ray showed CHF, pulm vessel congestion, triple-lumen catheter was in good location. Orogastric tube is in place and the patient has an orotracheal tube also in place. He was given a total of 2 L of IV fluid bolus and the subsequent hemoglobin came back at six 9.9 with a white cell count of 14.2 and a platelet count of 265. The sodium is at 130, potassium is at 4.9, chloride is 101 and the bicarb is 24. BUN is 45 with a creatinine of 0.98. Blood sugar is at 168. On 07/17/2024, the patient is being seen for a follow-up. The patient remains intubated on the mechanical ventilator. The patient is on propofol running at 30 mcg/kg/min. The patient underwent an EGD yesterday and was found to have a duodenal ulcer for which she underwent an Endo Clip and it seems that the bleeding is under adequate control for now. The patient's hemoglobin has remained stable and his current hemoglobin is at 10.5. Noted the patient was transfused a total of 4 units of packed RBC during this current hospitalization. He has a fecal management system in place. There are some dark melanotic output which is minimal at this point in time and is essentially liquidy. Hemodynamically, the patient remains in shock. He remains profoundly hypotensive and is pressor requirements are still active and norepinephrine is running at 0.5 mcg/kg/min and he is also on vasopressin physiologic dose. The patient remains in atrial fibrillation with frequent premature beats. The patient was started on mexiletine by cardiology. The patient is currently on assist-control mode with rate of 18, tidal volume of 450, FiO2 40% with a PEEP of 5. Blood gas showed a pH of 7.26 with a pCO2 of 52 and pO2 of 121. Chest x- ray is consistent with heart failure with lines being all in place and the patient has a pacer/defibrillator over the left anterior chest area. Orotracheal tube is in a good location. The white cell count is 15.9, hemoglobin 10.7 and platelet count is at 313. Sodium is at 130, BUN 36 with a creatinine of 0.9. Potassium level is at 4.7. Serum bicarb is at 20. LFTs are essentially within normal limits. He remains NPO. CVP is elevated at around 18. Only Doppler pulses in lower extremities bilaterally. Continues to have skin blisters and vesicle formation and superficial ulceration. Extremities remain cold and clammy. Objective - Vital Signs Vital signs: Vital Signs Temp 98.6 F 07/17/24 08:00 Pulse 117 H 07/17/24 11:15 Resp 11 L 07/17/24 11:15 BP 85/53 07/17/24 11:15 Pulse Ox 99 07/17/24 11:15 FiO2 40 07/17/24 11:26 Intake & Output 07/16/24 07/17/24 07/17/24 18:59 06:59 18:59 Intake Total 3284.444 818.593 130 Output Total 1165 535 90 Balance 2119.444 283.593 40 Weight 96.2 kg Intake: IV 2530 286 130 0.9% NS KVO 150 220 100 Calcium Gluconate in NaCl 100 1 gm In Saline 1 100ml. bag @ 100 mls/hr IVPB ONCE ONE Rx#:[id number] Human Prothrombn Cmpl- 80 Balfaxar 2,020 unit In Empty Bag 1 bag @ 504 mls /hr IV ONCE ONE Rx#: [id number] Magnesium Sulfate-D5w Pmx 200 1 gm In Dextrose/Water 1 100ml.bag @ 100 mls/hr IVPB Q1H [facility] Rx#: [id number] Pressure Bags 66 30 Sodium Chloride 0.9% 1, 2000 000 ml @ 999 mls/hr IV . Q1H1M [facility] Rx#:[id number] Intake, IV Titration 754.444 532.593 Amount Norepinephrine 32 mg In 63.749 215.396 Sodium Chloride 0.9% 218 ml @ 0.03 MCG/KG/MIN 1. 305 mls/hr IV .Q24H [facility] Rx#:[id number] Norepinephrine 4 mg In 508 Sodium Chloride 0.9% 250 ml @ 0.03 MCG/KG/MIN 10. 369 mls/hr IV .Q24H [facility] Rx#:[id number] Vasopressin 20 unit In 62.093 Sodium Chloride 0.9% 50 ml @ 0.03 UNITS/MIN 4.59 mls/hr IV .[id number] [facility] Rx# :[id number] Vasopressin 60 unit In 66.861 Sodium Chloride 0.9% 150 ml @ 0.03 UNITS/MIN 4.59 mls/hr IV .Q24H [facility] Rx#: [id number] propofoL 1,000 mg In 120.602 250.336 Empty Bag 1 bag @ 15 MCG/ KG/MIN 8.352 mls/hr IV . [id number] [facility] Rx#:[id number] Output: Urine 865 485 90 Stool 300 50 Other: Voiding Method Indwelling Catheter Indwelling Catheter Indwelling Catheter ABP, PAP, CO, CI - Last Documented Arterial Blood Pressure 99/48 - Exam - Exam At this point in time, the patient is sedated on propofol,, and comfortable and orogastric and orotracheal tube are both in place. Head exam was generally normal. There was no scleral icterus or corneal arcus. Mucous membranes were moist. Neck was supple and with jugular venous distension, thyromegaly, or carotid bruits. Carotids were easily palpable bilaterally. There was no adenopathy. Cardiovascular examination reveals an irregular rhythm and rate. S1-S2 normal. No S3 or S4. A systolic murmur is noted, grade 2/6. The rhythm was irregular consistent with atrial fibrillation and the patient was quite tachycardic. The patient also had a thoracotomy scar over the anterior chest area and the patient has a pacemaker over the left anterior chest. Lungs reveal scattered rhonchi and crackles. Breath sounds equal. No wheezes. Abdomen soft bowel sounds are heard. No masses or tenderness. Extremities are showing diminished pulses in all 4 extremities. No cyanosis or clubbing. 1+ edema is noted. Skin blisters Skin is without rash or lesion. Skin blisters related to edema, mottling of the skin in the right lower extremity and marked diminished pulses involving the dorsalis pedis and posterior tibialis. Palpable femoral pulses bilaterally. Neurologic examination is brief but nonfocal. The patient is currently sedated on the mechanical ventilator. - Labs CBC & Chem 7: 07/17/24 04:06 07/17/24 04:00 Labs: Abnormal Lab Results - Last 24 Hours (Table) 11/01/0307/16/24 07/16/24 Range/Units 16:45 17:59 23:27 WBC 16.5 H (3.8-10.6) k/uL RBC 4.04 L (4.30-5.90) m/uL Hgb 10.6 L (13.0-17.5) gm/dL Hct 33.4 L (39.0-53.0) % MCHC (31.0-37.0) g/dL RDW 16.6 H (11.5-15.5) % Neutrophils # (1.3-7.7) k/uL Monocytes # (0-1.0) k/uL ABG pH (7.35-7.45) ABG pCO2 (35-45) mmHg ABG pO2 (83-108) mmHg ABG Total CO2 (19-24) mmol/L ABG O2 Saturation (94-97) % Hemoglobin (13.0-17.5) gm/dL Sodium (137-145) mmol/L Carbon Dioxide (22-30) mmol/L BUN (9-20) mg/dL Glucose (74-99) mg/dL POC Glucose (mg/dL) 143 H 162 H (70-110) mg/dL Calcium (8.4-10.2) mg/dL Total Bilirubin (0.2-1.3) mg/dL Alkaline Phosphatase (38-126) U/L Total Protein (6.3-8.2) g/dL Albumin (3.5-5.0) g/dL 07/16/24 07/17/24 07/17/24 Range/Units 23:35 04:00 04:06 WBC 17.0 H 15.9 H (3.8-10.6) k/uL RBC 4.11 L 4.06 L (4.30-5.90) m/uL Hgb 11.0 L 10.5 L (13.0-17.5) gm/dL Hct 34.3 L 34.2 L (39.0-53.0) % MCHC 30.8 L (31.0-37.0) g/dL RDW 16.6 H 16.8 H (11.5-15.5) % Neutrophils # 13.5 H 12.3 H (1.3-7.7) k/uL Monocytes # 1.8 H 1.8 H (0-1.0) k/uL ABG pH (7.35-7.45) ABG pCO2 (35-45) mmHg ABG pO2 (83-108) mmHg ABG Total CO2 (19-24) mmol/L ABG O2 Saturation (94-97) % Hemoglobin (13.0-17.5) gm/dL Sodium 130 L (137-145) mmol/L Carbon Dioxide 20 L (22-30) mmol/L BUN 36 H (9-20) mg/dL Glucose 155 H (74-99) mg/dL POC Glucose (mg/dL) (70-110) mg/dL Calcium 8.1 L (8.4-10.2) mg/dL Total Bilirubin 2.0 H (0.2-1.3) mg/dL Alkaline Phosphatase 190 H (38-126) U/L Total Protein 5.0 L (6.3-8.2) g/dL Albumin 2.1 L (3.5-5.0) g/dL 07/17/24 07/17/24 Range/Units 05:58 11:02 WBC (3.8-10.6) k/uL RBC (4.30-5.90) m/uL Hgb (13.0-17.5) gm/dL Hct (39.0-53.0) % MCHC (31.0-37.0) g/dL RDW (11.5-15.5) % Neutrophils # (1.3-7.7) k/uL Monocytes # (0-1.0) k/uL ABG pH 7.26 L 7.30 L (7.35-7.45) ABG pCO2 52 H (35-45) mmHg ABG pO2 121 H 117 H (83-108) mmHg ABG Total CO2 25 H (19-24) mmol/L ABG O2 Saturation 98.9 H 99.1 H (94-97) % Hemoglobin 10.6 L 10.3 L (13.0-17.5) gm/dL Sodium (137-145) mmol/L Carbon Dioxide (22-30) mmol/L BUN (9-20) mg/dL Glucose (74-99) mg/dL POC Glucose (mg/dL) (70-110) mg/dL Calcium (8.4-10.2) mg/dL Total Bilirubin (0.2-1.3) mg/dL Alkaline Phosphatase (38-126) U/L Total Protein (6.3-8.2) g/dL Albumin (3.5-5.0) g/dL Microbiology - Last 24 Hours (Table) 07/16/24 11:51 Gram Stain - Preliminary Sputum Sputum Culture - Preliminary Assessment and Plan Plan: Shock, combination of cardiogenic and hypovolemic as the patient had massive GI bleed/upper GI bleeding. The patient is intubated on the mechanical ventilator. The patient remains on high-dose pressors and the patient is on high-dose norepinephrine and vasopressin physiologic dose. Triple-lumen catheter was established. The patient was resuscitated with blood products and IV fluids. Remains on high-dose pressors including a combination of norepinephrine and physiologic dose of vasopressin. Sepsis is considered to be less likely. Acute hypoxemic respiratory failure, secondary to CHF, currently intubated on mechanical ventilator, blood gas shows a component of respiratory acidosis and the sensory ventilator change will be done Upper GI bleeding, transfused with total of 4 units of packed RBC, follow-up hemoglobin is stable and the patient underwent Endo Clip of a duodenal ulcer bleed and a hemoglobin has remained stable since. Remains NPO. Remains on Protonix. No anticoagulants for now. chronic atrial fibrillation, currently off anticoagulants Nonsustained V. tach History of CAD, with previous myocardial infarction, and previous CABG. CHF with ischemic cardiomyopathy and ejection fraction of less than 20%, status post AICD/pacemaker implantation. History of COPD from previous tobacco use. History of diabetes mellitus. History of gastroesophageal reflux disease. History of hypertension. History of hyperlipidemia. General medical debility. Peripheral vascular disease Lower extremity edema with stage II wounds and areas of skin blisters related to CHF and lower extremity edema/chronic. Peripheral vascular disease with only Doppler signals lower extremities along with hypoperfusion and skin mottling specially in the right lower extremity. Plan: Continue ventilator support Increase the respirate of 24 and repeat the blood gas Monitor hemodynamics and is continuing the pressors for now Start the patient on Lasix 40 mg IV every 12 hours Monitor hemoglobin Keep the patient sedated on propofol EGD was completed yesterday IV Protonix No anticoagulants for now Keep the patient n.p.o. Cover the patient with IV cefepime as an empiric antibiotic coverage Condition is critical. Will coordinate care with cardiology and the rest of the consultants. This evaluation was done more than 30 minutes. Time with Patient: Greater than 30
--- NOTE | 2024-07-17 13:25 | P.PCN ---
Date of Procedure: 07/16/24 Procedure(s) Performed: BRIEF HISTORY: Patient is a 73-year-old, pleasant, white male over the hospital cellulitis and while in the hospital developed acute A-fib requiring anticoagulation. He received 2 doses of Xarelto on Tuesday and Tuesday evening.. Patient had significant GI bleed with multiple episodes of maroon- colored stools in the last 24 hours requiring 4 units of PRBC transfusion. He was given Kcentra this morning but patient continued to have rectal bleeding and his scheduled for an upper endoscopy in the intensive care unit on an emergency basis. PROCEDURE PERFORMED: Esophagogastroduodenoscopy with injection epinephrine and Endo Clip placement. PREOPERATIVE DIAGNOSIS: Acute GI bleed. IV sedation general. PROCEDURE: After informed consent was obtained, the patient was brought into the endoscopy unit. IV sedation was administered by Anesthesia under continuous monitoring. Initially the Olympus GIF-140 video endoscope was inserted into the mouth. Esophagus intubated without any difficulty. It was gradually advanced into the stomach and duodenum and carefully examined. The bulb of the duodenum and a 1 cm clean-based ulcer with no bleeding. Along the duodenal sweep there was another 1 cm ulcer identified with adherent clot and oozing noted. There was visible vessel that was pulsatile at this time 1 in 10,000 was epinephrine was injected into visible vessel until good hemostasis was achieved. Following this 2 endoclips were placed. The scope at this time was withdrawn to the stomach, adequately insufflated with air, and upon careful examination, mucosa of the antrum, body, cardia and the fundus appeared normal. The scope was then withdrawn into the esophagus. The GE junction was located at 39 cm from the incisors. The esophagus appeared normal. There were no erosions or ulcerations seen and the patient tolerated the procedure well. IMPRESSION: 1. Actively bleeding 1 cm duodenal ulcer with a visible vessel along the duodenal sweep s/p injection epinephrine and Endo Clip placement with good hemostasis. 2. 1 cm duodenal bulb ulcer with no active bleeding. RECOMMENDATIONS: The findings of this examination were discussed with the patient as well as his family. He will continue Protonix 40 mg twice daily. Monitor CBC every 6 hours. Transfuse as needed..
[2024-07-17 14:50] LABS: Glucose,Whole Blood 162 mg/dL (70-110)
[2024-07-17 16:55] LABS: Anisocytosis Slight; HCT 32.2 % (39.0-53.0); HGB 10.2 gm/dL (13.0-17.5); Hypochromasia Marked; MCH 26.5 pg (25.0-35.0); MCHC 31.5 g/dL (31.0-37.0); MCV 84.2 fL (80.0-100.0); Mean Platelet Volume 7.9; Platelet Count 310 k/uL (150-450); Poikilocytosis Slight; RBC 3.83 m/uL (4.30-5.90); RDW 16.9 % (11.5-15.5); WBC 16.9 k/uL (3.8-10.6)
[2024-07-17 17:14] LABS: Glucose,Whole Blood 154 mg/dL (70-110)
--- NOTE | 2024-07-17 19:08 | P.PN ---
Subjective Progress Note Date: 07/17/24 HISTORY OF PRESENT ILLNESS: This is a 73-year-old male used to be my patient for many years, he had left [place] and went to [place] for about 7 years he just got back about 3 months ago, and he was in my office yesterday for the first time as a new patient he is well-known to have a significant history of coronary artery disease status post coronary artery bypass graft x 3 in 2004 with ischemic cardiomyopathy status post AICD/biventricular pacemaker that was turned off by his carpenter maintenance prior to him going to [place], hypertension hypertensive cardiovascular disease, diabetes mellitus type 2 diabetic polyneuropathy, history of obstructive sleep apnea, history of COPD, history of PAD, patient came to my office as a new patient yesterday and he was tremendous amount of shortness of breath, he was on oxygen at that time, he was having fluid weeping out his upper extremity and the left upper extremity as well as both lower extremity has wounds on his right lower extremity due to venous ulceration due to abrasion due to fall, patient was directed to go to the emergency department for evaluation of acute systolic heart failure his family to come to the ER, patient was found to have an elevated BNP, he was started on IV Lasix 80 mg IV push every 12 hours, patient became hypotensive in the emergency department, hypoxemic as well, intensive care consultation was obtained from Dr. Randall who accepted the patient to the ICU, patient will be seen in consultation by cardiology as well for further evaluation recommendation, most of his medication were held because of his hypotension, we will adjust his IV diuretics at this time untilhe is moved into the ICU and he is seen by cardiology. 07/14: Patient is sitting up in bed currently on 4 L nasal cannula, he appears to be in mild respiratory distress, he is dozing on and off, his was at the bedside, his blood pressure currently 82/42 on Levophed drip, patient was seen earlier by vascular surgery patient does have a Doppler signal on the right stronger in the left in the dorsalis pedis, and patient had a venous Doppler that was negative for DVT, patient is not a good candidate for any vascular intervention at this point in time, we will continue the patient on Xarelto as the patient refused to go on heparin drip at this time, continue current treatment plan, discussed with the the prognosis is poor but will take it 1 day at a time at this point. 07/15: Patient is laying down in bed he appears to be generally weak, his Levophed drip is higher, he did have an episode of a large episode of maroon- colored blood coming out of the rectum, he is still making decent amount of urine, he continues to be holding his own, discontinue aspirin, discontinue Xarelto completely, we will obtain general surgery consultation for standby, regarding GI bleed, we will follow-up with the patient very closely, patient re domingo in the ICU, continues to have very poor prognosis at this point in time due to his cardiomyopathy as well as other morbid conditions. 07/16: Patient is laying down in bed on his CPAP, he is currently on Levophed drip at 0.3 mics per KG per minute, his blood pressures around 102/55, heart rate is around 122 he continues to have a chronic atrial fibrillation, he had episode of V. tach's on and off, when he was started on dobutamine drip, he was taken off that, he continues to be on Levophed drip at this point in time, I spoke with Dr. Cortes regarding his GI bleed and she will be happy to see the patient for Acharya in the morning, general surgery were consulted yesterday, patient did receive 4 units of packed red blood cells, his last hemoglobin was 11 by the time I seen the patient 11.3 repeat still pending at the time of dictation, will repeat his hemoglobin again at 6:00 in the morning, we will keep the patient on nothing per mouth, continue Protonix 40 mg IV push every 12 hours, I spoke with the patient's family his and his daughter at the bedside and I told him that his prognosis is very poor at this point in time, the patient is not a good candidate for any transfer at this point in time, unless we are not able to control his bleeding, patient's family were in underst anding that his prognosis very poor at this point in time, we will continue with the current CODE STATUS, but patient stated that he is okay with intubation if he has to go for a procedure regarding his GI bleed. Patient will not be a candidate for any anticoagulation or any amiodarone due to his toxicity and GI bleed. 07/17: Patient was intubated yesterday due to his acute hypoxemic respiratory failure due to combination of acute systolic heart failure as well as acute GI bleed to protect the airways as well, patient underwent an EGD by Dr. Cortes that showed duodenal ulcer that was treated with injection as well as with clip placement, patient has not had any further GI bleed at this point in time he continues to have FMS in place, he has been on Protonix 40 mg IV push every 12 hours, he continues to be sedated on the ventilator, he continues to be on Levophed, he continues to be on vasopressin, we will try to decrease his Levophed slowly to try to keep his blood pressure around 85 to 90 mmHg, we will monitor the patient very closely had a long conversation with his that patient prognosis is very dismal at this point in time, we will continue to work with the patient at this time, discussed with cardiology as well as pulmonary/critical care the need to start the patient on IV antibiotic he was on Unasyn which was taken off we will restart the patient back on cefepime maybe 2 g IV piggyback every 12 hours, due to leukocytosis at this point in time rule out any sepsis at this point. REVIEW OF SYSTEMS: Patient is sedated on the ventilator. PHYSICAL EXAMINATION: General: 73-year-old male currently sedated on the ventilator. HEENT: Head is atraumatic, normocephalic, pupils were equal round there is oral gastric tube in place as well as ET tube in place. Neck: Supple, increased JVP, normal carotid upstroke bilaterally, no lymphadenopathy. Chest: Decreased breath sounds at the bases, few rhonchi, minimal expiratory wheezes, no chest wall tenderness, minimal intercostal retractions. Heart: First heart sound is depressed, second heart sound is normal, there are systolic pressure murmur 2 over systolic in the left sternal border there is an AICD/PPM in the left upper precordium Abdomen: Soft, nontender, nondistended, positive bowel sounds, no hepa tosplenomegaly Extremities: There is +2 edema in the left upper extremity, bilateral lower extremity edema, with dorsalis pedis not palpable in the right lower extremity and better in the left lower extremity, there is multiple abrasion to the right knee multiple wounds to the right lower extremity and a blister to the right foot Neurologic examination: Patient is sedated on the ventilator. ASSESSMENT AND PLAN: 1. 1. Acute vent dependent hypoxemic respiratory failure due to acute systolic heart failure in a patient with a prior history of ischemic cardiomyopathy post AICD/PPM, along with a GI bleed. Continue current vent setting, continue patient on IV pressors including Levophed at 0.38 mcg/kg/min, continue vasopressin at 0.03 mics per minute, discussed with cardiology as well as in tensivist starting IV antibiotic in the form of cefepime 2 g piggyback every 12 hours, he will be started on Lasix 40 mg IV push every 12 hours, try to wean him down on the pressors patient will likely stay on the ventilator for at least another 1 or 2 days. 2. Cardiogenic shock rule out septic shock. Continue Levophed, continue vasopressin, start the patient on IV Lasix 40 mg IV push every 12 hours, start the patient on cefepime 2 g piggyback every 8 hours, monitor the patient very closely. 3. Multiple venous ulcerations and blistering of the right foot due to hypoperfusion state seen by vascular surgery, venous Doppler was obtained to rule out any DVT, patient is not a candidate for anticoagulation and he is not a candidate for any vascular intervention at this point, we will continue to monitor the patient very closely. 4. Upper gastrointestinal bleed due to duodenal ulcer bleed status post EGD with intervention that was done by Dr. Cortes continue. Protonix 40 mg IV push every 12 hours. 5. Persistent atrial fibrillation. Patient is not a candidate for anticoagulation at this point in time, he never tolerated anticoagulation he has been in chronic atrial fibrillation has episodes of ventricular tachycardia as well he was started on mexiletine per cardiology, he will be started on Lasix 40 mg IV push every 12 hours as well. Will try to wean the patient down on his Levophed drip. 6. Right lower extremity multiple wound rule out cellulitis likely related to venous ulceration with delayed healing. Continue patient on cefepime 2 g piggyback every 12 hours was on Unasyn at the beginning when he first came in. 7. Severe hyponatremia due to hypervolemia. Has been stable. 8. Mild hyperkalemia. Resolved. 9. Diabetes mellitus type 2. His blood glucose level appears to be good at this time, patient is not take any medication as an outpatient. Continue sliding scale insulin. 10. Obesity with obstructive sleep apnea. Patient currently on the ventilator. 11. Allergic rhinitis. Currently patient on loratadine 10 mg orally once every day. 12. Recent cataract surgery continue with current eyedrops. 13. DVT prophylaxis. None provided at this time. 14. GI prophylaxis. Continue patient on Protonix 40 mg IV push every 12 hours 15. No code 15. Prognosis is dismal. Objective - Vital Signs Vital signs: Vital Signs Temp 97.9 F 07/17/24 04:00 Pulse 113 H 07/17/24 08:24 Resp 18 07/17/24 06:15 BP 84/50 07/17/24 06:15 Pulse Ox 99 07/17/24 06:15 FiO2 40 07/17/24 08:22 Intake & Output 07/16/24 07/17/24 07/17/24 18:59 06:59 18:59 Intake Total 3284.444 818.593 Output Total 1165 535 Balance 2119.444 283.593 Weight 96.2 kg Intake: IV 2530 286 0.9% NS KVO 150 220 Calcium Gluconate in NaCl 100 1 gm In Saline 1 100ml. bag @ 100 mls/hr IVPB ONCE ONE Rx#:[id number] Human Prothrombn Cmpl- 80 Balfaxar 2,020 unit In Empty Bag 1 bag @ 504 mls /hr IV ONCE ONE Rx#: [id number] Magnesium Sulfate-D5w Pmx 200 1 gm In Dextrose/Water 1 100ml.bag @ 100 mls/hr IVPB Q1H [facility] Rx#: [id number] Pressure Bags 66 Sodium Chloride 0.9% 1, 2000 000 ml @ 999 mls/hr IV . Q1H1M [facility] Rx#:[id number] Intake, IV Titration 754.444 532.593 Amount Norepinephrine 32 mg In 63.749 215.396 Sodium Chloride 0.9% 218 ml @ 0.03 MCG/KG/MIN 1. 305 mls/hr IV .Q24H [facility] Rx#:[id number] Norepinephrine 4 mg In 508 Sodium Chloride 0.9% 250 ml @ 0.03 MCG/KG/MIN 10. 369 mls/hr IV .Q24H [facility] Rx#:[id number] Vasopressin 20 unit In 62.093 Sodium Chloride 0.9% 50 ml @ 0.03 UNITS/MIN 4.59 mls/hr IV .Q11H7M [facility] Rx# :[id number] Vasopressin 60 unit In 66.861 Sodium Chloride 0.9% 150 ml @ 0.03 UNITS/MIN 4.59 mls/hr IV .Q24H [facility] Rx#: [id number] propofoL 1,000 mg In 120.602 250.336 Empty Bag 1 bag @ 15 MCG/ KG/MIN 8.352 mls/hr IV . [id number] [facility] Rx#:[id number] Output: Urine 865 485 Stool 300 50 Other: Voiding Method Indwelling Catheter Indwelling Catheter ABP, PAP, CO, CI - Last Documented Arterial Blood Pressure 101/47 - Labs CBC & Chem 7: 07/17/24 16:30 07/17/24 04:00 Labs: Abnormal Lab Results - Last 24 Hours (Table) 07/16/24 07/16/24 07/16/24 Range/Units 09:51 11:40 11:43 WBC 14.2 H (3.8-10.6) k/uL RBC 3.79 L (4.30-5.90) m/uL Hgb 9.9 L (13.0-17.5) gm/dL Hct 30.9 L (39.0-53.0) % MCHC (31.0-37.0) g/dL RDW 16.7 H (11.5-15.5) % Neutrophils # (1.3-7.7) k/uL Monocytes # (0-1.0) k/uL ABG pH (7.35-7.45) ABG pCO2 (35-45) mmHg ABG pO2 376 H (83-108) mmHg ABG Total CO2 25 H (19-24) mmol/L ABG O2 Saturation 100.0 H (94-97) % Hemoglobin 10.1 L (13.0-17.5) gm/dL Sodium (137-145) mmol/L Carbon Dioxide (22-30) mmol/L BUN (9-20) mg/dL Glucose (74-99) mg/dL POC Glucose (mg/dL) 168 H (70-110) mg/dL Calcium (8.4-10.2) mg/dL Total Bilirubin (0.2-1.3) mg/dL Alkaline Phosphatase (38-126) U/L Total Protein (6.3-8.2) g/dL Albumin (3.5-5.0) g/dL 07/16/24 07/16/24 07/16/24 Range/Units 16:45 17:59 23:27 WBC 16.5 H (3.8-10.6) k/uL RBC 4.04 L (4.30-5.90) m/uL Hgb 10.6 L (13.0-17.5) gm/dL Hct 33.4 L (39.0-53.0) % MCHC (31.0-37.0) g/dL RDW 16.6 H (11.5-15.5) % Neutrophils # (1.3-7.7) k/uL Monocytes # (0-1.0) k/uL ABG pH (7.35-7.45) ABG pCO2 (35-45) mmHg ABG pO2 (83-108) mmHg ABG Total CO2 (19-24) mmol/L ABG O2 Saturation (94-97) % Hemoglobin (13.0-17.5) gm/dL Sodium (137-145) mmol/L Carbon Dioxide (22-30) mmol/L BUN (9-20) mg/dL Glucose (74-99) mg/dL POC Glucose (mg/dL) 143 H 162 H (70-110) mg/dL Calcium (8.4-10.2) mg/dL Total Bilirubin (0.2-1.3) mg/dL Alkaline Phosphatase (38-126) U/L Total Protein (6.3-8.2) g/dL Albumin (3.5-5.0) g/dL 07/16/24 07/17/24 07/17/24 Range/Units 23:35 04:00 04:06 WBC 17.0 H 15.9 H (3.8-10.6) k/uL RBC 4.11 L 4.06 L (4.30-5.90) m/uL Hgb 11.0 L 10.5 L (13.0-17.5) gm/dL Hct 34.3 L 34.2 L (39.0-53.0) % MCHC 30.8 L (31.0-37.0) g/dL RDW 16.6 H 16.8 H (11.5-15.5) % Neutrophils # 13.5 H 12.3 H (1.3-7.7) k/uL Monocytes # 1.8 H 1.8 H (0-1.0) k/uL ABG pH (7.35-7.45) ABG pCO2 (35-45) mmHg ABG pO2 (83-108) mmHg ABG Total CO2 (19-24) mmol/L ABG O2 Saturation (94-97) % Hemoglobin (13.0-17.5) gm/dL Sodium 130 L (137-145) mmol/L Carbon Dioxide 20 L (22-30) mmol/L BUN 36 H (9-20) mg/dL Glucose 155 H (74-99) mg/dL POC Glucose (mg/dL) (70-110) mg/dL Calcium 8.1 L (8.4-10.2) mg/dL Total Bilirubin 2.0 H (0.2-1.3) mg/dL Alkaline Phosphatase 190 H (38-126) U/L Total Protein 5.0 L (6.3-8.2) g/dL Albumin 2.1 L (3.5-5.0) g/dL 07/17/24 Range/Units 05:58 WBC (3.8-10.6) k/uL RBC (4.30-5.90) m/uL Hgb (13.0-17.5) gm/dL Hct (39.0-53.0) % MCHC (31.0-37.0) g/dL RDW (11.5-15.5) % Neutrophils # (1.3-7.7) k/uL Monocytes # (0-1.0) k/uL ABG pH 7.26 L (7.35-7.45) ABG pCO2 52 H (35-45) mmHg ABG pO2 121 H (83-108) mmHg ABG Total CO2 25 H (19-24) mmol/L ABG O2 Saturation 98.9 H (94-97) % Hemoglobin 10.6 L (13.0-17.5) gm/dL Sodium (137-145) mmol/L Carbon Dioxide (22-30) mmol/L BUN (9-20) mg/dL Glucose (74-99) mg/dL POC Glucose (mg/dL) (70-110) mg/dL Calcium (8.4-10.2) mg/dL Total Bilirubin (0.2-1.3) mg/dL Alkaline Phosphatase (38-126) U/L Total Protein (6.3-8.2) g/dL Albumin (3.5-5.0) g/dL Microbiology - Last 24 Hours (Table) 07/16/24 11:51 Gram Stain - Preliminary Sputum 07/12/24 17:42 Blood Culture - Preliminary Blood
--- NOTE | 2024-07-17 20:48 | P.PN ---
Subjective Progress Note Date: 07/17/24 The patient is a pleasant 73-year-old gentleman with extensive cardiovascular history who did not see a back panel padder in more than 8 years. 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 The patient was sent from his primary care physician to the hospital for further evaluation of heart failure. He apparently was retaining significant amount of fluid and he according to his gained about 15 pounds within the last few weeks. He was experiencing progressive exertional dyspnea and bilateral lower extremities edema and bilateral nonhealing wounds involving the lower extremities. In the hospital he was found to be hypotensive he was started on norepinephrine. He underwent further evaluation including EKG showing atrial fibrillation which is permanent. As a mention earlier the patient is not on anticoagulation as an outpatient because of history of GI ble eding. He was started on norepinephrine. Also he was started on IV diuretics. No echocardiogram. The last echo from 2016 showing severe cardiomyopathy with EF around 20% with global hypokinesia. The patient also has history of AICD. The physical examination is remarkable for severe upper and lower extremities pitting edema and also lower extremities nonhealing ulcers with diminished breathing sounds bilaterally and irregular rhythm. July 16, 2024 Yesterday patient could not tolerate laying flat and got significantly short of breath and respiratory distress for which she got intubated. Currently is on vent support. Currently he is on norepinephrine and vasopressin. Telemetry shows atrial fibrillation with heart rate around 110 bpm with significant ventricular ectopy. July 17, 2024 Patient is seen and examined at bedside. Patient's family is present at bedside. They report that patient baseline blood pressure is around 80 to 90 mmHg systolic. Patient was previously hospice and has since AICD turned off. On exam Intubated and sedated, on ventilator support, ET tube in place, good air entry in bilateral lung shukla 2+ pitting edema noticed in bilateral lower extremity. Irregularly irregular pulse, S1-S2 audible, systolic murmur audible. Assessment HFrEF exacerbation with evidence of right and left failure Severe cardiomyopathy EF 20% Severe CAD status post CABG Permanent atrial fibrillation, currently heart rate around 110 bpm NSVT and PVCs Severe valvular heart disease with torrential tricuspid regurgitation, severe mitral regurgitation Severe pulmonary hypertension due to group 2 and group 3 Status post AICD Hypomagnesemia Chronic kidney disease Multiple comorbid conditions History of amiodarone toxicity Plan Avoid any amiodarone because of prior history of amiodarone toxicity. Recommend to wean off vasopressin because of significantly low LVEF. Would recommend continuing norepinephrine and if needed add second layer of dopamine. Could not tolerate dobutamine due to low blood pressure. Goal blood pressure is 80 to 90 mmHg systolic blood pressure. MAP of 60 mmHg. Keep magnesium at 2. Potassium at 4. Supplement magnesium as needed. Give 1 dose of IV calcium. Continue mexiletine 150 mg 3 times daily for ventricular ectopy. Increase Lasix to 40 mg twice daily Monitor QTc. Repeat ECG in a.m. Hold beta-blockers and antihypertensives Prognosis extremely guarded Objective - Vital Signs Vital signs: Vital Signs Temp 98.7 F 07/17/24 16:00 Pulse 117 H 07/17/24 19:15 Resp 26 H 07/17/24 19:15 BP 77/51 07/17/24 19:15 Pulse Ox 99 07/17/24 19:15 FiO2 40 07/17/24 16:00 Intake & Output 07/17/24 07/17/24 07/18/24 06:59 18:59 06:59 Intake Total 818.593 694.764 26 Output Total 535 605 Balance 283.593 89.764 26 Weight 96.2 kg 96.2 kg Intake: IV 286 312 26 0.9% NS KVO 220 240 20 Pressure Bags 66 72 6 Intake, IV Titration 532.593 382.764 Amount Norepinephrine 32 mg In 215.396 206.162 Sodium Chloride 0.9% 218 ml @ 0.03 MCG/KG/MIN 1. 305 mls/hr IV .Q24H [facility] Rx#:[id number] Vasopressin 60 unit In 66.861 76.602 Sodium Chloride 0.9% 150 ml @ 0.03 UNITS/MIN 4.59 mls/hr IV .Q24H [facility] Rx#: [id number] propofoL 1,000 mg In 250.336 100.000 Empty Bag 1 bag @ 15 MCG/ KG/MIN 8.352 mls/hr IV . [id number] [facility] Rx#:[id number] Output: Urine 485 605 Stool 50 Other: Voiding Method Indwelling Catheter Indwelling Catheter ABP, PAP, CO, CI - Last Documented Arterial Blood Pressure 87/41 - Labs CBC & Chem 7: 07/17/24 16:30 07/17/24 04:00 Labs: Abnormal Lab Results - Last 24 Hours (Table) 07/16/24 07/16/24 07/17/24 Range/Units 23:27 23:35 04:00 WBC 17.0 H (3.8-10.6) k/uL RBC 4.11 L (4.30-5.90) m/uL Hgb 11.0 L (13.0-17.5) gm/dL Hct 34.3 L (39.0-53.0) % MCHC (31.0-37.0) g/dL RDW 16.6 H (11.5-15.5) % Neutrophils # 13.5 H (1.3-7.7) k/uL Monocytes # 1.8 H (0-1.0) k/uL ABG pH (7.35-7.45) ABG pCO2 (35-45) mmHg ABG pO2 (83-108) mmHg ABG Total CO2 (19-24) mmol/L ABG O2 Saturation (94-97) % Hemoglobin (13.0-17.5) gm/dL Sodium 130 L (137-145) mmol/L Carbon Dioxide 20 L (22-30) mmol/L BUN 36 H (9-20) mg/dL Glucose 155 H (74-99) mg/dL POC Glucose (mg/dL) 162 H (70-110) mg/dL Calcium 8.1 L (8.4-10.2) mg/dL Total Bilirubin 2.0 H (0.2-1.3) mg/dL Alkaline Phosphatase 190 H (38-126) U/L Total Protein 5.0 L (6.3-8.2) g/dL Albumin 2.1 L (3.5-5.0) g/dL 07/17/24 07/17/24 07/17/24 Range/Units 04:06 05:58 11:02 WBC 15.9 H (3.8-10.6) k/uL RBC 4.06 L (4.30-5.90) m/uL Hgb 10.5 L (13.0-17.5) gm/dL Hct 34.2 L (39.0-53.0) % MCHC 30.8 L (31.0-37.0) g/dL RDW 16.8 H (11.5-15.5) % Neutrophils # 12.3 H (1.3-7.7) k/uL Monocytes # 1.8 H (0-1.0) k/uL ABG pH 7.26 L 7.30 L (7.35-7.45) ABG pCO2 52 H (35-45) mmHg ABG pO2 121 H 117 H (83-108) mmHg ABG Total CO2 25 H (19-24) mmol/L ABG O2 Saturation 98.9 H 99.1 H (94-97) % Hemoglobin 10.6 L 10.3 L (13.0-17.5) gm/dL Sodium (137-145) mmol/L Carbon Dioxide (22-30) mmol/L BUN (9-20) mg/dL Glucose (74-99) mg/dL POC Glucose (mg/dL) (70-110) mg/dL Calcium (8.4-10.2) mg/dL Total Bilirubin (0.2-1.3) mg/dL Alkaline Phosphatase (38-126) U/L Total Protein (6.3-8.2) g/dL Albumin (3.5-5.0) g/dL 07/17/24 07/17/24 07/17/24 Range/Units 14:48 16:30 17:13 WBC 16.9 H (3.8-10.6) k/uL RBC 3.83 L (4.30-5.90) m/uL Hgb 10.2 L (13.0-17.5) gm/dL Hct 32.2 L (39.0-53.0) % MCHC (31.0-37.0) g/dL RDW 16.9 H (11.5-15.5) % Neutrophils # (1.3-7.7) k/uL Monocytes # (0-1.0) k/uL ABG pH (7.35-7.45) ABG pCO2 (35-45) mmHg ABG pO2 (83-108) mmHg ABG Total CO2 (19-24) mmol/L ABG O2 Saturation (94-97) % Hemoglobin (13.0-17.5) gm/dL Sodium (137-145) mmol/L Carbon Dioxide (22-30) mmol/L BUN (9-20) mg/dL Glucose (74-99) mg/dL POC Glucose (mg/dL) 162 H 154 H (70-110) mg/dL Calcium (8.4-10.2) mg/dL Total Bilirubin (0.2-1.3) mg/dL Alkaline Phosphatase (38-126) U/L Total Protein (6.3-8.2) g/dL Albumin (3.5-5.0) g/dL Microbiology - Last 24 Hours (Table) 07/16/24 11:51 Gram Stain - Preliminary Sputum Sputum Culture - Preliminary
[2024-07-17 22:01] VITALS: BP 72/47
[2024-07-17 23:43] LABS: Glucose,Whole Blood 143 mg/dL (70-110)
[2024-07-18 04:38] LABS: Glucose,Whole Blood 169 mg/dL (70-110)
[2024-07-18 04:52] LABS: Anisocytosis Slight; Basophils % (A) 0 %; Eosinophils # (A) 0.1 k/uL (0-0.7); Eosinophils % (A) 1 %; HCT 32.3 % (39.0-53.0); HGB 10.3 gm/dL (13.0-17.5); Hypochromasia Marked; Lymphocytes # (A) 0.8 k/uL (1.0-4.8); Lymphocytes % (A) 4 %; MCH 26.9 pg (25.0-35.0); MCHC 31.9 g/dL (31.0-37.0); MCV 84.2 fL (80.0-100.0); Mean Platelet Volume 7.9; Monocytes # (A) 1.4 k/uL (0-1.0); Monocytes % (A) 8 %; Neutrophils # (A) 15.8 k/uL (1.3-7.7); Neutrophils % (A) 85 %; Platelet Count 272 k/uL (150-450); Poikilocytosis Slight; RBC 3.84 m/uL (4.30-5.90); RDW 17.4 % (11.5-15.5); WBC 18.5 k/uL (3.8-10.6)
[2024-07-18 05:00] LABS: ALT 31 U/L (4-49); AST 46 U/L (17-59); African American GFR (CKD) 72 (>60 ml/min/1.73 sqM); Albumin 2.1 g/dL (3.5-5.0); Alkaline Phosphatase 174 U/L (38-126); Anion Gap 4 mmol/L; Blood Urea Nitrogen 36 mg/dL (9-20); Calcium 8.2 mg/dL (8.4-10.2); Carbon Dioxide 21 mmol/L (22-30); Chloride 108 mmol/L (98-107); Glucose 152 mg/dL (74-99); Non-African American GFR(CKD) 62 (>60 ml/min/1.73 sqM); Potassium 4.3 mmol/L (3.5-5.1); Sodium 133 mmol/L (137-145); Total Bilirubin 2.7 mg/dL (0.2-1.3); Total Protein 4.9 g/dL (6.3-8.2)
[2024-07-18 05:57] LABS: ABG Base Excess -2.1 mmol/L; ABG HCO3 23 mmol/L (21-25); ABG Oxygen Saturation 99.3 % (94-97); ABG PCO2 42 mmHg (35-45); ABG PH 7.35 (7.35-7.45); ABG PO2 121 mmHg (83-108); ABG TCO2 25 mmol/L (19-24); Allen Test Performed? Yes
--- NOTE | 2024-07-18 07:29 | XR ---
EXAMINATION TYPE: XR chest 1V DATE OF EXAM: 07/18/2024 5:34 AM COMPARISON: 07/17/2024 CLINICAL INDICATION: Male, 73 years old with history of ETT placement, TECHNIQUE: XR chest 1V view(s) obtained. FINDINGS: The heart size is enlarged. The pulmonary vasculature is prominent. Diffuse increased lung markings are present. Endotracheal tube tip is above the mark. Nasogastric tube transverses the thorax tip in the left up per quadrant of the abdomen. Pacemaker overlies left chest. IMPRESSION: 1. Delayed for congestive heart failure. 2. Lines and catheters discussed above. [facility], , 07/18/2024 7:26 AM
--- NOTE | 2024-07-18 11:56 | P.PN ---
Subjective Progress Note Date: 07/18/24 73-year-old male with history of multiple medical problems including congestive heart failure, and atrial fibrillation. The patient was sent into the hospital, by his primary care physician. The patient came in with complaints of lower extremity edema, shortness of breath, ulcerations on his foot, and weakness. The patient was seen in the emergency room, ER #3. We were consulted because the patient has been hypotensive, since being in the emergency department. Norepinephrine has not yet been started. Cardiac medications have been held. In addition to atrial fibrillation, the patient has a history of myocardial infarction, coronary disease, congestive heart failure, diabetes, GERD, hyperlip idemia, hypertension, osteoarthritis, and previous bypass surgery. The patient apparently was at [facility] many years ago, on a ventilator, and was apparently on hospice, but has done well over the last 7 or 8 years. The patient does have a history of AICD placement, and previous tobacco use. Currently, he is on CPAP, at between 8 to 12 cm of water. He is not receiving any IV fluids. We did talk to the patient about CODE STATUS and he stated that he would not want to be on life support. His agreed with that. White count is 18, hemoglobin 11.6, hematocrit 37.7, platelet count of 262,000. Sodium 127, potassium 5.8, chloride 95, CO2 21, anion gap is 11, BUN 53, creatinine is 1.26. His N-terminal proBNP was 5940. His troponin was less than 0.012. Chest x-ray was consistent with CHF. Progress note dated July 14, 2024. 73-year-old male seen in the emergency department yesterday. He was admitted with a diagnosis of congestive heart failure. The patient was transferred to the intensive care unit, for norepinephrine. Currently he is on 5 L nasal cannula. He is getting saline at 10 cc an hour. He is on norepinephrine at 3.8 mcg/min. His procalcitonin level was normal at 0.25. Unasyn will be discontinued. White count 16.7, hemoglobin 10.6, hematocrit 34.8, platelet count normal. Sodium 124, potassium 5.5, chlorides 95, CO2 20, BUN 48, creatinine 1.06. Glucose 129. Calcium 8.2. Albumin 2.5. Chest x-ray again shows evidence of cardiomegaly, and pulmonary vascular congestion. Doppler of the right lower extremity was negative for DVT. Progress note dated August 11, 2024. The patient is seen today in room 258. I was called by the nurses last night, because of the new onset GI bleed. The patient is currently on norepinephrine at 14.8 mcg/min, nasal O2 at 4 L, saline at 10 cc an hour. The patient did use his CPAP last night. A repeat hemoglobin will be done at noon today. This morning's hemoglobin was 9.2. The patient is a DO NOT INTUBATE patient. White count 14.2, hemoglobin 9.2, hematocrit 29.4, platelet count finger 83,000. Sodium 126, potassium 5.8, chlorides 102, CO2 23, BUN 60, creatinine 0.99. Glucose 133. Hemoglobin A1c was 6.8. Calcium is 8. On 07/16/2024, the patient was seen in follow-up in the intensive care unit. Time of evaluation, the patient was extremely lethargic, in a shock state which is probably a combination of cardiogenic shock and hypovolemic shock as the patient continues to show signs of GI bleeding and the patient was having several melanotic stools including the last episode this morning. Noted the patient is known to have coronary artery disease, previous bypass surgery, severe ischemic cardiomyopathy with impaired LV function with an ejection fraction of 20%, chronic atrial fibrillation, he has a pacer/AICD in place. Overnight, the patient was also having few episodes of nonsustained ventricular tachycardia. The patient was taken off the anticoagulants. He was given Kce ntra and during this current admission, the patient received a total of 4 units of packed RBC regarding his ongoing GI bleeding. Most recent hemoglobin from this morning is at 11.3. At the time of my evaluation, the patient was having labored breathing. He was on 4 L of oxygen by nasal cannula. Typically his on O2 at home ranging between 3 and 5 L/min nasal cannula. He was on norepinephrine running at 0.32 mcg/kg/min and vasopressin physiologic dose. As mentioned, he was still showing evidence of GI bleeding. The gastroenterology team was on standby for an EGD. I opted to intubate the patient and put him on the mechanical ventilator to protect his airway and proceed with the procedure. Based on that, the patient was started on propofol which is currently running at 40 mcg/kg/min. The patient process was done without any complications. He was placed on assist-control at rate of 18 with a tidal volume of 400, FiO2 100% with a PEEP of 5. The subsequent blood gases showed a pH of 7.37 with a pCO2 of 41 and pO2 of 376. FiO2 was weaned down to 40%. Postintubation chest x-ray showed CHF, pulm vessel congestion, triple-lumen catheter was in good location. Orogastric tube is in place and the patient has an orotracheal tube also in place. He was given a total of 2 L of IV fluid bolus and the subsequent hemoglobin came back at six 9.9 with a white cell count of 14.2 and a platelet count of 265. The sodium is at 130, potassium is at 4.9, chloride is 101 and the bicarb is 24. BUN is 45 with a creatinine of 0.98. Blood sugar is at 168. On 07/17/2024, the patient is being seen for a follow-up. The patient remains intubated on the mechanical ventilator. The patient is on propofol running at 30 mcg/kg/min. The patient underwent an EGD yesterday and was found to have a duodenal ulcer for which she underwent an Endo Clip and it seems that the bleeding is under adequate control for now. The patient's hemoglobin has remained stable and his current hemoglobin is at 10.5. Noted the patient was transfused a total of 4 units of packed RBC during this current hospitalization. He has a fecal management system in place. There are some dark melanotic output which is minimal at this point in time and is essentially liquidy. Hemodynamically, the patient remains in shock. He remains profoundly hypotensive and is pressor requirements are still active and norepinephrine is running at 0.5 mcg/kg/min and he is also on vasopressin physiologic dose. The patient remains in atrial fibrillation with frequent premature beats. The patient was started on mexiletine by cardiology. The patient is currently on assist-control mode with rate of 18, tidal volume of 450, FiO2 40% with a PEEP of 5. Blood gas showed a pH of 7.26 with a pCO2 of 52 and pO2 of 121. Chest x- ray is consistent with heart failure with lines being all in place and the patient has a pacer/defibrillator over the left anterior chest area. Orotracheal tube is in a good location. The white cell count is 15.9, hemoglobin 10.7 and platelet count is at 313. Sodium is at 130, BUN 36 with a creatinine of 0.9. Potassium level is at 4.7. Serum bicarb is at 20. LFTs are essentially within normal limits. He remains NPO. CVP is elevated at around 18. Only Doppler pulses in lower extremities bilaterally. Continues to have skin blisters and vesicle formation and superficial ulceration. Extremities remain cold and clammy. 07/18/2024, the patient remains intubated and mechanically ventilated. No signs of any acute GI bleeding for now and the patient's hemoglobin remained stable. The patient remains on pressors. The patient remains intubated on mechanical ventilator. Earlier this morning, the patient is on propofol at 20 mcg/kg/min. He remains on norepinephrine at 0.23 mcg/kg/min and vasopressin physiologic dose. He is on IV Lasix. Fluid balance is -500 cc over the past 24 hours. He remains on assist-control mode of mechanical ventilation at rate of 24, tidal volume of 400, FiO2 40% with a PEEP of 5. Blood gas showed pH of 7.35 with a pCO2 of 42 and pO2 of 121. Chest x-ray findings are essentially unchanged is consistent with CHF. There is also cardiomegaly. Lines are all in place. The white cell count is 18.5 with hemoglobin 10.3 and a platelet count of 272. Cardiac rhythm is atrial fibrillation. BUN 36 with a creatinine of 1.1. Sodium is at 133, potassium is at 4.3, and bicarb is at 21. Started on IV cefepime as an empiric antibiotic coverage. Positive lower extremities are extremely weak and they are obtainable by Doppler signals only. Patient remains n.p.o. for now. Objective - Vital Signs Vital signs: Vital Signs Temp 98.1 F 07/18/24 08:00 Pulse 108 H 07/18/24 09:00 Resp 16 07/18/24 09:00 BP 72/47 07/17/24 21:30 Pulse Ox 98 07/18/24 09:00 FiO2 40 07/18/24 08:09 Intake & Output 07/17/24 07/18/24 07/18/24 18:59 06:59 18:59 Intake Total 694.764 699.404 116 Output Total 605 1290 30 Balance 89.764 -590.596 86 Weight 96.2 kg 98.4 kg Intake: IV 312 288 56 0.9% NS KVO 240 110 Cefepime 2 gm In Sodium 100 50 Chloride 0.9% 100 ml @ 25 mls/hr IVPB Q12HR [facility] Rx #:[id number] Pressure Bags 72 78 6 Intake, IV Titration 382.764 381.404 Amount Norepinephrine 32 mg In 206.162 164.487 Sodium Chloride 0.9% 218 ml @ 0.03 MCG/KG/MIN 1. 305 mls/hr IV .Q24H [facility] Rx#:[id number] Vasopressin 60 unit In 76.602 31.773 Sodium Chloride 0.9% 150 ml @ 0.03 UNITS/MIN 4.59 mls/hr IV .Q24H [facility] Rx#: [id number] propofoL 1,000 mg In 100.000 185.144 Empty Bag 1 bag @ 15 MCG/ KG/MIN 8.352 mls/hr IV . [id number] [facility] Rx#:[id number] Other 30 60 Output: Urine 605 990 30 Stool 300 Other: Voiding Method Indwelling Catheter Indwelling Catheter ABP, PAP, CO, CI - Last Documented Arterial Blood Pressure 94/41 - Exam - Exam At this point in time, the patient is sedated on propofol,, and comfortable and orogastric and orotracheal tube are both in place. Head exam was generally normal. There was no scleral icterus or corneal arcus. Mucous membranes were moist. Neck was supple and with jugular venous distension, thyromegaly, or carotid bruits. Carotids were easily palpable bilaterally. There was no adenopathy. Cardiovascular examination reveals an irregular rhythm and rate. S1-S2 normal. No S3 or S4. A systolic murmur is noted, grade 2/6. The rhythm was irregular consistent with atrial fibrillation and the patient was quite tachycardic. The patient also had a thoracotomy scar over the anterior chest area and the patient has a pacemaker over the left anterior chest. Lungs reveal scattered rhonchi and crackles. Breath sounds equal. No wheezes. Abdomen soft bowel sounds are heard. No masses or tenderness. Extremities are showing diminished pulses in all 4 extremities. No cyanosis or clubbing. 1+ edema is noted. Skin blisters Skin is without rash or lesion. Skin blisters related to edema, mottling of the skin in the right lower extremity and marked diminished pulses involving the dorsalis pedis and posterior tibialis. Palpable femoral pulses bilaterally. Neurologic examination is brief but nonfocal. The patient is currently sedated on the mechanical ventilator. - Labs CBC & Chem 7: 07/18/24 04:35 07/18/24 04:35 Labs: Abnormal Lab Results - Last 24 Hours (Table) 07/17/24 07/17/24 07/17/24 Range/Units 11:02 14:48 16:30 WBC 16.9 H (3.8-10.6) k/uL RBC 3.83 L (4.30-5.90) m/uL Hgb 10.2 L (13.0-17.5) gm/dL Hct 32.2 L (39.0-53.0) % RDW 16.9 H (11.5-15.5) % Neutrophils # (1.3-7.7) k/uL Lymphocytes # (1.0-4.8) k/uL Monocytes # (0-1.0) k/uL ABG pH 7.30 L (7.35-7.45) ABG pO2 117 H (83-108) mmHg ABG Total CO2 (19-24) mmol/L ABG O2 Saturation 99.1 H (94-97) % Hemoglobin 10.3 L (13.0-17.5) gm/dL Sodium (137-145) mmol/L Chloride (98-107) mmol/L Carbon Dioxide (22-30) mmol/L BUN (9-20) mg/dL Glucose (74-99) mg/dL POC Glucose (mg/dL) 162 H (70-110) mg/dL Calcium (8.4-10.2) mg/dL Total Bilirubin (0.2-1.3) mg/dL Alkaline Phosphatase (38-126) U/L Total Protein (6.3-8.2) g/dL Albumin (3.5-5.0) g/dL 07/17/24 07/17/24 07/18/24 Range/Units 17:13 23:42 04:35 WBC 18.5 H (3.8-10.6) k/uL RBC 3.84 L (4.30-5.90) m/uL Hgb 10.3 L (13.0-17.5) gm/dL Hct 32.3 L (39.0-53.0) % RDW 17.4 H (11.5-15.5) % Neutrophils # 15.8 H (1.3-7.7) k/uL Lymphocytes # 0.8 L (1.0-4.8) k/uL Monocytes # 1.4 H (0-1.0) k/uL ABG pH (7.35-7.45) ABG pO2 (83-108) mmHg ABG Total CO2 (19-24) mmol/L ABG O2 Saturation (94-97) % Hemoglobin (13.0-17.5) gm/dL Sodium (137-145) mmol/L Chloride (98-107) mmol/L Carbon Dioxide (22-30) mmol/L BUN (9-20) mg/dL Glucose (74-99) mg/dL POC Glucose (mg/dL) 154 H 143 H (70-110) mg/dL Calcium (8.4-10.2) mg/dL Total Bilirubin (0.2-1.3) mg/dL Alkaline Phosphatase (38-126) U/L Total Protein (6.3-8.2) g/dL Albumin (3.5-5.0) g/dL 07/18/24 07/18/24 07/18/24 Range/Units 04:35 04:36 05:54 WBC (3.8-10.6) k/uL RBC (4.30-5.90) m/uL Hgb (13.0-17.5) gm/dL Hct (39.0-53.0) % RDW (11.5-15.5) % Neutrophils # (1.3-7.7) k/uL Lymphocytes # (1.0-4.8) k/uL Monocytes # (0-1.0) k/uL ABG pH (7.35-7.45) ABG pO2 121 H (83-108) mmHg ABG Total CO2 25 H (19-24) mmol/L ABG O2 Saturation 99.3 H (94-97) % Hemoglobin 9.8 L (13.0-17.5) gm/dL Sodium 133 L (137-145) mmol/L Chloride 108 H (98-107) mmol/L Carbon Dioxide 21 L (22-30) mmol/L BUN 36 H (9-20) mg/dL Glucose 152 H (74-99) mg/dL POC Glucose (mg/dL) 169 H (70-110) mg/dL Calcium 8.2 L (8.4-10.2) mg/dL Total Bilirubin 2.7 H (0.2-1.3) mg/dL Alkaline Phosphatase 174 H (38-126) U/L Total Protein 4.9 L (6.3-8.2) g/dL Albumin 2.1 L (3.5-5.0) g/dL Microbiology - Last 24 Hours (Table) 07/16/24 11:51 Gram Stain - Final Sputum Sputum Culture - Final 07/12/24 17:42 Blood Culture - Final Blood Assessment and Plan Plan: Shock, combination of cardiogenic and hypovolemic as the patient had massive GI bleed/upper GI bleeding. The patient is intubated on the mechanical ventilator. The patient remains on high-dose pressors and the patient is on high-dose norepinephrine and vasopressin physiologic dose. Triple-lumen catheter was established. The patient was resuscitated with blood products and IV fluids. The pressors have been weaned compared to yesterday. Nevertheless, the patient continues to be on norepinephrine and this is running at 0.2 mcg/kg/min and vasopressin physiologic dose. Urine output is adequate and the patient is on Lasix. Acute hypoxemic respiratory failure, secondary to CHF, currently intubated on mechanical ventilator, chest x-ray from today and blood gas from today is noted. Upper GI bleeding, transfused with total of 4 units of packed RBC, follow-up hemoglobin is stable and the patient underwent Endo Clip of a duodenal ulcer bleed and a hemoglobin has remained stable since. Remains NPO. Remains on Protonix. No anticoagulants for now. chronic atrial fibrillation, currently off anticoagulants Nonsustained V. tach, currently inactive and stable History of CAD, with previous myocardial infarction, and previous CABG. CHF with ischemic cardiomyopathy and ejection fraction of less than 20%, status post AICD/pacemaker implantation. History of COPD from previous tobacco use. History of diabetes mellitus. History of gastroesophageal reflux disease. History of hypertension. History of hyperlipidemia. General medical debility. Peripheral vascular disease Lower extremity edema with stage II wounds and areas of skin blisters related to CHF and lower extremity edema/chronic. Peripheral vascular disease with only Doppler signals lower extremities along with hypoperfusion and skin mottling specially in the right lower extremity. Plan: Continue ventilator support Stop sedation and assess the patient's mental status Monitor hemodynamics and is continuing the pressors for now, keep vasopressin and wean off the norepinephrine Continue Lasix 40 mg IV every 12 hours Monitor hemoglobin Start low-dose enteral feeding at rate of 10 cc an hour IV Protonix No anticoagulants for now Cover the patient with IV cefepime as an empiric antibiotic coverage Condition is critical. Will coordinate care with cardiology and the rest of the consultants. This evaluation was done more than 30 minutes. Time with Patient: Greater than 30
[2024-07-18 11:58] LABS: Glucose,Whole Blood 135 mg/dL (70-110)
--- NOTE | 2024-07-18 11:59 | P.PN ---
Subjective Progress Note Date: 07/18/24 Principal diagnosis: GI bleed This a pleasant 73-year-old male with multiple comorbidities including coronary artery disease status post CABG, congestive heart failure previous GI bleed, atrial fibrillation with an EF of 15-20% who was admitted for hyperkalemia, hyponatremia and acute pulmonary edema. Patient was also in atrial fibrillation started on Xarelto. Following Xarelto yesterday he started having GI bleed with multiple episodes of dark and maroon-colored stool. Patient became hypotensive he has been started on Levophed and vasopressin. This morning he was given Kcentra about 30 minutes ago and continues to have dark maroon stools with clots. Levophed is at 0.3 to micrograms and vasopressin 0.03. Blood pressures are running in the 90s over 60s. He is status post 4 units of PRBC transfusion. Hemoglobin stable at 11.3 BUN elevated at 45. He denies any abdominal pain, nausea or vomiting. is at the bedside and states he had a previous upper GI bleed about 8 years ago when he was at [facility] post extubation. Last colonoscopy about 15 years ago. 07/17/2024 Patient seen and examined today as a follow-up. He remains in the ICU and is currently sedated and intubated. Remains on max doses of pressors. Yesterday he underwent upper endoscopy with finding of duodenal ulcer with vessel with clot attached. No active bleeding at the time of endoscopy. Status post epinephrine and clip placement. Dark stool output only about 50 cc overnight. Hemoglobin stable at 10.5 platelet count 313,000 BUN 36 creatinine 0.9 total bilirubin 2.0 AST 35 ALT 31 alkaline phosphatase 190 07/18/2024 Patient seen and examined today as a follow-up. He remains in the ICU sedated and intubated. They are weaning his pressors, as well as propofol. thinks that his right lower extremity looks a little bit better. Is currently wrapped with an Klever wrap bilateral lower extremities. Toes are pink. Hemoglobin stable at 10.5. He had 300 cc output from his fecal management system since yesterday it is black. Objective - Vital Signs Vital signs: Vital Signs Temp 97.8 F 07/18/24 04:00 Pulse 93 07/18/24 08:18 Resp 24 07/18/24 07:30 BP 72/47 07/17/24 21:30 Pulse Ox 98 07/18/24 07:30 FiO2 40 07/18/24 08:09 Intake & Output 07/17/24 07/18/24 07/18/24 18:59 06:59 18:59 Intake Total 694.764 699.404 Output Total 605 1290 Balance 89.764 -590.596 Weight 96.2 kg 98.4 kg Intake: IV 312 288 0.9% NS KVO 240 110 Cefepime 2 gm In Sodium 100 Chloride 0.9% 100 ml @ 25 mls/hr IVPB Q12HR [facility] Rx #:[id number] Pressure Bags 72 78 Intake, IV Titration 382.764 381.404 Amount Norepinephrine 32 mg In 206.162 164.487 Sodium Chloride 0.9% 218 ml @ 0.03 MCG/KG/MIN 1. 305 mls/hr IV .Q24H [facility] Rx#:[id number] Vasopressin 60 unit In 76.602 31.773 Sodium Chloride 0.9% 150 ml @ 0.03 UNITS/MIN 4.59 mls/hr IV .Q24H [facility] Rx#: [id number] propofoL 1,000 mg In 100.000 185.144 Empty Bag 1 bag @ 15 MCG/ KG/MIN 8.352 mls/hr IV . [id number] [facility] Rx#:[id number] Other 30 Output: Urine 605 990 Stool 300 Other: Voiding Method Indwelling Catheter Indwelling Catheter ABP, PAP, CO, CI - Last Documented Arterial Blood Pressure 91/39 - Exam General appearance: The patient is sedated and intubated. HET: Head is normocephalic and atraumatic. Neck: Supple. Heart: Irregularly irregular. Lungs: Equal expansion, mechanical ventilation. Abdomen: Soft, nondistended. Extremities: Bilateral lower extremity edema. Bilateral lower extremities with Klever wraps. Bilateral feet cool to the touch. Right toes are pink with brisk refill. Neurological: Sedated and intubated. - Labs CBC & Chem 7: 07/18/24 04:35 07/18/24 04:35 Labs: Abnormal Lab Results - Last 24 Hours (Table) 07/17/24 07/17/24 07/17/24 Range/Units 11:02 14:48 16:30 WBC 16.9 H (3.8-10.6) k/uL RBC 3.83 L (4.30-5.90) m/uL Hgb 10.2 L (13.0-17.5) gm/dL Hct 32.2 L (39.0-53.0) % RDW 16.9 H (11.5-15.5) % Neutrophils # (1.3-7.7) k/uL Lymphocytes # (1.0-4.8) k/uL Monocytes # (0-1.0) k/uL ABG pH 7.30 L (7.35-7.45) ABG pO2 117 H (83-108) mmHg ABG Total CO2 (19-24) mmol/L ABG O2 Saturation 99.1 H (94-97) % Hemoglobin 10.3 L (13.0-17.5) gm/dL Sodium (137-145) mmol/L Chloride (98-107) mmol/L Carbon Dioxide (22-30) mmol/L BUN (9-20) mg/dL Glucose (74-99) mg/dL POC Glucose (mg/dL) 162 H (70-110) mg/dL Calcium (8.4-10.2) mg/dL Total Bilirubin (0.2-1.3) mg/dL Alkaline Phosphatase (38-126) U/L Total Protein (6.3-8.2) g/dL Albumin (3.5-5.0) g/dL 07/17/24 07/17/24 07/18/24 Range/Units 17:13 23:42 04:35 WBC 18.5 H (3.8-10.6) k/uL RBC 3.84 L (4.30-5.90) m/uL Hgb 10.3 L (13.0-17.5) gm/dL Hct 32.3 L (39.0-53.0) % RDW 17.4 H (11.5-15.5) % Neutrophils # 15.8 H (1.3-7.7) k/uL Lymphocytes # 0.8 L (1.0-4.8) k/uL Monocytes # 1.4 H (0-1.0) k/uL ABG pH (7.35-7.45) ABG pO2 (83-108) mmHg ABG Total CO2 (19-24) mmol/L ABG O2 Saturation (94-97) % Hemoglobin (13.0-17.5) gm/dL Sodium (137-145) mmol/L Chloride (98-107) mmol/L Carbon Dioxide (22-30) mmol/L BUN (9-20) mg/dL Glucose (74-99) mg/dL POC Glucose (mg/dL) 154 H 143 H (70-110) mg/dL Calcium (8.4-10.2) mg/dL Total Bilirubin (0.2-1.3) mg/dL Alkaline Phosphatase (38-126) U/L Total Protein (6.3-8.2) g/dL Albumin (3.5-5.0) g/dL 07/18/24 07/18/24 07/18/24 Range/Units 04:35 04:36 05:54 WBC (3.8-10.6) k/uL RBC (4.30-5.90) m/uL Hgb (13.0-17.5) gm/dL Hct (39.0-53.0) % RDW (11.5-15.5) % Neutrophils # (1.3-7.7) k/uL Lymphocytes # (1.0-4.8) k/uL Monocytes # (0-1.0) k/uL ABG pH (7.35-7.45) ABG pO2 121 H (83-108) mmHg ABG Total CO2 25 H (19-24) mmol/L ABG O2 Saturation 99.3 H (94-97) % Hemoglobin 9.8 L (13.0-17.5) gm/dL Sodium 133 L (137-145) mmol/L Chloride 108 H (98-107) mmol/L Carbon Dioxide 21 L (22-30) mmol/L BUN 36 H (9-20) mg/dL Glucose 152 H (74-99) mg/dL POC Glucose (mg/dL) 169 H (70-110) mg/dL Calcium 8.2 L (8.4-10.2) mg/dL Total Bilirubin 2.7 H (0.2-1.3) mg/dL Alkaline Phosphatase 174 H (38-126) U/L Total Protein 4.9 L (6.3-8.2) g/dL Albumin 2.1 L (3.5-5.0) g/dL Microbiology - Last 24 Hours (Table) 07/12/24 17:42 Blood Culture - Final Blood 07/16/24 11:51 Gram Stain - Preliminary Sputum Sputum Culture - Preliminary Assessment and Plan (1) GI bleed Narrative/Plan: 73-year-old male with multiple comorbidities admitted with acute pulmonary edema and has history of chronic atrial fibrillation but noted to be in persistent A- fib and was started on anticoagulation. Following anticoagulation patient started having multiple maroon-colored stools and black stools with an elevated BUN likely upper GI source. Patient is requiring pressors to support his blood pressure which is currently in the 90s over 60s. Recommend proceeding with upper endoscopy. Risks and benefits discussed with patient and his . Consent obtained. Patient status post upper endoscopy with finding of ulcer with bleeding vessel status post epinephrine injection and clip placement. Appears patient's hemoglobin has remained stable and he has had decreased bloody stool output. Continue medical management and ICU management. Continue to hold anticoagulation. And monitor closely. Current Visit: Yes Status: Acute Code(s): K92.2 - GASTROINTESTINAL HEMORRHAGE, UNSPECIFIED SNOMED Code(s): 14642877 (2) Acute pulmonary edema Current Visit: Yes Status: Acute Code(s): J81.0 - ACUTE PULMONARY EDEMA SNOMED Code(s): 88187005 (3) COPD (chronic obstructive pulmonary disease) Current Visit: No Status: Acute Code(s): J44.9 - CHRONIC OBSTRUCTIVE PULMONARY DISEASE, UNSPECIFIED SNOMED Code(s): 16886434 (4) Congestive heart failure Current Visit: No Status: Acute Code(s): I50.9 - HEART FAILURE, UNSPECIFIED SNOMED Code(s): 96895313 (5) Diabetes Current Visit: No Status: Acute Code(s): E11.9 - TYPE 2 DIABETES MELLITUS WITHOUT COMPLICATIONS SNOMED Code(s): 35621416 (6) Paroxysmal a-fib Narrative/Plan: Was on anticoagulation with Xarelto, Kcentra given Current Visit: No Status: Acute Code(s): I48.0 - PAROXYSMAL ATRIAL FI BRILLATION SNOMED Code(s): 637605171 Plan: 1. Continue symptomatic and supportive care 2. Continue to hold anticoagulation 3. Daily CBC, transfuse for hemoglobin less than 7 4. May start tube feeds 5. Protonix 40 mg IVP twice daily 6. Avoid NSAIDs 7. Continue to monitor for bleeding 8. Rest of medical management per ICU team/primary team Thank you for this consultation, we will continue to follow. Dr. Bossman Cortes I agree with the dictator's note, documented as a scribe by Wilma Awad.
--- NOTE | 2024-07-18 12:09 | P.PN ---
Subjective Progress Note Date: 07/18/24 Principal diagnosis: Right lower extremity nonpalpable pulses, lower extremity vascular changes Patient seen and examined today as a follow-up. He remains in the ICU sedated and intubated. They are weaning his pressors, as well as propofol. thinks that his right lower extremity looks a little bit better. Is currently wrapped with an Klever wrap bilateral lower extremities. Toes are pink. Hemoglobin stable at 10.5. He had 300 cc output from his fecal management system since yesterday it is black. Objective - Vital Signs Vital signs: Vital Signs Temp 97.8 F 07/18/24 04:00 Pulse 93 07/18/24 08:18 Resp 24 07/18/24 07:30 BP 72/47 07/17/24 21:30 Pulse Ox 98 07/18/24 07:30 FiO2 40 07/18/24 08:09 Intake & Output 07/17/24 07/18/24 07/18/24 18:59 06:59 18:59 Intake Total 694.764 699.404 Output Total 605 1290 Balance 89.764 -590.596 Weight 96.2 kg 98.4 kg Intake: IV 312 288 0.9% NS KVO 240 110 Cefepime 2 gm In Sodium 100 Chloride 0.9% 100 ml @ 25 mls/hr IVPB Q12HR [facility] Rx #:[id number] Pressure Bags 72 78 Intake, IV Titration 382.764 381.404 Amount Norepinephrine 32 mg In 206.162 164.487 Sodium Chloride 0.9% 218 ml @ 0.03 MCG/KG/MIN 1. 305 mls/hr IV .Q24H [facility] Rx#:[id number] Vasopressin 60 unit In 76.602 31.773 Sodium Chloride 0.9% 150 ml @ 0.03 UNITS/MIN 4.59 mls/hr IV .Q24H [facility] Rx#: [id number] propofoL 1,000 mg In 100.000 185.144 Empty Bag 1 bag @ 15 MCG/ KG/MIN 8.352 mls/hr IV . [id number] [facility] Rx#:[id number] Other 30 Output: Urine 605 990 Stool 300 Other: Voiding Method Indwelling Catheter Indwelling Catheter ABP, PAP, CO, CI - Last Documented Arterial Blood Pressure 91/39 - Exam General appearance: The patient is sedated and intubated. HET: Head is normocephalic and atraumatic. Neck: Supple. Heart: Irregularly irregular. Lungs: Equal expansion, mechanical ventilation. Abdomen: Soft, nondistended. Extremities: Bilateral lower extremity edema. Bilateral lower extremities with Klever wraps. Bilateral feet cool to the touch. Right toes are pink with brisk refill. Bilateral PT Doppler signals, right seems somewhat intermittent. Neurological: Sedated and intubated. - Labs CBC & Chem 7: 07/18/24 04:35 07/18/24 04:35 Labs: Abnormal Lab Results - Last 24 Hours (Table) 07/17/24 07/17/24 07/17/24 Range/Units 11:02 14:48 16:30 WBC 16.9 H (3.8-10.6) k/uL RBC 3.83 L (4.30-5.90) m/uL Hgb 10.2 L (13.0-17.5) gm/dL Hct 32.2 L (39.0-53.0) % RDW 16.9 H (11.5-15.5) % Neutrophils # (1.3-7.7) k/uL Lymphocytes # (1.0-4.8) k/uL Monocytes # (0-1.0) k/uL ABG pH 7.30 L (7.35-7.45) ABG pO2 117 H (83-108) mmHg ABG Total CO2 (19-24) mmol/L ABG O2 Saturation 99.1 H (94-97) % Hemoglobin 10.3 L (13.0-17.5) gm/dL Sodium (137-145) mmol/L Chloride (98-107) mmol/L Carbon Dioxide (22-30) mmol/L BUN (9-20) mg/dL Glucose (74-99) mg/dL POC Glucose (mg/dL) 162 H (70-110) mg/dL Calcium (8.4-10.2) mg/dL Total Bilirubin (0.2-1.3) mg/dL Alkaline Phosphatase (38-126) U/L Total Protein (6.3-8.2) g/dL Albumin (3.5-5.0) g/dL 07/17/24 07/17/24 07/18/24 Range/Units 17:13 23:42 04:35 WBC 18.5 H (3.8-10.6) k/uL RBC 3.84 L (4.30-5.90) m/uL Hgb 10.3 L (13.0-17.5) gm/dL Hct 32.3 L (39.0-53.0) % RDW 17.4 H (11.5-15.5) % Neutrophils # 15.8 H (1.3-7.7) k/uL Lymphocytes # 0.8 L (1.0-4.8) k/uL Monocytes # 1.4 H (0-1.0) k/uL ABG pH (7.35-7.45) ABG pO2 (83-108) mmHg ABG Total CO2 (19-24) mmol/L ABG O2 Saturation (94-97) % Hemoglobin (13.0-17.5) gm/dL Sodium (137-145) mmol/L Chloride (98-107) mmol/L Carbon Dioxide (22-30) mmol/L BUN (9-20) mg/dL Glucose (74-99) mg/dL POC Glucose (mg/dL) 154 H 143 H (70-110) mg/dL Calcium (8.4-10.2) mg/dL Total Bilirubin (0.2-1.3) mg/dL Alkaline Phosphatase (38-126) U/L Total Protein (6.3-8.2) g/dL Albumin (3.5-5.0) g/dL 07/18/24 07/18/24 07/18/24 Range/Units 04:35 04:36 05:54 WBC (3.8-10.6) k/uL RBC (4.30-5.90) m/uL Hgb (13.0-17.5) gm/dL Hct (39.0-53.0) % RDW (11.5-15.5) % Neutrophils # (1.3-7.7) k/uL Lymphocytes # (1.0-4.8) k/uL Monocytes # (0-1.0) k/uL ABG pH (7.35-7.45) ABG pO2 121 H (83-108) mmHg ABG Total CO2 25 H (19-24) mmol/L ABG O2 Saturation 99.3 H (94-97) % Hemoglobin 9.8 L (13.0-17.5) gm/dL Sodium 133 L (137-145) mmol/L Chloride 108 H (98-107) mmol/L Carbon Dioxide 21 L (22-30) mmol/L BUN 36 H (9-20) mg/dL Glucose 152 H (74-99) mg/dL POC Glucose (mg/dL) 169 H (70-110) mg/dL Calcium 8.2 L (8.4-10.2) mg/dL Total Bilirubin 2.7 H (0.2-1.3) mg/dL Alkaline Phosphatase 174 H (38-126) U/L Total Protein 4.9 L (6.3-8.2) g/dL Albumin 2.1 L (3.5-5.0) g/dL Microbiology - Last 24 Hours (Table) 07/12/24 17:42 Blood Culture - Final Blood 07/16/24 11:51 Gram Stain - Preliminary Sputum Sputum Culture - Preliminary Assessment and Plan Assessment: Right lower extremity wounds Diminished pulses with lower extremity vascular changes, right greater than left secondary to hypotension requiring pressor support Hypotension requiring pressor support Acute hypoxemic respiratory failure Diabetes History of tobacco abuse Atrial fibrillation Plan: 1. Continue to decrease pressor support when able 2. Continue to monitor lower extremities for reperfusion versus demarcation 3. Discussion had with patient's that patient may require amputation of right lower extremity at some point however no plans for vascular surgical intervention at this time patient is not medically stable. 4. Continue with ICU recommendations Thank you for this consultation, we will continue to follow. The impression and plan of care has been dictated as directed. Dr. Hardy I performed a history and examination of this patient, discussed the same with the dictator. I agree with the dictator's note ,documented as a scribe. Any additional findings or plans will be noted.
--- NOTE | 2024-07-18 13:11 | P.PN ---
Subjective Progress Note Date: 07/18/24 Patient seen and examined at bedside. On ventilator. Continued with pressors. Objective - Vital Signs Vital signs: Vital Signs Temp 98.2 F 07/18/24 12:00 Pulse 105 H 07/18/24 12:00 Resp 27 H 07/18/24 12:00 BP 72/47 07/17/24 21:30 Pulse Ox 100 07/18/24 12:00 FiO2 40 07/18/24 12:00 Intake & Output 07/17/24 07/18/24 07/18/24 18:59 06:59 18:59 Intake Total 694.764 699.404 220.112 Output Total 605 1290 635 Balance 89.764 -590.596 -414.888 Weight 96.2 kg 98.4 kg Intake: IV 312 288 110 0.9% NS KVO 240 110 30 Cefepime 2 gm In Sodium 100 50 Chloride 0.9% 100 ml @ 25 mls/hr IVPB Q12HR [facility] Rx #:[id number] Pressure Bags 72 78 30 Intake, IV Titration 382.764 381.404 50.112 Amount Norepinephrine 32 mg In 206.162 164.487 Sodium Chloride 0.9% 218 ml @ 0.03 MCG/KG/MIN 1. 305 mls/hr IV .Q24H [facility] Rx#:[id number] Vasopressin 60 unit In 76.602 31.773 Sodium Chloride 0.9% 150 ml @ 0.03 UNITS/MIN 4.59 mls/hr IV .Q24H [facility] Rx#: [id number] propofoL 1,000 mg In 100.000 185.144 50.112 Empty Bag 1 bag @ 15 MCG/ KG/MIN 8.352 mls/hr IV . [id number] [facility] Rx#:[id number] Other 30 60 Output: Urine 605 990 635 Stool 300 Other: Voiding Method Indwelling Catheter Indwelling Catheter Indwelling Catheter ABP, PAP, CO, CI - Last Documented Arterial Blood Pressure 96/40 - Constitutional General appearance: Present: no acute distress - Respiratory Details: Vented, sedated - Gastrointestinal Gastrointestinal Comment(s): Soft, nontender - Labs CBC & Chem 7: 07/18/24 04:35 07/18/24 04:35 Labs: Abnormal Lab Results - Last 24 Hours (Table) 07/17/24 07/17/24 07/17/24 Range/Units 14:48 16:30 17:13 WBC 16.9 H (3.8-10.6) k/uL RBC 3.83 L (4.30-5.90) m/uL Hgb 10.2 L (13.0-17.5) gm/dL Hct 32.2 L (39.0-53.0) % RDW 16.9 H (11.5-15.5) % Neutrophils # (1.3-7.7) k/uL Lymphocytes # (1.0-4.8) k/uL Monocytes # (0-1.0) k/uL ABG pO2 (83-108) mmHg ABG Total CO2 (19-24) mmol/L ABG O2 Saturation (94-97) % Hemoglobin (13.0-17.5) gm/dL Sodium (137-145) mmol/L Chloride (98-107) mmol/L Carbon Dioxide (22-30) mmol/L BUN (9-20) mg/dL Glucose (74-99) mg/dL POC Glucose (mg/dL) 162 H 154 H (70-110) mg/dL Calcium (8.4-10.2) mg/dL Total Bilirubin (0.2-1.3) mg/dL Alkaline Phosphatase (38-126) U/L Total Protein (6.3-8.2) g/dL Albumin (3.5-5.0) g/dL 07/17/24 07/18/24 07/18/24 Range/Units 23:42 04:35 04:35 WBC 18.5 H (3.8-10.6) k/uL RBC 3.84 L (4.30-5.90) m/uL Hgb 10.3 L (13.0-17.5) gm/dL Hct 32.3 L (39.0-53.0) % RDW 17.4 H (11.5-15.5) % Neutrophils # 15.8 H (1.3-7.7) k/uL Lymphocytes # 0.8 L (1.0-4.8) k/uL Monocytes # 1.4 H (0-1.0) k/uL ABG pO2 (83-108) mmHg ABG Total CO2 (19-24) mmol/L ABG O2 Saturation (94-97) % Hemoglobin (13.0-17.5) gm/dL Sodium 133 L (137-145) mmol/L Chloride 108 H (98-107) mmol/L Carbon Dioxide 21 L (22-30) mmol/L BUN 36 H (9-20) mg/dL Glucose 152 H (74-99) mg/dL POC Glucose (mg/dL) 143 H (70-110) mg/dL Calcium 8.2 L (8.4-10.2) mg/dL Total Bilirubin 2.7 H (0.2-1.3) mg/dL Alkaline Phosphatase 174 H (38-126) U/L Total Protein 4.9 L (6.3-8.2) g/dL Albumin 2.1 L (3.5-5.0) g/dL 07/18/24 07/18/24 07/18/24 Range/Units 04:36 05:54 11:56 WBC (3.8-10.6) k/uL RBC (4.30-5.90) m/uL Hgb (13.0-17.5) gm/dL Hct (39.0-53.0) % RDW (11.5-15.5) % Neutrophils # (1.3-7.7) k/uL Lymphocytes # (1.0-4.8) k/uL Monocytes # (0-1.0) k/uL ABG pO2 121 H (83-108) mmHg ABG Total CO2 25 H (19-24) mmol/L ABG O2 Saturation 99.3 H (94-97) % Hemoglobin 9.8 L (13.0-17.5) gm/dL Sodium (137-145) mmol/L Chloride (98-107) mmol/L Carbon Dioxide (22-30) mmol/L BUN (9-20) mg/dL Glucose (74-99) mg/dL POC Glucose (mg/dL) 169 H 135 H (70-110) mg/dL Calcium (8.4-10.2) mg/dL Total Bilirubin (0.2-1.3) mg/dL Alkaline Phosphatase (38-126) U/L Total Protein (6.3-8.2) g/dL Albumin (3.5-5.0) g/dL Microbiology - Last 24 Hours (Table) 07/16/24 11:51 Gram Stain - Final Sputum Sputum Culture - Final 07/12/24 17:42 Blood Culture - Final Blood Assessment and Plan Plan: 73-year-old male with bleeding duodenal ulcer. He is status post upper endoscopy with clip and injection. Hemoglobin appears to be stable. No active GI bleed noted. Continue with GI recommendations.
--- NOTE | 2024-07-18 15:37 | P.PN ---
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 The patient was sent from his primary care physician to the hospital for further evaluation of heart failure. He apparently was retaining significant amount of fluid and he according to his gained about 15 pounds within the last few weeks. He was experiencing progressive exertional dyspnea and bilateral lower extremities edema and bilateral nonhealing wounds involving the lower extremities. In the hospital he was found to be hypotensive he was started on norepinephrine. He underwent further evaluation including EKG showing atrial fibrillation which is permanent. As a mention earlier the patient is not on anticoagulation as an outpatient because of history of GI ble eding. He was started on norepinephrine. Also he was started on IV diuretics. No echocardiogram. The last echo from 2016 showing severe cardiomyopathy with EF around 20% with global hypokinesia. The patient also has history of AICD. The physical examination is remarkable for severe upper and lower extremities pitting edema and also lower extremities nonhealing ulcers with diminished breathing sounds bilaterally and irregular rhythm. July 16, 2024 Yesterday patient could not tolerate laying flat and got significantly short of breath and respiratory distress for which she got intubated. Currently is on vent support. Currently he is on norepinephrine and vasopressin. Telemetry shows atrial fibrillation with heart rate around 110 bpm with significant ventricular ectopy. July 17, 2024 Patient is seen and examined at bedside. Patient's family is present at bedside. They report that patient baseline blood pressure is around 80 to 90 mmHg systolic. Patient was previously hospice and has since AICD turned off. July 18, 2024 Hb 10.3, WBC 18.5, BUN 30s, creatinine 1.17, Patient appears less swollen as compared to yesterday. Adequate urine output on IV Lasix. Tolerating it well. Kidney function is holding. Still on low-dose vasopressin. Continues to be on norepinephrine. Off sedation, getting a sedation vacation today in the morning. On exam Intubated and sedated, on ventilator support, ET tube in place, good air entry in bilateral lung shukla 2+ pitting edema noticed in bilateral lower extremity. Irregularly irregular pulse, S1-S2 audible, systolic murmur audible. Assessment HFrEF exacerbation with evidence of right and left failure Severe cardiomyopathy EF 20% Severe CAD status post CABG Permanent atrial fibrillation, currently heart rate around 110 bpm NSVT and PVCs Severe valvular heart disease with torrential tricuspid regurgitation, severe mi tral regurgitation Severe pulmonary hypertension due to group 2 and group 3 Status post AICD Hypomagnesemia Chronic kidney disease Multiple comorbid conditions History of amiodarone toxicity Plan Avoid any amiodarone because of prior history of amiodarone toxicity. Recommend to wean off vasopressin because of significantly low LVEF. Would recommend continuing norepinephrine and if needed add second layer of dopamine. Could not tolerate dobutamine due to low blood pressure. Goal blood pressure is 80 to 90 mmHg systolic blood pressure. MAP of 60 mmHg. Keep magnesium at 2. Potassium at 4. Supplement magnesium as needed. Give 1 dose of IV calcium. Continue mexiletine 150 mg 3 times daily for ventricular ectopy. Continue Lasix to 40 mg twice daily Monitor QTc. Repeat ECG in a.m. Hold beta-blockers and antihypertensives Prognosis extremely guarded Objective - Vital Signs Vital signs: Vital Signs Temp 98.2 F 07/18/24 12:00 Pulse 118 H 07/18/24 15:00 Resp 27 H 07/18/24 15:00 BP 72/47 07/17/24 21:30 Pulse Ox 99 07/18/24 15:00 FiO2 40 07/18/24 12:00 Intake & Output 07/17/24 07/18/24 07/18/24 18:59 06:59 18:59 Intake Total 694.764 699.404 258.112 Output Total 605 1290 935 Balance 89.764 -590.596 -676.888 Weight 96.2 kg 98.4 kg 98.4 kg Intake: IV 312 288 148 0.9% NS KVO 240 110 50 Cefepime 2 gm In Sodium 100 50 Chloride 0.9% 100 ml @ 25 mls/hr IVPB Q12HR [facility] Rx #:[id number] Pressure Bags 72 78 48 Intake, IV Titration 382.764 381.404 50.112 Amount Norepinephrine 32 mg In 206.162 164.487 Sodium Chloride 0.9% 218 ml @ 0.03 MCG/KG/MIN 1. 305 mls/hr IV .Q24H [facility] Rx#:[id number] Vasopressin 60 unit In 76.602 31.773 Sodium Chloride 0.9% 150 ml @ 0.03 UNITS/MIN 4.59 mls/hr IV .Q24H [facility] Rx#: [id number] propofoL 1,000 mg In 100.000 185.144 50.112 Empty Bag 1 bag @ 15 MCG/ KG/MIN 8.352 mls/hr IV . [id number] [facility] Rx#:[id number] Other 30 60 Output: Urine 605 990 935 Stool 300 Other: Voiding Method Indwelling Catheter Indwelling Catheter Indwelling Catheter ABP, PAP, CO, CI - Last Documented Arterial Blood Pressure 89/39 - Labs CBC & Chem 7: 07/18/24 04:35 07/18/24 04:35 Labs: Abnormal Lab Results - Last 24 Hours (Table) 07/17/24 07/17/24 07/17/24 Range/Units 16:30 17:13 23:42 WBC 16.9 H (3.8-10.6) k/uL RBC 3.83 L (4.30-5.90) m/uL Hgb 10.2 L (13.0-17.5) gm/dL Hct 32.2 L (39.0-53.0) % RDW 16.9 H (11.5-15.5) % Neutrophils # (1.3-7.7) k/uL Lymphocytes # (1.0-4.8) k/uL Monocytes # (0-1.0) k/uL ABG pO2 (83-108) mmHg ABG Total CO2 (19-24) mmol/L ABG O2 Saturation (94-97) % Hemoglobin (13.0-17.5) gm/dL Sodium (137-145) mmol/L Chloride (98-107) mmol/L Carbon Dioxide (22-30) mmol/L BUN (9-20) mg/dL Glucose (74-99) mg/dL POC Glucose (mg/dL) 154 H 143 H (70-110) mg/dL Calcium (8.4-10.2) mg/dL Total Bilirubin (0.2-1.3) mg/dL Alkaline Phosphatase (38-126) U/L Total Protein (6.3-8.2) g/dL Albumin (3.5-5.0) g/dL 07/18/24 07/18/24 07/18/24 Range/Units 04:35 04:35 04:36 WBC 18.5 H (3.8-10.6) k/uL RBC 3.84 L (4.30-5.90) m/uL Hgb 10.3 L (13.0-17.5) gm/dL Hct 32.3 L (39.0-53.0) % RDW 17.4 H (11.5-15.5) % Neutrophils # 15.8 H (1.3-7.7) k/uL Lymphocytes # 0.8 L (1.0-4.8) k/uL Monocytes # 1.4 H (0-1.0) k/uL ABG pO2 (83-108) mmHg ABG Total CO2 (19-24) mmol/L ABG O2 Saturation (94-97) % Hemoglobin (13.0-17.5) gm/dL Sodium 133 L (137-145) mmol/L Chloride 108 H (98-107) mmol/L Carbon Dioxide 21 L (22-30) mmol/L BUN 36 H (9-20) mg/dL Glucose 152 H (74-99) mg/dL POC Glucose (mg/dL) 169 H (70-110) mg/dL Calcium 8.2 L (8.4-10.2) mg/dL Total Bilirubin 2.7 H (0.2-1.3) mg/dL Alkaline Phosphatase 174 H (38-126) U/L Total Protein 4.9 L (6.3-8.2) g/dL Albumin 2.1 L (3.5-5.0) g/dL 07/18/24 07/18/24 Range/Units 05:54 11:56 WBC (3.8-10.6) k/uL RBC (4.30-5.90) m/uL Hgb (13.0-17.5) gm/dL Hct (39.0-53.0) % RDW (11.5-15.5) % Neutrophils # (1.3-7.7) k/uL Lymphocytes # (1.0-4.8) k/uL Monocytes # (0-1.0) k/uL ABG pO2 121 H (83-108) mmHg ABG Total CO2 25 H (19-24) mmol/L ABG O2 Saturation 99.3 H (94-97) % Hemoglobin 9.8 L (13.0-17.5) gm/dL Sodium (137-145) mmol/L Chloride (98-107) mmol/L Carbon Dioxide (22-30) mmol/L BUN (9-20) mg/dL Glucose (74-99) mg/dL POC Glucose (mg/dL) 135 H (70-110) mg/dL Calcium (8.4-10.2) mg/dL Total Bilirubin (0.2-1.3) mg/dL Alkaline Phosphatase (38-126) U/L Total Protein (6.3-8.2) g/dL Albumin (3.5-5.0) g/dL Microbiology - Last 24 Hours (Table) 07/16/24 11:51 Gram Stain - Final Sputum Sputum Culture - Final 07/12/24 17:42 Blood Culture - Final Blood
[2024-07-18 17:12] LABS: Glucose,Whole Blood 137 mg/dL (70-110)
[2024-07-19 00:05] LABS: Glucose,Whole Blood 155 mg/dL (70-110)
[2024-07-19] MEDS: MORPHINE SULFATE 2 MG/ML SYRINGE IVP PRN (02:21)
[2024-07-19 04:37] LABS: ABG Base Excess -2.5 mmol/L; ABG HCO3 23 mmol/L (21-25); ABG Oxygen Saturation 98.9 % (94-97); ABG PCO2 43 mmHg (35-45); ABG PH 7.34 (7.35-7.45); ABG PO2 115 mmHg (83-108); ABG TCO2 25 mmol/L (19-24)
[2024-07-19 04:41] LABS: Allen Test Performed? no
[2024-07-19 04:57] LABS: Anisocytosis Slight; Basophils % (A) 0 %; Eosinophils # (A) 0.1 k/uL (0-0.7); Eosinophils % (A) 0 %; HCT 33.2 % (39.0-53.0); HGB 10.4 gm/dL (13.0-17.5); Hypochromasia Marked; Lymphocytes # (A) 0.9 k/uL (1.0-4.8); Lymphocytes % (A) 5 %; MCH 26.6 pg (25.0-35.0); MCHC 31.3 g/dL (31.0-37.0); MCV 85.2 fL (80.0-100.0); Mean Platelet Volume 8.2; Monocytes # (A) 1.7 k/uL (0-1.0); Monocytes % (A) 9 %; Neutrophils # (A) 16.7 k/uL (1.3-7.7); Neutrophils % (A) 84 %; Platelet Count 281 k/uL (150-450); Poikilocytosis Slight; RDW 18.3 % (11.5-15.5)
[2024-07-19 05:00] LABS: ALT 34 U/L (4-49); AST 68 U/L (17-59); African American GFR (CKD) 55 (>60 ml/min/1.73 sqM); Albumin 2.2 g/dL (3.5-5.0); Alkaline Phosphatase 172 U/L (38-126); Anion Gap 6 mmol/L; Blood Urea Nitrogen 40 mg/dL (9-20); Calcium 8.2 mg/dL (8.4-10.2); Carbon Dioxide 21 mmol/L (22-30); Chloride 110 mmol/L (98-107); Glucose 140 mg/dL (74-99); Non-African American GFR(CKD) 47 (>60 ml/min/1.73 sqM); Potassium 4.5 mmol/L (3.5-5.1); Sodium 137 mmol/L (137-145); Total Protein 5.3 g/dL (6.3-8.2)
[2024-07-19 05:38] LABS: Glucose,Whole Blood 140 mg/dL (70-110)
--- NOTE | 2024-07-19 07:52 | XR ---
EXAMINATION TYPE: XR chest 1V DATE OF EXAM: 07/19/2024 5:46 AM COMPARISON: 07/18/2024 CLINICAL INDICATION: Male, 73 years old with history of ETT placement, TECHNIQUE: XR chest 1V view(s) obtained. FINDINGS: The heart size is enlarged. The pulmonary vasculature is prominent. Bibasilar infiltrates are present. Endotracheal tube tip is above the mark. Pacemaker overlies left chest. Sternotomy wires are in the midline. Endotracheal tube transverses the thorax. IMPRESSION: 1. Bibasilar infiltrates. Correlate for atelectasis and pneumonia. Atypical pulmonary edema could be considered. 2. Multiple lines and catheters discussed above [facility], , 07/19/2024 7:49 AM
[2024-07-19] MEDS ORDERED: VANCOMYCIN IV PER PHARMACY 1 EACH MISC MISCELLANE PRN (09:30)
[2024-07-19] MEDS: SODIUM CHLORIDE 0.9% 500 ML 500 ML IV ONE (10:00)
[2024-07-19] MEDS: VANCOMYCIN 1,500 MG in SODIUM CHLORIDE 0.9% 500 ML 500 ML IVPB SCH (10:31)
--- NOTE | 2024-07-19 11:01 | P.PN ---
Subjective Progress Note Date: 07/19/24 73-year-old male with history of multiple medical problems including congestive heart failure, and atrial fibrillation. The patient was sent into the hospital, by his primary care physician. The patient came in with complaints of lower extremity edema, shortness of breath, ulcerations on his foot, and weakness. The patient was seen in the emergency room, ER #3. We were consulted because the patient has been hypotensive, since being in the emergency department. Norepinephrine has not yet been started. Cardiac medications have been held. In addition to atrial fibrillation, the patient has a history of myocardial infarction, coronary disease, congestive heart failure, diabetes, GERD, hyperlipidemia, hypertension, osteoarthritis, and previous bypass surgery. The patient apparently was at [facility] many years ago, on a ventilator, and was apparently on hospice, but has done well over the last 7 or 8 years. The patient does have a history of AICD placement, and previous tobacco use. Currently, he is on CPAP, at between 8 to 12 cm of water. He is not receiving any IV fluids. We did talk to the patient about CODE STATUS and he stated that he would not want to be on life support. His agreed with that. White count is 18, hemoglobin 11.6, hematocrit 37.7, platelet count of 262,000. Sodium 127, potassium 5.8, chloride 95, CO2 21, anion gap is 11, BUN 53, creatinine is 1.26. His N-terminal proBNP was 5940. His troponin was less than 0.012. Chest x-ray was consistent with CHF. Progress note dated July 14, 2024. 73-year-old male seen in the emergency department yesterday. He was admitted with a diagnosis of congestive heart failure. The patient was transferred to the intensive care unit, for norepinephrine. Currently he is on 5 L nasal cannula. He is getting saline at 10 cc an hour. He is on norepinephrine at 3.8 mcg/min. His procalcitonin level was normal at 0.25. Unasyn will be discontinued. White count 16.7, hemoglobin 10.6, hematocrit 34.8, platelet count normal. Sodium 124, potassium 5.5, chlorides 95, CO2 20, BUN 48, creatinine 1.06. Glucose 129. Calcium 8.2. Albumin 2.5. Chest x-ray again shows evidence of cardiomegaly, and pulmonary vascular congestion. Doppler of the right lower extremity was negative for DVT. Progress note dated August 11, 2024. The patient is seen today in room 258. I was called by the nurses last night, because of the new onset GI bleed. The patient is currently on norepinephrine at 14.8 mcg/min, nasal O2 at 4 L, saline at 10 cc an hour. The patient did use his CPAP last night. A repeat hemoglobin will be done at noon today. This morning's hemoglobin was 9.2. The patient is a DO NOT INTUBATE patient. White count 14.2, hemoglobin 9.2, hematocrit 29.4, platelet count finger 83,000. Sodium 126, potassium 5.8, chlorides 102, CO2 23, BUN 60, creatinine 0.99. Glucose 133. Hemoglobin A1c was 6.8. Calcium is 8. On 07/16/2024, the patient was seen in follow-up in the intensive care unit. Time of evaluation, the patient was extremely lethargic, in a shock state which is probably a combination of cardiogenic shock and hypovolemic shock as the patient continues to show signs of GI bleeding and the patient was having several melanotic stools including the last episode this morning. Noted the patient is known to have coronary artery disease, previous bypass surgery, severe ischemic cardiomyopathy with impaired LV function with an ejection fraction of 20%, chronic atrial fibrillation, he has a pacer/AICD in place. Overnight, the patient was also having few episodes of nonsustained ventricular tachycardia. The patient was taken off the anticoagulants. He was given Kcen tra and during this current admission, the patient received a total of 4 units of packed RBC regarding his ongoing GI bleeding. Most recent hemoglobin from this morning is at 11.3. At the time of my evaluation, the patient was having labored breathing. He was on 4 L of oxygen by nasal cannula. Typically his on O2 at home ranging between 3 and 5 L/min nasal cannula. He was on norepinephrine running at 0.32 mcg/kg/min and vasopressin physiologic dose. As mentioned, he was still showing evidence of GI bleeding. The gastroenterology team was on standby for an EGD. I opted to intubate the patient and put him on the mechanical ventilator to protect his airway and proceed with the procedure. Based on that, the patient was started on propofol which is currently running at 40 mcg/kg/min. The patient process was done without any complications. He was placed on assist-control at rate of 18 with a tidal volume of 400, FiO2 100% with a PEEP of 5. The subsequent blood gases showed a pH of 7.37 with a pCO2 of 41 and pO2 of 376. FiO2 was weaned down to 40%. Postintubation chest x-ray s howed CHF, pulm vessel congestion, triple-lumen catheter was in good location. Orogastric tube is in place and the patient has an orotracheal tube also in place. He was given a total of 2 L of IV fluid bolus and the subsequent hemoglobin came back at six 9.9 with a white cell count of 14.2 and a platelet count of 265. The sodium is at 130, potassium is at 4.9, chloride is 101 and the bicarb is 24. BUN is 45 with a creatinine of 0.98. Blood sugar is at 168. On 07/17/2024, the patient is being seen for a follow-up. The patient remains intubated on the mechanical ventilator. The patient is on propofol running at 30 mcg/kg/min. The patient underwent an EGD yesterday and was found to have a duodenal ulcer for which she underwent an Endo Clip and it seems that the bleeding is under adequate control for now. The patient's hemoglobin has remained stable and his current hemoglobin is at 10.5. Noted the patient was transfused a total of 4 units of packed RBC during this current hospitalization. He has a fecal management system in place. There are some dark melanotic output which is minimal at this point in time and is essentially liquidy. Hemodynamically, the patient remains in shock. He remains profoundly hypotensive and is pressor requirements are still active and norepinephrine is running at 0.5 mcg/kg/min and he is also on vasopressin physiologic dose. The patient remains in atrial fibrillation with frequent premature beats. The patient was started on mexiletine by cardiology. The patient is currently on assist-control mode with rate of 18, tidal volume of 450, FiO2 40% with a PEEP of 5. Blood gas showed a pH of 7.26 with a pCO2 of 52 and pO2 of 121. Chest x- ray is consistent with heart failure with lines being all in place and the patient has a pacer/defibrillator over the left anterior chest area. Orotracheal tube is in a good location. The white cell count is 15.9, hemoglobin 10.7 and platelet count is at 313. Sodium is at 130, BUN 36 with a creatinine of 0.9. Potassium level is at 4.7. Serum bicarb is at 20. LFTs are essentially within normal limits. He remains NPO. CVP is elevated at around 18. Only Doppler pulses in lower extremities bilaterally. Continues to have skin blisters and vesicle formation and superficial ulceration. Extremities remain cold and clammy. 07/18/2024, the patient remains intubated and mechanically ventilated. No signs of any acute GI bleeding for now and the patient's hemoglobin remained stable. The patient remains on pressors. The patient remains intubated on mechanical ventilator. Earlier this morning, the patient is on propofol at 20 mcg/kg/min. He remains on norepinephrine at 0.23 mcg/kg/min and vasopressin physiologic dose. He is on IV Lasix. Fluid balance is -500 cc over the past 24 hours. He remains on assist-control mode of mechanical ventilation at rate of 24, tidal volume of 400, FiO2 40% with a PEEP of 5. Blood gas showed pH of 7.35 with a pCO2 of 42 and pO2 of 121. Chest x-ray findings are essentially unchanged is consistent with CHF. There is also cardiomegaly. Lines are all in place. The white cell count is 18.5 with hemoglobin 10.3 and a platelet count of 272. C ardiac rhythm is atrial fibrillation. BUN 36 with a creatinine of 1.1. Sodium is at 133, potassium is at 4.3, and bicarb is at 21. Started on IV cefepime as an empiric antibiotic coverage. Positive lower extremities are extremely weak and they are obtainable by Doppler signals only. Patient remains n.p.o. for now. 07/19/2024, the patient remains intubated and mechanically ventilated. No signs of acute GI bleed and hemoglobin remains stable. He is currently on pressors. Propofol is off. He remains on norepinephrine at 0.27 mcg/kg/min and vasopressin at 0.03 units/min. He is receiving IV Lasix. Fluid balance is -400 cc over 24 hours. His mechanical ventilation remains on assist-control mode at a rate of 24, tidal volume of 400, FiO2 at 40%, and PEEP of 5. ABG shows pH of 7.34, pCO2 of 43, and pO2 of 115. Chest x-ray findings are unchanged from previous. WBCs are 20, hemoglobin 10.4, and platelets 281. Cardiac rhythm demonstrates atrial fibrillation with heart rate in the low 100s. Sodium is 137, potassium is 4.5, bicarb is 21, BUN is 40, and creatinine is 1.46. He re domingo on IV cefepime for empiric coverage. Objective - Vital Signs Vital signs: Vital Signs Temp 98.1 F 07/18/24 08:00 Pulse 108 H 07/18/24 09:00 Resp 16 07/18/24 09:00 BP 72/47 07/17/24 21:30 Pulse Ox 98 07/18/24 09:00 FiO2 40 07/18/24 08:09 Intake & Output 07/17/24 07/18/24 07/18/24 18:59 06:59 18:59 Intake Total 694.764 699.404 166.112 Output Total 605 1290 30 Balance 89.764 -590.596 136.112 Weight 96.2 kg 98.4 kg Intake: IV 312 288 56 0.9% NS KVO 240 110 Cefepime 2 gm In Sodium 100 50 Chloride 0.9% 100 ml @ 25 mls/hr IVPB Q12HR [facility] Rx #:[id number] Pressure Bags 72 78 6 Intake, IV Titration 382.764 381.404 50.112 Amount Norepinephrine 32 mg In 206.162 164.487 Sodium Chloride 0.9% 218 ml @ 0.03 MCG/KG/MIN 1. 305 mls/hr IV .Q24H [facility] Rx#:[id number] Vasopressin 60 unit In 76.602 31.773 Sodium Chloride 0.9% 150 ml @ 0.03 UNITS/MIN 4.59 mls/hr IV .Q24H [facility] Rx#: [id number] propofoL 1,000 mg In 100.000 185.144 50.112 Empty Bag 1 bag @ 15 MCG/ KG/MIN 8.352 mls/hr IV . [id number] [facility] Rx#:[id number] Other 30 60 Output: Urine 605 990 30 Stool 300 Other: Voiding Method Indwelling Catheter Indwelling Catheter ABP, PAP, CO, CI - Last Documented Arterial Blood Pressure 94/41 - Exam General: Patient appears comfortable. Orogastric and orotracheal tube in place. HEENT: Head exam is unremarkable. No scleral icterus present. Mucous membranes are moist. Neck is supple. Left IJ triple-lumen catheter in place. Heart: Irregular rate and rhythm. No S3 or S4. Pacemaker over left anterior chest. Thoractomy scar present over anterior chest. Lungs: Bilateral breath sounds present and equal. Scattered rhonchi heard. Abdomen: Soft, nontender, nondistended. Bowel sounds present. Extremities: 1+ edema present. Diminished dorsalis pedis, posterior tibialis, and radial pulses. Palpable bilateral femoral pulses. Skin blistering present. - Labs CBC & Chem 7: 07/19/24 04:25 07/19/24 04:25 Labs: Abnormal Lab Results - Last 24 Hours (Table) 07/17/24 07/17/24 07/17/24 Range/Units 11:02 14:48 16:30 WBC 16.9 H (3.8-10.6) k/uL RBC 3.83 L (4.30-5.90) m/uL Hgb 10.2 L (13.0-17.5) gm/dL Hct 32.2 L (39.0-53.0) % RDW 16.9 H (11.5-15.5) % Neutrophils # (1.3-7.7) k/uL Lymphocytes # (1.0-4.8) k/uL Monocytes # (0-1.0) k/uL ABG pH 7.30 L (7.35-7.45) ABG pO2 117 H (83-108) mmHg ABG Total CO2 (19-24) mmol/L ABG O2 Saturation 99.1 H (94-97) % Hemoglobin 10.3 L (13.0-17.5) gm/dL Sodium (137-145) mmol/L Chloride (98-107) mmol/L Carbon Dioxide (22-30) mmol/L BUN (9-20) mg/dL Glucose (74-99) mg/dL POC Glucose (mg/dL) 162 H (70-110) mg/dL Calcium (8.4-10.2) mg/dL Total Bilirubin (0.2-1.3) mg/dL Alkaline Phosphatase (38-126) U/L Total Protein (6.3-8.2) g/dL Albumin (3.5-5.0) g/dL 07/17/24 07/17/24 07/18/24 Range/Units 17:13 23:42 04:35 WBC 18.5 H (3.8-10.6) k/uL RBC 3.84 L (4.30-5.90) m/uL Hgb 10.3 L (13.0-17.5) gm/dL Hct 32.3 L (39.0-53.0) % RDW 17.4 H (11.5-15.5) % Neutrophils # 15.8 H (1.3-7.7) k/uL Lymphocytes # 0.8 L (1.0-4.8) k/uL Monocytes # 1.4 H (0-1.0) k/uL ABG pH (7.35-7.45) ABG pO2 (83-108) mmHg ABG Total CO2 (19-24) mmol/L ABG O2 Saturation (94-97) % Hemoglobin (13.0-17.5) gm/dL Sodium (137-145) mmol/L Chloride (98-107) mmol/L Carbon Dioxide (22-30) mmol/L BUN (9-20) mg/dL Glucose (74-99) mg/dL POC Glucose (mg/dL) 154 H 143 H (70-110) mg/dL Calcium (8.4-10.2) mg/dL Total Bilirubin (0.2-1.3) mg/dL Alkaline Phosphatase (38-126) U/L Total Protein (6.3-8.2) g/dL Albumin (3.5-5.0) g/dL 07/18/24 07/18/24 07/18/24 Range/Units 04:35 04:36 05:54 WBC (3.8-10.6) k/uL RBC (4.30-5.90) m/uL Hgb (13.0-17.5) gm/dL Hct (39.0-53.0) % RDW (11.5-15.5) % Neutrophils # (1.3-7.7) k/uL Lymphocytes # (1.0-4.8) k/uL Monocytes # (0-1.0) k/uL ABG pH (7.35-7.45) ABG pO2 121 H (83-108) mmHg ABG Total CO2 25 H (19-24) mmol/L ABG O2 Saturation 99.3 H (94-97) % Hemoglobin 9.8 L (13.0-17.5) gm/dL Sodium 133 L (137-145) mmol/L Chloride 108 H (98-107) mmol/L Carbon Dioxide 21 L (22-30) mmol/L BUN 36 H (9-20) mg/dL Glucose 152 H (74-99) mg/dL POC Glucose (mg/dL) 169 H (70-110) mg/dL Calcium 8.2 L (8.4-10.2) mg/dL Total Bilirubin 2.7 H (0.2-1.3) mg/dL Alkaline Phosphatase 174 H (38-126) U/L Total Protein 4.9 L (6.3-8.2) g/dL Albumin 2.1 L (3.5-5.0) g/dL Microbiology - Last 24 Hours (Table) 07/16/24 11:51 Gram Stain - Final Sputum Sputum Culture - Final 07/12/24 17:42 Blood Culture - Final Blood Assessment and Plan Assessment: - Shock, combination of hypovolemic and cardiogenic due to massive upper GI bleed. Currently intubated and receiving pressors. He was resuscitated with IV fluids and blood products. Has received a total of 4 units pRBCs. Currently on Levophed 0.27 mcg/kg/min. - Leukocytosis. Obtain blood culture and sputum culture. - Upper GI bleed. Has received a total of 4 units of pRBCs. Underwent Endo Clip of duodenal ulcer bleed. Hemoglobin has remained stable, today it is 10.4. Continue NPO. Continue to hold anticoagulants. - Chronic atrial fibrillation. No anticoagulation at this time due to GI bleed. - Acute hypoxemic respiratory failure secondary to CHF. Currently intubated on mechanical ventilation. - CHF with reduced ejection fraction 15-20%. Status post pacemaker implantation. - CAD with a history of myocardial infarction and previous CABG. - Peripheral vascular disease. - COPD. - Diabetes mellitus. - Hypertension. - Hyperlipidemia. Plan: - Continue ventilator support. - Continue to monitor hemodynamics. - Continue to monitor hemoglobin. - Continue pressors. - Add IV vancomycin for empiric coverage. - Obtain sputum culture. - Obtain lactate level. - Obtain CPK. - Obtain blood cultures. - Discontinue IV Lasix. - Continue enteral feeding. - Continue IV Protonix. - Hold anticoagulation. - Continue IV cefepime as empiric coverage.
[2024-07-19 11:53] LABS: Glucose,Whole Blood 162 mg/dL (70-110)
[2024-07-19] MEDS: DIGOXIN 250 MCG/ML 2 ML AMP IVP ONE (11:57)
--- NOTE | 2024-07-19 12:38 | P.PN ---
Subjective Progress Note Date: 07/19/24 Principal diagnosis: Right lower extremity nonpalpable pulses, lower extremity vascular changes Patient seen and examined today as a follow-up. He remains in the ICU sedated and intubated. Still supported by pressors for BP support. B/Llower extremities currently wrapped with an Klever wrap. Hemoglobin stable at 10.4. No acute changes through the night. Stool output has decreased as well. Objective - Vital Signs Vital signs: Vital Signs Temp 98.0 F 07/19/24 04:00 Pulse 105 H 07/19/24 07:00 Resp 24 07/19/24 07:00 BP 72/47 07/17/24 21:30 Pulse Ox 99 07/19/24 07:00 FiO2 40 07/19/24 04:00 Intake & Output 07/18/24 07/19/24 07/19/24 18:59 06:59 18:59 Intake Total 411.657 774.372 57.924 Output Total 1100 490 30 Balance -688.343 284.372 27.924 Weight 98.4 kg 95.5 kg Intake: IV 172 380 16 0.9% NS KVO 50 220 10 Cefepime 2 gm In Sodium 50 100 Chloride 0.9% 100 ml @ 25 mls/hr IVPB Q12HR [facility] Rx #:[id number] Pressure Bags 72 60 6 Intake, IV Titration 139.657 164.372 21.924 Amount Norepinephrine 32 mg In 89.545 164.372 21.924 Sodium Chloride 0.9% 218 ml @ 0.03 MCG/KG/MIN 1. 305 mls/hr IV .Q24H [facility] Rx#:[id number] propofoL 1,000 mg In 50.112 Empty Bag 1 bag @ 15 MCG/ KG/MIN 8.352 mls/hr IV . [id number] [facility] Rx#:[id number] Tube Feeding 40 170 20 Other 60 60 Output: Urine 1100 490 30 Other: Voiding Method Indwelling Catheter Indwelling Catheter ABP, PAP, CO, CI - Last Documented Arterial Blood Pressure 99/42 - Exam General appearance: The patient is sedated and intubated. HET: Head is normocephalic and atraumatic. Neck: Supple. Heart: Irregularly irregular. Lungs: Equal expansion, mechanical ventilation. Abdomen: Soft, nondistended. Extremities: Bilateral lower extremity edema. Bilateral lower extremities with Klever wraps. Bilateral feet cool to the touch. Right toes are pink with brisk refill, foot is mottled. Left foot mottled. Neurological: Sedated and intubated. - Labs CBC & Chem 7: 07/19/24 04:25 07/19/24 04:25 Labs: Abnormal Lab Results - Last 24 Hours (Table) 07/18/24 07/18/24 07/19/24 Range/Units 11:56 17:11 00:04 WBC (3.8-10.6) k/uL RBC (4.30-5.90) m/uL Hgb (13.0-17.5) gm/dL Hct (39.0-53.0) % RDW (11.5-15.5) % Neutrophils # (1.3-7.7) k/uL Lymphocytes # (1.0-4.8) k/uL Monocytes # (0-1.0) k/uL ABG pH (7.35-7.45) ABG pO2 (83-108) mmHg ABG Total CO2 (19-24) mmol/L ABG O2 Saturation (94-97) % Hemoglobin (13.0-17.5) gm/dL Chloride (98-107) mmol/L Carbon Dioxide (22-30) mmol/L BUN (9-20) mg/dL Creatinine (0.66-1.25) mg/dL Glucose (74-99) mg/dL POC Glucose (mg/dL) 135 H 137 H 155 H (70-110) mg/dL Calcium (8.4-10.2) mg/dL Total Bilirubin (0.2-1.3) mg/dL AST (17-59) U/L Alkaline Phosphatase (38-126) U/L Total Protein (6.3-8.2) g/dL Albumin (3.5-5.0) g/dL 07/19/24 07/19/24 07/19/24 Range/Units 04:25 04:25 04:34 WBC 20.0 H (3.8-10.6) k/uL RBC 3.90 L (4.30-5.90) m/uL Hgb 10.4 L (13.0-17.5) gm/dL Hct 33.2 L (39.0-53.0) % RDW 18.3 H (11.5-15.5) % Neutrophils # 16.7 H (1.3-7.7) k/uL Lymphocytes # 0.9 L (1.0-4.8) k/uL Monocytes # 1.7 H (0-1.0) k/uL ABG pH 7.34 L (7.35-7.45) ABG pO2 115 H (83-108) mmHg ABG Total CO2 25 H (19-24) mmol/L ABG O2 Saturation 98.9 H (94-97) % Hemoglobin 9.9 L (13.0-17.5) gm/dL Chloride 110 H (98-107) mmol/L Carbon Dioxide 21 L (22-30) mmol/L BUN 40 H (9-20) mg/dL Creatinine 1.46 H (0.66-1.25) mg/dL Glucose 140 H (74-99) mg/dL POC Glucose (mg/dL) (70-110) mg/dL Calcium 8.2 L (8.4-10.2) mg/dL Total Bilirubin 4.0 H (0.2-1.3) mg/dL AST 68 H (17-59) U/L Alkaline Phosphatase 172 H (38-126) U/L Total Protein 5.3 L (6.3-8.2) g/dL Albumin 2.2 L (3.5-5.0) g/dL 07/19/24 Range/Units 05:36 WBC (3.8-10.6) k/uL RBC (4.30-5.90) m/uL Hgb (13.0-17.5) gm/dL Hct (39.0-53.0) % RDW (11.5-15.5) % Neutrophils # (1.3-7.7) k/uL Lymphocytes # (1.0-4.8) k/uL Monocytes # (0-1.0) k/uL ABG pH (7.35-7.45) ABG pO2 (83-108) mmHg ABG Total CO2 (19-24) mmol/L ABG O2 Saturation (94-97) % Hemoglobin (13.0-17.5) gm/dL Chloride (98-107) mmol/L Carbon Dioxide (22-30) mmol/L BUN (9-20) mg/dL Creatinine (0.66-1.25) mg/dL Glucose (74-99) mg/dL POC Glucose (mg/dL) 140 H (70-110) mg/dL Calcium (8.4-10.2) mg/dL Total Bilirubin (0.2-1.3) mg/dL AST (17-59) U/L Alkaline Phosphatase (38-126) U/L Total Protein (6.3-8.2) g/dL Albumin (3.5-5.0) g/dL Microbiology - Last 24 Hours (Table) 07/16/24 11:51 Gram Stain - Final Sputum Sputum Culture - Final 07/12/24 17:42 Blood Culture - Final Blood Assessment and Plan Assessment: Right lower extremity wounds Diminished pulses with lower extremity vascular changes, right greater than left secondary to hypotension requiring pressor support Hypotension requiring pressor support Acute hypoxemic respiratory failure Diabetes History of tobacco abuse Atrial fibrillation Plan: 1. Continue to decrease pressor support when able 2. Continue to monitor lower extremities for reperfusion versus demarcation 3. Discussion had with patient's that patient may require amputation of right lower extremity at some point however no plans for vascular surgical intervention at this time patient is not medically stable. 4. Continue with ICU recommendations Thank you for this consultation, we will continue to follow. The impression and plan of care has been dictated as directed. Dr. Oliveira I performed a history and examination of this patient, discussed the same with the dictator. I agree with the dictator's note ,documented as a scribe. Any additional findings or plans will be noted.
--- NOTE | 2024-07-19 14:00 | P.PN ---
Subjective Progress Note Date: 07/19/24 73-year-old male with history of multiple medical problems including congestive heart failure, and atrial fibrillation. The patient was sent into the hospital, by his primary care physician. The patient came in with complaints of lower extremity edema, shortness of breath, ulcerations on his foot, and weakness. The patient was seen in the emergency room, ER #3. We were consulted because the patient has been hypotensive, since being in the emergency department. Norepinephrine has not yet been started. Cardiac medications have been held. In addition to atrial fibrillation, the patient has a history of myocardial infarction, coronary disease, congestive heart failure, diabetes, GERD, hyperlip idemia, hypertension, osteoarthritis, and previous bypass surgery. The patient apparently was at [facility] many years ago, on a ventilator, and was apparently on hospice, but has done well over the last 7 or 8 years. The patient does have a history of AICD placement, and previous tobacco use. Currently, he is on CPAP, at between 8 to 12 cm of water. He is not receiving any IV fluids. We did talk to the patient about CODE STATUS and he stated that he would not want to be on life support. His agreed with that. White count is 18, hemoglobin 11.6, hematocrit 37.7, platelet count of 262,000. Sodium 127, potassium 5.8, chloride 95, CO2 21, anion gap is 11, BUN 53, creatinine is 1.26. His N-terminal proBNP was 5940. His troponin was less than 0.012. Chest x-ray was consistent with CHF. Progress note dated July 14, 2024. 73-year-old male seen in the emergency department yesterday. He was admitted with a diagnosis of congestive heart failure. The patient was transferred to the intensive care unit, for norepinephrine. Currently he is on 5 L nasal cannula. He is getting saline at 10 cc an hour. He is on norepinephrine at 3.8 mcg/min. His procalcitonin level was normal at 0.25. Unasyn will be discontinued. White count 16.7, hemoglobin 10.6, hematocrit 34.8, platelet count normal. Sodium 124, potassium 5.5, chlorides 95, CO2 20, BUN 48, creatinine 1.06. Glucose 129. Calcium 8.2. Albumin 2.5. Chest x-ray again shows evidence of cardiomegaly, and pulmonary vascular congestion. Doppler of the right lower extremity was negative for DVT. Progress note dated August 11, 2024. The patient is seen today in room 258. I was called by the nurses last night, because of the new onset GI bleed. The patient is currently on norepinephrine at 14.8 mcg/min, nasal O2 at 4 L, saline at 10 cc an hour. The patient did use his CPAP last night. A repeat hemoglobin will be done at noon today. This morning's hemoglobin was 9.2. The patient is a DO NOT INTUBATE patient. White count 14.2, hemoglobin 9.2, hematocrit 29.4, platelet count finger 83,000. Sodium 126, potassium 5.8, chlorides 102, CO2 23, BUN 60, creatinine 0.99. Glucose 133. Hemoglobin A1c was 6.8. Calcium is 8. On 07/16/2024, the patient was seen in follow-up in the intensive care unit. Time of evaluation, the patient was extremely lethargic, in a shock state which is probably a combination of cardiogenic shock and hypovolemic shock as the patient continues to show signs of GI bleeding and the patient was having several melanotic stools including the last episode this morning. Noted the patient is known to have coronary artery disease, previous bypass surgery, severe ischemic cardiomyopathy with impaired LV function with an ejection fraction of 20%, chronic atrial fibrillation, he has a pacer/AICD in place. Overnight, the patient was also having few episodes of nonsustained ventricular tachycardia. The patient was taken off the anticoagulants. He was given Kce ntra and during this current admission, the patient received a total of 4 units of packed RBC regarding his ongoing GI bleeding. Most recent hemoglobin from this morning is at 11.3. At the time of my evaluation, the patient was having labored breathing. He was on 4 L of oxygen by nasal cannula. Typically his on O2 at home ranging between 3 and 5 L/min nasal cannula. He was on norepinephrine running at 0.32 mcg/kg/min and vasopressin physiologic dose. As mentioned, he was still showing evidence of GI bleeding. The gastroenterology team was on standby for an EGD. I opted to intubate the patient and put him on the mechanical ventilator to protect his airway and proceed with the procedure. Based on that, the patient was started on propofol which is currently running at 40 mcg/kg/min. The patient process was done without any complications. He was placed on assist-control at rate of 18 with a tidal volume of 400, FiO2 100% with a PEEP of 5. The subsequent blood gases showed a pH of 7.37 with a pCO2 of 41 and pO2 of 376. FiO2 was weaned down to 40%. Postintubation chest x-ray showed CHF, pulm vessel congestion, triple-lumen catheter was in good location. Orogastric tube is in place and the patient has an orotracheal tube also in place. He was given a total of 2 L of IV fluid bolus and the subsequent hemoglobin came back at six 9.9 with a white cell count of 14.2 and a platelet count of 265. The sodium is at 130, potassium is at 4.9, chloride is 101 and the bicarb is 24. BUN is 45 with a creatinine of 0.98. Blood sugar is at 168. On 07/17/2024, the patient is being seen for a follow-up. The patient remains intubated on the mechanical ventilator. The patient is on propofol running at 30 mcg/kg/min. The patient underwent an EGD yesterday and was found to have a duodenal ulcer for which she underwent an Endo Clip and it seems that the bleeding is under adequate control for now. The patient's hemoglobin has remained stable and his current hemoglobin is at 10.5. Noted the patient was transfused a total of 4 units of packed RBC during this current hospitalization. He has a fecal management system in place. There are some dark melanotic output which is minimal at this point in time and is essentially liquidy. Hemodynamically, the patient remains in shock. He remains profoundly hypotensive and is pressor requirements are still active and norepinephrine is running at 0.5 mcg/kg/min and he is also on vasopressin physiologic dose. The patient remains in atrial fibrillation with frequent premature beats. The patient was started on mexiletine by cardiology. The patient is currently on assist-control mode with rate of 18, tidal volume of 450, FiO2 40% with a PEEP of 5. Blood gas showed a pH of 7.26 with a pCO2 of 52 and pO2 of 121. Chest x- ray is consistent with heart failure with lines being all in place and the patient has a pacer/defibrillator over the left anterior chest area. Orotracheal tube is in a good location. The white cell count is 15.9, hemoglobin 10.7 and platelet count is at 313. Sodium is at 130, BUN 36 with a creatinine of 0.9. Potassium level is at 4.7. Serum bicarb is at 20. LFTs are essentially within normal limits. He remains NPO. CVP is elevated at around 18. Only Doppler pulses in lower extremities bilaterally. Continues to have skin blisters and vesicle formation and superficial ulceration. Extremities remain cold and clammy. 07/18/2024, the patient remains intubated and mechanically ventilated. No signs of any acute GI bleeding for now and the patient's hemoglobin remained stable. The patient remains on pressors. The patient remains intubated on mechanical ventilator. Earlier this morning, the patient is on propofol at 20 mcg/kg/min. He remains on norepinephrine at 0.23 mcg/kg/min and vasopressin physiologic dose. He is on IV Lasix. Fluid balance is -500 cc over the past 24 hours. He remains on assist-control mode of mechanical ventilation at rate of 24, tidal volume of 400, FiO2 40% with a PEEP of 5. Blood gas showed pH of 7.35 with a pCO2 of 42 and pO2 of 121. Chest x-ray findings are essentially unchanged is consistent with CHF. There is also cardiomegaly. Lines are all in place. The white cell count is 18.5 with hemoglobin 10.3 and a platelet count of 272. Cardiac rhythm is atrial fibrillation. BUN 36 with a creatinine of 1.1. Sodium is at 133, potassium is at 4.3, and bicarb is at 21. Started on IV cefepime as an empiric antibiotic coverage. Positive lower extremities are extremely weak and they are obtainable by Doppler signals only. Patient remains n.p.o. for now. 07/19/2024, the patient is being seen for a follow-up. Remains intubated on the mechanical ventilator. Propofol has been discontinued yesterday and the patient is arousable. He is very sluggish in his response. He was opening his eyes spontaneously and following some simple commands. He is very much interested in mechanical ventilator which is set at an assist-control mode with rate of 24, tidal volume of 450, FiO2 40% with a PEEP of 5. Blood gas showed a pH of 7.34 w ith a pCO2 43 and pO2 115. Hemodynamically, the patient remains atrial fibrillation. Slightly tachycardic. Remains on norepinephrine at 0.27 mcg/kg/min and vasopressin at 0.03 units/min.. The patient is producing urine output in the order of 25 cc an hour. The patient has not demonstrated any GI bleeding. Hemoglobin is relatively stable and the hemoglobin is currently at 10.4. The patient will start enteral feeding for nutritional support and currently he is on vital AF. Tube feeds are running at a rate of 30 cc an hour. Meanwhile, the patient has developed an acute kidney injury, BUN is up to 40 with a creatinine of 1.4. Sodium is at 137, potassium is at 4.5. The white cell count is at 20 with a hemoglobin of 10.4. Chest x-ray from today shows CHF and there is evolving consolidation of the right lower lobe. The patient remains on IV cefepime. On a separate note, the patient continues to have an ischemic right lower extremity. Absent pulses in the right foot and there is skin mottling and some cyanosis and increased coldness. The patient was seen by vascular surgery. No interventions recommended at this point in time specially with his underlying shock state and high pressor requirements. Objective - Vital Signs Vital signs: Vital Signs Temp 98.0 F 07/19/24 04:00 Pulse 111 H 07/19/24 08:39 Resp 24 07/19/24 07:00 BP 72/47 07/17/24 21:30 Pulse Ox 99 07/19/24 07:00 FiO2 40 07/19/24 08:27 Intake & Output 07/18/24 07/19/24 07/19/24 18:59 06:59 18:59 Intake Total 411.657 774.372 57.924 Output Total 1100 490 30 Balance -688.343 284.372 27.924 Weight 98.4 kg 95.5 kg Intake: IV 172 380 16 0.9% NS KVO 50 220 10 Cefepime 2 gm In Sodium 50 100 Chloride 0.9% 100 ml @ 25 mls/hr IVPB Q12HR [facility] Rx #:[id number] Pressure Bags 72 60 6 Intake, IV Titration 139.657 164.372 21.924 Amount Norepinephrine 32 mg In 89.545 164.372 21.924 Sodium Chloride 0.9% 218 ml @ 0.03 MCG/KG/MIN 1. 305 mls/hr IV .Q24H [facility] Rx#:[id number] propofoL 1,000 mg In 50.112 Empty Bag 1 bag @ 15 MCG/ KG/MIN 8.352 mls/hr IV . [id number] [facility] Rx#:[id number] Tube Feeding 40 170 20 Other 60 60 Output: Urine 1100 490 30 Other: Voiding Method Indwelling Catheter Indwelling Catheter ABP, PAP, CO, CI - Last Documented Arterial Blood Pressure 99/42 - Exam - Exam At this point in time, the patient is sedated on propofol,, and comfortable and orogastric and orotracheal tube are both in place. Head exam was generally normal. There was no scleral icterus or corneal arcus. Mucous membranes were moist. Neck was supple and with jugular venous distension, thyromegaly, or carotid bruits. Carotids were easily palpable bilaterally. There was no adenopathy. Cardiovascular examination reveals an irregular rhythm and rate. S1-S2 normal. No S3 or S4. A systolic murmur is noted, grade 2/6. The rhythm was irregular consistent with atrial fibrillation and the patient was quite tachycardic. The patient also had a thoracotomy scar over the anterior chest area and the patient has a pacemaker over the left anterior chest. Lungs reveal scattered rhonchi and crackles. Breath sounds equal. No wheezes. Abdomen soft bowel sounds are heard. No masses or tenderness. Extremities are showing diminished pulses in all 4 extremities. No cyanosis or clubbing. 1+ edema is noted. Skin blisters Skin is without rash or lesion. Skin blisters related to edema, mottling of the skin in the right lower extremity and marked diminished pulses involving the dorsalis pedis and posterior tibialis. Palpable femoral pulses bilaterally. Neurologic examination is brief but nonfocal. The patient is currently sedated on the mechanical ventilator. - Labs CBC & Chem 7: 07/19/24 04:25 07/19/24 04:25 Labs: Abnormal Lab Results - Last 24 Hours (Table) 07/18/24 07/18/24 07/19/24 Range/Units 11:56 17:11 00:04 WBC (3.8-10.6) k/uL RBC (4.30-5.90) m/uL Hgb (13.0-17.5) gm/dL Hct (39.0-53.0) % RDW (11.5-15.5) % Neutrophils # (1.3-7.7) k/uL Lymphocytes # (1.0-4.8) k/uL Monocytes # (0-1.0) k/uL ABG pH (7.35-7.45) ABG pO2 (83-108) mmHg ABG Total CO2 (19-24) mmol/L ABG O2 Saturation (94-97) % Hemoglobin (13.0-17.5) gm/dL Chloride (98-107) mmol/L Carbon Dioxide (22-30) mmol/L BUN (9-20) mg/dL Creatinine (0.66-1.25) mg/dL Glucose (74-99) mg/dL POC Glucose (mg/dL) 135 H 137 H 155 H (70-110) mg/dL Calcium (8.4-10.2) mg/dL Total Bilirubin (0.2-1.3) mg/dL AST (17-59) U/L Alkaline Phosphatase (38-126) U/L Total Protein (6.3-8.2) g/dL Albumin (3.5-5.0) g/dL 07/19/24 07/19/24 07/19/24 Range/Units 04:25 04:25 04:34 WBC 20.0 H (3.8-10.6) k/uL RBC 3.90 L (4.30-5.90) m/uL Hgb 10.4 L (13.0-17.5) gm/dL Hct 33.2 L (39.0-53.0) % RDW 18.3 H (11.5-15.5) % Neutrophils # 16.7 H (1.3-7.7) k/uL Lymphocytes # 0.9 L (1.0-4.8) k/uL Monocytes # 1.7 H (0-1.0) k/uL ABG pH 7.34 L (7.35-7.45) ABG pO2 115 H (83-108) mmHg ABG Total CO2 25 H (19-24) mmol/L ABG O2 Saturation 98.9 H (94-97) % Hemoglobin 9.9 L (13.0-17.5) gm/dL Chloride 110 H (98-107) mmol/L Carbon Dioxide 21 L (22-30) mmol/L BUN 40 H (9-20) mg/dL Creatinine 1.46 H (0.66-1.25) mg/dL Glucose 140 H (74-99) mg/dL POC Glucose (mg/dL) (70-110) mg/dL Calcium 8.2 L (8.4-10.2) mg/dL Total Bilirubin 4.0 H (0.2-1.3) mg/dL AST 68 H (17-59) U/L Alkaline Phosphatase 172 H (38-126) U/L Total Protein 5.3 L (6.3-8.2) g/dL Albumin 2.2 L (3.5-5.0) g/dL 07/19/24 Range/Units 05:36 WBC (3.8-10.6) k/uL RBC (4.30-5.90) m/uL Hgb (13.0-17.5) gm/dL Hct (39.0-53.0) % RDW (11.5-15.5) % Neutrophils # (1.3-7.7) k/uL Lymphocytes # (1.0-4.8) k/uL Monocytes # (0-1.0) k/uL ABG pH (7.35-7.45) ABG pO2 (83-108) mmHg ABG Total CO2 (19-24) mmol/L ABG O2 Saturation (94-97) % Hemoglobin (13.0-17.5) gm/dL Chloride (98-107) mmol/L Carbon Dioxide (22-30) mmol/L BUN (9-20) mg/dL Creatinine (0.66-1.25) mg/dL Glucose (74-99) mg/dL POC Glucose (mg/dL) 140 H (70-110) mg/dL Calcium (8.4-10.2) mg/dL Total Bilirubin (0.2-1.3) mg/dL AST (17-59) U/L Alkaline Phosphatase (38-126) U/L Total Protein (6.3-8.2) g/dL Albumin (3.5-5.0) g/dL Microbiology - Last 24 Hours (Table) 07/16/24 11:51 Gram Stain - Final Sputum Sputum Culture - Final 07/12/24 17:42 Blood Culture - Final Blood Assessment and Plan Plan: Shock, combination of cardiogenic and hypovolemic as the patient had massive GI bleed/upper GI bleeding. The patient is intubated on the mechanical ventilator. The patient remains on high-dose pressors and the patient is on high-dose norepinephrine and vasopressin physiologic dose. Triple-lumen catheter was established. The patient was resuscitated with blood products and IV fluids. The pressors have been weaned compared to yesterday. Nevertheless, the patient continues to be on norepinephrine and this is running at 0.2 7 mcg/kg/min and vasopressin physiologic dose. Urine output is adequate and the patient is on Lasix. The patient remains pressor dependent and the patient has developed an acute kidney injury Acute kidney injury creatinine up to 1.4 Acute hypoxemic respiratory failure, secondary to CHF, currently intubated on mechanical ventilator, chest x-ray from today and blood gas from today is noted. There is development of a right lower lobe consolidation. Based on his underlying shock state, the patient was started on IV cefepime. Vancomycin is to be added. Upper GI bleeding, transfused with total of 4 units of packed RBC, follow-up hemoglobin is stable and the patient underwent Endo Clip of a duodenal ulcer bleed and a hemoglobin has remained stable since. Remains NPO. Remains on Protonix. No anticoagulants for now. chronic atrial fibrillation, currently off anticoagulants Nonsustained V. tach, currently inactive and stable, current rhythm is atrial fibrillation, no ventricular arrhythmias have been noted. History of CAD, with previous myocardial infarction, and previous CABG. CHF with ischemic cardiomyopathy and ejection fraction of less than 20%, status post AICD/pacemaker implantation. History of COPD from previous tobacco use. History of diabetes mellitus. History of gastroesophageal reflux disease. History of hypertension. History of hyperlipidemia. General medical debility. Peripheral vascular disease Lower extremity edema with stage II wounds and areas of skin blisters related to CHF and lower extremity edema/chronic. Peripheral vascular disease with only Doppler signals lower extremities along with hypoperfusion and skin mottling specially in the right lower extremity. The patient continues to have an ischemic right lower extremity. Plan: Continue ventilator support Keep the patient off sedation. Monitor hemodynamics and is continuing the pressors for now, keep vasopressin and wean off the norepinephrine Discontinued IV Lasix and monitor renal function Monitor hemoglobin Continue enteral feeding for nutritional support IV Protonix No anticoagulants for now Cover the patient with IV cefepime as an empiric antibiotic coverage, add vancomycin as a broad-spectrum antibiotic coverage suspecting a right lower lobe pneumonia. Also obtain a blood culture and sputum culture. Condition is critical. Will coordinate care with cardiology and the rest of the consultants. This evaluation was done more than 30 minutes. Family has been updated. Not ready for any weaning for now. Will check CPK. Will check lactic acid level. Vascular surgery evaluated the patient's right lower extremity. No surgical intervention at this point in time specially with his underlying comorbidities. Time with Patient: Greater than 30
--- NOTE | 2024-07-19 14:25 | P.PN ---
Subjective Progress Note Date: 07/19/24 The patient is a pleasant 73-year-old gentleman with extensive cardiovascular history who did not see a transit man in more than 8 years. 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 The patient was sent from his primary care physician to the hospital for further evaluation of heart failure. He apparently was retaining significant amount of fluid and he according to his gained about 15 pounds within the last few weeks. He was experiencing progressive exertional dyspnea and bilateral lower extremities edema and bilateral nonhealing wounds involving the lower extremities. In the hospital he was found to be hypotensive he was started on norepinephrine. He underwent further evaluation including EKG showing atrial fibrillation which is permanent. As a mention earlier the patient is not on anticoagulation as an outpatient because of history of GI ble eding. He was started on norepinephrine. Also he was started on IV diuretics. No echocardiogram. The last echo from 2016 showing severe cardiomyopathy with EF around 20% with global hypokinesia. The patient also has history of AICD. The physical examination is remarkable for severe upper and lower extremities pitting edema and also lower extremities nonhealing ulcers with diminished breathing sounds bilaterally and irregular rhythm. July 16, 2024 Yesterday patient could not tolerate laying flat and got significantly short of breath and respiratory distress for which she got intubated. Currently is on vent support. Currently he is on norepinephrine and vasopressin. Telemetry shows atrial fibrillation with heart rate around 110 bpm with significant ventricular ectopy. July 17, 2024 Patient is seen and examined at bedside. Patient's family is present at bedside. They report that patient baseline blood pressure is around 80 to 90 mmHg systolic. Patient was previously hospice and has since AICD turned off. July 18, 2024 Hb 10.3, WBC 18.5, BUN 30s, creatinine 1.17, Patient appears less swollen as compared to yesterday. Adequate urine output on IV Lasix. Tolerating it well. Kidney function is holding. Still on low-dose vasopressin. Continues to be on norepinephrine. Off sedation, getting a sedation vacation today in the morning. Jul 19, 2024 Lathe Operator 1.4 today, worse as compared to previously. Patient tolerated the IV Lasix yesterday. Appears less swollen in bilateral lower extremity but bilateral upper extremity are extremely swollen. He has mottling of his right lower extremity with bluish discoloration with poor pulses. He is still maintained on norepinephrine and vasopressin. MAP 55-60 mmhg range. Heart rate 110 bpm, atrial fibrillation. Lesser ectopy as compared to before. On exam Intubated and sedated, on ventilator support, ET tube in place, good air entry in bilateral lung shukla 2+ pitting edema noticed in bilateral lower extremity. Irregularly irregular pulse, S1-S2 audible, systolic murmur audible. Assessment HFrEF exacerbation with evidence of right and left failure Severe cardiomyopathy EF 20% Severe CAD status post CABG Permanent atrial fibrillation, currently heart rate around 110 bpm NSVT and PVCs Severe valvular heart disease with torrential tricuspid regurgitation, severe mitral regurgitation Severe pulmonary hypertension due to group 2 and group 3 Status post AICD Hypomagnesemia Chronic kidney disease Multiple comorbid conditions History of amiodarone toxicity Plan Avoid any amiodarone because of prior history of amiodarone toxicity. Recommend to wean off vasopressin because of significantly low LVEF. Would recommend continuing norepinephrine and if needed add second layer of dopamine. Could not tolerate dobutamine due to low blood pressure. Goal blood pressure is 80 to 90 mmHg systolic blood pressure. MAP of 60 mmHg. Keep magnesium at 2. Potassium at 4. Supplement magnesium as needed. Give 1 dose of IV calcium. Start digoxin IV 125 mg once today. Continue mexiletine 150 mg 3 times daily for ventricular ectopy. Lasix has been held because of declining renal function. I had extensive discussion with the patient's and daughter. They understand that the patient's prognosis is very poor. He has been dealing with cardiomyopathy and severe valvular dysfunction for last 8 years. They expressed that patient never had wishes of getting intubated but he was intubated for the procedure of upper GI endoscopy. As his wishes were not to be on ventilator support for long, they are expressing wishes to attempt extubation and see how patient does. They understand that extubation is high risk and patient may end up dying. Understanding this patient's family do not want to prolong patient's misery and would like to attempt it tomorrow. I would recommend giving him some IV Lasix 1 hour before the weaning protocol and see how patient does. I will start digoxin today in hopes of achieving better rate control and improving inotropic effect. Case discussed with ICU attending. Objective - Vital Signs Vital signs: Vital Signs Temp 98 F 07/19/24 12:00 Pulse 106 H 07/19/24 14:00 Resp 27 H 07/19/24 14:00 BP 72/47 07/17/24 21:30 Pulse Ox 96 07/19/24 14:00 FiO2 40 07/19/24 12:00 Intake & Output 07/18/24 07/19/24 07/19/24 18:59 06:59 18:59 Intake Total 411.657 572.116 5041.332 Output Total 1100 490 530 Balance -688.343 292.346 2759.332 Weight 98.4 kg 95.5 kg 95.5 kg Intake: IV 172 380 168 0.9% NS KVO 50 220 20 Cefepime 2 gm In Sodium 50 100 100 Chloride 0.9% 100 ml @ 25 mls/hr IVPB Q12HR [facility] Rx #:[id number] Pressure Bags 72 60 48 Intake, IV Titration 139.657 895.829 9452.332 Amount Norepinephrine 32 mg In 89.545 164.372 85.332 Sodium Chloride 0.9% 218 ml @ 0.03 MCG/KG/MIN 1. 305 mls/hr IV .Q24H [facility] Rx#:[id number] Sodium Chloride 0.9% 500 500 ml 500 ml @ 999 mls/hr IV .Q31M [facility] Rx#:[id number] Vancomycin 1,500 mg In 500 Sodium Chloride 0.9% 500 ml 500 ml @ 167 mls/hr IVPB Q24H [facility] Rx#: [id number] propofoL 1,000 mg In 50.112 Empty Bag 1 bag @ 15 MCG/ KG/MIN 8.352 mls/hr IV . [id number] [facility] Rx#:[id number] Tube Feeding 40 170 230 Other 60 60 100 Output: Urine 1100 490 530 Other: Voiding Method Indwelling Catheter Indwelling Catheter Indwelling Catheter ABP, PAP, CO, CI - Last Documented Arterial Blood Pressure 99/43 - Labs CBC & Chem 7: 07/19/24 04:25 07/19/24 04:25 Labs: Abnormal Lab Results - Last 24 Hours (Table) 11/03/0507/19/24 07/19/24 Range/Units 17:11 00:04 04:25 WBC 20.0 H (3.8-10.6) k/uL RBC 3.90 L (4.30-5.90) m/uL Hgb 10.4 L (13.0-17.5) gm/dL Hct 33.2 L (39.0-53.0) % RDW 18.3 H (11.5-15.5) % Neutrophils # 16.7 H (1.3-7.7) k/uL Lymphocytes # 0.9 L (1.0-4.8) k/uL Monocytes # 1.7 H (0-1.0) k/uL ABG pH (7.35-7.45) ABG pO2 (83-108) mmHg ABG Total CO2 (19-24) mmol/L ABG O2 Saturation (94-97) % Hemoglobin (13.0-17.5) gm/dL Chloride (98-107) mmol/L Carbon Dioxide (22-30) mmol/L BUN (9-20) mg/dL Creatinine (0.66-1.25) mg/dL Glucose (74-99) mg/dL POC Glucose (mg/dL) 137 H 155 H (70-110) mg/dL Calcium (8.4-10.2) mg/dL Total Bilirubin (0.2-1.3) mg/dL AST (17-59) U/L Alkaline Phosphatase (38-126) U/L Total Protein (6.3-8.2) g/dL Albumin (3.5-5.0) g/dL 07/19/24 07/19/24 07/19/24 Range/Units 04:25 04:34 05:36 WBC (3.8-10.6) k/uL RBC (4.30-5.90) m/uL Hgb (13.0-17.5) gm/dL Hct (39.0-53.0) % RDW (11.5-15.5) % Neutrophils # (1.3-7.7) k/uL Lymphocytes # (1.0-4.8) k/uL Monocytes # (0-1.0) k/uL ABG pH 7.34 L (7.35-7.45) ABG pO2 115 H (83-108) mmHg ABG Total CO2 25 H (19-24) mmol/L ABG O2 Saturation 98.9 H (94-97) % Hemoglobin 9.9 L (13.0-17.5) gm/dL Chloride 110 H (98-107) mmol/L Carbon Dioxide 21 L (22-30) mmol/L BUN 40 H (9-20) mg/dL Creatinine 1.46 H (0.66-1.25) mg/dL Glucose 140 H (74-99) mg/dL POC Glucose (mg/dL) 140 H (70-110) mg/dL Calcium 8.2 L (8.4-10.2) mg/dL Total Bilirubin 4.0 H (0.2-1.3) mg/dL AST 68 H (17-59) U/L Alkaline Phosphatase 172 H (38-126) U/L Total Protein 5.3 L (6.3-8.2) g/dL Albumin 2.2 L (3.5-5.0) g/dL 07/19/24 Range/Units 11:51 WBC (3.8-10.6) k/uL RBC (4.30-5.90) m/uL Hgb (13.0-17.5) gm/dL Hct (39.0-53.0) % RDW (11.5-15.5) % Neutrophils # (1.3-7.7) k/uL Lymphocytes # (1.0-4.8) k/uL Monocytes # (0-1.0) k/uL ABG pH (7.35-7.45) ABG pO2 (83-108) mmHg ABG Total CO2 (19-24) mmol/L ABG O2 Saturation (94-97) % Hemoglobin (13.0-17.5) gm/dL Chloride (98-107) mmol/L Carbon Dioxide (22-30) mmol/L BUN (9-20) mg/dL Creatinine (0.66-1.25) mg/dL Glucose (74-99) mg/dL POC Glucose (mg/dL) 162 H (70-110) mg/dL Calcium (8.4-10.2) mg/dL Total Bilirubin (0.2-1.3) mg/dL AST (17-59) U/L Alkaline Phosphatase (38-126) U/L Total Protein (6.3-8.2) g/dL Albumin (3.5-5.0) g/dL
--- NOTE | 2024-07-19 14:57 | P.PN ---
Subjective Progress Note Date: 07/19/24 Principal diagnosis: GI bleed This a pleasant 73-year-old male with multiple comorbidities including coronary artery disease status post CABG, congestive heart failure previous GI bleed, atrial fibrillation with an EF of 15-20% who was admitted for hyperkalemia, hyponatremia and acute pulmonary edema. Patient was also in atrial fibrillation started on Xarelto. Following Xarelto yesterday he started having GI bleed with multiple episodes of dark and maroon-colored stool. Patient became hypotensive he has been started on Levophed and vasopressin. This morning he was given Kcentra about 30 minutes ago and continues to have dark maroon stools with clots. Levophed is at 0.3 to micrograms and vasopressin 0.03. Blood pressures are running in the 90s over 60s. He is status post 4 units of PRBC transfusion. Hemoglobin stable at 11.3 BUN elevated at 45. He denies any abdominal pain, nausea or vomiting. is at the bedside and states he had a previous upper GI bleed about 8 years ago when he was at [facility] post extubation. Last colonoscopy about 15 years ago. 07/17/2024 Patient seen and examined today as a follow-up. He remains in the ICU and is currently sedated and intubated. Remains on max doses of pressors. Yesterday he underwent upper endoscopy with finding of duodenal ulcer with vessel with clot attached. No active bleeding at the time of endoscopy. Status post epinephrine and clip placement. Dark stool output only about 50 cc overnight. Hemoglobin stable at 10.5 platelet count 313,000 BUN 36 creatinine 0.9 total bilirubin 2.0 AST 35 ALT 31 alkaline phosphatase 190 07/18/2024 Patient seen and examined today as a follow-up. He remains in the ICU sedated and intubated. They are weaning his pressors, as well as propofol. thinks that his right lower extremity looks a little bit better. Is currently wrapped with an Klever wrap bilateral lower extremities. Toes are pink. Hemoglobin stable at 10.5. He had 300 cc output from his fecal management system since yesterday it is black. 07/19/2024 Patient seen and examined today as a follow-up. He remains in the ICU sedated and intubated. Remains on pressors for blood pressure maintenance. Nursing reports they have not been able to go down much. No significant stool output. Hemoglobin stable again at 10.4. No further signs of GI bleeding. Objective - Vital Signs Vital signs: Vital Signs Temp 98.0 F 07/19/24 04:00 Pulse 105 H 07/19/24 07:00 Resp 24 07/19/24 07:00 BP 72/47 07/17/24 21:30 Pulse Ox 99 07/19/24 07:00 FiO2 40 07/19/24 04:00 Intake & Output 07/18/24 07/19/24 07/19/24 18:59 06:59 18:59 Intake Total 411.657 774.372 57.924 Output Total 1100 490 30 Balance -688.343 284.372 27.924 Weight 98.4 kg 95.5 kg Intake: IV 172 380 16 0.9% NS KVO 50 220 10 Cefepime 2 gm In Sodium 50 100 Chloride 0.9% 100 ml @ 25 mls/hr IVPB Q12HR [facility] Rx #:[id number] Pressure Bags 72 60 6 Intake, IV Titration 139.657 164.372 21.924 Amount Norepinephrine 32 mg In 89.545 164.372 21.924 Sodium Chloride 0.9% 218 ml @ 0.03 MCG/KG/MIN 1. 305 mls/hr IV .Q24H [facility] Rx#:[id number] propofoL 1,000 mg In 50.112 Empty Bag 1 bag @ 15 MCG/ KG/MIN 8.352 mls/hr IV . [id number] [facility] Rx#:[id number] Tube Feeding 40 170 20 Other 60 60 Output: Urine 1100 490 30 Other: Voiding Method Indwelling Catheter Indwelling Catheter ABP, PAP, CO, CI - Last Documented Arterial Blood Pressure 99/42 - Exam General appearance: The patient is sedated and intubated. HET: Head is normocephalic and atraumatic. Neck: Supple. Heart: Irregularly irregular. Lungs: Equal expansion, mechanical ventilation. Abdomen: Soft, nondistended. Extremities: Bilateral lower extremity edema. Bilateral lower extremities with Klever wraps. Bilateral feet cool to the touch. Neurological: Sedated and intubated. - Labs CBC & Chem 7: 07/19/24 04:25 07/19/24 04:25 Labs: Abnormal Lab Results - Last 24 Hours (Table) 07/18/24 07/18/2424 Range/Units 11:56 17:11 00:04 WBC (3.8-10.6) k/uL RBC (4.30-5.90) m/uL Hgb (13.0-17.5) gm/dL Hct (39.0-53.0) % RDW (11.5-15.5) % Neutrophils # (1.3-7.7) k/uL Lymphocytes # (1.0-4.8) k/uL Monocytes # (0-1.0) k/uL ABG pH (7.35-7.45) ABG pO2 (83-108) mmHg ABG Total CO2 (19-24) mmol/L ABG O2 Saturation (94-97) % Hemoglobin (13.0-17.5) gm/dL Chloride (98-107) mmol/L Carbon Dioxide (22-30) mmol/L BUN (9-20) mg/dL Creatinine (0.66-1.25) mg/dL Glucose (74-99) mg/dL POC Glucose (mg/dL) 135 H 137 H 155 H (70-110) mg/dL Calcium (8.4-10.2) mg/dL Total Bilirubin (0.2-1.3) mg/dL AST (17-59) U/L Alkaline Phosphatase (38-126) U/L Total Protein (6.3-8.2) g/dL Albumin (3.5-5.0) g/dL 07/19/24 07/19/24 07/19/24 Range/Units 04:25 04:25 04:34 WBC 20.0 H (3.8-10.6) k/uL RBC 3.90 L (4.30-5.90) m/uL Hgb 10.4 L (13.0-17.5) gm/dL Hct 33.2 L (39.0-53.0) % RDW 18.3 H (11.5-15.5) % Neutrophils # 16.7 H (1.3-7.7) k/uL Lymphocytes # 0.9 L (1.0-4.8) k/uL Monocytes # 1.7 H (0-1.0) k/uL ABG pH 7.34 L (7.35-7.45) ABG pO2 115 H (83-108) mmHg ABG Total CO2 25 H (19-24) mmol/L ABG O2 Saturation 98.9 H (94-97) % Hemoglobin 9.9 L (13.0-17.5) gm/dL Chloride 110 H (98-107) mmol/L Carbon Dioxide 21 L (22-30) mmol/L BUN 40 H (9-20) mg/dL Creatinine 1.46 H (0.66-1.25) mg/dL Glucose 140 H (74-99) mg/dL POC Glucose (mg/dL) (70-110) mg/dL Calcium 8.2 L (8.4-10.2) mg/dL Total Bilirubin 4.0 H (0.2-1.3) mg/dL AST 68 H (17-59) U/L Alkaline Phosphatase 172 H (38-126) U/L Total Protein 5.3 L (6.3-8.2) g/dL Albumin 2.2 L (3.5-5.0) g/dL 07/19/24 Range/Units 05:36 WBC (3.8-10.6) k/uL RBC (4.30-5.90) m/uL Hgb (13.0-17.5) gm/dL Hct (39.0-53.0) % RDW (11.5-15.5) % Neutrophils # (1.3-7.7) k/uL Lymphocytes # (1.0-4.8) k/uL Monocytes # (0-1.0) k/uL ABG pH (7.35-7.45) ABG pO2 (83-108) mmHg ABG Total CO2 (19-24) mmol/L ABG O2 Saturation (94-97) % Hemoglobin (13.0-17.5) gm/dL Chloride (98-107) mmol/L Carbon Dioxide (22-30) mmol/L BUN (9-20) mg/dL Creatinine (0.66-1.25) mg/dL Glucose (74-99) mg/dL POC Glucose (mg/dL) 140 H (70-110) mg/dL Calcium (8.4-10.2) mg/dL Total Bilirubin (0.2-1.3) mg/dL AST (17-59) U/L Alkaline Phosphatase (38-126) U/L Total Protein (6.3-8.2) g/dL Albumin (3.5-5.0) g/dL Microbiology - Last 24 Hours (Table) 07/16/24 11:51 Gram Stain - Final Sputum Sputum Culture - Final 07/12/24 17:42 Blood Culture - Final Blood Assessment and Plan (1) GI bleed Narrative/Plan: 73-year-old male with multiple comorbidities admitted with acute pulmonary edema and has history of chronic atrial fibrillation but noted to be in persistent A-fib and was started on anticoagulation. Following anticoagulation patient started having multiple maroon-colored stools and black stools with an elevated BUN likely upper GI source. Patient is requiring pressors to support his blood pressure which is currently in the 90s over 60s. Recommend proceeding with upper endoscopy. Risks and benefits discussed with patient and his . Consent obtained. Patient status post upper endoscopy with finding of ulcer with bleeding vessel status post epinephrine injection and clip placement. Appears patient's hemoglobin has remained stable and he has had decreased bloody stool output. Continue medical management and ICU management. Continue to hold a nticoagulation. And monitor closely. Current Visit: Yes Status: Acute Code(s): K92.2 - GASTROINTESTINAL HEMORRHAGE, UNSPECIFIED SNOMED Code(s): 55836415 (2) Acute pulmonary edema Current Visit: Yes Status: Acute Code(s): J81.0 - ACUTE PULMONARY EDEMA SNOMED Code(s): 72329906 (3) COPD (chronic obstructive pulmonary disease) Current Visit: No Status: Acute Code(s): J44.9 - CHRONIC OBSTRUCTIVE PULMONARY DISEASE, UNSPECIFIED SNOMED Code(s): 39716245 (4) Congestive heart failure Current Visit: No Status: Acute Code(s): I50.9 - HEART FAILURE, UNSPECIFIED SNOMED Code(s): 80732313 (5) Diabetes Current Visit: No Status: Acute Code(s): E11.9 - TYPE 2 DIABETES MELLITUS WITHOUT COMPLICATIONS SNOMED Code(s): 82736841 (6) Paroxysmal a-fib Narrative/Plan: Was on anticoagulation with Xarelto, Kcentra given Current Visit: No Status: Acute Code(s): I48.0 - PAROXYSMAL ATRIAL FIBRI LLATION SNOMED Code(s): 417155472 Plan: 1. Continue symptomatic and supportive care 2. Continue to hold anticoagulation 3. Daily CBC, transfuse for hemoglobin less than 7 4. May start tube feeds 5. Protonix 40 mg IVP twice daily 6. Avoid NSAIDs 7. Continue to monitor for bleeding 8. Rest of medical management per ICU team/primary team Thank you for this consultation, we will continue to follow. Dr. Bossman Cortes I agree with the dictator's note, documented as a scribe by Wilma Awad.
[2024-07-19 17:39] LABS: Glucose,Whole Blood 175 mg/dL (70-110)
--- NOTE | 2024-07-19 18:45 | P.PN ---
Subjective Progress Note Date: 07/18/24 HISTORY OF PRESENT ILLNESS: This is a 73-year-old male used to be my patient for many years, he had left [place] and went to [place] for about 7 years he just got back about 3 months ago, and he was in my office yesterday for the first time as a new patient he is well-known to have a significant history of coronary artery disease status post coronary artery bypass graft x 3 in 2004 with ischemic cardiomyopathy status post AICD/biventricular pacemaker that was turned off by his production support analyst prior to him going to [place], hypertension hypertensive cardiovascular disease, diabetes mellitus type 2 diabetic polyneuropathy, history of obstructive sleep apnea, history of COPD, history of PAD, patient came to my office as a new patient yesterday and he was tremendous amount of shortness of breath, he was on oxygen at that time, he was having fluid weeping out his upper extremity and the left upper extremity as well as both lower extremity has wounds on his right lower extremity due to venous ulceration due to abrasion due to fall, patient was directed to go to the emergency department for evaluation of acute systolic heart failure his family to come to the ER, patient was found to have an elevated BNP, he was started on IV Lasix 80 mg IV push every 12 hours, patient became hypotensive in the emergency department, hypoxemic as well, intensive care consultation was obtained from Dr. Randall who accepted the patient to the ICU, patient will be seen in consultation by cardiology as well for further evaluation recommendation, most of his medication were held because of his hypotension, we will adjust his IV diuretics at this time untilhe is moved into the ICU and he is seen by cardiology. 07/14: Patient is sitting up in bed currently on 4 L nasal cannula, he appears to be in mild respiratory distress, he is dozing on and off, his was at the bedside, his blood pressure currently 82/42 on Levophed drip, patient was seen earlier by vascular surgery patient does have a Doppler signal on the right stronger in the left in the dorsalis pedis, and patient had a venous Doppler that was negative for DVT, patient is not a good candidate for any vascular intervention at this point in time, we will continue the patient on Xarelto as the patient refused to go on heparin drip at this time, continue current treatment plan, discussed with the the prognosis is poor but will take it 1 day at a time at this point. 07/15: Patient is laying down in bed he appears to be generally weak, his Levophed drip is higher, he did have an episode of a large episode of maroon- colored blood coming out of the rectum, he is still making decent amount of urine, he continues to be holding his own, discontinue aspirin, discontinue Xarelto completely, we will obtain general surgery consultation for standby, regarding GI bleed, we will follow-up with the patient very closely, patient re domingo in the ICU, continues to have very poor prognosis at this point in time due to his cardiomyopathy as well as other morbid conditions. 07/16: Patient is laying down in bed on his CPAP, he is currently on Levophed drip at 0.3 mics per KG per minute, his blood pressures around 102/55, heart rate is around 122 he continues to have a chronic atrial fibrillation, he had episode of V. tach's on and off, when he was started on dobutamine drip, he was taken off that, he continues to be on Levophed drip at this point in time, I spoke with Dr. Cortes regarding his GI bleed and she will be happy to see the patient for Acharya in the morning, general surgery were consulted yesterday, patient did receive 4 units of packed red blood cells, his last hemoglobin was 11 by the time I seen the patient 11.3 repeat still pending at the time of dictation, will repeat his hemoglobin again at 6:00 in the morning, we will keep the patient on nothing per mouth, continue Protonix 40 mg IV push every 12 hours, I spoke with the patient's family his and his daughter at the bedside and I told him that his prognosis is very poor at this point in time, the patient is not a good candidate for any transfer at this point in time, unless we are not able to control his bleeding, patient's family were in underst anding that his prognosis very poor at this point in time, we will continue with the current CODE STATUS, but patient stated that he is okay with intubation if he has to go for a procedure regarding his GI bleed. Patient will not be a candidate for any anticoagulation or any amiodarone due to his toxicity and GI bleed. 07/17: Patient was intubated yesterday due to his acute hypoxemic respiratory failure due to combination of acute systolic heart failure as well as acute GI bleed to protect the airways as well, patient underwent an EGD by Dr. Cortes that showed duodenal ulcer that was treated with injection as well as with clip placement, patient has not had any further GI bleed at this point in time he continues to have FMS in place, he has been on Protonix 40 mg IV push every 12 hours, he continues to be sedated on the ventilator, he continues to be on Levophed, he continues to be on vasopressin, we will try to decrease his Levophed slowly to try to keep his blood pressure around 85 to 90 mmHg, we will monitor the patient very closely had a long conversation with his that patient prognosis is very dismal at this point in time, we will continue to work with the patient at this time, discussed with cardiology as well as pulmonary/critical care the need to start the patient on IV antibiotic he was on Unasyn which was taken off we will restart the patient back on cefepime maybe 2 g IV piggyback every 12 hours, due to leukocytosis at this point in time rule out any sepsis at this point. 07/18: Patient continues to be intubated on the ventilator, they tried to wean his propofol down yesterday, his awake, he shakes his head, he opens and closes his eyes, he continues to be on significant amount of Levophed, he is currently on an FiO2 of 40%, continue current ventilatory support, he was started on cefepime, we will monitor the patient very closely, I had a long conversation with his , who is interested in trying to wean the patient off the ventilator at this point in time, I had a long conversation with her about the amount of pressures that the patient is requiring right now, we will continue to monitor the patient for the next 24 hours, all trying to do the weaning over the next 1 or 2 days. REVIEW OF SYSTEMS: Patient is sedated on the ventilator. PHYSICAL EXAMINATION: General: 73-year-old male currently sedated on the ventilator. HEENT: Head is atraumatic, normocephalic, pupils were equal round there is oral gastric tube in place as well as ET tube in place. Neck: Supple, increased JVP, normal carotid upstroke bilaterally, no lymphad enopathy. Chest: Decreased breath sounds at the bases, few rhonchi, minimal expiratory wheezes, no chest wall tenderness, minimal intercostal retractions. Heart: First heart sound is depressed, second heart sound is normal, there are systolic pressure murmur 2 over systolic in the left sternal border there is an AICD/PPM in the left upper precordium Abdomen: Soft, nontender, nondistended, positive bowel sounds, no hepatosplenomegaly Extremities: There is +2 edema in the left upper extremity, bilateral lower extremity edema, with dorsalis pedis not palpable in the right lower extremity and better in the left lower extremity, there is multiple abrasion to the right knee multiple wounds to the right lower extremity and a blister to the right foot Neurologic examination: Patient is sedated on the ventilator. ASSESSMENT AND PLAN: 1. 1. Acute vent dependent hypoxemic respiratory failure due to acute systolic heart failure in a patient with a prior history of ischemic cardiomyopathy post AICD/PPM, along with a GI bleed. 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 2. Cardiogenic shock rule out septic shock. Continue Levophed, continue vasopressin, start the patient on IV Lasix 40 mg IV push every 12 hours, start the patient on cefepime 2 g piggyback every 8 hours, monitor the patient very closely. 3. Multiple venous ulcerations and blistering of the right foot due to hypop erfusion state seen by vascular surgery, venous Doppler was obtained to rule out any DVT, patient is not a candidate for anticoagulation and he is not a candidate for any vascular intervention at this point, we will continue to monitor the patient very closely. 4. Upper gastrointestinal bleed due to duodenal ulcer bleed status post EGD with intervention that was done by Dr. Cortes continue. Protonix 40 mg IV push every 12 hours. 5. Persistent atrial fibrillation. Patient is not a candidate for anticoagulation at this point in time, he never tolerated anticoagulation he has been in chronic atrial fibrillation has episodes of ventricular tachycardia as well he was started on mexiletine per cardiology, he will be started on Lasix 40 mg IV push every 12 hours as well. Will try to wean the patient down on his Levophed drip. 6. Right lower extremity multiple wound rule out cellulitis likely related to venous ulceration with delayed healing. Continue patient on cefepime 2 g piggyback every 12 hours was on Unasyn at the beginning when he first came in. 7. Severe hyponatremia due to hypervolemia. Has been stable. 8. Mild hyperkalemia. Resolved. 9. Diabetes mellitus type 2. His blood glucose level appears to be good at this time, patient is not take any medication as an outpatient. Continue sliding scale insulin. 10. Obesity with obstructive sleep apnea. Patient currently on the ventilator. 11. Allergic rhinitis. Currently patient on loratadine 10 mg orally once every day. 12. Recent cataract surgery continue with current eyedrops. 13. DVT prophylaxis. None provided at this time. 14. GI prophylaxis. Continue patient on Protonix 40 mg IV push every 12 hours 15. No code 15. Prognosis is dismal. Objective - Vital Signs Vital signs: Vital Signs Temp 98.2 F 07/18/24 12:00 Pulse 108 H 07/18/24 16:11 Resp 27 H 07/18/24 15:00 BP 72/47 07/17/24 21:30 Pulse Ox 99 07/18/24 15:00 FiO2 40 07/18/24 16:03 Intake & Output 07/17/24 07/18/24 07/18/24 18:59 06:59 18:59 Intake Total 694.764 699.404 363.657 Output Total 605 1290 965 Balance 89.764 -590.596 -601.343 Weight 96.2 kg 98.4 kg 98.4 kg Intake: IV 312 288 154 0.9% NS KVO 240 110 50 Cefepime 2 gm In Sodium 100 50 Chloride 0.9% 100 ml @ 25 mls/hr IVPB Q12HR [facility] Rx #:[id number] Pressure Bags 72 78 54 Intake, IV Titration 382.764 381.404 139.657 Amount Norepinephrine 32 mg In 206.162 164.487 89.545 Sodium Chloride 0.9% 218 ml @ 0.03 MCG/KG/MIN 1. 305 mls/hr IV .Q24H [facility] Rx#:[id number] Vasopressin 60 unit In 76.602 31.773 Sodium Chloride 0.9% 150 ml @ 0.03 UNITS/MIN 4.59 mls/hr IV .Q24H [facility] Rx#: [id number] propofoL 1,000 mg In 100.000 185.144 50.112 Empty Bag 1 bag @ 15 MCG/ KG/MIN 8.352 mls/hr IV . [id number] [facility] Rx#:[id number] Tube Feeding 10 Other 30 60 Output: Urine 605 990 965 Stool 300 Other: Voiding Method Indwelling Catheter Indwelling Catheter Indwelling Catheter ABP, PAP, CO, CI - Last Documented Arterial Blood Pressure 89/39 - Labs CBC & Chem 7: 07/19/24 04:25 07/19/24 04:25 Labs: Abnormal Lab Results - Last 24 Hours (Table) 07/17/24 07/17/24 07/17/24 Range/Units 16:30 17:13 23:42 WBC 16.9 H (3.8-10.6) k/uL RBC 3.83 L (4.30-5.90) m/uL Hgb 10.2 L (13.0-17.5) gm/dL Hct 32.2 L (39.0-53.0) % RDW 16.9 H (11.5-15.5) % Neutrophils # (1.3-7.7) k/uL Lymphocytes # (1.0-4.8) k/uL Monocytes # (0-1.0) k/uL ABG pO2 (83-108) mmHg ABG Total CO2 (19-24) mmol/L ABG O2 Saturation (94-97) % Hemoglobin (13.0-17.5) gm/dL Sodium (137-145) mmol/L Chloride (98-107) mmol/L Carbon Dioxide (22-30) mmol/L BUN (9-20) mg/dL Glucose (74-99) mg/dL POC Glucose (mg/dL) 154 H 143 H (70-110) mg/dL Calcium (8.4-10.2) mg/dL Total Bilirubin (0.2-1.3) mg/dL Alkaline Phosphatase (38-126) U/L Total Protein (6.3-8.2) g/dL Albumin (3.5-5.0) g/dL 07/18/24 07/18/24 07/18/24 Range/Units 04:35 04:35 04:36 WBC 18.5 H (3.8-10.6) k/uL RBC 3.84 L (4.30-5.90) m/uL Hgb 10.3 L (13.0-17.5) gm/dL Hct 32.3 L (39.0-53.0) % RDW 17.4 H (11.5-15.5) % Neutrophils # 15.8 H (1.3-7.7) k/uL Lymphocytes # 0.8 L (1.0-4.8) k/uL Monocytes # 1.4 H (0-1.0) k/uL ABG pO2 (83-108) mmHg ABG Total CO2 (19-24) mmol/L ABG O2 Saturation (94-97) % Hemoglobin (13.0-17.5) gm/dL Sodium 133 L (137-145) mmol/L Chloride 108 H (98-107) mmol/L Carbon Dioxide 21 L (22-30) mmol/L BUN 36 H (9-20) mg/dL Glucose 152 H (74-99) mg/dL POC Glucose (mg/dL) 169 H (70-110) mg/dL Calcium 8.2 L (8.4-10.2) mg/dL Total Bilirubin 2.7 H (0.2-1.3) mg/dL Alkaline Phosphatase 174 H (38-126) U/L Total Protein 4.9 L (6.3-8.2) g/dL Albumin 2.1 L (3.5-5.0) g/dL 07/18/24 07/18/24 Range/Units 05:54 11:56 WBC (3.8-10.6) k/uL RBC (4.30-5.90) m/uL Hgb (13.0-17.5) gm/dL Hct (39.0-53.0) % RDW (11.5-15.5) % Neutrophils # (1.3-7.7) k/uL Lymphocytes # (1.0-4.8) k/uL Monocytes # (0-1.0) k/uL ABG pO2 121 H (83-108) mmHg ABG Total CO2 25 H (19-24) mmol/L ABG O2 Saturation 99.3 H (94-97) % Hemoglobin 9.8 L (13.0-17.5) gm/dL Sodium (137-145) mmol/L Chloride (98-107) mmol/L Carbon Dioxide (22-30) mmol/L BUN (9-20) mg/dL Glucose (74-99) mg/dL POC Glucose (mg/dL) 135 H (70-110) mg/dL Calcium (8.4-10.2) mg/dL Total Bilirubin (0.2-1.3) mg/dL Alkaline Phosphatase (38-126) U/L Total Protein (6.3-8.2) g/dL Albumin (3.5-5.0) g/dL Microbiology - Last 24 Hours (Table) 07/16/24 11:51 Gram Stain - Final Sputum Sputum Culture - Final 07/12/24 17:42 Blood Culture - Final Blood
--- NOTE | 2024-07-19 21:30 | P.PN ---
Subjective Progress Note Date: 07/19/24 Patient seen and examined at bedside. Vented and sedated with pressors in place. Hemoglobin stable. Objective - Vital Signs Vital signs: Vital Signs Temp 98.3 F 07/19/24 20:00 Pulse 110 H 07/19/24 21:00 Resp 21 07/19/24 21:00 BP 72/47 07/17/24 21:30 Pulse Ox 97 07/19/24 21:00 FiO2 40 07/19/24 20:03 Intake & Output 07/19/24 07/19/24 07/20/24 06:59 18:59 06:59 Intake Total 193.517 2973.527 248 Output Total 490 680 105 Balance 524.933 2812.527 143 Weight 95.5 kg 95.5 kg Intake: IV 380 192 138 0.9% NS KVO 220 20 20 Cefepime 2 gm In Sodium 100 100 100 Chloride 0.9% 100 ml @ 25 mls/hr IVPB Q12HR [facility] Rx #:[id number] Pressure Bags 60 72 18 Intake, IV Titration 005.103 8356.527 Amount Norepinephrine 32 mg In 164.372 111.527 Sodium Chloride 0.9% 218 ml @ 0.03 MCG/KG/MIN 1. 305 mls/hr IV .Q24H [facility] Rx#:[id number] Sodium Chloride 0.9% 500 500 ml 500 ml @ 999 mls/hr IV .Q31M [facility] Rx#:[id number] Vancomycin 1,500 mg In 500 Sodium Chloride 0.9% 500 ml 500 ml @ 167 mls/hr IVPB Q24H [facility] Rx#: [id number] Vasopressin 60 unit In 153 Sodium Chloride 0.9% 150 ml @ 0.03 UNITS/MIN 4.59 mls/hr IV .Q24H [facility] Rx#: [id number] Tube Feeding 170 380 80 Other 60 130 30 Output: Urine 490 680 105 Other: Voiding Method Indwelling Catheter Indwelling Catheter Indwelling Catheter ABP, PAP, CO, CI - Last Documented Arterial Blood Pressure 90/39 - Constitutional General appearance: Present: no acute distress - Gastrointestinal Gastrointestinal Comment(s): Soft, nontender, nondistended, no rebound, no guarding - Labs CBC & Chem 7: 07/19/24 04:25 07/19/24 04:25 Labs: Abnormal Lab Results - Last 24 Hours (Table) 07/19/24 07/19/24 07/19/24 Range/Units 00:04 04:25 04:25 WBC 20.0 H (3.8-10.6) k/uL RBC 3.90 L (4.30-5.90) m/uL Hgb 10.4 L (13.0-17.5) gm/dL Hct 33.2 L (39.0-53.0) % RDW 18.3 H (11.5-15.5) % Neutrophils # 16.7 H (1.3-7.7) k/uL Lymphocytes # 0.9 L (1.0-4.8) k/uL Monocytes # 1.7 H (0-1.0) k/uL ABG pH (7.35-7.45) ABG pO2 (83-108) mmHg ABG Total CO2 (19-24) mmol/L ABG O2 Saturation (94-97) % Hemoglobin (13.0-17.5) gm/dL Chloride 110 H (98-107) mmol/L Carbon Dioxide 21 L (22-30) mmol/L BUN 40 H (9-20) mg/dL Creatinine 1.46 H (0.66-1.25) mg/dL Glucose 140 H (74-99) mg/dL POC Glucose (mg/dL) 155 H (70-110) mg/dL Calcium 8.2 L (8.4-10.2) mg/dL Total Bilirubin 4.0 H (0.2-1.3) mg/dL AST 68 H (17-59) U/L Alkaline Phosphatase 172 H (38-126) U/L Creatine Kinase (55-170) U/L Total Protein 5.3 L (6.3-8.2) g/dL Albumin 2.2 L (3.5-5.0) g/dL 07/19/24 07/19/24 07/19/24 Range/Units 04:25 04:34 05:36 WBC (3.8-10.6) k/uL RBC (4.30-5.90) m/uL Hgb (13.0-17.5) gm/dL Hct (39.0-53.0) % RDW (11.5-15.5) % Neutrophils # (1.3-7.7) k/uL Lymphocytes # (1.0-4.8) k/uL Monocytes # (0-1.0) k/uL ABG pH 7.34 L (7.35-7.45) ABG pO2 115 H (83-108) mmHg ABG Total CO2 25 H (19-24) mmol/L ABG O2 Saturation 98.9 H (94-97) % Hemoglobin 9.9 L (13.0-17.5) gm/dL Chloride (98-107) mmol/L Carbon Dioxide (22-30) mmol/L BUN (9-20) mg/dL Creatinine (0.66-1.25) mg/dL Glucose (74-99) mg/dL POC Glucose (mg/dL) 140 H (70-110) mg/dL Calcium (8.4-10.2) mg/dL Total Bilirubin (0.2-1.3) mg/dL AST (17-59) U/L Alkaline Phosphatase (38-126) U/L Creatine Kinase 728 H (55-170) U/L Total Protein (6.3-8.2) g/dL Albumin (3.5-5.0) g/dL 07/19/24 07/19/24 Range/Units 11:51 17:37 WBC (3.8-10.6) k/uL RBC (4.30-5.90) m/uL Hgb (13.0-17.5) gm/dL Hct (39.0-53.0) % RDW (11.5-15.5) % Neutrophils # (1.3-7.7) k/uL Lymphocytes # (1.0-4.8) k/uL Monocytes # (0-1.0) k/uL ABG pH (7.35-7.45) ABG pO2 (83-108) mmHg ABG Total CO2 (19-24) mmol/L ABG O2 Saturation (94-97) % Hemoglobin (13.0-17.5) gm/dL Chloride (98-107) mmol/L Carbon Dioxide (22-30) mmol/L BUN (9-20) mg/dL Creatinine (0.66-1.25) mg/dL Glucose (74-99) mg/dL POC Glucose (mg/dL) 162 H 175 H (70-110) mg/dL Calcium (8.4-10.2) mg/dL Total Bilirubin (0.2-1.3) mg/dL AST (17-59) U/L Alkaline Phosphatase (38-126) U/L Creatine Kinase (55-170) U/L Total Protein (6.3-8.2) g/dL Albumin (3.5-5.0) g/dL Assessment and Plan Plan: 73-year-old male with bleeding duodenal ulcer. He is status post upper endoscopy with clip and injection. Hemoglobin appears to be stable. No active GI bleed noted. Continue with GI recommendations.
[2024-07-19 23:52] LABS: Glucose,Whole Blood 197 mg/dL (70-110)
[2024-07-20 04:53] LABS: ABG Base Excess -2.1 mmol/L; ABG HCO3 23 mmol/L (21-25); ABG PCO2 42 mmHg (35-45); ABG PH 7.36 (7.35-7.45); ABG PO2 93 mmHg (83-108); ABG TCO2 25 mmol/L (19-24)
[2024-07-20 05:39] LABS: Allen Test Performed? no
[2024-07-20 05:55] LABS: Anisocytosis Slight; HCT 30.3 % (39.0-53.0); HGB 9.4 gm/dL (13.0-17.5); Hypochromasia Marked; MCH 26.8 pg (25.0-35.0); MCHC 30.9 g/dL (31.0-37.0); MCV 86.8 fL (80.0-100.0); Mean Platelet Volume 9.5; Platelet Count 243 k/uL (150-450); Poikilocytosis Slight; RBC 3.49 m/uL (4.30-5.90); RDW 18.8 % (11.5-15.5); WBC 21.6 k/uL (3.8-10.6)
[2024-07-20 06:02] LABS: African American GFR (CKD) 53 (>60 ml/min/1.73 sqM); Anion Gap 2 mmol/L; Blood Urea Nitrogen 46 mg/dL (9-20); Calcium 7.9 mg/dL (8.4-10.2); Carbon Dioxide 22 mmol/L (22-30); Chloride 113 mmol/L (98-107); Glucose 188 mg/dL (74-99); Non-African American GFR(CKD) 46 (>60 ml/min/1.73 sqM); Potassium 4.4 mmol/L (3.5-5.1); Sodium 137 mmol/L (137-145)
--- NOTE | 2024-07-20 08:40 | P.PN ---
Subjective Progress Note Date: 07/20/24 Principal diagnosis: GI bleed This a pleasant 73-year-old male with multiple comorbidities including coronary artery disease status post CABG, congestive heart failure previous GI bleed, atrial fibrillation with an EF of 15-20% who was admitted for hyperkalemia, hyponatremia and acute pulmonary edema. Patient was also in atrial fibrillation started on Xarelto. Following Xarelto yesterday he started having GI bleed with multiple episodes of dark and maroon-colored stool. Patient became hypotensive he has been started on Levophed and vasopressin. This morning he was given Kcentra about 30 minutes ago and continues to have dark maroon stools with clots. Levophed is at 0.3 to micrograms and vasopressin 0.03. Blood pressures are running in the 90s over 60s. He is status post 4 units of PRBC transfusion. Hemoglobin stable at 11.3 BUN elevated at 45. He denies any abdominal pain, nausea or vomiting. is at the bedside and states he had a previous upper GI bleed about 8 years ago when he was at [facility] post extubation. Last colonoscopy about 15 years ago. 07/17/2024 Patient seen and examined today as a follow-up. He remains in the ICU and is currently sedated and intubated. Remains on max doses of pressors. Yesterday he underwent upper endoscopy with finding of duodenal ulcer with vessel with clot attached. No active bleeding at the time of endoscopy. Status post epinephrine and clip placement. Dark stool output only about 50 cc overnight. Hemoglobin stable at 10.5 platelet count 313,000 BUN 36 creatinine 0.9 total bilirubin 2.0 AST 35 ALT 31 alkaline phosphatase 190 07/18/2024 Patient seen and examined today as a follow-up. He remains in the ICU sedated and intubated. They are weaning his pressors, as well as propofol. thinks that his right lower extremity looks a little bit better. Is currently wrapped with an Klever wrap bilateral lower extremities. Toes are pink. Hemoglobin stable at 10.5. He had 300 cc output from his fecal management system since yesterday it is black. 07/19/2024 Patient seen and examined today as a follow-up. He remains in the ICU sedated and intubated. Remains on pressors for blood pressure maintenance. Nursing reports they have not been able to go down much. No significant stool output. Hemoglobin stable again at 10.4. No further signs of GI bleeding. 07/20/2024 Patient seen and examined today as a follow-up. He remains in the ICU intubated on pressors. Patient has been weaned from sedation however still requiring pressor support to maintain blood pressures. Nursing states that they tried to decrease however his pressures dropped. Patient still has fecal management system in place with 300 cc of black output. Hemoglobin had slight drop to 9.4 from 10.4 yesterday. Objective - Vital Signs Vital signs: Vital Signs Temp 98.4 F 07/20/24 04:00 Pulse 114 H 07/20/24 06:00 Resp 27 H 07/20/24 06:00 BP 72/47 07/17/24 21:30 Pulse Ox 98 07/20/24 06:00 FiO2 40 07/20/24 04:00 Intake & Output 07/19/24 07/20/24 07/20/24 18:59 06:59 18:59 Intake Total 1966.527 912 66 Output Total 680 440 30 Balance 1286.527 472 36 Weight 95.5 kg 96 kg Intake: IV 192 282 16 0.9% NS KVO 20 110 10 Cefepime 2 gm In Sodium 100 100 Chloride 0.9% 100 ml @ 25 mls/hr IVPB Q12HR [facility] Rx #:[id number] Pressure Bags 72 72 6 Intake, IV Titration 1264.527 Amount Norepinephrine 32 mg In 111.527 Sodium Chloride 0.9% 218 ml @ 0.03 MCG/KG/MIN 1. 305 mls/hr IV .Q24H [facility] Rx#:[id number] Sodium Chloride 0.9% 500 500 ml 500 ml @ 999 mls/hr IV .Q31M ONE Rx#:[id number] Vancomycin 1,500 mg In 500 Sodium Chloride 0.9% 500 ml 500 ml @ 167 mls/hr IVPB Q24H [facility] Rx#: [id number] Vasopressin 60 unit In 153 Sodium Chloride 0.9% 150 ml @ 0.03 UNITS/MIN 4.59 mls/hr IV .Q24H [facility] Rx#: [id number] Tube Feeding 380 540 50 Other 130 90 Output: Urine 680 440 30 Other: Voiding Method Indwelling Catheter Indwelling Catheter ABP, PAP, CO, CI - Last Documented Arterial Blood Pressure 102/43 - Exam General appearance: The patient is sedated and intubated. HET: Head is normocephalic and atraumatic. Neck: Supple. Heart: Irregularly irregular. Lungs: Equal expansion, mechanical ventilation. Abdomen: Soft, nondistended. Extremities: Bilateral lower extremity edema. Bilateral lower extremities with Klever wraps. Bilateral feet cool to the touch, mottled with nonpalpable pulses. Neurological: Sedated and intubated. - Labs CBC & Chem 7: 07/20/24 05:42 07/20/24 05:42 Labs: Abnormal Lab Results - Last 24 Hours (Table) 07/19/24 07/19/24 07/19/24 Range/Units 04:25 11:51 17:37 WBC (3.8-10.6) k/uL RBC (4.30-5.90) m/uL Hgb (13.0-17.5) gm/dL Hct (39.0-53.0) % MCHC (31.0-37.0) g/dL RDW (11.5-15.5) % ABG Total CO2 (19-24) mmol/L ABG O2 Saturation (94-97) % Hemoglobin (13.0-17.5) gm/dL Chloride (98-107) mmol/L BUN (9-20) mg/dL Creatinine (0.66-1.25) mg/dL Glucose (74-99) mg/dL POC Glucose (mg/dL) 162 H 175 H (70-110) mg/dL Calcium (8.4-10.2) mg/dL Creatine Kinase 728 H (55-170) U/L 07/19/24 07/20/24 07/20/24 Range/Units 23:50 04:50 05:42 WBC 21.6 H (3.8-10.6) k/uL RBC 3.49 L (4.30-5.90) m/uL Hgb 9.4 L (13.0-17.5) gm/dL Hct 30.3 L (39.0-53.0) % MCHC 30.9 L (31.0-37.0) g/dL RDW 18.8 H (11.5-15.5) % ABG Total CO2 25 H (19-24) mmol/L ABG O2 Saturation 98.0 H (94-97) % Hemoglobin 9.4 L (13.0-17.5) gm/dL Chloride (98-107) mmol/L BUN (9-20) mg/dL Creatinine (0.66-1.25) mg/dL Glucose (74-99) mg/dL POC Glucose (mg/dL) 197 H (70-110) mg/dL Calcium (8.4-10.2) mg/dL Creatine Kinase (55-170) U/L 07/20/24 Range/Units 05:42 WBC (3.8-10.6) k/uL RBC (4.30-5.90) m/uL Hgb (13.0-17.5) gm/dL Hct (39.0-53.0) % MCHC (31.0-37.0) g/dL RDW (11.5-15.5) % ABG Total CO2 (19-24) mmol/L ABG O2 Saturation (94-97) % Hemoglobin (13.0-17.5) gm/dL Chloride 113 H (98-107) mmol/L BUN 46 H (9-20) mg/dL Creatinine 1.50 H (0.66-1.25) mg/dL Glucose 188 H (74-99) mg/dL POC Glucose (mg/dL) (70-110) mg/dL Calcium 7.9 L (8.4-10.2) mg/dL Creatine Kinase (55-170) U/L Assessment and Plan (1) GI bleed Narrative/Plan: 73-year-old male with multiple comorbidities admitted with acute pulmonary edema and has history of chronic atrial fibrillation but noted to be in persistent A- fib and was started on anticoagulation. Following anticoagulation patient started having multiple maroon-colored stools and black stools with an elevated BUN likely upper GI source. Patient is requiring pressors to support his blood pressure which is currently in the 90s over 60s. Recommend proceeding with upper endoscopy. Risks and benefits discussed with patient and his . Consent obtained. Patient status post upper endoscopy with finding of ulcer with bleeding vessel status post epinephrine injection and clip placement. Appears patient's hemoglobin has remained stable and he has had decreased bloody stool output. Continue medical management and ICU management. Continue to hold anticoagulation. Continue to monitor for active GI bleed. Current Visit: Yes Status: Acute Code(s): K92.2 - GASTROINTESTINAL HEMORRHAGE, UNSPECIFIED SNOMED Code(s): 50899739 (2) Acute pulmonary edema Current Visit: Yes Status: Acute Code(s): J81.0 - ACUTE PULMONARY EDEMA SNOMED Code(s): 71296436 (3) COPD (chronic obstructive pulmonary disease) Current Visit: No Status: Acute Code(s): J44.9 - CHRONIC OBSTRUCTIVE PULMO NARY DISEASE, UNSPECIFIED SNOMED Code(s): 63542642 (4) Congestive heart failure Current Visit: No Status: Acute Code(s): I50.9 - HEART FAILURE, UNSPECIFIED SNOMED Code(s): 87943789 (5) Diabetes Current Visit: No Status: Acute Code(s): E11.9 - TYPE 2 DIABETES MELLITUS WITHOUT COMPLICATIONS SNOMED Code(s): 94259558 (6) Paroxysmal a-fib Narrative/Plan: Was on anticoagulation with Xarelto, Kcentra given Current Visit: No Status: Acute Code(s): I48.0 - PAROXYSMAL ATRIAL FIBRILLATION SNOMED Code(s): 746751932 Plan: 1. Continue symptomatic and supportive care 2. Continue to hold anticoagulation 3. Daily CBC, transfuse for hemoglobin less than 7 4. Continue tube feeds as tolerated 5. Protonix 40 mg IVP twice daily 6. Avoid NSAIDs 7. Continue to monitor for bleeding 8. Rest of medical management per ICU team/primary team Thank you for allowing us to participate in the care of the patient, the GI service will sign off, gastroenterology will not be available at the hospital this weekend and through next week. If further evaluation by gastroenterology is required the patient will need transfer as per the primary team's discretion. Dr. Bossman Cortes I agree with the dictator's note, documented as a scribe by Wilma Awad.
--- NOTE | 2024-07-20 08:43 | P.PN ---
Subjective Progress Note Date: 07/20/24 Principal diagnosis: Nonpalpable lower extremity pulses Patient is seen and examined today as a follow-up. No acute changes through the night. Patient remains on pressors despite attempts to try to wean him. Lower extremities remain mottled and cold without palpable pulses. Objective - Vital Signs Vital signs: Vital Signs Temp 98.4 F 07/20/24 04:00 Pulse 114 H 07/20/24 06:00 Resp 27 H 07/20/24 06:00 BP 72/47 07/17/24 21:30 Pulse Ox 98 07/20/24 06:00 FiO2 40 07/20/24 04:00 Intake & Output 07/19/24 07/20/24 07/20/24 18:59 06:59 18:59 Intake Total 1966.527 912 66 Output Total 680 440 30 Balance 1286.527 472 36 Weight 95.5 kg 96 kg Intake: IV 192 282 16 0.9% NS KVO 20 110 10 Cefepime 2 gm In Sodium 100 100 Chloride 0.9% 100 ml @ 25 mls/hr IVPB Q12HR [facility] Rx #:[id number] Pressure Bags 72 72 6 Intake, IV Titration 1264.527 Amount Norepinephrine 32 mg In 111.527 Sodium Chloride 0.9% 218 ml @ 0.03 MCG/KG/MIN 1. 305 mls/hr IV .Q24H [facility] Rx#:[id number] Sodium Chloride 0.9% 500 500 ml 500 ml @ 999 mls/hr IV .Q31M [facility] Rx#:[id number] Vancomycin 1,500 mg In 500 Sodium Chloride 0.9% 500 ml 500 ml @ 167 mls/hr IVPB Q[facility]H [facility] Rx#: [id number] Vasopressin 60 unit In 153 Sodium Chloride 0.9% 150 ml @ 0.03 UNITS/MIN 4.59 mls/hr IV .Q24H [facility] Rx#: [id number] Tube Feeding 380 540 50 Other 130 90 Output: Urine 680 440 30 Other: Voiding Method Indwelling Catheter Indwelling Catheter ABP, PAP, CO, CI - Last Documented Arterial Blood Pressure 102/43 - Exam General appearance: The patient is sedated and intubated. HET: Head is normocephalic and atraumatic. Neck: Supple. Heart: Irregularly irregular. Lungs: Equal expansion, mechanical ventilation. Abdomen: Soft, nondistended. Extremities: Bilateral lower extremity edema. Bilateral lower extremities with Klever wraps. Bilateral feet cool to the touch, mottled with nonpalpable pulses. Neurological: Sedated and intubated. - Labs CBC & Chem 7: 07/20/24 05:42 07/20/24 05:42 Labs: Abnormal Lab Results - Last 24 Hours (Table) 07/19/24 07/19/24 07/19/24 Range/Units 04:25 11:51 17:37 WBC (3.8-10.6) k/uL RBC (4.30-5.90) m/uL Hgb (13.0-17.5) gm/dL Hct (39.0-53.0) % MCHC (31.0-37.0) g/dL RDW (11.5-15.5) % ABG Total CO2 (19-24) mmol/L ABG O2 Saturation (94-97) % Hemoglobin (13.0-17.5) gm/dL Chloride (98-107) mmol/L BUN (9-20) mg/dL Creatinine (0.66-1.25) mg/dL Glucose (74-99) mg/dL POC Glucose (mg/dL) 162 H 175 H (70-110) mg/dL Calcium (8.4-10.2) mg/dL Creatine Kinase 728 H (55-170) U/L 07/19/24 07/20/24 07/20/24 Range/Units 23:50 04:50 05:42 WBC 21.6 H (3.8-10.6) k/uL RBC 3.49 L (4.30-5.90) m/uL Hgb 9.4 L (13.0-17.5) gm/dL Hct 30.3 L (39.0-53.0) % MCHC 30.9 L (31.0-37.0) g/dL RDW 18.8 H (11.5-15.5) % ABG Total CO2 25 H (19-24) mmol/L ABG O2 Saturation 98.0 H (94-97) % Hemoglobin 9.4 L (13.0-17.5) gm/dL Chloride (98-107) mmol/L BUN (9-20) mg/dL Creatinine (0.66-1.25) mg/dL Glucose (74-99) mg/dL POC Glucose (mg/dL) 197 H (70-110) mg/dL Calcium (8.4-10.2) mg/dL Creatine Kinase (55-170) U/L 07/20/24 Range/Units 05:42 WBC (3.8-10.6) k/uL RBC (4.30-5.90) m/uL Hgb (13.0-17.5) gm/dL Hct (39.0-53.0) % MCHC (31.0-37.0) g/dL RDW (11.5-15.5) % ABG Total CO2 (19-24) mmol/L ABG O2 Saturation (94-97) % Hemoglobin (13.0-17.5) gm/dL Chloride 113 H (98-107) mmol/L BUN 46 H (9-20) mg/dL Creatinine 1.50 H (0.66-1.25) mg/dL Glucose 188 H (74-99) mg/dL POC Glucose (mg/dL) (70-110) mg/dL Calcium 7.9 L (8.4-10.2) mg/dL Creatine Kinase (55-170) U/L Assessment and Plan Assessment: Right lower extremity wounds Diminished pulses with lower extremity vascular changes, right greater than left secondary to hypotension requiring pressor support and likely component of chronic PAD Hypotension requiring pressor support Acute hypoxemic respiratory failure Diabetes History of tobacco abuse Atrial fibrillation Plan: 1. Continue to decrease pressor support when able 2. Continue to monitor lower extremities for reperfusion versus demarcation 3. Discussion had with patient's that patient may require amputation of right lower extremity at some point however no plans for vascular surgical inter vention at this time patient is not medically stable. 4. Continue with ICU recommendations Thank you for this consultation, we will continue to follow. The impression and plan of care has been dictated as directed. Dr. Oliveira I performed a history and examination of this patient, discussed the same with the dictator. I agree with the dictator's note ,documented as a scribe. Any additional findings or plans will be noted.
--- NOTE | 2024-07-20 09:03 | XR ---
EXAMINATION TYPE: XR chest 1V portable DATE OF EXAM: 07/20/2024 8:46 AM COMPARISON: 07/19/2024 CLINICAL INDICATION: Male, 73 years old with history of follow up, TECHNIQUE: XR chest 1V portable view(s) obtained. FINDINGS: The heart size is large. The pulmonary vasculature is prominent. Mild diffuse infiltrates bilateral lung bases. Small left pleural effusion is present. Correlate for congestive failure Endotracheal tube tip is 3.5 cm above mark. Nasogastric tube transverses thorax. Pacemaker overlies left chest. Left central venous catheter tip in proximal right atrium IMPRESSION: 1. Clinical correlation for congestive heart failure. 2. Lines and catheters discussed above. [facility], , 07/20/2024 9:01 AM
[2024-07-20] MEDS: DIGOXIN 250 MCG/ML 2 ML AMP IVP ONE (11:17)
[2024-07-20] MEDS: FUROSEMIDE 10 MG/ML 4 ML VIAL IV SCH (11:17)
[2024-07-20 11:52] LABS: Glucose,Whole Blood 160 mg/dL (70-110)
--- NOTE | 2024-07-20 11:59 | P.PN ---
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 consultant prior to him going to [place], hypertension hypertensive cardiovascular disease, diabetes mellitus type 2 diabetic polyneuropathy, history of obstructive sleep apnea, history of COPD, history of PAD, patient came to my office as a new patient yesterday and he was tremendous amount of shortness of breath, he was on oxygen at that time, he was having fluid weeping out his upper extremity and the left upper extremity as well as both lower extremity has wounds on his right lower extremity due to venous ulceration due to abrasion due to fall, patient was directed to go to the emergency department for evaluation of acute systolic heart failure his family to come to the ER, patient was found to have an elevated BNP, he was started on IV Lasix 80 mg IV push every 12 hours, patient became hypotensive in the emergency department, hypoxemic as well, intensive care consultation was obtained from Dr. Randall who accepted the patient to the ICU, patient will be seen in consultation by cardiology as well for further evaluation recommendation, most of his medication were held because of his hypotension, we will adjust his IV diuretics at this time untilhe is moved into the ICU and he is seen by cardiology. 07/14: Patient is sitting up in bed currently on 4 L nasal cannula, he appears to be in mild respiratory distress, he is dozing on and off, his was at the bedside, his blood pressure currently 82/42 on Levophed drip, patient was seen earlier by vascular surgery patient does have a Doppler signal on the right stronger in the left in the dorsalis pedis, and patient had a venous Doppler that was negative for DVT, patient is not a good candidate for any vascular intervention at this point in time, we will continue the patient on Xarelto as the patient refused to go on heparin drip at this time, continue current treatment plan, discussed with the the prognosis is poor but will take it 1 day at a time at this point. 07/15: Patient is laying down in bed he appears to be generally weak, his Levophed drip is higher, he did have an episode of a large episode of maroon- colored blood coming out of the rectum, he is still making decent amount of urine, he continues to be holding his own, discontinue aspirin, discontinue Xarelto completely, we will obtain general surgery consultation for standby, regarding GI bleed, we will follow-up with the patient very closely, patient re domingo in the ICU, continues to have very poor prognosis at this point in time due to his cardiomyopathy as well as other morbid conditions. 07/16: Patient is laying down in bed on his CPAP, he is currently on Levophed drip at 0.3 mics per KG per minute, his blood pressures around 102/55, heart rate is around 122 he continues to have a chronic atrial fibrillation, he had episode of V. tach's on and off, when he was started on dobutamine drip, he was taken off that, he continues to be on Levophed drip at this point in time, I spoke with Dr. Cortes regarding his GI bleed and she will be happy to see the patient for Acharya in the morning, general surgery were consulted yesterday, patient did receive 4 units of packed red blood cells, his last hemoglobin was 11 by the time I seen the patient 11.3 repeat still pending at the time of dictation, will repeat his hemoglobin again at 6:00 in the morning, we will keep the patient on nothing per mouth, continue Protonix 40 mg IV push every 12 hours, I spoke with the patient's family his and his daughter at the bedside and I told him that his prognosis is very poor at this point in time, the patient is not a good candidate for any transfer at this point in time, unless we are not able to control his bleeding, patient's family were in underst anding that his prognosis very poor at this point in time, we will continue with the current CODE STATUS, but patient stated that he is okay with intubation if he has to go for a procedure regarding his GI bleed. Patient will not be a candidate for any anticoagulation or any amiodarone due to his toxicity and GI bleed. 07/17: Patient was intubated yesterday due to his acute hypoxemic respiratory failure due to combination of acute systolic heart failure as well as acute GI bleed to protect the airways as well, patient underwent an EGD by Dr. Cortes that showed duodenal ulcer that was treated with injection as well as with clip placement, patient has not had any further GI bleed at this point in time he continues to have FMS in place, he has been on Protonix 40 mg IV push every 12 hours, he continues to be sedated on the ventilator, he continues to be on Levophed, he continues to be on vasopressin, we will try to decrease his Levophed slowly to try to keep his blood pressure around 85 to 90 mmHg, we will monitor the patient very closely had a long conversation with his that patient prognosis is very dismal at this point in time, we will continue to work with the patient at this time, discussed with cardiology as well as pulmonary/critical care the need to start the patient on IV antibiotic he was on Unasyn which was taken off we will restart the patient back on cefepime maybe 2 g IV piggyback every 12 hours, due to leukocytosis at this point in time rule out any sepsis at this point. 07/18: Patient continues to be intubated on the ventilator, they tried to wean his propofol down yesterday, his awake, he shakes his head, he opens and closes his eyes, he continues to be on significant amount of Levophed, he is currently on an FiO2 of 40%, continue current ventilatory support, he was started on cefepime, we will monitor the patient very closely, I had a long conversation with his , who is interested in trying to wean the patient off the ventilator at this point in time, I had a long conversation with her about the amount of pressures that the patient is requiring right now, we will continue to monitor the patient for the next 24 hours, all trying to do the weaning over the next 1 or 2 days. 07/19: Patient remains on the ventilator currently on FiO2 of 40%, and PEEP of 5, his Levophed is down to 0.22 mics per kilogram per minute, he is currently on vasopressin at 0.05 mics per minute, will continue to follow-up with the patient very closely, the patient's was at the bedside, she was interested to try to wean the patient off into the BiPAP machine since her son is coming out from [place] later on this evening, hopefully will try that tomorrow morning and patient is aware that the prognosis is very guarded at this point in time, and he may not even make it off the ventilator but we will continue to monitor will discuss with cardiology as well as pulmonary and critical care. REVIEW OF SYSTEMS: Patient is sedated on the ventilator. PHYSICAL EXAMINATION: General: 73-year-old male currently sedated on the ventilator. HEENT: Head is atraumatic, normocephalic, pupils were equal round there is oral gastric tube in place as well as ET tube in place. Neck: Supple, increased JVP, normal carotid upstroke bilaterally, no lymphad enopathy. Chest: Decreased breath sounds at the bases, few rhonchi, minimal expiratory wheezes, no chest wall tenderness, minimal intercostal retractions. Heart: First heart sound is depressed, second heart sound is normal, there are systolic pressure murmur 2 over systolic in the left sternal border there is an AICD/PPM in the left upper precordium Abdomen: Soft, nontender, nondistended, positive bowel sounds, no hepatosplenomegaly Extremities: There is +2 edema in the left upper extremity, bilateral lower extremity edema, with dorsalis pedis not palpable in the right lower extremity and better in the left lower extremity, there is multiple abrasion to the right knee multiple wounds to the right lower extremity and a blister to the right foot Neurologic examination: Patient is sedated on the ventilator. ASSESSMENT AND PLAN: 1. 1. Acute vent dependent hypoxemic respiratory failure due to acute systolic heart failure in a patient with a prior history of ischemic cardiomyopathy post AICD/PPM, along with a GI bleed. 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 2. Cardiogenic shock rule out septic shock. Continue Levophed, continue vasopressin, start the patient on IV Lasix 40 mg IV push every 12 hours, start the patient on cefepime 2 g piggyback every 8 hours, monitor the patient very closely. 3. Multiple venous ulcerations and blistering of the right foot due to hypop erfusion state seen by vascular surgery, venous Doppler was obtained to rule out any DVT, patient is not a candidate for anticoagulation and he is not a candidate for any vascular intervention at this point, we will continue to monitor the patient very closely. 4. Upper gastrointestinal bleed due to duodenal ulcer bleed status post EGD with intervention that was done by Dr. Cortes continue. Protonix 40 mg IV push every 12 hours. 5. Persistent atrial fibrillation. Patient is not a candidate for anticoagulation at this point in time, he never tolerated anticoagulation he has been in chronic atrial fibrillation has episodes of ventricular tachycardia as well he was started on mexiletine per cardiology, he will be started on Lasix 40 mg IV push every 12 hours as well. Will try to wean the patient down on his Levophed drip. 6. Right lower extremity multiple wound rule out cellulitis likely related to venous ulceration with delayed healing. Continue patient on cefepime 2 g piggyback every 12 hours was on Unasyn at the beginning when he first came in. 7. Severe hyponatremia due to hypervolemia. Has been stable. 8. Mild hyperkalemia. Resolved. 9. Diabetes mellitus type 2. His blood glucose level appears to be good at this time, patient is not take any medication as an outpatient. Continue sliding scale insulin. 10. Obesity with obstructive sleep apnea. Patient currently on the ventilator. 11. Allergic rhinitis. Currently patient on loratadine 10 mg orally once every day. 12. Recent cataract surgery continue with current eyedrops. 13. DVT prophylaxis. None provided at this time. 14. GI prophylaxis. Continue patient on Protonix 40 mg IV push every 12 hours 15. No code 15. Prognosis is dismal. Objective - Vital Signs Vital signs: Vital Signs Temp 98.4 F 07/19/24 16:00 Pulse 116 H 07/19/24 18:00 Resp 33 H 07/19/24 18:00 BP 72/47 07/17/24 21:30 Pulse Ox 96 07/19/24 18:00 FiO2 40 07/19/24 15:54 Intake & Output 07/18/24 07/19/24 07/19/24 18:59 06:59 18:59 Intake Total 411.657 190.597 0718.527 Output Total 1100 490 680 Balance -688.343 856.261 1071.527 Weight 98.4 kg 95.5 kg 95.5 kg Intake: IV 172 380 192 0.9% NS KVO 50 220 20 Cefepime 2 gm In Sodium 50 100 100 Chloride 0.9% 100 ml @ 25 mls/hr IVPB Q12HR [facility] Rx #:[id number] Pressure Bags 72 60 72 Intake, IV Titration 139.657 625.826 1135.527 Amount Norepinephrine 32 mg In 89.545 164.372 111.527 Sodium Chloride 0.9% 218 ml @ 0.03 MCG/KG/MIN 1. 305 mls/hr IV .Q24H [facility] Rx#:[id number] Sodium Chloride 0.9% 500 500 ml 500 ml @ 999 mls/hr IV .Q31M ONE Rx#:[id number] Vancomycin 1,500 mg In 500 Sodium Chloride 0.9% 500 ml 500 ml @ 167 mls/hr IVPB Q24H [facility] Rx#: [id number] Vasopressin 60 unit In 153 Sodium Chloride 0.9% 150 ml @ 0.03 UNITS/MIN 4.59 mls/hr IV .Q24H [facility] Rx#: [id number] propofoL 1,000 mg In 50.112 Empty Bag 1 bag @ 15 MCG/ KG/MIN 8.352 mls/hr IV . [id number] [facility] Rx#:[id number] Tube Feeding 40 170 380 Other 60 60 130 Output: Urine 1100 490 680 Other: Voiding Method Indwelling Catheter Indwelling Catheter Indwelling Catheter ABP, PAP, CO, CI - Last Documented Arterial Blood Pressure 96/43 - Labs CBC & Chem 7: 07/20/24 05:42 07/20/24 05:42 Labs: Abnormal Lab Results - Last 24 Hours (Table) 07/19/24 07/19/24 07/19/24 Range/Units 00:04 04:25 04:25 WBC 20.0 H (3.8-10.6) k/uL RBC 3.90 L (4.30-5.90) m/uL Hgb 10.4 L (13.0-17.5) gm/dL Hct 33.2 L (39.0-53.0) % RDW 18.3 H (11.5-15.5) % Neutrophils # 16.7 H (1.3-7.7) k/uL Lymphocytes # 0.9 L (1.0-4.8) k/uL Monocytes # 1.7 H (0-1.0) k/uL ABG pH (7.35-7.45) ABG pO2 (83-108) mmHg ABG Total CO2 (19-24) mmol/L ABG O2 Saturation (94-97) % Hemoglobin (13.0-17.5) gm/dL Chloride 110 H (98-107) mmol/L Carbon Dioxide 21 L (22-30) mmol/L BUN 40 H (9-20) mg/dL Creatinine 1.46 H (0.66-1.25) mg/dL Glucose 140 H (74-99) mg/dL POC Glucose (mg/dL) 155 H (70-110) mg/dL Calcium 8.2 L (8.4-10.2) mg/dL Total Bilirubin 4.0 H (0.2-1.3) mg/dL AST 68 H (17-59) U/L Alkaline Phosphatase 172 H (38-126) U/L Creatine Kinase (55-170) U/L Total Protein 5.3 L (6.3-8.2) g/dL Albumin 2.2 L (3.5-5.0) g/dL 07/19/24 07/19/24 07/19/24 Range/Units 04:25 04:34 05:36 WBC (3.8-10.6) k/uL RBC (4.30-5.90) m/uL Hgb (13.0-17.5) gm/dL Hct (39.0-53.0) % RDW (11.5-15.5) % Neutrophils # (1.3-7.7) k/uL Lymphocytes # (1.0-4.8) k/uL Monocytes # (0-1.0) k/uL ABG pH 7.34 L (7.35-7.45) ABG pO2 115 H (83-108) mmHg ABG Total CO2 25 H (19-24) mmol/L ABG O2 Saturation 98.9 H (94-97) % Hemoglobin 9.9 L (13.0-17.5) gm/dL Chloride (98-107) mmol/L Carbon Dioxide (22-30) mmol/L BUN (9-20) mg/dL Creatinine (0.66-1.25) mg/dL Glucose (74-99) mg/dL POC Glucose (mg/dL) 140 H (70-110) mg/dL Calcium (8.4-10.2) mg/dL Total Bilirubin (0.2-1.3) mg/dL AST (17-59) U/L Alkaline Phosphatase (38-126) U/L Creatine Kinase 728 H (55-170) U/L Total Protein (6.3-8.2) g/dL Albumin (3.5-5.0) g/dL 07/19/24 07/19/24 Range/Units 11:51 17:37 WBC (3.8-10.6) k/uL RBC (4.30-5.90) m/uL Hgb (13.0-17.5) gm/dL Hct (39.0-53.0) % RDW (11.5-15.5) % Neutrophils # (1.3-7.7) k/uL Lymphocytes # (1.0-4.8) k/uL Monocytes # (0-1.0) k/uL ABG pH (7.35-7.45) ABG pO2 (83-108) mmHg ABG Total CO2 (19-24) mmol/L ABG O2 Saturation (94-97) % Hemoglobin (13.0-17.5) gm/dL Chloride (98-107) mmol/L Carbon Dioxide (22-30) mmol/L BUN (9-20) mg/dL Creatinine (0.66-1.25) mg/dL Glucose (74-99) mg/dL POC Glucose (mg/dL) 162 H 175 H (70-110) mg/dL Calcium (8.4-10.2) mg/dL Total Bilirubin (0.2-1.3) mg/dL AST (17-59) U/L Alkaline Phosphatase (38-126) U/L Creatine Kinase (55-170) U/L Total Protein (6.3-8.2) g/dL Albumin (3.5-5.0) g/dL
--- NOTE | 2024-07-20 12:19 | P.PN ---
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 The patient was sent from his primary care physician to the hospital for further evaluation of heart failure. He apparently was retaining significant amount of fluid and he according to his gained about 15 pounds within the last few weeks. He was experiencing progressive exertional dyspnea and bilateral lower extremities edema and bilateral nonhealing wounds involving the lower extremities. In the hospital he was found to be hypotensive he was started on norepinephrine. He underwent further evaluation including EKG showing atrial fibrillation which is permanent. As a mention earlier the patient is not on anticoagulation as an outpatient because of history of GI blee ding. He was started on norepinephrine. Also he was started on IV diuretics. No echocardiogram. The last echo from 2016 showing severe cardiomyopathy with EF around 20% with global hypokinesia. The patient also has history of AICD. The physical examination is remarkable for severe upper and lower extremities pitting edema and also lower extremities nonhealing ulcers with diminished breathing sounds bilaterally and irregular rhythm. July 16, 2024 Yesterday patient could not tolerate laying flat and got significantly short of breath and respiratory distress for which she got intubated. Currently is on vent support. Currently he is on norepinephrine and vasopressin. Telemetry shows atrial fibrillation with heart rate around 110 bpm with significant ventricular ectopy. July 17, 2024 Patient is seen and examined at bedside. Patient's family is present at bedside. They report that patient baseline blood pressure is around 80 to 90 mmHg systolic. Patient was previously hospice and has since AICD turned off. July 18, 2024 Hb 10.3, WBC 18.5, BUN 30s, creatinine 1.17, Patient appears less swollen as compared to yesterday. Adequate urine output on IV Lasix. Tolerating it well. Kidney function is holding. Still on low-dose vasopressin. Continues to be on norepinephrine. Off sedation, getting a sedation vacation today in the morning. Jul 19, 2024 Suppression Crew Leader 1.4 today, worse as compared to previously. Patient tolerated the IV Lasix yesterday. Appears less swollen in bilateral lower extremity but bilateral upper extremity are extremely swollen. He has mottling of his right lower extremity with bluish discoloration with poor pulses. He is still maintained on norepinephrine and vasopressin. MAP 55-60 mmhg range. Heart rate 110 bpm, atrial fibrillation. Lesser ectopy as compared to before. July 20, 2024 Creatinine is 1.5 today. Family has made a decision to proceed with sedation vacation and spontaneous breathing trial with extubation with an understanding that he is at high risk and he might . Patient never had wishes of being intubated and to be maintained on ventilator for long. ICU team will proceed with terminal weaning this afternoon. We will attempt to give digoxin to 50 mcg IV and Lasix 40 mL IV prior to the sedation vacation and extubation. On exam Intubated and sedated, on ventilator support, ET tube in place, good air entry in bilateral lung shukla 2+ pitting edema noticed in bilateral lower extremity. Irregularly irregular pulse, S1-S2 audible, systolic murmur audible. Assessment HFrEF exacerbation with evidence of right and left failure Severe cardiomyopathy EF 20% Severe CAD status post CABG Permanent atrial fibrillation, currently heart rate around 110 bpm NSVT and PVCs Severe valvular heart disease with torrential tricuspid regurgitation, severe mitral regurgitation Severe pulmonary hypertension due to group 2 and group 3 Status post AICD Hypomagnesemia Chronic kidney disease Multiple comorbid conditions History of amiodarone toxicity Plan Terminal weaning to be attempted today Recommend to wean off vasopressin because of significantly low LVEF. Would recommend continuing norepinephrine and if needed add second layer of dopamine. Could not tolerate dobutamine due to low blood pressure. Goal blood pressure is 80 to 90 mmHg systolic blood pressure. MAP of 60 mmHg. Keep magnesium at 2. Potassium at 4. Supplement magnesium as needed. Give 1 dose of IV calcium. Start digoxin IV 250 mcg once today. Lasix 40 mg IV once before extubation Continue mexiletine 150 mg 3 times daily for ventricular ectopy. I had extensive discussion with the patient's and daughter. They understand that the patient's prognosis is very poor. He has been dealing with cardiomyopathy and severe valvular dysfunction for last 8 years. They expressed that patient never had wishes of getting intubated but he was intubated for the procedure of upper GI endoscopy. As his wishes were not to be on ventilator support for long, they are expressing wishes to attempt extubation and see how patient does. They understand that extubation is high risk and patient may end up dying. Understanding this patient's family do not want to prolong patient's misery and would like to attempt it tomorrow. I would recommend giving him some IV Lasix 1 hour before the weaning protocol and see how patient does. I will start digoxin today in hopes of achieving better rate control and improving inotropic effect. Case discussed with ICU attending and primary care attending. Objective - Vital Signs Vital signs: Vital Signs Temp 99.3 F 07/20/24 08:00 Pulse 120 H 07/20/24 11:30 Resp 33 H 07/20/24 11:30 BP 72/47 07/17/24 21:30 Pulse Ox 96 07/20/24 11:30 FiO2 40 07/20/24 11:40 Intake & Output 07/19/24 07/20/24 07/20/24 18:59 06:59 18:59 Intake Total 1966.527 912 234 Output Total 680 440 135 Balance 1286.527 472 99 Weight 95.5 kg 96 kg Intake: IV 192 282 104 0.9% NS KVO 20 110 80 Cefepime 2 gm In Sodium 100 100 Chloride 0.9% 100 ml @ 25 mls/hr IVPB Q12HR [facility] Rx #:[id number] Pressure Bags 72 72 24 Intake, IV Titration 1264.527 Amount Norepinephrine 32 mg In 111.527 Sodium Chloride 0.9% 218 ml @ 0.03 MCG/KG/MIN 1. 305 mls/hr IV .Q24H [facility] Rx#:[id number] Sodium Chloride 0.9% 500 500 ml 500 ml @ 999 mls/hr IV .Q31M [facility] Rx#:[id number] Vancomycin 1,500 mg In 500 Sodium Chloride 0.9% 500 ml 500 ml @ 167 mls/hr IVPB Q24H [facility] Rx#: [id number] Vasopressin 60 unit In 153 Sodium Chloride 0.9% 150 ml @ 0.03 UNITS/MIN 4.59 mls/hr IV .Q24H [facility] Rx#: [id number] Tube Feeding 380 540 100 Other 130 90 30 Output: Urine 680 440 135 Other: Voiding Method Indwelling Catheter Indwelling Catheter Indwelling Catheter ABP, PAP, CO, CI - Last Documented Arterial Blood Pressure 124/48 - Labs CBC & Chem 7: 07/20/24 05:42 07/20/24 05:42 Labs: Abnormal Lab Results - Last 24 Hours (Table) 07/19/24 07/19/24 07/19/24 Range/Units 04:25 17:37 23:50 WBC (3.8-10.6) k/uL RBC (4.30-5.90) m/uL Hgb (13.0-17.5) gm/dL Hct (39.0-53.0) % MCHC (31.0-37.0) g/dL RDW (11.5-15.5) % ABG Total CO2 (19-24) mmol/L ABG O2 Saturation (94-97) % Hemoglobin (13.0-17.5) gm/dL Chloride (98-107) mmol/L BUN (9-20) mg/dL Creatinine (0.66-1.25) mg/dL Glucose (74-99) mg/dL POC Glucose (mg/dL) 175 H 197 H (70-110) mg/dL Calcium (8.4-10.2) mg/dL Creatine Kinase 728 H (55-170) U/L 07/20/24 07/20/24 07/20/24 Range/Units 04:50 05:42 05:42 WBC 21.6 H (3.8-10.6) k/uL RBC 3.49 L (4.30-5.90) m/uL Hgb 9.4 L (13.0-17.5) gm/dL Hct 30.3 L (39.0-53.0) % MCHC 30.9 L (31.0-37.0) g/dL RDW 18.8 H (11.5-15.5) % ABG Total CO2 25 H (19-24) mmol/L ABG O2 Saturation 98.0 H (94-97) % Hemoglobin 9.4 L (13.0-17.5) gm/dL Chloride 113 H (98-107) mmol/L BUN 46 H (9-20) mg/dL Creatinine 1.50 H (0.66-1.25) mg/dL Glucose 188 H (74-99) mg/dL POC Glucose (mg/dL) (70-110) mg/dL Calcium 7.9 L (8.4-10.2) mg/dL Creatine Kinase (55-170) U/L 07/20/24 Range/Units 11:50 WBC (3.8-10.6) k/uL RBC (4.30-5.90) m/uL Hgb (13.0-17.5) gm/dL Hct (39.0-53.0) % MCHC (31.0-37.0) g/dL RDW (11.5-15.5) % ABG Total CO2 (19-24) mmol/L ABG O2 Saturation (94-97) % Hemoglobin (13.0-17.5) gm/dL Chloride (98-107) mmol/L BUN (9-20) mg/dL Creatinine (0.66-1.25) mg/dL Glucose (74-99) mg/dL POC Glucose (mg/dL) 160 H (70-110) mg/dL Calcium (8.4-10.2) mg/dL Creatine Kinase (55-170) U/L Microbiology - Last 24 Hours (Table) 07/19/24 11:01 Gram Stain - Preliminary Sputum
--- NOTE | 2024-07-20 13:16 | P.PN ---
Subjective Progress Note Date: 07/20/24 73-year-old male with history of multiple medical problems including congestive heart failure, and atrial fibrillation. The patient was sent into the hospital, by his primary care physician. The patient came in with complaints of lower extremity edema, shortness of breath, ulcerations on his foot, and weakness. The patient was seen in the emergency room, ER #[id number]. We were consulted because the patient has been hypotensive, since being in the emergency department. Norepinephrine has not yet been started. Cardiac medications have been held. In addition to atrial fibrillation, the patient has a history of myocardial infarction, coronary disease, congestive heart failure, diabetes, GERD, hyperlipidemia, hypertension, osteoarthritis, and previous bypass surgery. The patient apparently was at [facility] many years ago, on a ventilator, and was apparently on hospice, but has done well over the last 7 or 8 years. The patient does have a history of AICD placement, and previous tobacco use. Currently, he is on CPAP, at between 8 to 12 cm of water. He is not receiving any IV fluids. We did talk to the patient about CODE STATUS and he stated that he would not want to be on life support. His agreed with that. White count is 18, hemoglobin 11.6, hematocrit 37.7, platelet count of 262,000. Sodium 127, potassium 5.8, chloride 95, CO2 21, anion gap is 11, BUN 53, creatinine is 1.26. His N-terminal proBNP was 5940. His troponin was less than 0.012. Chest x-ray was consistent with CHF. Progress note dated July 14, 2024. 73-year-old male seen in the emergency department yesterday. He was admitted with a diagnosis of congestive heart failure. The patient was transferred to the intensive care unit, for norepinephrine. Currently he is on 5 L nasal cannula. He is getting saline at 10 cc an hour. He is on norepinephrine at 3.8 mcg/min. His procalcitonin level was normal at 0.25. Unasyn will be discontinued. White count 16.7, hemoglobin 10.6, hematocrit 34.8, platelet count normal. Sodium 124, potassium 5.5, chlorides 95, CO2 20, BUN 48, creatinine 1.06. Glucose 129. Calcium 8.2. Albumin 2.5. Chest x-ray again shows evidence of cardiomegaly, and pulmonary vascular congestion. Doppler of the right lower extremity was negative for DVT. Progress note dated August 11, 2024. The patient is seen today in room 258. I was called by the nurses last night, because of the new onset GI bleed. The patient is currently on norepinephrine at 14.8 mcg/min, nasal O2 at 4 L, saline at 10 cc an hour. The patient did use his CPAP last night. A repeat hemoglobin will be done at noon today. This morning's hemoglobin was 9.2. The patient is a DO NOT INTUBATE patient. White count 14.2, hemoglobin 9.2, hematocrit 29.4, platelet count finger 83,000. Sodium 126, potassium 5.8, chlorides 102, CO2 23, BUN 60, creatinine 0.99. Glucose 133. Hemoglobin A1c was 6.8. Calcium is 8. On 07/16/2024, the patient was seen in follow-up in the intensive care unit. Time of evaluation, the patient was extremely lethargic, in a shock state which is probably a combination of cardiogenic shock and hypovolemic shock as the patient continues to show signs of GI bleeding and the patient was having several melanotic stools including the last episode this morning. Noted the patient is known to have coronary artery disease, previous bypass surgery, severe ischemic cardiomyopathy with impaired LV function with an ejection fraction of 20%, chronic atrial fibrillation, he has a pacer/AICD in place. Overnight, the patient was also having few episodes of nonsustained ventricular tachycardia. The patient was taken off the anticoagulants. He was given Kcen tra and during this current admission, the patient received a total of 4 units of packed RBC regarding his ongoing GI bleeding. Most recent hemoglobin from this morning is at 11.3. At the time of my evaluation, the patient was having labored breathing. He was on 4 L of oxygen by nasal cannula. Typically his on O2 at home ranging between 3 and 5 L/min nasal cannula. He was on norepinephrine running at 0.32 mcg/kg/min and vasopressin physiologic dose. As mentioned, he was still showing evidence of GI bleeding. The gastroenterology team was on standby for an EGD. I opted to intubate the patient and put him on the mechanical ventilator to protect his airway and proceed with the procedure. Based on that, the patient was started on propofol which is currently running at 40 mcg/kg/min. The patient process was done without any complications. He was placed on assist-control at rate of 18 with a tidal volume of 400, FiO2 100% with a PEEP of 5. The subsequent blood gases showed a pH of 7.37 with a pCO2 of 41 and pO2 of 376. FiO2 was weaned down to 40%. Postintubation chest x-ray s howed CHF, pulm vessel congestion, triple-lumen catheter was in good location. Orogastric tube is in place and the patient has an orotracheal tube also in place. He was given a total of 2 L of IV fluid bolus and the subsequent hemoglobin came back at six 9.9 with a white cell count of 14.2 and a platelet count of 265. The sodium is at 130, potassium is at 4.9, chloride is 101 and the bicarb is 24. BUN is 45 with a creatinine of 0.98. Blood sugar is at 168. On 07/17/2024, the patient is being seen for a follow-up. The patient remains intubated on the mechanical ventilator. The patient is on propofol running at 30 mcg/kg/min. The patient underwent an EGD yesterday and was found to have a duodenal ulcer for which she underwent an Endo Clip and it seems that the bleeding is under adequate control for now. The patient's hemoglobin has remained stable and his current hemoglobin is at 10.5. Noted the patient was transfused a total of 4 units of packed RBC during this current hospitalization. He has a fecal management system in place. There are some dark melanotic output which is minimal at this point in time and is essentially liquidy. Hemodynamically, the patient remains in shock. He remains profoundly hypotensive and is pressor requirements are still active and norepinephrine is running at 0.5 mcg/kg/min and he is also on vasopressin physiologic dose. The patient remains in atrial fibrillation with frequent premature beats. The patient was started on mexiletine by cardiology. The patient is currently on assist-control mode with rate of 18, tidal volume of 450, FiO2 40% with a PEEP of 5. Blood gas showed a pH of 7.26 with a pCO2 of 52 and pO2 of 121. Chest x- ray is consistent with heart failure with lines being all in place and the patient has a pacer/defibrillator over the left anterior chest area. Orotracheal tube is in a good location. The white cell count is 15.9, hemoglobin 10.7 and platelet count is at 313. Sodium is at 130, BUN 36 with a creatinine of 0.9. Potassium level is at 4.7. Serum bicarb is at 20. LFTs are essentially within normal limits. He remains NPO. CVP is elevated at around 18. Only Doppler pulses in lower extremities bilaterally. Continues to have skin blisters and vesicle formation and superficial ulceration. Extremities remain cold and clammy. 07/18/2024, the patient remains intubated and mechanically ventilated. No signs of any acute GI bleeding for now and the patient's hemoglobin remained stable. The patient remains on pressors. The patient remains intubated on mechanical ventilator. Earlier this morning, the patient is on propofol at 20 mcg/kg/min. He remains on norepinephrine at 0.23 mcg/kg/min and vasopressin physiologic dose. He is on IV Lasix. Fluid balance is -500 cc over the past 24 hours. He remains on assist-control mode of mechanical ventilation at rate of 24, tidal volume of 400, FiO2 40% with a PEEP of 5. Blood gas showed pH of 7.35 with a pCO2 of 42 and pO2 of 121. Chest x-ray findings are essentially unchanged is consistent with CHF. There is also cardiomegaly. Lines are all in place. The white cell count is 18.5 with hemoglobin 10.3 and a platelet count of 272. C ardiac rhythm is atrial fibrillation. BUN 36 with a creatinine of 1.1. Sodium is at 133, potassium is at 4.3, and bicarb is at 21. Started on IV cefepime as an empiric antibiotic coverage. Positive lower extremities are extremely weak and they are obtainable by Doppler signals only. Patient remains n.p.o. for now. 07/19/2024, the patient remains intubated and mechanically ventilated. No signs of acute GI bleed and hemoglobin remains stable. He is currently on pressors. Propofol is off. He remains on norepinephrine at 0.27 mcg/kg/min and vasopressin at 0.03 units/min. He is receiving IV Lasix. Fluid balance is -400 cc over 24 hours. His mechanical ventilation remains on assist-control mode at a rate of 24, tidal volume of 400, FiO2 at 40%, and PEEP of 5. ABG shows pH of 7.34, pCO2 of 43, and pO2 of 115. Chest x-ray findings are unchanged from previous. WBCs are 20, hemoglobin 10.4, and platelets 281. Cardiac rhythm demonstrates atrial fibrillation with heart rate in the low 100s. Sodium is 137, potassium is 4.5, bicarb is 21, BUN is 40, and creatinine is 1.46. He re domingo on IV cefepime for empiric coverage. 07/20/2024. The patient remains intubated and mechanically ventilated. Propofol remains off. He is still on pressors: norepinephrine at 0.23 mcg/kg/min and vasopressin at 0.03 units/min. His mechanical ventilation is on assist-control mode at a rate of 24, tidal volume of 450, FiO2 at 40%, and PEEP of 5. ABG shows pH of 7.36, pCO2 of 42, and pO2 of 93. WBCs are 21.6, hemoglobin 9.4 and platelets 243. Cardiac rhythm demonstrates atrial fibrilla tion with heart rate in the low 100s. Sodium is 137, potassium is 4.4, bicarb is 22, BUN is 46, and creatinine is 1.5. Fluid balance is +1.7 L over 24 hours. He is continued on IV cefepime and IV vancomycin for empiric coverage. Objective - Vital Signs Vital signs: Vital Signs Temp 98.4 F 07/20/24 04:00 Pulse 110 H 07/20/24 07:00 Resp 24 07/20/24 07:00 BP 72/47 07/17/24 21:30 Pulse Ox 98 07/20/24 07:00 FiO2 40 07/20/24 04:00 Intake & Output 07/19/24 07/20/24 07/20/24 18:59 06:59 18:59 Intake Total 1966.527 912 66 Output Total 680 440 30 Balance 1286.527 472 36 Weight 95.5 kg 96 kg Intake: IV 192 282 16 0.9% NS KVO 20 110 10 Cefepime 2 gm In Sodium 100 100 Chloride 0.9% 100 ml @ 25 mls/hr IVPB Q12HR [facility] Rx #:[id number] Pressure Bags 72 72 6 Intake, IV Titration 1264.527 Amount Norepinephrine 32 mg In 111.527 Sodium Chloride 0.9% 218 ml @ 0.03 MCG/KG/MIN 1. 305 mls/hr IV .Q24H [facility] Rx#:[id number] Sodium Chloride 0.9% 500 500 ml 500 ml @ 999 mls/hr IV .Q31M [facility] Rx#:[id number] Vancomycin 1,500 mg In 500 Sodium Chloride 0.9% 500 ml 500 ml @ 167 mls/hr IVPB Q24H [facility] Rx#: [id number] Vasopressin 60 unit In 153 Sodium Chloride 0.9% 150 ml @ 0.03 UNITS/MIN 4.59 mls/hr IV .Q24H [facility] Rx#: [id number] Tube Feeding 380 540 50 Other 130 90 Output: Urine 680 440 30 Other: Voiding Method Indwelling Catheter Indwelling Catheter ABP, PAP, CO, CI - Last Documented Arterial Blood Pressure 105/40 - Exam General: Patient appears comfortable. Orogastric and orotracheal tube in place. HEENT: Head exam is unremarkable. No scleral icterus present. Mucous membranes are moist. Neck is supple. Left IJ triple-lumen catheter in place. Heart: Irregular rate and rhythm. No S3 or S4. Pacemaker over left anterior chest. Thoractomy scar present over anterior chest. Lungs: Bilateral breath sounds present and equal. Scattered rhonchi heard. Abdomen: Soft, nontender, nondistended. Bowel sounds present. Extremities: 1+ edema present. Diminished dorsalis pedis, posterior tibialis, and radial pulses. Palpable bilateral femoral pulses. Skin blistering present. - Labs CBC & Chem 7: 07/20/24 05:42 07/20/24 05:42 Labs: Abnormal Lab Results - Last 24 Hours (Table) 07/19/24 07/19/24 07/19/24 Range/Units 04:25 11:51 17:37 WBC (3.8-10.6) k/uL RBC (4.30-5.90) m/uL Hgb (13.0-17.5) gm/dL Hct (39.0-53.0) % MCHC (31.0-37.0) g/dL RDW (11.5-15.5) % ABG Total CO2 (19-24) mmol/L ABG O2 Saturation (94-97) % Hemoglobin (13.0-17.5) gm/dL Chloride (98-107) mmol/L BUN (9-20) mg/dL Creatinine (0.66-1.25) mg/dL Glucose (74-99) mg/dL POC Glucose (mg/dL) 162 H 175 H (70-110) mg/dL Calcium (8.4-10.2) mg/dL Creatine Kinase 728 H (55-170) U/L 07/19/24 07/20/24 07/20/24 Range/Units 23:50 04:50 05:42 WBC 21.6 H (3.8-10.6) k/uL RBC 3.49 L (4.30-5.90) m/uL Hgb 9.4 L (13.0-17.5) gm/dL Hct 30.3 L (39.0-53.0) % MCHC 30.9 L (31.0-37.0) g/dL RDW 18.8 H (11.5-15.5) % ABG Total CO2 25 H (19-24) mmol/L ABG O2 Saturation 98.0 H (94-97) % Hemoglobin 9.4 L (13.0-17.5) gm/dL Chloride (98-107) mmol/L BUN (9-20) mg/dL Creatinine (0.66-1.25) mg/dL Glucose (74-99) mg/dL POC Glucose (mg/dL) 197 H (70-110) mg/dL Calcium (8.4-10.2) mg/dL Creatine Kinase (55-170) U/L 07/20/24 Range/Units 05:42 WBC (3.8-10.6) k/uL RBC (4.30-5.90) m/uL Hgb (13.0-17.5) gm/dL Hct (39.0-53.0) % MCHC (31.0-37.0) g/dL RDW (11.5-15.5) % ABG Total CO2 (19-24) mmol/L ABG O2 Saturation (94-97) % Hemoglobin (13.0-17.5) gm/dL Chloride 113 H (98-107) mmol/L BUN 46 H (9-20) mg/dL Creatinine 1.50 H (0.66-1.25) mg/dL Glucose 188 H (74-99) mg/dL POC Glucose (mg/dL) (70-110) mg/dL Calcium 7.9 L (8.4-10.2) mg/dL Creatine Kinase (55-170) U/L Assessment and Plan Assessment: - Shock, combination of hypovolemic and cardiogenic due to massive upper GI bleed. Currently intubated and receiving pressors. He was resuscitated with IV fluids and blood products. Has received a total of 4 units pRBCs. Currently on Levophed 0.27 mcg/kg/min. - Leukocytosis. Obtain blood culture and sputum culture. - Upper GI bleed. Has received a total of 4 units of pRBCs. Underwent Endo Clip of duodenal ulcer bleed. Hemoglobin has remained stable, today it is 10.4. Continue NPO. Continue to hold anticoagulants. - Chronic atrial fibrillation. No anticoagulation at this time due to GI bleed. - Acute hypoxemic respiratory failure secondary to CHF. Currently intubated on mechanical ventilation. - CHF with reduced ejection fraction 15-20%. Status post pacemaker implantation. - CAD with a history of myocardial infarction and previous CABG. - Peripheral vascular disease. - COPD. - Diabetes mellitus. - Hypertension. - Hyperlipidemia. Plan: Attempt a trial of spontaneous breathing with use of BiPAP as per family's wi shes. Extensive discussion was had with the patient's and adult children. They expressed that the patient wishes to be intubated but he agreed to be intubated prior to upper endoscopy. They endorse that he would not want prolonged intubation and they express wishes to attempt extubation and trial spontaneous breathing on BiPAP. They understand the risk of to the patient with extubation and wish to proceed. All questions at this time were answered.
--- NOTE | 2024-07-20 14:06 | P.PN ---
Subjective Progress Note Date: 07/20/24 73-year-old male with history of multiple medical problems including congestive heart failure, and atrial fibrillation. The patient was sent into the hospital, by his primary care physician. The patient came in with complaints of lower extremity edema, shortness of breath, ulcerations on his foot, and weakness. The patient was seen in the emergency room, ER #[id number]. We were consulted because the patient has been hypotensive, since being in the emergency department. Norepinephrine has not yet been started. Cardiac medications have been held. In addition to atrial fibrillation, the patient has a history of myocardial infarction, coronary disease, congestive heart failure, diabetes, GERD, hyperlip idemia, hypertension, osteoarthritis, and previous bypass surgery. The patient apparently was at [facility] many years ago, on a ventilator, and was apparently on hospice, but has done well over the last 7 or 8 years. The patient does have a history of AICD placement, and previous tobacco use. Currently, he is on CPAP, at between 8 to 12 cm of water. He is not receiving any IV fluids. We did talk to the patient about CODE STATUS and he stated that he would not want to be on life support. His agreed with that. White count is 18, hemoglobin 11.6, hematocrit 37.7, platelet count of 262,000. Sodium 127, potassium 5.8, chloride 95, CO2 21, anion gap is 11, BUN 53, creatinine is 1.26. His N-terminal proBNP was 5940. His troponin was less than 0.012. Chest x-ray was consistent with CHF. Progress note dated July 14, 2024. 73-year-old male seen in the emergency department yesterday. He was admitted with a diagnosis of congestive heart failure. The patient was transferred to the intensive care unit, for norepinephrine. Currently he is on 5 L nasal cannula. He is getting saline at 10 cc an hour. He is on norepinephrine at 3.8 mcg/min. His procalcitonin level was normal at 0.25. Unasyn will be discontinued. White count 16.7, hemoglobin 10.6, hematocrit 34.8, platelet count normal. Sodium 124, potassium 5.5, chlorides 95, CO2 20, BUN 48, creatinine 1.06. Glucose 129. Calcium 8.2. Albumin 2.5. Chest x-ray again shows evidence of cardiomegaly, and pulmonary vascular congestion. Doppler of the right lower extremity was negative for DVT. Progress note dated August 11, 2024. The patient is seen today in room 258. I was called by the nurses last night, because of the new onset GI bleed. The patient is currently on norepinephrine at 14.8 mcg/min, nasal O2 at 4 L, saline at 10 cc an hour. The patient did use his CPAP last night. A repeat hemoglobin will be done at noon today. This morning's hemoglobin was 9.2. The patient is a DO NOT INTUBATE patient. White count 14.2, hemoglobin 9.2, hematocrit 29.4, platelet count finger 83,000. Sodium 126, potassium 5.8, chlorides 102, CO2 23, BUN 60, creatinine 0.99. Glucose 133. Hemoglobin A1c was 6.8. Calcium is 8. On 07/16/2024, the patient was seen in follow-up in the intensive care unit. Time of evaluation, the patient was extremely lethargic, in a shock state which is probably a combination of cardiogenic shock and hypovolemic shock as the patient continues to show signs of GI bleeding and the patient was having several melanotic stools including the last episode this morning. Noted the patient is known to have coronary artery disease, previous bypass surgery, severe ischemic cardiomyopathy with impaired LV function with an ejection fraction of 20%, chronic atrial fibrillation, he has a pacer/AICD in place. Overnight, the patient was also having few episodes of nonsustained ventricular tachycardia. The patient was taken off the anticoagulants. He was given Kce ntra and during this current admission, the patient received a total of 4 units of packed RBC regarding his ongoing GI bleeding. Most recent hemoglobin from this morning is at 11.3. At the time of my evaluation, the patient was having labored breathing. He was on 4 L of oxygen by nasal cannula. Typically his on O2 at home ranging between 3 and 5 L/min nasal cannula. He was on norepinephrine running at 0.32 mcg/kg/min and vasopressin physiologic dose. As mentioned, he was still showing evidence of GI bleeding. The gastroenterology team was on standby for an EGD. I opted to intubate the patient and put him on the mechanical ventilator to protect his airway and proceed with the procedure. Based on that, the patient was started on propofol which is currently running at 40 mcg/kg/min. The patient process was done without any complications. He was placed on assist-control at rate of 18 with a tidal volume of 400, FiO2 100% with a PEEP of 5. The subsequent blood gases showed a pH of 7.37 with a pCO2 of 41 and pO2 of 376. FiO2 was weaned down to 40%. Postintubation chest x-ray showed CHF, pulm vessel congestion, triple-lumen catheter was in good location. Orogastric tube is in place and the patient has an orotracheal tube also in place. He was given a total of 2 L of IV fluid bolus and the subsequent hemoglobin came back at six 9.9 with a white cell count of 14.2 and a platelet count of 265. The sodium is at 130, potassium is at 4.9, chloride is 101 and the bicarb is 24. BUN is 45 with a creatinine of 0.98. Blood sugar is at 168. On 07/17/2024, the patient is being seen for a follow-up. The patient remains intubated on the mechanical ventilator. The patient is on propofol running at 30 mcg/kg/min. The patient underwent an EGD yesterday and was found to have a duodenal ulcer for which she underwent an Endo Clip and it seems that the bleeding is under adequate control for now. The patient's hemoglobin has remained stable and his current hemoglobin is at 10.5. Noted the patient was transfused a total of 4 units of packed RBC during this current hospitalization. He has a fecal management system in place. There are some dark melanotic output which is minimal at this point in time and is essentially liquidy. Hemodynamically, the patient remains in shock. He remains profoundly hypotensive and is pressor requirements are still active and norepinephrine is running at 0.5 mcg/kg/min and he is also on vasopressin physiologic dose. The patient remains in atrial fibrillation with frequent premature beats. The patient was started on mexiletine by cardiology. The patient is currently on assist-control mode with rate of 18, tidal volume of 450, FiO2 40% with a PEEP of 5. Blood gas showed a pH of 7.26 with a pCO2 of 52 and pO2 of 121. Chest x- ray is consistent with heart failure with lines being all in place and the patient has a pacer/defibrillator over the left anterior chest area. Orotracheal tube is in a good location. The white cell count is 15.9, hemoglobin 10.7 and platelet count is at 313. Sodium is at 130, BUN 36 with a creatinine of 0.9. Potassium level is at 4.7. Serum bicarb is at 20. LFTs are essentially within normal limits. He remains NPO. CVP is elevated at around 18. Only Doppler pulses in lower extremities bilaterally. Continues to have skin blisters and vesicle formation and superficial ulceration. Extremities remain cold and clammy. 07/18/2024, the patient remains intubated and mechanically ventilated. No signs of any acute GI bleeding for now and the patient's hemoglobin remained stable. The patient remains on pressors. The patient remains intubated on mechanical ventilator. Earlier this morning, the patient is on propofol at 20 mcg/kg/min. He remains on norepinephrine at 0.23 mcg/kg/min and vasopressin physiologic dose. He is on IV Lasix. Fluid balance is -500 cc over the past 24 hours. He remains on assist-control mode of mechanical ventilation at rate of 24, tidal volume of 400, FiO2 40% with a PEEP of 5. Blood gas showed pH of 7.35 with a pCO2 of 42 and pO2 of 121. Chest x-ray findings are essentially unchanged is consistent with CHF. There is also cardiomegaly. Lines are all in place. The white cell count is 18.5 with hemoglobin 10.3 and a platelet count of 272. Cardiac rhythm is atrial fibrillation. BUN 36 with a creatinine of 1.1. Sodium is at 133, potassium is at 4.3, and bicarb is at 21. Started on IV cefepime as an empiric antibiotic coverage. Positive lower extremities are extremely weak and they are obtainable by Doppler signals only. Patient remains n.p.o. for now. 07/19/2024, the patient is being seen for a follow-up. Remains intubated on the mechanical ventilator. Propofol has been discontinued yesterday and the patient is arousable. He is very sluggish in his response. He was opening his eyes spontaneously and following some simple commands. He is very much interested in mechanical ventilator which is set at an assist-control mode with rate of 24, tidal volume of 450, FiO2 40% with a PEEP of 5. Blood gas showed a pH of 7.34 w ith a pCO2 43 and pO2 115. Hemodynamically, the patient remains atrial fibrillation. Slightly tachycardic. Remains on norepinephrine at 0.27 mcg/kg/min and vasopressin at 0.03 units/min.. The patient is producing urine output in the order of 25 cc an hour. The patient has not demonstrated any GI bleeding. Hemoglobin is relatively stable and the hemoglobin is currently at 10.4. The patient will start enteral feeding for nutritional support and currently he is on vital AF. Tube feeds are running at a rate of 30 cc an hour. Meanwhile, the patient has developed an acute kidney injury, BUN is up to 40 with a creatinine of 1.4. Sodium is at 137, potassium is at 4.5. The white cell count is at 20 with a hemoglobin of 10.4. Chest x-ray from today shows CHF and there is evolving consolidation of the right lower lobe. The patient remains on IV cefepime. On a separate note, the patient continues to have an ischemic right lower extremity. Absent pulses in the right foot and there is skin mottling and some cyanosis and increased coldness. The patient was seen by vascular surgery. No interventions recommended at this point in time specially with his underlying shock state and high pressor requirements. On 07/20/2024, the patient remains off sedation, arousable, profoundly weak and looks quite debilitated. Remains hemodynamically unstable and in shock state requiring pressors and the patient remains on norepinephrine and physiologic dose of vasopressin. Noted no bleeding has been encountered over the past 48 hours and the patient is currently on enteral feeding for nutritional support. In terms of vent settings, the patient remains on the same ventilator setting which includes an assist-control mode at rate of 24 with a tidal volume of 450, FiO2 40% with a PEEP of 5. Blood gas showed a pH of 7.36 with a pCO2 of 42 and pO2 93. Chest x-ray is consistent with heart failure bilateral pleural effusion and possible right lower lobe consolidation and patient remains on a same antibiotic coverage to include cefepime and vancomycin. Hemoglobin today is at 9.4. White cell count of 21. He has sustained acute kidney injury creatinine stable compared to yesterday at 1.5 with a BUN of 46. Electrolytes are within normal limits. The patient continues to have absent pulses in the right lower extremity. The skin is mottled and the right leg is quite cyanotic. Fluid balance over the past 24 hours has been in the order of 1.7 L positive. Remains atrial fibrillation. Family is at the bedside. Requesting extubation as the patient did not want any form of long-term vent support. Explained to the family that the patient may not be able to tolerate extubation and if he feels he will be headed towards end-of-life care. They were agreeable to that. Objective - Vital Signs Vital signs: Vital Signs Temp 98.4 F 07/20/24 04:00 Pulse 110 H 07/20/24 08:35 Resp 24 07/20/24 07:00 BP 72/47 07/17/24 21:30 Pulse Ox 98 07/20/24 07:00 FiO2 40 07/20/24 08:07 Intake & Output 07/19/24 07/20/24 07/20/24 18:59 06:59 18:59 Intake Total 1966.527 912 66 Output Total 680 440 30 Balance 1286.527 472 36 Weight 95.5 kg 96 kg Intake: IV 192 282 16 0.9% NS KVO 20 110 10 Cefepime 2 gm In Sodium 100 100 Chloride 0.9% 100 ml @ 25 mls/hr IVPB Q12HR [facility] Rx #:[id number] Pressure Bags 72 72 6 Intake, IV Titration 1264.527 Amount Norepinephrine 32 mg In 111.527 Sodium Chloride 0.9% 218 ml @ 0.03 MCG/KG/MIN 1. 305 mls/hr IV .Q24H [facility] Rx#:[id number] Sodium Chloride 0.9% 500 500 ml 500 ml @ 999 mls/hr IV .Q31M [facility] Rx#:[id number] Vancomycin 1,500 mg In 500 Sodium Chloride 0.9% 500 ml 500 ml @ 167 mls/hr IVPB Q24H [facility] Rx#: [id number] Vasopressin 60 unit In 153 Sodium Chloride 0.9% 150 ml @ 0.03 UNITS/MIN 4.59 mls/hr IV .Q24H [facility] Rx#: [id number] Tube Feeding 380 540 50 Other 130 90 Output: Urine 680 440 30 Other: Voiding Method Indwelling Catheter Indwelling Catheter ABP, PAP, CO, CI - Last Documented Arterial Blood Pressure 105/40 - Exam - Exam At this point in time, the patient is sedated off sedatives, opens eyes spontaneously, occasionally follows some simple commands,, and comfortable and orogastric and orotracheal tube are both in place. Head exam was generally normal. There was no scleral icterus or corneal arcus. Mucous membranes were moist. Neck was supple and with jugular venous distension, thyromegaly, or carotid bruits. Carotids were easily palpable bilaterally. There was no adenopathy. Cardiovascular examination reveals an irregular rhythm and rate. S1-S2 normal. No S3 or S4. A systolic murmur is noted, grade 2/6. The rhythm was irregular consistent with atrial fibrillation and the patient was quite tachycardic. The patient also had a thoracotomy scar over the anterior chest area and the patient has a pacemaker over the left anterior chest. Lungs reveal scattered rhonchi and crackles. Breath sounds equal. No wheezes. Abdomen soft bowel sounds are heard. No masses or tenderness. Extremities are showing diminished pulses in all 4 extremities. No cyanosis or clubbing. 1+ edema is noted. Skin blisters Skin is without rash or lesion. Skin blisters related to edema, mottling of the skin in the right lower extremity and marked diminished pulses involving the dorsalis pedis and posterior tibialis. Palpable femoral pulses bilaterally. Neurologic examination is brief but nonfocal. The patient is currently off sedatives, on the mechanical ventilator, profound generalized weakness in all 4 extremities. - Labs CBC & Chem 7: 07/20/24 05:42 07/20/24 05:42 Labs: Abnormal Lab Results - Last 24 Hours (Table) 07/19/24 07/19/24 07/19/24 Range/Units 04:25 11:51 17:37 WBC (3.8-10.6) k/uL RBC (4.30-5.90) m/uL Hgb (13.0-17.5) gm/dL Hct (39.0-53.0) % MCHC (31.0-37.0) g/dL RDW (11.5-15.5) % ABG Total CO2 (19-24) mmol/L ABG O2 Saturation (94-97) % Hemoglobin (13.0-17.5) gm/dL Chloride (98-107) mmol/L BUN (9-20) mg/dL Creatinine (0.66-1.25) mg/dL Glucose (74-99) mg/dL POC Glucose (mg/dL) 162 H 175 H (70-110) mg/dL Calcium (8.4-10.2) mg/dL Creatine Kinase 728 H (55-170) U/L 07/19/24 07/20/24 07/20/24 Range/Units 23:50 04:50 05:42 WBC 21.6 H (3.8-10.6) k/uL RBC 3.49 L (4.30-5.90) m/uL Hgb 9.4 L (13.0-17.5) gm/dL Hct 30.3 L (39.0-53.0) % MCHC 30.9 L (31.0-37.0) g/dL RDW 18.8 H (11.5-15.5) % ABG Total CO2 25 H (19-24) mmol/L ABG O2 Saturation 98.0 H (94-97) % Hemoglobin 9.4 L (13.0-17.5) gm/dL Chloride (98-107) mmol/L BUN (9-20) mg/dL Creatinine (0.66-1.25) mg/dL Glucose (74-99) mg/dL POC Glucose (mg/dL) 197 H (70-110) mg/dL Calcium (8.4-10.2) mg/dL Creatine Kinase (55-170) U/L 07/20/24 Range/Units 05:42 WBC (3.8-10.6) k/uL RBC (4.30-5.90) m/uL Hgb (13.0-17.5) gm/dL Hct (39.0-53.0) % MCHC (31.0-37.0) g/dL RDW (11.5-15.5) % ABG Total CO2 (19-24) mmol/L ABG O2 Saturation (94-97) % Hemoglobin (13.0-17.5) gm/dL Chloride 113 H (98-107) mmol/L BUN 46 H (9-20) mg/dL Creatinine 1.50 H (0.66-1.25) mg/dL Glucose 188 H (74-99) mg/dL POC Glucose (mg/dL) (70-110) mg/dL Calcium 7.9 L (8.4-10.2) mg/dL Creatine Kinase (55-170) U/L Microbiology - Last 24 Hours (Table) 07/19/24 11:01 Gram Stain - Preliminary Sputum Assessment and Plan Plan: Shock, combination of cardiogenic and hypovolemic as the patient had massive GI bleed/upper GI bleeding. The patient is intubated on the mechanical ventilator. The patient remains on pressors and the patient is on norepinephrine and vasopressin physiologic dose. The patient was resuscitated with blood products and IV fluids. The pressors have been weaned compared to yesterday. Nevertheless, the patient continues to be hypotensive essentially related to cardiogenic failure. Acute kidney injury creatinine up to 1.5 Acute hypoxemic respiratory failure, secondary to CHF, currently intubated on mechanical ventilator, chest x-ray from today and blood gas from today is noted. There is development of a right lower lobe consolidation. Based on his underlying shock state, the patient was started on IV cefepime and vancomycin Upper GI bleeding, transfused with total of 4 units of packed RBC, follow-up hemoglobin is stable and the patient underwent Endo Clip of a duodenal ulcer bleed and a hemoglobin has remained stable since. Remains NPO. Remains on Protonix. No anticoagulants for now. chronic atrial fibrillation, currently off anticoagulants Nonsustained V. tach, currently inactive and stable, current rhythm is atrial fibrillation, no ventricular arrhythmias have been noted. History of CAD, with previous myocardial infarction, and previous CABG. CHF with ischemic cardiomyopathy and ejection fraction of less than 20%, status post AICD/pacemaker implantation. History of COPD from previous tobacco use. History of diabetes mellitus. History of gastroesophageal reflux disease. History of hypertension. History of hyperlipidemia. General medical debility. Peripheral vascular disease Lower extremity edema with stage II wounds and areas of skin blisters related to CHF and lower extremity edema/chronic. Peripheral vascular disease with only Doppler signals lower extremities along with hypoperfusion and skin mottling specially in the right lower extremity. The patient continues to have an ischemic right lower extremity. Plan: Continue ventilator support Keep the patient off sedation. Monitor hemodynamics and is continuing the pressors for now Had a lengthy discussion with the family. is at the bedside. There was also the daughter and the son will arrive from out of state. As mentioned, the patient never wanted to be on the mechanical ventilator and he has not been agreeable to long-term vent support. The family requested extubation. They are aware that the patient may not sustain his own respiration and he may decompensate postextubation. They were agreeable to end-of-life care measures based on the outcome. Condition is critical. Will proceed with extubation and possibly end-of-life care is to follow. Critical care evaluation Case was discussed with primary care and cardiology Evaluation was done more than 30 minutes Time with Patient: Greater than 30
[2024-07-20 16:44] VITALS: BMI 30.3
[2024-07-20 19:10] LABS: Glucose,Whole Blood 139 mg/dL (70-110)
[2024-07-20] MEDS: FUROSEMIDE 10 MG/ML 2 ML VIAL IV ONE (20:40)
--- NOTE | 2024-07-20 21:36 | P.PN ---
Subjective Patient seen and evaluated at bedside. Objective - Vital Signs Vital signs: Vital Signs Temp 98.1 F 07/20/24 20:00 Pulse 99 07/20/24 20:17 Resp 26 H 07/20/24 20:17 BP 72/47 07/17/24 21:30 Pulse Ox 97 07/20/24 20:15 FiO2 100 07/20/24 20:10 Intake & Output 07/20/24 07/20/24 07/21/24 06:59 18:59 06:59 Intake Total 992 778.451 72 Output Total 440 765 55 Balance 552 13.451 17 Weight 96 kg 96 kg Intake: IV 362 412 72 0.9% NS KVO 190 340 60 Cefepime 2 gm In Sodium 100 Chloride 0.9% 100 ml @ 25 mls/hr IVPB Q12HR [facility] Rx #:[id number] Pressure Bags 72 72 12 Intake, IV Titration 236.451 Amount Norepinephrine 32 mg In 236.451 Sodium Chloride 0.9% 218 ml @ 0.03 MCG/KG/MIN 1. 305 mls/hr IV .Q24H [facility] Rx#:[id number] Tube Feeding 540 100 Other 90 30 Output: Urine 440 765 55 Other: Voiding Method Indwelling Catheter Indwelling Catheter Indwelling Catheter ABP, PAP, CO, CI - Last Documented Arterial Blood Pressure 96/38 - Exam gen: nad cv: tachy pul: non labored breathing abd: soft, non distended, no guarding or rebound tenderness - Labs CBC & Chem 7: 07/20/24 05:42 07/20/24 05:42 Labs: Abnormal Lab Results - Last 24 Hours (Table) 07/19/24 07/20/24 07/20/24 Range/Units 23:50 04:50 05:42 WBC 21.6 H (3.8-10.6) k/uL RBC 3.49 L (4.30-5.90) m/uL Hgb 9.4 L (13.0-17.5) gm/dL Hct 30.3 L (39.0-53.0) % MCHC 30.9 L (31.0-37.0) g/dL RDW 18.8 H (11.5-15.5) % ABG Total CO2 25 H (19-24) mmol/L ABG O2 Saturation 98.0 H (94-97) % Hemoglobin 9.4 L (13.0-17.5) gm/dL Chloride (98-107) mmol/L BUN (9-20) mg/dL Creatinine (0.66-1.25) mg/dL Glucose (74-99) mg/dL POC Glucose (mg/dL) 197 H (70-110) mg/dL Calcium (8.4-10.2) mg/dL 07/20/24 07/20/24 07/20/24 Range/Units 05:42 11:50 19:08 WBC (3.8-10.6) k/uL RBC (4.30-5.90) m/uL Hgb (13.0-17.5) gm/dL Hct (39.0-53.0) % MCHC (31.0-37.0) g/dL RDW (11.5-15.5) % ABG Total CO2 (19-24) mmol/L ABG O2 Saturation (94-97) % Hemoglobin (13.0-17.5) gm/dL Chloride 113 H (98-107) mmol/L BUN 46 H (9-20) mg/dL Creatinine 1.50 H (0.66-1.25) mg/dL Glucose 188 H (74-99) mg/dL POC Glucose (mg/dL) 160 H 139 H (70-110) mg/dL Calcium 7.9 L (8.4-10.2) mg/dL Microbiology - Last 24 Hours (Table) 07/19/24 09:50 Blood Culture - Preliminary Blood 07/19/24 11:01 Gram Stain - Preliminary Sputum Sputum Culture - Preliminary Assessment and Plan Assessment: 73-year-old male with bleeding duodenal ulcer. He is status post upper endoscopy with clip and injection. Hemoglobin appears to be stable. No active GI bleed noted. Continue with GI recommendations. Time with Patient: Less than 30
[2024-07-20 23:35] LABS: Glucose,Whole Blood 113 mg/dL (70-110)
[2024-07-21 05:29] LABS: Anisocytosis Slight; HCT 31.1 % (39.0-53.0); HGB 9.4 gm/dL (13.0-17.5); Hypochromasia Marked; MCH 26.5 pg (25.0-35.0); MCHC 30.1 g/dL (31.0-37.0); MCV 88.1 fL (80.0-100.0); Platelet Count 252 k/uL (150-450); Poikilocytosis Slight; RBC 3.53 m/uL (4.30-5.90); RDW 19.3 % (11.5-15.5); WBC 26.7 k/uL (3.8-10.6)
[2024-07-21 05:37] LABS: African American GFR (CKD) 44 (>60 ml/min/1.73 sqM); Anion Gap 6 mmol/L; Blood Urea Nitrogen 53 mg/dL (9-20); Calcium 8.1 mg/dL (8.4-10.2); Carbon Dioxide 21 mmol/L (22-30); Chloride 114 mmol/L (98-107); Glucose 92 mg/dL (74-99); Non-African American GFR(CKD) 38 (>60 ml/min/1.73 sqM); Potassium 4.8 mmol/L (3.5-5.1); Sodium 141 mmol/L (137-145)
[2024-07-21 09:39] VITALS: TEMP 98.6
--- NOTE | 2024-07-21 11:02 | XR ---
EXAMINATION TYPE: XR chest 1V portable DATE OF EXAM: 07/21/2024 COMPARISON: 07/20/2024 HISTORY: Shortness of breath TECHNIQUE: Single frontal view of the chest is obtained. FINDINGS: There has been interval removal of the NG tube and ET tube. There is an AICD device. There is been pr ior CABG surgery. There is no change in the left jugular central venous catheter tip of which is in t he SVC/RA junction. The bibasilar infiltrates and effusions are stable. The pulmonary vasculature remains mildly congeste d. IMPRESSION: Moderate to marked acute cardiopulmonary disease with no significant interval change. [facility], Workstation: [facility], 07/21/2024 11:00 AM
[2024-07-21] MEDS: DIGOXIN 250 MCG/ML 2 ML AMP IVP ONE (12:43)
--- NOTE | 2024-07-21 12:59 | P.PN ---
Subjective Progress Note Date: 07/21/24 The patient is a pleasant 73-year-old gentleman with extensive cardiovascular history who did not see a guest services officer in more than 8 years. 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 The patient was sent from his primary care physician to the hospital for further evaluation of heart failure. He apparently was retaining significant amount of fluid and he according to his gained about 15 pounds within the last few weeks. He was experiencing progressive exertional dyspnea and bilateral lower extremities edema and bilateral nonhealing wounds involving the lower extremities. In the hospital he was found to be hypotensive he was started on norepinephrine. He underwent further evaluation including EKG showing atrial fibrillation which is permanent. As a mention earlier the patient is not on anticoagulation as an outpatient because of history of GI blee ding. He was started on norepinephrine. Also he was started on IV diuretics. No echocardiogram. The last echo from 2016 showing severe cardiomyopathy with EF around 20% with global hypokinesia. The patient also has history of AICD. The physical examination is remarkable for severe upper and lower extremities pitting edema and also lower extremities nonhealing ulcers with diminished breathing sounds bilaterally and irregular rhythm. July 16, 2024 Yesterday patient could not tolerate laying flat and got significantly short of breath and respiratory distress for which she got intubated. Currently is on vent support. Currently he is on norepinephrine and vasopressin. Telemetry shows atrial fibrillation with heart rate around 110 bpm with significant ventricular ectopy. July 17, 2024 Patient is seen and examined at bedside. Patient's family is present at bedside. They report that patient baseline blood pressure is around 80 to 90 mmHg systolic. Patient was previously hospice and has since AICD turned off. July 18, 2024 Hb 10.3, WBC 18.5, BUN 30s, creatinine 1.17, Patient appears less swollen as compared to yesterday. Adequate urine output on IV Lasix. Tolerating it well. Kidney function is holding. Still on low-dose vasopressin. Continues to be on norepinephrine. Off sedation, getting a sedation vacation today in the morning. Jul 19, 2024 [employer] 1.4 today, worse as compared to previously. Patient tolerated the IV Lasix yesterday. Appears less swollen in bilateral lower extremity but bilateral upper extremity are extremely swollen. He has mottling of his right lower extremity with bluish discoloration with poor pulses. He is still maintained on norepinephrine and vasopressin. MAP 55-60 mmhg range. Heart rate 110 bpm, atrial fibrillation. Lesser ectopy as compared to before. July 20, 2024 Creatinine is 1.5 today. Family has made a decision to proceed with sedation vacation and spontaneous breathing trial with extubation with an understanding that he is at high risk and he might . Patient never had wishes of being intubated and to be maintained on ventilator for long. ICU team will proceed with terminal weaning this afternoon. We will attempt to give digoxin to 50 mcg IV and Lasix 40 mL IV prior to the sedation vacation and extubation. July 21, 2024 Creatinine is 1.7 today. Family has decided to wean off pressors terminally for comfort measures. BP 80/50, heart rate 105 bpm, atrial fibrillation, poor pulses in right lower extremity, low urine output with minimal response to IV Lasix. On exam Intubated and sedated, on ventilator support, ET tube in place, good air entry in bilateral lung shukla 2+ pitting edema noticed in bilateral lower extremity. Irregularly irregular pulse, S1-S2 audible, systolic murmur audible. Assessment Ventilator dependent respiratory failure status post terminal extubation on 07/20/2024. HFrEF exacerbation with evidence of right and left failure Severe cardiomyopathy EF 20% Severe CAD status post CABG Permanent atrial fibrillation, currently heart rate around 110 bpm NSVT and PVCs Severe valvular heart disease with torrential tricuspid regurgitation, severe mitral regurgitation Severe pulmonary hypertension due to group 2 and group 3 Status post AICD Hypomagnesemia Chronic kidney disease Multiple comorbid conditions History of amiodarone toxicity Plan Weaning off pressors within understanding of that patient might not make it. Patient's family understands it. She will never wish to be on pressors for long-term and prolonged misery. digoxin IV 125 mcg today. Lasix 40 mg IV Continue mexiletine 150 mg 3 times daily for ventricular ectopy. I had extensive discussion with the patient's and daughter. They understand that the patient's prognosis is very poor. He has been dealing with cardiomyopathy and severe valvular dysfunction for last 8 years. They expressed that patient never had wishes of getting intubated but he was intubated for the procedure of upper GI endoscopy. As his wishes were not to be on ventilator support for long, they are expressing wishes to attempt extubation and see how patient does. They understand that extubation is high risk and patient may end up dying. Understanding this patient's family do not want to prolong patient's misery and would like to attempt it tomorrow. I would recommend giving him some IV Lasix 1 hour before the weaning protocol and see how patient does. I will start digoxin today in hopes of achieving better rate control and improving inotropic effect. Case discussed with ICU attending and primary care attending. Objective - Vital Signs Vital signs: Vital Signs Temp 98.6 F 07/21/24 08:00 Pulse 101 H 07/21/24 11:45 Resp 24 07/21/24 11:45 BP 72/47 07/17/24 21:30 Pulse Ox 99 07/21/24 11:45 FiO2 100 07/21/24 12:05 Intake & Output 07/20/24 07/21/24 07/21/24 18:59 06:59 18:59 Intake Total 778.451 809.053 322.963 Output Total 765 270 10 Balance 13.451 539.053 312.963 Weight 96 kg 93.6 kg Intake: IV 412 522 208 0.9% NS KVO 340 350 90 Cefepime 2 gm In Sodium 100 100 Chloride 0.9% 100 ml @ 25 mls/hr IVPB Q12HR [facility] Rx #:[id number] Pressure Bags 72 72 18 Intake, IV Titration 236.451 287.053 114.963 Amount Norepinephrine 32 mg In 236.451 134.053 114.963 Sodium Chloride 0.9% 218 ml @ 0.03 MCG/KG/MIN 1. 305 mls/hr IV .Q24H [facility] Rx#:[id number] Vasopressin 60 unit In 153 Sodium Chloride 0.9% 150 ml @ 0.03 UNITS/MIN 4.59 mls/hr IV .Q24H [facility] Rx#: [id number] Tube Feeding 100 Other 30 Output: Urine 765 270 10 Other: Voiding Method Indwelling Catheter Indwelling Catheter ABP, PAP, CO, CI - Last Documented Arterial Blood Pressure 91/35 - Labs CBC & Chem 7: 07/21/24 05:15 07/21/24 05:15 Labs: Abnormal Lab Results - Last 24 Hours (Table) 07/20/24 07/20/24 07/21/24 Range/Units 19:08 23:33 05:15 WBC (3.8-10.6) k/uL RBC (4.30-5.90) m/uL Hgb (13.0-17.5) gm/dL Hct (39.0-53.0) % MCHC (31.0-37.0) g/dL RDW (11.5-15.5) % Chloride 114 H (98-107) mmol/L Carbon Dioxide 21 L (22-30) mmol/L BUN 53 H (9-20) mg/dL Creatinine 1.77 H (0.66-1.25) mg/dL POC Glucose (mg/dL) 139 H 113 H (70-110) mg/dL Calcium 8.1 L (8.4-10.2) mg/dL 07/21/24 Range/Units 05:15 WBC 26.7 H (3.8-10.6) k/uL RBC 3.53 L (4.30-5.90) m/uL Hgb 9.4 L (13.0-17.5) gm/dL Hct 31.1 L (39.0-53.0) % MCHC 30.1 L (31.0-37.0) g/dL RDW 19.3 H (11.5-15.5) % Chloride (98-107) mmol/L Carbon Dioxide (22-30) mmol/L BUN (9-20) mg/dL Creatinine (0.66-1.25) mg/dL POC Glucose (mg/dL) (70-110) mg/dL Calcium (8.4-10.2) mg/dL Microbiology - Last 24 Hours (Table) 07/19/24 11:01 Gram Stain - Preliminary Sputum Sputum Culture - Preliminary Pseudomonas aeruginosa 07/19/24 09:50 Blood Culture - Preliminary Blood
--- NOTE | 2024-07-21 13:29 | P.PN ---
Subjective patient seen and evaluated bedside. No new complaints. No bleeding noted. Objective - Vital Signs Vital signs: Vital Signs Temp 98.6 F 07/21/24 08:00 Pulse 101 H 07/21/24 11:45 Resp 24 07/21/24 11:45 BP 72/47 07/17/24 21:30 Pulse Ox 99 07/21/24 11:45 FiO2 100 07/21/24 12:05 Intake & Output 07/20/24 07/21/24 07/21/24 18:59 06:59 18:59 Intake Total 778.451 809.053 322.963 Output Total 765 270 10 Balance 13.451 539.053 312.963 Weight 96 kg 93.6 kg Intake: IV 412 522 208 0.9% NS KVO 340 350 90 Cefepime 2 gm In Sodium 100 100 Chloride 0.9% 100 ml @ 25 mls/hr IVPB Q12HR [facility] Rx #:[id number] Pressure Bags 72 72 18 Intake, IV Titration 236.451 287.053 114.963 Amount Norepinephrine 32 mg In 236.451 134.053 114.963 Sodium Chloride 0.9% 218 ml @ 0.03 MCG/KG/MIN 1. 305 mls/hr IV .Q24H [facility] Rx#:[id number] Vasopressin 60 unit In 153 Sodium Chloride 0.9% 150 ml @ 0.03 UNITS/MIN 4.59 mls/hr IV .Q24H [facility] Rx#: [id number] Tube Feeding 100 Other 30 Output: Urine 765 270 10 Other: Voiding Method Indwelling Catheter Indwelling Catheter ABP, PAP, CO, CI - Last Documented Arterial Blood Pressure 91/35 - Exam Physical exam: HEENT: Normocephalic, sclerae nonicteric Chest: Clear to auscultation Heart: Regular rate and rhythm Abdomen: [Nontender, nondistended] Extremities: No edema Neuro: Alert and oriented - Labs CBC & Chem 7: 07/21/24 05:15 07/21/24 05:15 Labs: Abnormal Lab Results - Last 24 Hours (Table) 07/20/24 07/20/24 07/21/24 Range/Units 19:08 23:33 05:15 WBC (3.8-10.6) k/uL RBC (4.30-5.90) m/uL Hgb (13.0-17.5) gm/dL Hct (39.0-53.0) % MCHC (31.0-37.0) g/dL RDW (11.5-15.5) % Chloride 114 H (98-107) mmol/L Carbon Dioxide 21 L (22-30) mmol/L BUN 53 H (9-20) mg/dL Creatinine 1.77 H (0.66-1.25) mg/dL POC Glucose (mg/dL) 139 H 113 H (70-110) mg/dL Calcium 8.1 L (8.4-10.2) mg/dL 07/21/24 Range/Units 05:15 WBC 26.7 H (3.8-10.6) k/uL RBC 3.53 L (4.30-5.90) m/uL Hgb 9.4 L (13.0-17.5) gm/dL Hct 31.1 L (39.0-53.0) % MCHC 30.1 L (31.0-37.0) g/dL RDW 19.3 H (11.5-15.5) % Chloride (98-107) mmol/L Carbon Dioxide (22-30) mmol/L BUN (9-20) mg/dL Creatinine (0.66-1.25) mg/dL POC Glucose (mg/dL) (70-110) mg/dL Calcium (8.4-10.2) mg/dL Microbiology - Last 24 Hours (Table) 07/19/24 11:01 Gram Stain - Preliminary Sputum Sputum Culture - Preliminary Pseudomonas aeruginosa 07/19/24 09:50 Blood Culture - Preliminary Blood Assessment and Plan Assessment: 73-year-old male with bleeding duodenal ulcer. He is status post upper endoscopy with clip and injection. Hemoglobin appears to be stable. No active GI bleed noted. Continue with GI recommendations. Time with Patient: Less than 30
--- NOTE | 2024-07-21 14:04 | P.PN ---
Subjective Progress Note Date: 07/21/24 73-year-old male with history of multiple medical problems including congestive heart failure, and atrial fibrillation. The patient was sent into the hospital, by his primary care physician. The patient came in with complaints of lower extremity edema, shortness of breath, ulcerations on his foot, and weakness. The patient was seen in the emergency room, ER #[id number]. We were consulted because the patient has been hypotensive, since being in the emergency department. Norepinephrine has not yet been started. Cardiac medications have been held. In addition to atrial fibrillation, the patient has a history of myocardial infarction, coronary disease, congestive heart failure, diabetes, GERD, hyperlip idemia, hypertension, osteoarthritis, and previous bypass surgery. The patient apparently was at [facility] many years ago, on a ventilator, and was apparently on hospice, but has done well over the last 7 or 8 years. The patient does have a history of AICD placement, and previous tobacco use. Currently, he is on CPAP, at between 8 to 12 cm of water. He is not receiving any IV fluids. We did talk to the patient about CODE STATUS and he stated that he would not want to be on life support. His agreed with that. White count is 18, hemoglobin 11.6, hematocrit 37.7, platelet count of 262,000. Sodium 127, potassium 5.8, chloride 95, CO2 21, anion gap is 11, BUN 53, creatinine is 1.26. His N-terminal proBNP was 5940. His troponin was less than 0.012. Chest x-ray was consistent with CHF. Progress note dated July 14, 2024. 73-year-old male seen in the emergency department yesterday. He was admitted with a diagnosis of congestive heart failure. The patient was transferred to the intensive care unit, for norepinephrine. Currently he is on 5 L nasal cannula. He is getting saline at 10 cc an hour. He is on norepinephrine at 3.8 mcg/min. His procalcitonin level was normal at 0.25. Unasyn will be discontinued. White count 16.7, hemoglobin 10.6, hematocrit 34.8, platelet count normal. Sodium 124, potassium 5.5, chlorides 95, CO2 20, BUN 48, creatinine 1.06. Glucose 129. Calcium 8.2. Albumin 2.5. Chest x-ray again shows evidence of cardiomegaly, and pulmonary vascular congestion. Doppler of the right lower extremity was negative for DVT. Progress note dated August 11, 2024. The patient is seen today in room 258. I was called by the nurses last night, because of the new onset GI bleed. The patient is currently on norepinephrine at 14.8 mcg/min, nasal O2 at 4 L, saline at 10 cc an hour. The patient did use his CPAP last night. A repeat hemoglobin will be done at noon today. This morning's hemoglobin was 9.2. The patient is a DO NOT INTUBATE patient. White count 14.2, hemoglobin 9.2, hematocrit 29.4, platelet count finger 83,000. Sodium 126, potassium 5.8, chlorides 102, CO2 23, BUN 60, creatinine 0.99. Glucose 133. Hemoglobin A1c was 6.8. Calcium is 8. On 07/16/2024, the patient was seen in follow-up in the intensive care unit. Time of evaluation, the patient was extremely lethargic, in a shock state which is probably a combination of cardiogenic shock and hypovolemic shock as the patient continues to show signs of GI bleeding and the patient was having several melanotic stools including the last episode this morning. Noted the patient is known to have coronary artery disease, previous bypass surgery, severe ischemic cardiomyopathy with impaired LV function with an ejection fraction of 20%, chronic atrial fibrillation, he has a pacer/AICD in place. Overnight, the patient was also having few episodes of nonsustained ventricular tachycardia. The patient was taken off the anticoagulants. He was given Kce ntra and during this current admission, the patient received a total of 4 units of packed RBC regarding his ongoing GI bleeding. Most recent hemoglobin from this morning is at 11.3. At the time of my evaluation, the patient was having labored breathing. He was on 4 L of oxygen by nasal cannula. Typically his on O2 at home ranging between 3 and 5 L/min nasal cannula. He was on norepinephrine running at 0.32 mcg/kg/min and vasopressin physiologic dose. As mentioned, he was still showing evidence of GI bleeding. The gastroenterology team was on standby for an EGD. I opted to intubate the patient and put him on the mechanical ventilator to protect his airway and proceed with the procedure. Based on that, the patient was started on propofol which is currently running at 40 mcg/kg/min. The patient process was done without any complications. He was placed on assist-control at rate of 18 with a tidal volume of 400, FiO2 100% with a PEEP of 5. The subsequent blood gases showed a pH of 7.37 with a pCO2 of 41 and pO2 of 376. FiO2 was weaned down to 40%. Postintubation chest x-ray showed CHF, pulm vessel congestion, triple-lumen catheter was in good location. Orogastric tube is in place and the patient has an orotracheal tube also in place. He was given a total of 2 L of IV fluid bolus and the subsequent hemoglobin came back at six 9.9 with a white cell count of 14.2 and a platelet count of 265. The sodium is at 130, potassium is at 4.9, chloride is 101 and the bicarb is 24. BUN is 45 with a creatinine of 0.98. Blood sugar is at 168. On 07/17/2024, the patient is being seen for a follow-up. The patient remains intubated on the mechanical ventilator. The patient is on propofol running at 30 mcg/kg/min. The patient underwent an EGD yesterday and was found to have a duodenal ulcer for which she underwent an Endo Clip and it seems that the bleeding is under adequate control for now. The patient's hemoglobin has remained stable and his current hemoglobin is at 10.5. Noted the patient was transfused a total of 4 units of packed RBC during this current hospitalization. He has a fecal management system in place. There are some dark melanotic output which is minimal at this point in time and is essentially liquidy. Hemodynamically, the patient remains in shock. He remains profoundly hypotensive and is pressor requirements are still active and norepinephrine is running at 0.5 mcg/kg/min and he is also on vasopressin physiologic dose. The patient remains in atrial fibrillation with frequent premature beats. The patient was started on mexiletine by cardiology. The patient is currently on assist-control mode with rate of 18, tidal volume of 450, FiO2 40% with a PEEP of 5. Blood gas showed a pH of 7.26 with a pCO2 of 52 and pO2 of 121. Chest x- ray is consistent with heart failure with lines being all in place and the patient has a pacer/defibrillator over the left anterior chest area. Orotracheal tube is in a good location. The white cell count is 15.9, hemoglobin 10.7 and platelet count is at 313. Sodium is at 130, BUN 36 with a creatinine of 0.9. Potassium level is at 4.7. Serum bicarb is at 20. LFTs are essentially within normal limits. He remains NPO. CVP is elevated at around 18. Only Doppler pulses in lower extremities bilaterally. Continues to have skin blisters and vesicle formation and superficial ulceration. Extremities remain cold and clammy. 07/18/2024, the patient remains intubated and mechanically ventilated. No signs of any acute GI bleeding for now and the patient's hemoglobin remained stable. The patient remains on pressors. The patient remains intubated on mechanical ventilator. Earlier this morning, the patient is on propofol at 20 mcg/kg/min. He remains on norepinephrine at 0.23 mcg/kg/min and vasopressin physiologic dose. He is on IV Lasix. Fluid balance is -500 cc over the past 24 hours. He remains on assist-control mode of mechanical ventilation at rate of 24, tidal volume of 400, FiO2 40% with a PEEP of 5. Blood gas showed pH of 7.35 with a pCO2 of 42 and pO2 of 121. Chest x-ray findings are essentially unchanged is consistent with CHF. There is also cardiomegaly. Lines are all in place. The white cell count is 18.5 with hemoglobin 10.3 and a platelet count of 272. Cardiac rhythm is atrial fibrillation. BUN 36 with a creatinine of 1.1. Sodium is at 133, potassium is at 4.3, and bicarb is at 21. Started on IV cefepime as an empiric antibiotic coverage. Positive lower extremities are extremely weak and they are obtainable by Doppler signals only. Patient remains n.p.o. for now. 07/19/2024, the patient is being seen for a follow-up. Remains intubated on the mechanical ventilator. Propofol has been discontinued yesterday and the patient is arousable. He is very sluggish in his response. He was opening his eyes spontaneously and following some simple commands. He is very much interested in mechanical ventilator which is set at an assist-control mode with rate of 24, tidal volume of 450, FiO2 40% with a PEEP of 5. Blood gas showed a pH of 7.34 w ith a pCO2 43 and pO2 115. Hemodynamically, the patient remains atrial fibrillation. Slightly tachycardic. Remains on norepinephrine at 0.27 mcg/kg/min and vasopressin at 0.03 units/min.. The patient is producing urine output in the order of 25 cc an hour. The patient has not demonstrated any GI bleeding. Hemoglobin is relatively stable and the hemoglobin is currently at 10.4. The patient will start enteral feeding for nutritional support and currently he is on vital AF. Tube feeds are running at a rate of 30 cc an hour. Meanwhile, the patient has developed an acute kidney injury, BUN is up to 40 with a creatinine of 1.4. Sodium is at 137, potassium is at 4.5. The white cell count is at 20 with a hemoglobin of 10.4. Chest x-ray from today shows CHF and there is evolving consolidation of the right lower lobe. The patient remains on IV cefepime. On a separate note, the patient continues to have an ischemic right lower extremity. Absent pulses in the right foot and there is skin mottling and some cyanosis and increased coldness. The patient was seen by vascular surgery. No interventions recommended at this point in time specially with his underlying shock state and high pressor requirements. On 07/20/2024, the patient remains off sedation, arousable, profoundly weak and looks quite debilitated. Remains hemodynamically unstable and in shock state requiring pressors and the patient remains on norepinephrine and physiologic dose of vasopressin. Noted no bleeding has been encountered over the past 48 hours and the patient is currently on enteral feeding for nutritional support. In terms of vent settings, the patient remains on the same ventilator setting which includes an assist-control mode at rate of 24 with a tidal volume of 450, FiO2 40% with a PEEP of 5. Blood gas showed a pH of 7.36 with a pCO2 of 42 and pO2 93. Chest x-ray is consistent with heart failure bilateral pleural effusion and possible right lower lobe consolidation and patient remains on a same antibiotic coverage to include cefepime and vancomycin. Hemoglobin today is at 9.4. White cell count of 21. He has sustained acute kidney injury creatinine stable compared to yesterday at 1.5 with a BUN of 46. Electrolytes are within normal limits. The patient continues to have absent pulses in the right lower extremity. The skin is mottled and the right leg is quite cyanotic. Fluid balance over the past 24 hours has been in the order of 1.7 L positive. Remains atrial fibrillation. Family is at the bedside. Requesting extubation as the patient did not want any form of long-term vent support. Explained to the family that the patient may not be able to tolerate extubation and if he feels he will be headed towards end-of-life care. They were agreeable to that. On 07/21/2024, the patient is extubated and the patient is currently on a BiPAP per family's wishes. He is unresponsive. Still in a shock state and the patient currently is on a norepinephrine running at 0.3 mcg/kg/min. Unable to communicate. Extremely lethargic and weak. Tachypneic while being on the BiPAP machine. Family at the bedside. Requested end-of-life care. White cell count is 26.7, hemoglobin 9.4 and platelet count of 252. BUN is 53 with a creatinine of 1.7. Serum bicarb is at 21. He is afebrile. Remains atrial fibrillation with a heart rate between 101 110. Tachypneic even while on the BiPAP. No bleeding has been noted over the past 24 hours. Objective - Vital Signs Vital signs: Vital Signs Temp 98.6 F 07/21/24 08:00 Pulse 101 H 07/21/24 11:45 Resp 24 07/21/24 11:45 BP 72/47 07/17/24 21:30 Pulse Ox 99 07/21/24 11:45 FiO2 100 07/21/24 12:05 Intake & Output 07/20/24 07/21/24 07/21/24 18:59 06:59 18:59 Intake Total 778.451 809.053 322.963 Output Total 765 270 10 Balance 13.451 539.053 312.963 Weight 96 kg 93.6 kg Intake: IV 412 522 208 0.9% NS KVO 340 350 90 Cefepime 2 gm In Sodium 100 100 Chloride 0.9% 100 ml @ 25 mls/hr IVPB Q12HR [facility] Rx #:[id number] Pressure Bags 72 72 18 Intake, IV Titration 236.451 287.053 114.963 Amount Norepinephrine 32 mg In 236.451 134.053 114.963 Sodium Chloride 0.9% 218 ml @ 0.03 MCG/KG/MIN 1. 305 mls/hr IV .Q24H [facility] Rx#:[id number] Vasopressin 60 unit In 153 Sodium Chloride 0.9% 150 ml @ 0.03 UNITS/MIN 4.59 mls/hr IV .Q24H [facility] Rx#: [id number] Tube Feeding 100 Other 30 Output: Urine 765 270 10 Other: Voiding Method Indwelling Catheter Indwelling Catheter ABP, PAP, CO, CI - Last Documented Arterial Blood Pressure 91/35 - Exam - Exam Unresponsive, extubated to a BiPAP Head exam was generally normal. There was no scleral icterus or corneal arcus. Mucous membranes were moist. Neck was supple and with jugular venous distension, thyromegaly, or carotid bruits. Carotids were easily palpable bilaterally. There was no adenopathy. Cardiovascular examination reveals an irregular rhythm and rate. S1-S2 normal. No S3 or S4. A systolic murmur is noted, grade 2/6. The rhythm was irregular consistent with atrial fibrillation and the patient was quite tachycardic. The patient also had a thoracotomy scar over the anterior chest area and the patient has a pacemaker over the left anterior chest. Lungs reveal scattered rhonchi and crackles. Breath sounds equal. No wheezes. Abdomen soft bowel sounds are heard. No masses or tenderness. Extremities are showing diminished pulses in all 4 extremities. No cyanosis or clubbing. 1+ edema is noted. Skin blisters Skin is without rash or lesion. Skin blisters related to edema, mottling of the skin in the right lower extremity and marked diminished pulses involving the dorsalis pedis and posterior tibialis. Palpable femoral pulses bilaterally. Neurologic the patient is unresponsive - Labs CBC & Chem 7: 07/21/24 05:15 07/21/24 05:15 Labs: Abnormal Lab Results - Last 24 Hours (Table) 07/20/24 07/20/24 07/21/24 Range/Units 19:08 23:33 05:15 WBC (3.8-10.6) k/uL RBC (4.30-5.90) m/uL Hgb (13.0-17.5) gm/dL Hct (39.0-53.0) % MCHC (31.0-37.0) g/dL RDW (11.5-15.5) % Chloride 114 H (98-107) mmol/L Carbon Dioxide 21 L (22-30) mmol/L BUN 53 H (9-20) mg/dL Creatinine 1.77 H (0.66-1.25) mg/dL POC Glucose (mg/dL) 139 H 113 H (70-110) mg/dL Calcium 8.1 L (8.4-10.2) mg/dL 07/21/24 Range/Units 05:15 WBC 26.7 H (3.8-10.6) k/uL RBC 3.53 L (4.30-5.90) m/uL Hgb 9.4 L (13.0-17.5) gm/dL Hct 31.1 L (39.0-53.0) % MCHC 30.1 L (31.0-37.0) g/dL RDW 19.3 H (11.5-15.5) % Chloride (98-107) mmol/L Carbon Dioxide (22-30) mmol/L BUN (9-20) mg/dL Creatinine (0.66-1.25) mg/dL POC Glucose (mg/dL) (70-110) mg/dL Calcium (8.4-10.2) mg/dL Microbiology - Last 24 Hours (Table) 07/19/24 11:01 Gram Stain - Preliminary Sputum Sputum Culture - Preliminary Pseudomonas aeruginosa 07/19/24 09:50 Blood Culture - Preliminary Blood Assessment and Plan Plan: Shock, combination of cardiogenic and hypovolemic and later septic shock was considered and the patient remains on high-dose pressors Acute kidney injury creatinine up to 1.7 Acute hypoxemic respiratory failure, secondary to CHF, There is development of a right lower lobe consolidation. Based on his underlying shock state, the patient was started on IV cefepime and vancomycin. Upon family's wishes, the patient was extubated to a BiPAP yesterday. He remains quite tachypneic and breathing is labored. End-of-life measures as requested by family. I think is quite reasonable. Upper GI bleeding, transfused with total of 4 units of packed RBC, follow-up hemoglobin is stable and the patient underwent Endo Clip of a duodenal ulcer bleed and a hemoglobin has remained stable since. Remains NPO. Remains on Protonix. No anticoagulants for now. chronic atrial fibrillation, currently off anticoagulants Nonsustained V. tach, currently inactive and stable, current rhythm is atrial fibrillation, no ventricular arrhythmias have been noted. History of CAD, with previous myocardial infarction, and previous CABG. CHF with ischemic cardiomyopathy and ejection fraction of less than 20%, status post AICD/pacemaker implantation. History of COPD from previous tobacco use. History of diabetes mellitus. History of gastroesophageal reflux disease. History of hypertension. History of hyperlipidemia. General medical debility. Peripheral vascular disease Lower extremity edema with stage II wounds and areas of skin blisters related to CHF and lower extremity edema/chronic. Peripheral vascular disease with only Doppler signals lower extremities along with hypoperfusion and skin mottling specially in the right lower extremity. The patient continues to have an ischemic right lower extremity. Plan: I had a lengthy discussion with the daughter and and the son at the bedside. Patient is currently on a BiPAP Family requested end-of-life care I think is quite reasonable as the patient has a large number of comorbidities and his condition has progressed decompensated over the past 24 to 48 hours. Based on that, I recommended to stop the pressors and introduce morphine if needed for comfort care measures. BiPAP can be also discontinued later stage and the patient can be placed on 100% breather facemask. Will proceed with end-of-life care. Family at the bedside. Comfort measures only. Evaluation was done more than 30 minutes Time with Patient: Greater than 30
[2024-07-21] MEDS: MORPHINE SULFATE 4 MG/ML SYRINGE IV PRN (14:26)
[2024-07-21] MEDS ORDERED: MORPHINE SULFATE (100 MG/2 ML) 100 MG in SODIUM CHLORIDE 0.9% 100 ML IV SCH (14:30)
[2024-07-21 15:04] VITALS: PULSE 49; RESP 17
--- NOTE | 2024-07-21 16:14 | P.PN ---
Subjective Progress Note Date: 07/20/24 HISTORY OF PRESENT ILLNESS: This is a 73-year-old male used to be my patient for many years, he had left [place] and went to [place] for about 7 years he just got back about 3 months ago, and he was in my office yesterday for the first time as a new patient he is well-known to have a significant history of coronary artery disease status post coronary artery bypass graft x 3 in 2004 with ischemic cardiomyopathy status post AICD/biventricular pacemaker that was turned off by his mat roller prior to him going to [place], hypertension hypertensive cardiovascular disease, diabetes mellitus type 2 diabetic polyneuropathy, history of obstructive sleep apnea, history of COPD, history of PAD, patient came to my office as a new patient yesterday and he was tremendous amount of shortness of breath, he was on oxygen at that time, he was having fluid weeping out his upper extremity and the left upper extremity as well as both lower extremity has wounds on his right lower extremity due to venous ulceration due to abrasion due to fall, patient was directed to go to the emergency department for evaluation of acute systolic heart failure his family to come to the ER, patient was found to have an elevated BNP, he was started on IV Lasix 80 mg IV push every 12 hours, patient became hypotensive in the emergency department, hypoxemic as well, intensive care consultation was obtained from Dr. Randall who accepted the patient to the ICU, patient will be seen in consultation by cardiology as well for further evaluation recommendation, most of his medication were held because of his hypotension, we will adjust his IV diuretics at this time untilhe is moved into the ICU and he is seen by cardiology. 07/14: Patient is sitting up in bed currently on 4 L nasal cannula, he appears to be in mild respiratory distress, he is dozing on and off, his was at the bedside, his blood pressure currently 82/42 on Levophed drip, patient was seen earlier by vascular surgery patient does have a Doppler signal on the right stronger in the left in the dorsalis pedis, and patient had a venous Doppler that was negative for DVT, patient is not a good candidate for any vascular intervention at this point in time, we will continue the patient on Xarelto as the patient refused to go on heparin drip at this time, continue current treatment plan, discussed with the the prognosis is poor but will take it 1 day at a time at this point. 07/15: Patient is laying down in bed he appears to be generally weak, his Levophed drip is higher, he did have an episode of a large episode of maroon- colored blood coming out of the rectum, he is still making decent amount of urine, he continues to be holding his own, discontinue aspirin, discontinue Xarelto completely, we will obtain general surgery consultation for standby, regarding GI bleed, we will follow-up with the patient very closely, patient re domingo in the ICU, continues to have very poor prognosis at this point in time due to his cardiomyopathy as well as other morbid conditions. 07/16: Patient is laying down in bed on his CPAP, he is currently on Levophed drip at 0.3 mics per KG per minute, his blood pressures around 102/55, heart rate is around 122 he continues to have a chronic atrial fibrillation, he had episode of V. tach's on and off, when he was started on dobutamine drip, he was taken off that, he continues to be on Levophed drip at this point in time, I spoke with Dr. Cortes regarding his GI bleed and she will be happy to see the patient for Acharya in the morning, general surgery were consulted yesterday, patient did receive 4 units of packed red blood cells, his last hemoglobin was 11 by the time I seen the patient 11.3 repeat still pending at the time of dictation, will repeat his hemoglobin again at 6:00 in the morning, we will keep the patient on nothing per mouth, continue Protonix 40 mg IV push every 12 hours, I spoke with the patient's family his and his daughter at the bedside and I told him that his prognosis is very poor at this point in time, the patient is not a good candidate for any transfer at this point in time, unless we are not able to control his bleeding, patient's family were in underst anding that his prognosis very poor at this point in time, we will continue with the current CODE STATUS, but patient stated that he is okay with intubation if he has to go for a procedure regarding his GI bleed. Patient will not be a candidate for any anticoagulation or any amiodarone due to his toxicity and GI bleed. 07/17: Patient was intubated yesterday due to his acute hypoxemic respiratory failure due to combination of acute systolic heart failure as well as acute GI bleed to protect the airways as well, patient underwent an EGD by Dr. Cortes that showed duodenal ulcer that was treated with injection as well as with clip placement, patient has not had any further GI bleed at this point in time he continues to have FMS in place, he has been on Protonix 40 mg IV push every 12 hours, he continues to be sedated on the ventilator, he continues to be on Levophed, he continues to be on vasopressin, we will try to decrease his Levophed slowly to try to keep his blood pressure around 85 to 90 mmHg, we will monitor the patient very closely had a long conversation with his that patient prognosis is very dismal at this point in time, we will continue to work with the patient at this time, discussed with cardiology as well as pulmonary/critical care the need to start the patient on IV antibiotic he was on Unasyn which was taken off we will restart the patient back on cefepime maybe 2 g IV piggyback every 12 hours, due to leukocytosis at this point in time rule out any sepsis at this point. 07/18: Patient continues to be intubated on the ventilator, they tried to wean his propofol down yesterday, his awake, he shakes his head, he opens and closes his eyes, he continues to be on significant amount of Levophed, he is currently on an FiO2 of 40%, continue current ventilatory support, he was started on cefepime, we will monitor the patient very closely, I had a long conversation with his , who is interested in trying to wean the patient off the ventilator at this point in time, I had a long conversation with her about the amount of pressures that the patient is requiring right now, we will continue to monitor the patient for the next 24 hours, all trying to do the weaning over the next 1 or 2 days. 07/19: Patient remains on the ventilator currently on FiO2 of 40%, and PEEP of 5, his Levophed is down to 0.22 mics per kilogram per minute, he is currently on vasopressin at 0.05 mics per minute, will continue to follow-up with the patient very closely, the patient's was at the bedside, she was interested to try to wean the patient off into the BiPAP machine since her son is coming out from [place] later on this evening, hopefully will try that tomorrow morning and patient is aware that the prognosis is very guarded at this point in time, and he may not even make it off the ventilator but we will continue to monitor will discuss with cardiology as well as pulmonary and critical care. 07/20: Patient is extubated into a BiPAP with an FiO2 of 100%, patient is not doing well at this point his family wanted him to be comfortable at this time, we will try to wean the patient off pressors at this time, patient is at end-of-life, likely will go into comfort care in the next 24 hours. REVIEW OF SYSTEMS: Patient is sedated on BiPAP PHYSICAL EXAMINATION: General: 73-year-old male currently sedated on the ventilator. HEENT: Head is atraumatic, normocephalic, pupils were equal round there is oral gastric tube in place as well as ET tube in place. Neck: Supple, increased JVP, normal carotid upstroke bilaterally, no lymphadenopathy. Chest: Decreased breath sounds at the bases, few rhonchi, minimal expiratory wheezes, no chest wall tenderness, minimal intercostal retractions. Heart: First heart sound is depressed, second heart sound is normal, there are systolic pressure murmur 2 over systolic in the left sternal border there is an AICD/PPM in the left upper precordium Abdomen: Soft, nontender, nondistended, positive bowel sounds, no hepatosplenomegaly Extremities: There is +2 edema in the left upper extremity, bilateral lower extremity edema, with dorsalis pedis not palpable in the right lower extremity and better in the left lower extremity, there is multiple abrasion to the right knee multiple wounds to the right lower extremity and a blister to the right foot Neurologic examination: Patient is sedated on the ventilator. ASSESSMENT AND PLAN: 1. 1. Acute vent dependent hypoxemic respiratory failure due to acute systolic heart failure in a patient with a prior history of ischemic cardiomyopathy post AICD/PPM, along with a GI bleed currently extubated into a BiPAP. Continue current setting, continue patient on IV pressors try to wean the pressors per the family request, most likely patient will require to go to comfort care over the next 24 hours. 2. Cardiogenic shock rule out septic shock. Continue Levophed, continue vasopressin, start the patient on IV antibiotic. 3. Multiple venous ulcerations and blistering of the right foot due to hypoperfusion state seen by vascular surgery, venous Doppler was obtained to rule out any DVT, patient is not a candidate for anticoagulation and he is not a candidate for any vascular intervention at this point, we will continue to monitor the patient very closely. 4. Upper gastrointestinal bleed due to duodenal ulcer bleed status post EGD with intervention that was done by Dr. Cortes continue. Protonix 40 mg IV push every 12 hours. 5. Persistent atrial fibrillation. Patient is not a candidate for anticoagulation at this point in time, he never tolerated anticoagulation he has been in chronic atrial fibrillation has episodes of ventricular tachycardia as well he was started on mexiletine per cardiology, he will be started on Lasix 40 mg IV push every 12 hours as well. Will try to wean the patient down on his Levophed drip. 6. Right lower extremity multiple wound rule out cellulitis likely related to venous ulceration with delayed healing. Continue patient on cefepime 2 g piggyback every 12 hours and vancomycin. 7. Severe hyponatremia due to hypervolemia. Has been stable. 8. Mild hyperkalemia. Resolved. 9. Diabetes mellitus type 2. His blood glucose level appears to be good at this time, patient is not take any medication as an outpatient. Continue sliding scale insulin. 10. Obesity with obstructive sleep apnea. Patient currently on the ventilator. 11. Allergic rhinitis. Currently patient on loratadine 10 mg orally once every day. 12. Recent cataract surgery continue with current eyedrops. 13. DVT prophylaxis. None provided at this time. 14. GI prophylaxis. Continue patient on Protonix 40 mg IV push every 12 hours 15. No code 15. Prognosis is dismal. Objective - Vital Signs Vital signs: Vital Signs Temp 99.3 F 07/20/24 08:00 Pulse 120 H 07/20/24 11:30 Resp 33 H 07/20/24 11:30 BP 72/47 07/17/24 21:30 Pulse Ox 96 07/20/24 11:30 FiO2 40 07/20/24 11:40 Intake & Output 07/19/24 07/20/24 07/20/24 18:59 06:59 18:59 Intake Total 1966.527 912 234 Output Total 680 440 135 Balance 1286.527 472 99 Weight 95.5 kg 96 kg Intake: IV 192 282 104 0.9% NS KVO 20 110 80 Cefepime 2 gm In Sodium 100 100 Chloride 0.9% 100 ml @ 25 mls/hr IVPB Q12HR [facility] Rx #:[id number] Pressure Bags 72 72 24 Intake, IV Titration 1264.527 Amount Norepinephrine 32 mg In 111.527 Sodium Chloride 0.9% 218 ml @ 0.03 MCG/KG/MIN 1. 305 mls/hr IV .Q24H [facility] Rx#:[id number] Sodium Chloride 0.9% 500 500 ml 500 ml @ 999 mls/hr IV .Q31M [facility] Rx#:[id number] Vancomycin 1,500 mg In 500 Sodium Chloride 0.9% 500 ml 500 ml @ 167 mls/hr IVPB Q24H [facility] Rx#: [id number] Vasopressin 60 unit In 153 Sodium Chloride 0.9% 150 ml @ 0.03 UNITS/MIN 4.59 mls/hr IV .Q24H [facility] Rx#: [id number] Tube Feeding 380 540 100 Other 130 90 30 Output: Urine 680 440 135 Other: Voiding Method Indwelling Catheter Indwelling Catheter Indwelling Catheter ABP, PAP, CO, CI - Last Documented Arterial Blood Pressure 124/48 - Labs CBC & Chem 7: 07/21/24 05:15 07/21/24 05:15 Labs: Abnormal Lab Results - Last 24 Hours (Table) 07/19/24 07/19/24 07/19/24 Range/Units 04:25 17:37 23:50 WBC (3.8-10.6) k/uL RBC (4.30-5.90) m/uL Hgb (13.0-17.5) gm/dL Hct (39.0-53.0) % MCHC (31.0-37.0) g/dL RDW (11.5-15.5) % ABG Total CO2 (19-24) mmol/L ABG O2 Saturation (94-97) % Hemoglobin (13.0-17.5) gm/dL Chloride (98-107) mmol/L BUN (9-20) mg/dL Creatinine (0.66-1.25) mg/dL Glucose (74-99) mg/dL POC Glucose (mg/dL) 175 H 197 H (70-110) mg/dL Calcium (8.4-10.2) mg/dL Creatine Kinase 728 H (55-170) U/L 07/20/24 07/20/24 07/20/24 Range/Units 04:50 05:42 05:42 WBC 21.6 H (3.8-10.6) k/uL RBC 3.49 L (4.30-5.90) m/uL Hgb 9.4 L (13.0-17.5) gm/dL Hct 30.3 L (39.0-53.0) % MCHC 30.9 L (31.0-37.0) g/dL RDW 18.8 H (11.5-15.5) % ABG Total CO2 25 H (19-24) mmol/L ABG O2 Saturation 98.0 H (94-97) % Hemoglobin 9.4 L (13.0-17.5) gm/dL Chloride 113 H (98-107) mmol/L BUN 46 H (9-20) mg/dL Creatinine 1.50 H (0.66-1.25) mg/dL Glucose 188 H (74-99) mg/dL POC Glucose (mg/dL) (70-110) mg/dL Calcium 7.9 L (8.4-10.2) mg/dL Creatine Kinase (55-170) U/L 07/20/24 Range/Units 11:50 WBC (3.8-10.6) k/uL RBC (4.30-5.90) m/uL Hgb (13.0-17.5) gm/dL Hct (39.0-53.0) % MCHC (31.0-37.0) g/dL RDW (11.5-15.5) % ABG Total CO2 (19-24) mmol/L ABG O2 Saturation (94-97) % Hemoglobin (13.0-17.5) gm/dL Chloride (98-107) mmol/L BUN (9-20) mg/dL Creatinine (0.66-1.25) mg/dL Glucose (74-99) mg/dL POC Glucose (mg/dL) 160 H (70-110) mg/dL Calcium (8.4-10.2) mg/dL Creatine Kinase (55-170) U/L Microbiology - Last 24 Hours (Table) 07/19/24 11:01 Gram Stain - Preliminary Sputum
--- NOTE | 2024-07-21 16:18 | P.DS ---
Providers Date of admission: 07/12/24 19:55 Expected date of discharge: 07/21/24 Attending physician: Loretta Levi Consults: 07/13/24 17:03 Consult Physician Routine Consulting Provider: Donnell Randall Consult Reason/Comments: hypotension Do you want consulting provider notified?: Already Contacted 07/13/24 18:06 Consult Physician Routine Consulting Provider: Anna Hardy Consult Reason/Comments: no pulse to right foot Do you want consulting provider notified?: Yes 07/15/24 10:26 Consult Physician Urgent Consulting Provider: Bobo Xiao Consult Reason/Comments: Ischemic cardiomyopathy/ Afib Do you want consulting provider notified?: Yes 07/15/24 12:16 Consult Physician Routine Consulting Provider: Yuval Gonzales Consult Reason/Comments: gi bleed Do you want consulting provider notified?: Yes 07/16/24 03:08 Consult Physician Urgent Consulting Provider: Heather Cortes Consult Reason/Comments: GI bleed Do you want consulting provider notified?: Yes, Notify in am Primary care physician: Loretta Levi Hospital Course: HISTORY OF PRESENT ILLNESS: This is a 73-year-old male used to be my patient for many years, he had left [place] and went to [place] for about 7 years he just got back about 3 months ago, and he was in my office yesterday for the first time as a new patient he is well-known to have a significant history of coronary artery disease status post coronary artery bypass graft x 3 in 2004 with ischemic cardiomyopathy status post AICD/biventricular pacemaker that was 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 off 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 prior to him going to [place], hypertension hypertensive cardiovascular disease, diabetes mellitus type 2 diabetic polyneuropathy, history of obstructive sleep apnea, history of COPD, history of PAD, patient came to my office as a new patient yesterday and he was tremendous amount of shortness of breath, he was on oxygen at that time, he was having fluid weeping out his upper extremity and the left upper extremity as well as both lower extremity has wounds on his right lower extremity due to venous ulceration due to abrasion due to fall, patient was directed to go to the emergency department for evaluation of acute systolic heart failure his family to come to the ER, patient was found to have an elevated BNP, he was started on IV Lasix 80 mg IV push every 12 hours, patient became hypotensive in the emergency department, hypoxemic as well, intensive care consultation was obtained from Dr. Randall who accepted the patient to the ICU, patient will be seen in consultation by cardiology as well for further evaluation recommendation, most of his medication were held because of his hypotension, we will adjust his IV diuretics at this time untilhe is moved into the ICU and he is seen by cardiology. 07/14: Patient is sitting up in bed currently on 4 L nasal cannula, he appears to be in mild respiratory distress, he is dozing on and off, his was at the bedside, his blood pressure currently 82/42 on Levophed drip, patient was seen earlier by vascular surgery patient does have a Doppler signal on the right stronger in the left in the dorsalis pedis, and patient had a venous Doppler that was negative for DVT, patient is not a good candidate for any vascular intervention at this point in time, we will continue the patient on Xarelto as the patient refused to go on heparin drip at this time, continue current treatment plan, discussed with the the prognosis is poor but will take it 1 day at a time at this point. 07/15: Patient is laying down in bed he appears to be generally weak, his Levophed drip is higher, he did have an episode of a large episode of maroon- colored blood coming out of the rectum, he is still making decent amount of urine, he continues to be holding his own, discontinue aspirin, discontinue Xarelto completely, we will obtain general surgery consultation for standby, regarding GI bleed, we will follow-up with the patient very closely, patient remains in the ICU, continues to have very poor prognosis at this point in time due to his cardiomyopathy as well as other morbid conditions. 07/16: Patient is laying down in bed on his CPAP, he is currently on Levophed drip at 0.3 mics per KG per minute, his blood pressures around 102/55, heart rate is around 122 he continues to have a chronic atrial fibrillation, he had episode of V. tach's on and off, when he was started on dobutamine drip, he was taken off that, he continues to be on Levophed drip at this point in time, I spoke with Dr. Cortes regarding his GI bleed and she will be happy to see the patient for Acharya in the morning, general surgery were consulted yesterday, patient did receive 4 units of packed red blood cells, his last hemoglobin was 11 by the time I seen the patient 11.3 repeat still pending at the time of dictation, will repeat his hemoglobin again at 6:00 in the morning, we will keep the patient on nothing per mouth, continue Protonix 40 mg IV push every 12 hours, I spoke with the patient's family his and his daughter at the bedside and I told him that his prognosis is very poor at this point in time, the patient is not a good candidate for any transfer at this point in time, unless we are not able to control his bleeding, patient's family were in understanding that his prognosis very poor at this point in time, we will continue with the current CODE STATUS, but patient stated that he is okay with intubation if he has to go for a procedure regarding his GI bleed. Patient will not be a candidate for any anticoagulation or any amiodarone due to his toxicity and GI bleed. 07/17: Patient was intubated yesterday due to his acute hypoxemic respiratory failure due to combination of acute systolic heart failure as well as acute GI bleed to protect the airways as well, patient underwent an EGD by Dr. Cortes that showed duodenal ulcer that was treated with injection as well as with clip placement, patient has not had any further GI bleed at this point in time he continues to have FMS in place, he has been on Protonix 40 mg IV push every 12 hours, he continues to be sedated on the ventilator, he continues to be on Levophed, he continues to be on vasopressin, we will try to decrease his Levophed slowly to try to keep his blood pressure around 85 to 90 mmHg, we will monitor the patient very closely had a long conversation with his that patient prognosis is very dismal at this point in time, we will continue to work with the patient at this time, discussed with cardiology as well as pulmonary/critical care the need to start the patient on IV antibiotic he was on Unasyn which was taken off we will restart the patient back on cefepime maybe 2 g IV piggyback every 12 hours, due to leukocytosis at this point in time rule out any sepsis at this point. 07/18: Patient continues to be intubated on the ventilator, they tried to wean his propofol down yesterday, his awake, he shakes his head, he opens and closes his eyes, he continues to be on significant amount of Levophed, he is currently on an FiO2 of 40%, continue current ventilatory support, he was started on cefepime, we will monitor the patient very closely, I had a long conversation with his , who is interested in trying to wean the patient off the ventilator at this point in time, I had a long conversation with her about the amount of pressures that the patient is requiring right now, we will continue to monitor the patient for the next 24 hours, all trying to do the weaning over the next 1 or 2 days. 07/19: Patient remains on the ventilator currently on FiO2 of 40%, and PEEP of 5, his Levophed is down to 0.22 mics per kilogram per minute, he is currently on vasopressin at 0.05 mics per minute, will continue to follow-up with the patient very closely, the patient's was at the bedside, she was interested to try to wean the patient off into the BiPAP machine since her son is coming out from [place] later on this evening, hopefully will try that tomorrow morning and patient is aware that the prognosis is very guarded at this point in time, and he may not even make it off the ventilator but we will continue to monitor will discuss with cardiology as well as pulmonary and critical care. 07/20: Patient is extubated into a BiPAP with an FiO2 of 100%, patient is not doing well at this point his family wanted him to be comfortable at this time, we will try to wean the patient off pressors at this time, patient is at end-of-life, likely will go into comfort care in the next 24 hours. 07/21: Placed on comfort care, and he had passed on 1509 family were at the bedside, condolences were given to all the family members body will be released. Discharge diagnoses: 1. 1. Acute vent dependent hypoxemic respiratory failure due to acute systolic heart failure in a patient with a prior history of ischemic cardiomyopathy post AICD/PPM, 2. Cardiogenic shock rule out septic shock. 3. Upper GI bleed due to duodenal ulcer status post 4 units of packed red blood cell transfusion status post EGD with instrumentation with clips and injection by Dr. Cortes 4. Acute ischemic right lower extremity with no Doppler signal 5. Persistent atrial fibrillation. 6. Right lower extremity multiple wound rule out cellulitis likely related to venous ulceration with delayed healing. 7. Severe hyponatremia due to hypervolemia. 8. Mild hyperkalemia. Resolved. 9. Diabetes mellitus type 2. 10. Obesity with obstructive sleep apnea. 11. Allergic rhinitis. Currently patient on loratadine 10 mg orally once every day. 12. Recent cataract surgery 13. Acute blood loss anemia status post 4 units of packed red blood cell transfusion Patient Condition at Discharge: Serious Plan - Discharge Summary Discharge Rx Participant: Yes New Discharge Prescriptions: No Action Nitroglycerin Sl Tabs [Nitrostat] 0.4 mg SUBLINGUAL Q5M PRN PRN Reason: Chest Pain Aspirin [Adult Low Dose Aspirin EC] 81 mg PO DAILY ALPRAZolam [Xanax] 0.25 mg PO BID Spironolactone [Aldactone] 25 mg PO DAILY #30 tab lisinopriL [Zestril] 2.5 mg PO DAILY Metoprolol Succinate (ER) [Toprol Xl] 25 mg PO BID Furosemide [Lasix] 80 mg PO BID Cholecalciferol [Vitamin D3 (125 Mcg = 5000 Iu)] 125 mcg PO DAILY Magnesium Oxide [Magnesium] 500 mg PO BID guaiFENesin [Mucinex] 600 mg PO TID Loratadine [Claritin] 10 mg PO DAILY Rosuvastatin Calcium [Crestor] 40 mg PO DAILY Discharge Medication List ALPRAZolam [Xanax] 0.25 mg PO BID 05/23/16 [History] Aspirin [Adult Low Dose Aspirin EC] 81 mg PO DAILY 05/23/16 [History] Nitroglycerin Sl Tabs [Nitrostat] 0.4 mg SUBLINGUAL Q5M PRN 05/23/16 [History] Spironolactone [Aldactone] 25 mg PO DAILY #30 tab 07/17/16 [Rx] Cholecalciferol [Vitamin D3 (125 Mcg = 5000 Iu)] 125 mcg PO DAILY 07/13/24 [History] Furosemide [Lasix] 80 mg PO BID 07/13/24 [History] Loratadine [Claritin] 10 mg PO DAILY 07/13/24 [History] Magnesium Oxide [Magnesium] 500 mg PO BID 07/13/24 [History] Metoprolol Succinate (ER) [Toprol Xl] 25 mg PO BID 07/13/24 [History] Rosuvastatin Calcium [Crestor] 40 mg PO DAILY 07/13/24 [History] guaiFENesin [Mucinex] 600 mg PO TID 07/13/24 [History] lisinopriL [Zestril] 2.5 mg PO DAILY 07/13/24 [History] Follow up Appointment(s)/Referral(s): Loretta Levi MD [Primary Care Provider] - 1-2 days
[2024-07-25 22:40] LABS: LD Isoenzymes 1 25 % (18-32); LD Isoenzymes 2 41 % (29-42); LD Isoenzymes 3 16 % (14-30); LD Isoenzymes 4 6 % (6-13); LD Isoenzymes 5 12 % (5-18); Lactacte Dehydrogenase(LD) ISO 172 U/L (120-250)
== END 2024-07-21 17:15 | disposition expired | DRG 291 ==
LOC: EC 16:05 → 3SCARD 19:55 → 2SICU 07-13 14:06
PROVIDERS: ADMIT Internal Medicine; ATTEND Internal Medicine
PROC: 3E033XZ Introduction of Vasopressor into Peripheral Vein, Percutaneous Approach (ICD-10-PCS; principal; 2024-07-14)
PROC: 30233N1 Transfusion of Nonautologous Red Blood Cells into Peripheral Vein, Percutaneous Approach (ICD-10-PCS; 2024-07-15)
PROC: 02HV33Z Insertion of Infusion Device into Superior Vena Cava, Percutaneous Approach (ICD-10-PCS; 2024-07-16)
PROC: 03HY32Z Insertion of Monitoring Device into Upper Artery, Percutaneous Approach (ICD-10-PCS; 2024-07-16)
PROC: 4A133B1 Monitoring of Arterial Pressure, Peripheral, Percutaneous Approach (ICD-10-PCS; 2024-07-16)
PROC: 4A133J1 Monitoring of Arterial Pulse, Peripheral, Percutaneous Approach (ICD-10-PCS; 2024-07-16)
PROC: 0BH17EZ Insertion of Endotracheal Airway into Trachea, Via Natural or Artificial Opening (ICD-10-PCS; 2024-07-16)
PROC: 5A1945Z Respiratory Ventilation, 24-96 Consecutive Hours (ICD-10-PCS; 2024-07-16)
PROC: 0W3P8ZZ Control Bleeding in Gastrointestinal Tract, Via Natural or Artificial Opening Endoscopic (ICD-10-PCS; 2024-07-17)
PROC: 3E0G8GC Introduction of Other Therapeutic Substance into Upper GI, Via Natural or Artificial Opening Endoscopic (ICD-10-PCS; 2024-07-17)
DX: I13.0 Hypertensive heart and chronic kidney disease with heart failure and stage 1 through stage 4 chronic kidney disease, or unspecified chronic kidney disease (principal); I50.23 Acute on chronic systolic (congestive) heart failure; K26.4 Chronic or unspecified duodenal ulcer with hemorrhage; J96.21 Acute and chronic respiratory failure with hypoxia; L03.115 Cellulitis of right lower limb; D62 Acute posthemorrhagic anemia; E87.1 Hypo-osmolality and hyponatremia; I48.21 Permanent atrial fibrillation; N17.9 Acute kidney failure, unspecified; I47.20 Ventricular tachycardia, unspecified; L97.312 Non-pressure chronic ulcer of right ankle with fat layer exposed; L97.822 Non-pressure chronic ulcer of other part of left lower leg with fat layer exposed; Z66 Do not resuscitate; Z51.5 Encounter for palliative care; E11.22 Type 2 diabetes mellitus with diabetic chronic kidney disease; R57.1 Hypovolemic shock; R57.0 Cardiogenic shock; E11.42 Type 2 diabetes mellitus with diabetic polyneuropathy; E11.51 Type 2 diabetes mellitus with diabetic peripheral angiopathy without gangrene; E11.621 Type 2 diabetes mellitus with foot ulcer; E66.9 Obesity, unspecified; J44.9 Chronic obstructive pulmonary disease, unspecified; N18.9 Chronic kidney disease, unspecified; I08.1 Rheumatic disorders of both mitral and tricuspid valves; I27.22 Pulmonary hypertension due to left heart disease; G47.33 Obstructive sleep apnea (adult) (pediatric); Z68.29 Body mass index [BMI] 29.0-29.9, adult; E78.2 Mixed hyperlipidemia; I27.23 Pulmonary hypertension due to lung diseases and hypoxia; E87.5 Hyperkalemia; I25.10 Atherosclerotic heart disease of native coronary artery without angina pectoris; J30.9 Allergic rhinitis, unspecified; I99.8 Other disorder of circulatory system; I25.5 Ischemic cardiomyopathy; I25.2 Old myocardial infarction; Z79.899 Other long term (current) drug therapy; Z79.82 Long term (current) use of aspirin; Z87.891 Personal history of nicotine dependence; Z95.1 Presence of aortocoronary bypass graft; Z95.810 Presence of automatic (implantable) cardiac defibrillator; Z79.84 Long term (current) use of oral hypoglycemic drugs; Z79.51 Long term (current) use of inhaled steroids; Z79.4 Long term (current) use of insulin; Z79.01 Long term (current) use of anticoagulants
CPT/HCPCS: 36415; 36430; 43255; 71045; 71046; 80048; 80053; 82272; 82533; 82550; 82805; 83036; 83605; 83625; 83735; 83880; 84132; 84145; 84484; 85025; 85027; 85610; 85730; 86850; 86900; 86901; 86920; 87040; 87070; 87077; 87186; 87205; 93005; 93306; 93922; 94003; 94640; 94660; 94760; 96365; 96366; 96367; 96375; 96376; 99285